=== PATIENT | female | born 1955 | race Caucasian/White ===

== ENCOUNTER 2018-09-04 11:44 | Observation (INO) | payer BC ==
[~2018-09-04] VITALS: Ht 172.7 cm; Wt 82.6 kg
[~2018-09-04 11:44] MED LIST: ABILIFY2 MG PO; AMLODIPINE BESY10 MG PO; ASACOL400 MG PO; ASPIR 8181 MG PO; BYSTOLIC10 MG PO; CLONIDINE HCL0.1 MG PO; HYDRALAZINE HCL10 MG PO; HYZAAR 100-12.1 EACH PO; PROMETHAZINE12.5 M1 PO; PROZAC20 MG PO
--- OUTSIDE RECORDS SUMMARY | 2018-09-04 11:49 | XMS REPORT ---
Author [facility] Address Unknown Phone Unavailable Care Team Providers Care Photoengraving Helper Name Role Phone Unavailable Unavailable Payers Payer Name Policy Type Policy Number Effective Date Expiration Date Problems This patient has no known problems. Allergies, Adverse Reactions, Alerts Allergy Name Allergy Type Status Severity Reaction(s) Onset Date Inactive Date Treating Clinician Comments prochlorperazine edisylate DA Active 2018-07-05 00:00:00 prochlorperazine maleate DA Active 2018-07-05 00:00:00 metoclopramide HCl DA Active SV 2018-07-05 00:00:00 ketorolac tromethamine DA Active 2018-07-05 00:00:00 morphine DA Active SV 2018-07-05 00:00:00 prochlorperazine edisylate DA Active 2017-07-22 00:00:00 prochlorperazine maleate DA Active SV 2017-07-22 00:00:00 metoclopramide HCl DA Active SV 2017-07-22 00:00:00 ketorolac tromethamine DA Active SV 2017-07-22 00:00:00 morphine DA Active SV 2017-07-22 00:00:00 Medications This patient has no known medications.
[2018-09-04] MEDS ORDERED: ASPIRIN 81 MG CHEW TAB PO ONE (12:00)
[2018-09-04 13:31] LABS: BASOPHILS # (AUTO) 0.1 (0.0-0.1); BASOPHILS % 0.9 % (0.0-1.0); EOSINOPHILS # (AUTO) 0.2 (0.0-0.4); EOSINOPHILS % 2.7 % (0.0-6.0); HEMATOCRIT 36.8 % (34.2-44.1); HEMOGLOBIN 11.7 g/dL (12.0-16.0); LYMPHOCYTES # (AUTO) 1.6 (1.0-3.2); LYMPHOCYTES % 25.2 % (18.0-39.1); MEAN CORPUSCULAR HGB CONC 31.8 g/dL (31-35); MONOCYTES # (AUTO) 0.6 (0.2-0.8); MONOCYTES % 8.7 % (4.4-11.3); NEUTROPHILS # (AUTO) 3.9 (2.1-6.9); NEUTROPHILS % 62.2 % (38.7-80.0); PLATELET COUNT 195 x10e3/uL (140-360); RED BLOOD COUNT 4.33 x10e6/uL (3.6-5.1); RED CELL DISTRIBUTION WIDTH 13.7 % (11.7-14.4)
[2018-09-04] MEDS ORDERED: PROMETHAZINE 12.5MG/ NACL 0.9% 12.5 MG/50 ML BAG IV ONE (13:45)
[2018-09-04 13:56] LABS: ALANINE AMINOTRANSFERASE 34 IU/L (0-55); ALBUMIN 3.6 g/dL (3.5-5.0); ALBUMIN/GLOBULIN RATIO 0.9 (0.8-2.0); ALKALINE PHOSPHATASE 125 IU/L (40-150); ANION GAP 14.4 mmol/L (8-16); BLOOD UREA NITROGEN 19 mg/dL (7-26); BUN/CREATININE RATIO 16 (6-25); CALCIUM 9.6 mg/dL (8.4-10.2); CARBON DIOXIDE 24 mmol/L (22-29); CHLORIDE 104 mmol/L (98-107); CREATINE KINASE 47 IU/L (29-168); CREATININE, SERUM 1.17 mg/dL (0.57-1.11); EST GLOMERULAR FILTRATION RATE 47 ML/MIN (60-); GLUCOSE 101 mg/dL (74-118); POTASSIUM 3.4 mmol/L (3.5-5.1); SODIUM 139 mmol/L (136-145)
[2018-09-04] MEDS: MORPHINE SULFATE INJ 4 MG/ML INJ IV PRN (14:45)
[2018-09-04] MEDS ORDERED: HYDRALAZINE HCL 20 MG/ML VIAL IV STA (14:53)
--- NOTE | 2018-09-04 15:41 | Diagnostic Imaging Report ---
EXAMINATION: PA and lateral views of the chest. COMPARISON: None CLINICAL HISTORY: Chest pain, abnormal EKG DISCUSSION: Left subclavian port catheter tip projects over the upper SVC. Right subclavian port catheter tip projects over the low SVC. Bilateral breast implants. Spinal fusion hardware partially visualized. Lungs are well-inflated and without focal airspace consolidation, pleural effusion, or pneumothorax rate cardiomediastinal contour is partially obscured by overlying hardware and breast implants. Tortuous thoracic aorta, with otherwise normal heart size. No overt pulmonary edema. No acute osseous abnormality. IMPRESSION: Port catheters and surgical hardware in position as above. Clear lungs. Signed by: Dr. Max Austin M.D. on 09/04/2018 3:37 PM
[2018-09-04 15:45] LABS: BILIRUBIN,URINE NEGATIVE (NEGATIVE); CLARITY,URINE HAZY (CLEAR); COLOR,URINE YELLOW (YELLOW); KETONES,URINE NEGATIVE (NEGATIVE); LEUKOCYTE ESTERASE ,URINE TRACE (NEGATIVE); NITRITE,URINE NEGATIVE (NEGATIVE); PROTEIN,URINE DIPSTICK 1+ (NEGATIVE); URINE UROBILINOGEN 0.2 mg/dL (0.2 - 1)
[2018-09-04] MEDS ORDERED: KETOROLAC TROMETHAMINE 30 MG/ML VIAL IV STA (16:00)
[2018-09-04 16:09] LABS: BACTERIA,URINE FEW /HPF; EPITHELIAL CELLS,URINE FEW /LPF; RBC,URINE 0-5 /HPF (0-5); WBC,URINE (MAN) 21-50 /HPF (0-5)
[2018-09-04] MEDS ORDERED: MORPHINE SULFATE INJ 4 MG/ML INJ IV ONE (16:30)
[2018-09-04 17:04] LABS: INR 0.88; PROTHROMBIN TIME 12.8 seconds (11.9-14.5)
[2018-09-04] MEDS ORDERED: HYDROMORPHONE 1MG/1ML INJ IV STA (17:05)
[2018-09-04] MEDS ORDERED: HYDROMORPHONE 2MG/ML 2 MG/ML ML IV ONE (17:30)
[2018-09-04] MEDS ORDERED: MORPHINE SULFATE 2 MG/ML SYR IV PRN (18:00)
[2018-09-04 22:25] LABS: CREATINE KINASE 35 IU/L (29-168)
[2018-09-04] MEDS ORDERED: NITROGLYCERIN0.4 MG SL (23:25)
[2018-09-04] MEDS ORDERED: ABILIFY10 MG PO (23:25)
[2018-09-04] MEDS ORDERED: ATORVASTATIN CA40 MG PO (23:25)
[2018-09-04] MEDS ORDERED: BUMETANIDE0.5 MG PO (23:25)
[2018-09-04] MEDS ORDERED: CARVEDILOL3.125 MG PO (23:25)
[2018-09-04] MEDS ORDERED: RANEXA500 MG PO (23:25)
[2018-09-04] MEDS ORDERED: ASPIR 8181 MG PO (23:25)
[2018-09-04 23:45] VITALS: BP 161/77
[2018-09-05] VITALS: BP 161/77
[2018-09-05] MEDS: ONDANSETRON HCL INJ 2 MG/ML VIAL IV PRN ×5 (04:02→17:10)
[2018-09-05] MEDS: MORPHINE SULFATE INJ 4 MG/ML INJ IV PRN ×7 (04:02→21:20)
[2018-09-05 06:24] LABS: CREATINE KINASE 37 IU/L (29-168)
[2018-09-05 07:59] VITALS: BP 130/72
[2018-09-05 08:06] LABS: CHOL/HDL RATIO 2.5 (3.0-3.6)
[2018-09-05 11:41] VITALS: BP 133/63
[2018-09-05] MEDS ORDERED: NITROGLYCERIN 0.4 MG SUBL SL SCH (13:00)
[2018-09-05] MEDS ORDERED: HYDRALAZINE HCL 10 MG TAB PO SCH (13:00)
[2018-09-05] MEDS: CLONIDINE HCL 0.1 MG TAB PO SCH ×3 (13:23→21:00)
[2018-09-05 15:28] VITALS: BP 144/77
[2018-09-05] MEDS: CARVEDILOL 3.125 MG TAB PO SCH (16:40)
[2018-09-05] MEDS: RANOLAZINE 500 MG TABSR PO SCH (16:40)
[2018-09-05] MEDS: HYDRALAZINE HCL 25 MG TAB PO SCH ×2 (17:27→21:00)
[2018-09-05 20:00] VITALS: BP 111/59
[2018-09-05] MEDS: ATORVASTATIN 40 MG TAB PO SCH (21:20)
[2018-09-06] VITALS (9 sets, daily range): BP systolic 98–141; BP diastolic 22–75
--- NOTE | 2018-09-06 00:12 | History and Physical ---
HISTORY OF PRESENT ILLNESS: This 63-year-old presented to the emergency room with chest pain. The patient was seen on August 31, 2018, complaining of severe chest pain, shortness of breath and extreme weakness and decrease in her daily activities. At that time, her blood pressure was normal and an electrocardiogram was also normal. The patient had a non-STEMI when she was admitted on July 05, 2018, at [facility] with a syncopal spell. At that time, the patient was stable and nuclear stress test showed apical scar. The patient was given antianginal medication and was told to report back on August 05, 2018. The patient stated the medication has not helped and she is still having the pain radiating to her left shoulder and her back. An EKG showed ST depression in the anterolateral region. The patient was therefore advised to be hospitalized, particularly since she also now had accelerated hypertension with a blood pressure of 180/110 despite medical management. PAST HISTORY: Reveals that she has malignant renovascular hypertension with stenting of the renal arteries and found to have nonfunctioning right kidney. She also had repair of an abdominal aortic aneurysm, history of coronary artery disease, mitral valve prolapse, DVT, and placement of an IVC filter in 1997. The patient also has a history of mesenteric ischemia and stenting of the superior mesenteric artery in 2004, she has chronic kidney disease, ulcerative colitis, Crohn disease, severe migraine headaches. She also had juvenile scoliosis treated with a Alicia yassine. She had cholecystectomy, hysterectomy, breast implant surgery,repair of cleft lip. She also had previous cerebrovascular accident in the right basal ganglia and she has bilateral subclavian Port-A-Cath inserted because of poor venous access. ALLERGIES: SHE IS ALLERGIC TO REGLAN, MORPHINE, TORADOL, COMPAZINE, AND IMITREX. SOCIAL HISTORY: Negative. FAMILY HISTORY: Noncontributory. REVIEW OF SYSTEMS: Remainder of systems reviewed, revealed the patient denies any fever, headache or sore throat. The patient denies any cough or sputum production. The patient denies any abdominal pain, nausea, vomiting, diarrhea or constipation. The patient denies any leg pain or leg swelling. PHYSICAL EXAMINATION VITAL SIGNS: Blood pressure 133/63. Temperature is 98.3. Oxygen saturation on room air is 94%. NECK: Carotid pulses are present. CHEST: Clear to auscultation. CARDIOVASCULAR: Normal apical impulse. The rhythm is regular. First and second are normal. There is no S3. There is no rub. ABDOMEN: Soft. There is no tenderness or organomegaly. EXTREMITIES: Pulses are 2+ throughout. There is no peripheral edema. Homans sign is negative. NEUROLOGIC: Does not reveal any motor defect. IMPRESSION 1. History of coronary artery disease with unstable angina pectoris. 2. Malignant renovascular hypertension. 3. Chronic kidney disease with solitary kidney. 4. History of migraine headaches. PLAN: Since the patient had non-STEMI in July and now presenting with unrelenting chest pain, I told the patient that she will need coronary angiography and we will hydrate the patient orally and if necessary intravenously to prevent any kidney injury due to contrast. According to the earliest available scheduling in the laboratory [facility], the patient is scheduled for the September 06, 2018, for cardiac catheterization. The patient is fully agreeable and risks have been explained in detail. Job#: [id number] [facility]
[2018-09-06] MEDS: MORPHINE SULFATE INJ 4 MG/ML INJ IV PRN ×5 (01:33→21:21)
[2018-09-06] MEDS: ONDANSETRON HCL INJ 2 MG/ML VIAL IV PRN ×4 (01:33→18:16)
[2018-09-06] MEDS ORDERED: NON-FORMULARY MEDICATION (Aripiprazole (Abilify) 10 MG) PO SCH (09:00)
[2018-09-06] MEDS: HYDRALAZINE HCL 25 MG TAB PO SCH ×5 (09:00→21:20)
[2018-09-06] MEDS: CLONIDINE HCL 0.1 MG TAB PO SCH ×5 (09:00→21:00)
[2018-09-06] MEDS ORDERED: NON-FORMULARY MEDICATION (Atorvastatin Calcium 40 MG) PO SCH (09:00)
[2018-09-06] MEDS ORDERED: BUMETANIDE 0.5 MG PO SCH (09:00)
[2018-09-06] MEDS: ARIPIPRAZOLE 5 MG TABLET PO SCH (09:33)
[2018-09-06] MEDS: ASPIRIN 81 MG CHEW TAB PO SCH (09:33)
[2018-09-06] MEDS: BUMETANIDE 1 MG TAB PO SCH (09:34)
[2018-09-06] MEDS: AMLODIPINE BESYLATE 10 MG TAB PO SCH (09:34)
[2018-09-06] MEDS: FLUOXETINE HCL 20 MG CAP PO SCH (09:34)
[2018-09-06] MEDS: CARVEDILOL 3.125 MG TAB PO SCH ×2 (09:34→16:40)
[2018-09-06] MEDS: RANOLAZINE 500 MG TABSR PO SCH ×2 (09:35→16:41)
[2018-09-06] MEDS: DEXTROSE 5%/0.45% SOD CHL 1,000 ML IV SCH (13:01)
[2018-09-06] MEDS ORDERED: MIDAZOLAM HCL 2 MG/2 ML VIAL ONE (13:20)
[2018-09-06] MEDS ORDERED: SODIUM CHLORIDE 0.9% 1000ML 1,000 ML ONE (13:21)
[2018-09-06] MEDS ORDERED: FENTANYL CITRATE/PF 100MCG/2 ML INJ ONE (13:21)
[2018-09-06] MEDS ORDERED: HEPARIN SOD/SOD CHLORIDE 2,000 ML ONE (13:21)
[2018-09-06] MEDS ORDERED: LIDOCAINE HCL 2% LOCAL 20 ML VIAL ONE ×2 (13:21→14:44)
[2018-09-06] MEDS ORDERED: IOPAMIDOL 370 MG/ML 200 ML INFUS..BTL INJ ONE (13:22)
[2018-09-06] MEDS ORDERED: PROMETHAZINE HCL (IM) 25 MG/ML VIAL ONE (14:37)
[2018-09-06] MEDS: ATORVASTATIN 40 MG TAB PO SCH (21:20)
[2018-09-07 00:17] VITALS: BP 120/63
[2018-09-07] MEDS: ONDANSETRON HCL INJ 2 MG/ML VIAL IV PRN ×3 (00:26→10:10)
[2018-09-07] MEDS: MORPHINE SULFATE INJ 4 MG/ML INJ IV PRN ×3 (00:26→10:10)
[2018-09-07 04:12] VITALS: BP 129/61
[2018-09-07] MEDS: DEXTROSE 5%/0.45% SOD CHL 1,000 ML IV SCH (07:05)
[2018-09-07 08:11] VITALS: BP 133/67
[2018-09-07 08:21] VITALS: BP 133/67
[2018-09-07] MEDS: BUMETANIDE 1 MG TAB PO SCH (09:33)
[2018-09-07] MEDS: ARIPIPRAZOLE 5 MG TABLET PO SCH (09:33)
[2018-09-07] MEDS: ASPIRIN 81 MG CHEW TAB PO SCH (09:33)
[2018-09-07] MEDS: RANOLAZINE 500 MG TABSR PO SCH (09:34)
[2018-09-07] MEDS: HYDRALAZINE HCL 25 MG TAB PO SCH ×2 (09:34→13:00)
[2018-09-07] MEDS: CARVEDILOL 3.125 MG TAB PO SCH (09:34)
[2018-09-07] MEDS: CLONIDINE HCL 0.1 MG TAB PO SCH ×2 (09:34→13:00)
[2018-09-07] MEDS: FLUOXETINE HCL 20 MG CAP PO SCH (09:34)
[2018-09-07] MEDS: AMLODIPINE BESYLATE 10 MG TAB PO SCH (09:34)
[2018-09-07 12:08] VITALS: BP 114/57
--- NOTE | 2018-09-08 09:12 | Operative Report ---
DATE OF PROCEDURE: September 06, 2018 DIAGNOSES: 1. Coronary artery disease with unstable angina pectoris. 2. Malignant renovascular hypertension. PROCEDURES: 1. Cardiac catheterization including selective coronary angiography and left ventricular angiogram. 2. Closure of left femoral artery with Angio-Seal, model V-Twist Integrated Platform. ANESTHESIA: Local anesthetic to the left groin area and intravenous moderate sedation with 1 mg of Versed and 25 mcg of fentanyl. DESCRIPTION OF PROCEDURE: After usual prepping and draping, the left inguinal area was infiltrated with local lidocaine. The left femoral artery was then punctured percutaneously, and under modified Seldinger technique, a 6-Mozambican arterial sheath was placed in the left femoral artery. Selective coronary angiography was then performed by using modified Kaylie catheters. A 6-Mozambican angled pigtail catheter was utilized for recording of hemodynamics and left ventricular angiogram in the 30-degree ARNOLD projection. At the completion of the cardiac catheterization and removal of the pigtail catheter, angiogram of the left inguinal area in the left anterior oblique position was performed prior to closure of the left femoral artery with Angio-Seal. FINDINGS OF CARDIAC CATHETERIZATION: The left ventricular pressure was 140 mmHg. The aortic pressure was 140/72 with a mean of 92 mmHg. The left ventricular end-diastolic pressure was elevated with 14 mmHg. The left main coronary artery was short and showed some early bifurcation. The left anterior descending branch showed about a 30% narrowing at takeoff of a large diagonal branch. On closer review of the left anterior descending angiogram on the initial and various subsequent views, there appears to be an abnormal flow pattern in the mid section of the LAD. This could be caused by streamlining of the contrast. However, observation and recognition of the presence of previous or recent spontaneous dissection of this segment cannot be excluded. Since there was no evidence of flow impairment or flow interruption or any significant obstruction to flow, no intervention appears to be necessary, and with review of the literature, it could be also dangerous by extending the dissection. Therefore, in these circumstances it is better to allow a self-healing process by use of strict blood pressure control, statin, beta blockade, and antiplatelet agents as well as close observation of the patient clinically and by electrocardiogram. The left circumflex artery showed about a 20% stenosis at the origin of the left circumflex trunk. The right coronary artery was large and dominant and showed a proximal 20% stenosis. The left ventricular angiogram showed normal left ventricular ejection fraction of 65%. There was some mild mitral valve prolapse noted, but there was no mitral regurgitation. FINAL IMPRESSION: 1. Mild coronary artery disease with reference of description of the left ventricular angiogram in the detailed catheterization report. 2. Normal left ventricular ejection fraction. 3. Elevation of the left ventricular end-diastolic pressure showing some mild left ventricular dysfunction. RECOMMENDATION: Medical therapy. Job#: [id number]
== END 2018-09-07 15:15 | disposition home or self-care (01) ==
LOC: ER 11:44 → ERHOLD 18:10 → IMCU 23:49
PROVIDERS: ADMIT Internal Medicine Cardiovascular Disease; ATTEND Internal Medicine Cardiovascular Disease
DX: I25.110 Atherosclerotic heart disease of native coronary artery with unstable angina pectoris (principal); I34.1 Nonrheumatic mitral (valve) prolapse; I15.0 Renovascular hypertension; I12.9 Hypertensive chronic kidney disease with stage 1 through stage 4 chronic kidney disease, or unspecified chronic kidney disease; N18.9 Chronic kidney disease, unspecified; K51.90 Ulcerative colitis, unspecified, without complications; G43.909 Migraine, unspecified, not intractable, without status migrainosus; Q60.0 Renal agenesis, unilateral; M19.90 Unspecified osteoarthritis, unspecified site; I25.2 Old myocardial infarction; Z86.73 Personal history of transient ischemic attack (TIA), and cerebral infarction without residual deficits; Z86.718 Personal history of other venous thrombosis and embolism; Z79.82 Long term (current) use of aspirin; Z96.0 Presence of urogenital implants; Z88.8 Allergy status to other drugs, medicaments and biological substances
CPT/HCPCS: 36415 ×2; 71045; 80053; 80061; 81001; 82550 ×2; 82553 ×2; 83880; 84484 ×2; 85025; 85610; 85730; 93005; 93458; 99284; G0378 ×4; J0360; J1170; J1642; J2001; J2250; J2270 ×4; J2405 ×4; J2550; J7030; Q9967

== ENCOUNTER 2018-09-28 15:00 | Inpatient (IN) | payer BC ==
[~2018-09-28] VITALS: Ht 154.4 cm; Wt 83.6 kg
[2018-09-28] MEDS: POTASSIUM CHLORIDE 10MEQ/100ML 100 ML IV SCH ×2 (00:30→19:56)
[~2018-09-28 15:00] MED LIST changes: +ABILIFY10 MG PO; +ATORVASTATIN CA40 MG PO; +BUMETANIDE0.5 MG PO; +CARVEDILOL3.125 MG PO; +NITROGLYCERIN0.4 MG SL; +RANEXA500 MG PO
--- NOTE | 2018-09-28 15:46 | NUR ---
EKG faxed to Dr. Clifford Waddell's office at this time. .
--- NOTE | 2018-09-28 16:54 | Diagnostic Imaging Report ---
EXAM: CHEST 2 VIEWS, PA and lateral DATE: 09/28/2018 3:31 PM Time stamp on exam: 4:02 PM INDICATION: Chest pain COMPARISON: 09/04/2018 FINDINGS: LINES/TUBES: There are bilateral subclavian approach chest port is. Alicia rods are also noted. Calcified breast implants are seen. Partially visualized aortic stent graft below the diaphragm and the cone of an IVC filter is present. LUNGS: No consolidations or edema. PLEURA: No effusions or pneumothorax. HEART AND MEDIASTINUM: Normal size and contour. BONES AND SOFT TISSUES: No acute findings. IMPRESSION: No acute thoracic abnormality. Signed by: Dr. Maksim Holley DO on 09/28/2018 4:51 PM
[2018-09-28] MEDS ORDERED: ONDANSETRON HCL INJ 2 MG/ML VIAL ONE (17:51)
[2018-09-28 18:00] LABS: BASOPHILS # (AUTO) 0.1 (0.0-0.1); BASOPHILS % 0.7 % (0.0-1.0); EOSINOPHILS # (AUTO) 0.1 (0.0-0.4); EOSINOPHILS % 1.2 % (0.0-6.0); HEMATOCRIT 34.2 % (34.2-44.1); HEMOGLOBIN 10.9 g/dL (12.0-16.0); LYMPHOCYTES # (AUTO) 2.2 (1.0-3.2); LYMPHOCYTES % 32.3 % (18.0-39.1); MEAN CORPUSCULAR HEMOGLOBIN 27.5 pg (28-32); MEAN CORPUSCULAR HGB CONC 31.9 g/dL (31-35); MEAN CORPUSCULAR VOLUME 86.1 fL (81-99); MONOCYTES # (AUTO) 0.6 (0.2-0.8); MONOCYTES % 8.9 % (4.4-11.3); NEUTROPHILS # (AUTO) 3.8 (2.1-6.9); NEUTROPHILS % 55.9 % (38.7-80.0); PLATELET COUNT 165 x10e3/uL (140-360); RED BLOOD COUNT 3.97 x10e6/uL (3.6-5.1); RED CELL DISTRIBUTION WIDTH 14.4 % (11.7-14.4)
[2018-09-28] MEDS ORDERED: ONDANSETRON HCL INJ 2 MG/ML VIAL IV NR (18:00)
[2018-09-28] MEDS ORDERED: NITROGLYCERIN 0.4 MG SUBL SL PRN (18:15)
[2018-09-28] MEDS ORDERED: MORPHINE SULFATE 2 MG/ML SYR IV PRN (18:15)
[2018-09-28 18:16] LABS: ALBUMIN 3.6 g/dL (3.5-5.0); ALBUMIN/GLOBULIN RATIO 0.9 (0.8-2.0); ANION GAP 16.7 mmol/L (8-16); CALCIUM 8.6 mg/dL (8.4-10.2); CREATININE, SERUM 1.04 mg/dL (0.57-1.11)
[2018-09-28 18:18] LABS: POTASSIUM 2.7 mmol/L (3.5-5.1)
--- NOTE | 2018-09-28 18:18 | NUR ---
POTTASIUM 2.7
[2018-09-28 18:23] LABS: CREATINE KINASE MB 0.7 ng/mL (0-5.0)
[2018-09-28] MEDS ORDERED: KCL 20MEQ/.9 SOD CHL 1,000 ML IV ONE (18:30)
[2018-09-28] MEDS ORDERED: POTASSIUM CHLORIDE 20 MEQ TAB CR PO NR (18:30)
[2018-09-28 18:43] LABS: INR 1.93; PROTHROMBIN TIME 23.6 seconds (11.9-14.5)
[2018-09-28 19:44] LABS: PARTIAL THROMBOPLASTIN TIME 41.1 seconds (23.8-35.5)
[2018-09-28] MEDS: FAMOTIDINE 20 MG/2 ML VIAL IV SCH (19:56)
[2018-09-28] MEDS: NITROGLYCERIN 2% OINT 1 GM PKT TOP SCH (19:56)
[2018-09-28] MEDS ORDERED: ENOXAPARIN INJ 80 MG/0.8 ML SYR SC NR (20:15)
[2018-09-28 21:00] VITALS: BP 183/85
--- NOTE | 2018-09-28 21:00 | NUR ---
patient is a new admit that arrived via stretcher. patient is awake and talking. patient has been helped into the bed. bed is in lowest position and call lopez is within reach. will continue to monitor patient.
[2018-09-28 22:08] VITALS: BP 183/85
[2018-09-28] MEDS: ONDANSETRON HCL INJ 2 MG/ML VIAL IV PRN (23:19)
[2018-09-28] MEDS: MORPHINE SULFATE INJ 4 MG/ML INJ IV PRN (23:19)
[2018-09-29] VITALS (7 sets, daily range): BP systolic 121–172; BP diastolic 61–84
[2018-09-29] MEDS: NITROGLYCERIN 2% OINT 1 GM PKT TOP SCH ×5 (00:19→23:14)
[2018-09-29 00:38] LABS: CLARITY,URINE CLEAR (CLEAR); COLOR,URINE YELLOW (YELLOW); KETONES,URINE NEGATIVE (NEGATIVE); LEUKOCYTE ESTERASE ,URINE NEGATIVE (NEGATIVE); NITRITE,URINE NEGATIVE (NEGATIVE); PROTEIN,URINE DIPSTICK TRACE (NEGATIVE); URINE UROBILINOGEN 0.2 mg/dL (0.2 - 1)
[2018-09-29 00:39] LABS: BACTERIA,URINE RARE /HPF; BILIRUBIN,URINE NEGATIVE (NEGATIVE); EPITHELIAL CELLS,URINE FEW /LPF; RBC,URINE 0-5 /HPF (0-5); WBC,URINE (MAN) 0-5 /HPF (0-5)
[2018-09-29 03:36] LABS: BASOPHILS % 0.7 % (0.0-1.0); EOSINOPHILS # (AUTO) 0.1 (0.0-0.4); EOSINOPHILS % 1.9 % (0.0-6.0); HEMATOCRIT 33.2 % (34.2-44.1); HEMOGLOBIN 10.4 g/dL (12.0-16.0); LYMPHOCYTES # (AUTO) 1.9 (1.0-3.2); LYMPHOCYTES % 31.7 % (18.0-39.1); MEAN CORPUSCULAR HEMOGLOBIN 27.3 pg (28-32); MEAN CORPUSCULAR HGB CONC 31.3 g/dL (31-35); MEAN CORPUSCULAR VOLUME 87.1 fL (81-99); MONOCYTES # (AUTO) 0.7 (0.2-0.8); MONOCYTES % 11.4 % (4.4-11.3); NEUTROPHILS # (AUTO) 3.2 (2.1-6.9); PLATELET COUNT 156 x10e3/uL (140-360); RED BLOOD COUNT 3.81 x10e6/uL (3.6-5.1); RED CELL DISTRIBUTION WIDTH 14.6 % (11.7-14.4)
[2018-09-29 03:57] LABS: ALBUMIN 3.1 g/dL (3.5-5.0); ALBUMIN/GLOBULIN RATIO 0.9 (0.8-2.0); ANION GAP 13.6 mmol/L (8-16); CALCIUM 8.7 mg/dL (8.4-10.2); CHOL/HDL RATIO 2.6 (3.0-3.6); CREATININE, SERUM 1.11 mg/dL (0.57-1.11); POTASSIUM 3.6 mmol/L (3.5-5.1)
[2018-09-29] MEDS: MORPHINE SULFATE INJ 4 MG/ML INJ IV PRN ×5 (04:01→21:36)
[2018-09-29 04:32] LABS: CREATINE KINASE MB 0.7 ng/mL (0-5.0)
[2018-09-29] MEDS: FAMOTIDINE 20 MG/2 ML VIAL IV SCH ×2 (05:12→17:25)
--- NOTE | 2018-09-29 07:00 | NUR ---
Walking rounds done. Patient instructed to call for assistance as needed and verbalized understanding. AM assessment done. Call lopez within reach.
[2018-09-29] MEDS: ONDANSETRON HCL INJ 2 MG/ML VIAL IV PRN ×4 (08:11→21:36)
[2018-09-29] MEDS ORDERED: ENOXAPARIN INJ 80 MG/0.8 ML SYR SC NR (09:00)
[2018-09-29] MEDS ORDERED: ASPIRIN 81 MG ENTERIC COATED PO SCH (09:00)
--- NOTE | 2018-09-29 10:53 | NUR ---
SOCIAL WORK INITIAL ASSESSMENT Raise Drill Operator to bedside to discuss plan of care with patient/family. CM/SW role and care transitions discussed. Anticipated discharge plan discussed along with duration of care. CM/SW discussed patients right to make decisions in care. CM/SW work hours given. Patient lives: IN HOUSE BY SELF Admit/Transfer: VIA HOME POA/Emergency contact: FRIEND LINH KINSEY Current/Previous Home Health: NONE PCP/Follow-up Care: PABLO Current/Previous DME: NONE Other Services: NONE Employment Status: RETIRED Areas of Concerns: NONE Referral Needs: NONE Education Needs: NONE IMM/BENITEZ given and signed (if applicable): NONE Goal for discharge: RETURN HOME INDEPENDENTLY CM/SW left business card at the bedside with contact information. Name and number was also written on the patients whiteboard. Patient verbalized understanding of discussion. CM will follow-up with ongoing discharge and transition of care needs.
[2018-09-29] MEDS ORDERED: NITROGLYCERIN 0.4 MG SUBL SL PRN (12:15)
[2018-09-29] MEDS ORDERED: CLONIDINE HCL 0.1 MG TAB PO PRN (12:15)
[2018-09-29] MEDS ORDERED: NON-FORMULARY MEDICATION (Aripiprazole (Abilify) 10 MG) PO SCH (12:30)
[2018-09-29] MEDS: FLUOXETINE HCL 20 MG CAP PO SCH (12:47)
[2018-09-29] MEDS: ARIPIPRAZOLE 5 MG TABLET PO SCH (12:47)
[2018-09-29] MEDS: AMLODIPINE BESYLATE 10 MG TAB PO SCH (12:47)
[2018-09-29] MEDS: BUMETANIDE 1 MG TAB PO SCH (12:47)
[2018-09-29] MEDS: SPIRONOLACTONE 25 MG TAB PO SCH (12:47)
[2018-09-29] MEDS ORDERED: HYDRALAZINE HCL 25 MG TAB PO SCH (13:00)
[2018-09-29] MEDS ORDERED: HYDRALAZINE HCL 10 MG TAB PO SCH (13:00)
--- NOTE | 2018-09-29 14:20 | NUR ---
Visit made by the Spiritual Care Department Pastoral Visitor, Soheila Neal. PV provided pastoral presence, prayer, hospitality, and supportive listening. Pastoral Visitor informed pt/family of the scope of Geriatrics Physician Services and availability. RO PAIZ Chief Internal Auditor Spiritual Care Department O: [phone] Pager: [phone] ([phone] number calling from)
[2018-09-29 17:00] LABS: CREATINE KINASE MB 0.8 ng/mL (0-5.0)
[2018-09-29] MEDS: CARVEDILOL 3.125 MG TAB PO SCH (17:24)
[2018-09-29] MEDS: OLMESARTAN 20 MG TAB PO SCH (17:24)
[2018-09-29] MEDS: RANOLAZINE 500 MG TABSR PO SCH (17:25)
--- NOTE | 2018-09-29 19:00 | NUR ---
Report given to oncoming nurse. Call lopez within reach.
[2018-09-29] MEDS: ATORVASTATIN 40 MG TAB PO SCH (20:34)
[2018-09-29] MEDS ORDERED: NON-FORMULARY MEDICATION (Atorvastatin Calcium 40 MG) PO SCH (21:00)
--- NOTE | 2018-09-29 22:14 | Diagnostic Imaging Report ---
Bone Scan, delayed phase INDICATION: Chest pain post fall one month ago. COMPARISON: Chest radiograph 09/28/2018 REPORT: Approximately 4 hours following intravenous administration of 27.5 mCi of Tc-99m MDP, delayed total body images in the anterior and posterior projections and selected spot images were obtained. Kyphoscoliosis of the thoracolumbar spine is noted. Focal increased tracer activity is seen in the upper cervical spine on the left. Round focus of increased tracer is seen in the right 2n rib anterolaterally. Degenerative changes are seen throughout the thoracolumbar spine diffusely. A single discrete focal area of markedly increased tracer activity is seen in T5. Otherwise, distribution of tracer activity is unremarkable throughout the skeletal system. No abnormal accumulation of tracer is seen in the soft tissues or urinary tract. Bilateral breast prostheses are noted. IMPRESSION: 1. Acute osteoblastic focus in the upper cervical spine is likely due to degenerative change. Greater intensity would be expected if were due to trauma. 2. Round osteoblastic lesion in the right 2nd rib anterolaterally is likely a healing rib fracture. 3. Acute osteoblastic process in T5 is nonspecific and could be due to recent trauma or degenerative change. Correlative imaging may be warranted. Signed by: Dr. Heidy Bedoya M.D. on 09/29/2018 10:11 PM
[2018-09-30] VITALS (9 sets, daily range): BP systolic 104–135; BP diastolic 61–72
[2018-09-30] MEDS: MORPHINE SULFATE INJ 4 MG/ML INJ IV PRN ×6 (02:55→22:04)
[2018-09-30] MEDS: ONDANSETRON HCL INJ 2 MG/ML VIAL IV PRN ×5 (02:55→21:51)
[2018-09-30] MEDS: NITROGLYCERIN 2% OINT 1 GM PKT TOP SCH ×3 (03:25→18:00)
[2018-09-30] MEDS: FAMOTIDINE 20 MG/2 ML VIAL IV SCH ×2 (05:25→18:35)
--- NOTE | 2018-09-30 08:18 | NUR ---
HANDOFF REPORT AND WALKING ROUNDS WITH OUTGOING PRODUCT PLANNER NURSE
[2018-09-30] MEDS ORDERED: BUMETANIDE 0.5 MG PO SCH (09:00)
[2018-09-30] MEDS: BUMETANIDE 1 MG TAB PO SCH (09:30)
[2018-09-30] MEDS: CARVEDILOL 3.125 MG TAB PO SCH ×2 (09:30→17:24)
[2018-09-30] MEDS: ARIPIPRAZOLE 5 MG TABLET PO SCH (09:30)
[2018-09-30] MEDS: OLMESARTAN 20 MG TAB PO SCH (09:30)
[2018-09-30] MEDS: SPIRONOLACTONE 25 MG TAB PO SCH (09:30)
[2018-09-30] MEDS: ASPIRIN 81 MG CHEW TAB PO SCH (09:30)
[2018-09-30] MEDS: FLUOXETINE HCL 20 MG CAP PO SCH (09:31)
[2018-09-30] MEDS: RANOLAZINE 500 MG TABSR PO SCH ×2 (09:31→17:24)
[2018-09-30] MEDS: AMLODIPINE BESYLATE 10 MG TAB PO SCH (09:31)
[2018-09-30] MEDS: ATORVASTATIN 40 MG TAB PO SCH (20:45)
--- NOTE | 2018-09-30 21:03 | NUR ---
PT ARRIVING TO UNIT VIA WHEEL CHAIR, NO DISTRESS NOTED, PT ALERT AND ORIENTED, DENIES NEEDS, CALL LIGHT IN REACH, TELEMETRY NOTED, INSTRUCTED TO CALL WITH NEEDS
[2018-10-01] VITALS (9 sets, daily range): BP systolic 105–163; BP diastolic 56–74
[2018-10-01] MEDS: MORPHINE SULFATE INJ 4 MG/ML INJ IV PRN ×5 (02:08→21:06)
[2018-10-01] MEDS: ONDANSETRON HCL INJ 2 MG/ML VIAL IV PRN ×4 (02:09→21:06)
[2018-10-01] MEDS: NITROGLYCERIN 2% OINT 1 GM PKT TOP SCH ×4 (05:42→17:21)
--- NOTE | 2018-10-01 05:43 | NUR ---
PT RESTING IN BED ALERT AND ORIENTED, PT C/O BACK PAIN , CALLED, SANDER TO NAVIN THOMSON, AWAITING RESPONSE, CALL LIGHT IN REACH, INSTRUCTED TO CALL WITH NEEDS, PT BEING MONITORED
[2018-10-01] MEDS: FAMOTIDINE 20 MG/2 ML VIAL IV SCH ×2 (05:50→17:21)
[2018-10-01] MEDS: ACETAMINOPHEN/CODEINE 300MG - 30MG TAB PO PRN (06:58)
[2018-10-01 07:00] LABS: BASOPHILS % 0.6 % (0.0-1.0); EOSINOPHILS # (AUTO) 0.1 (0.0-0.4); EOSINOPHILS % 1.6 % (0.0-6.0); HEMATOCRIT 33.6 % (34.2-44.1); HEMOGLOBIN 10.6 g/dL (12.0-16.0); LYMPHOCYTES # (AUTO) 1.6 (1.0-3.2); MEAN CORPUSCULAR HEMOGLOBIN 27.7 pg (28-32); MEAN CORPUSCULAR HGB CONC 31.5 g/dL (31-35); MONOCYTES # (AUTO) 0.7 (0.2-0.8); MONOCYTES % 10.2 % (4.4-11.3); NEUTROPHILS % 62.3 % (38.7-80.0); PLATELET COUNT 129 x10e3/uL (140-360); RED BLOOD COUNT 3.82 x10e6/uL (3.6-5.1)
[2018-10-01 07:14] LABS: ANION GAP 14.3 mmol/L (8-16); CALCIUM 8.7 mg/dL (8.4-10.2); CREATININE, SERUM 1.24 mg/dL (0.57-1.11); POTASSIUM 3.3 mmol/L (3.5-5.1)
[2018-10-01 07:48] LABS: ERYTHROCYTE SEDIMENTATION RATE 41 mm/hr (0-20)
[2018-10-01] MEDS: ASPIRIN 81 MG CHEW TAB PO SCH (09:26)
[2018-10-01] MEDS: SPIRONOLACTONE 25 MG TAB PO SCH (09:26)
[2018-10-01] MEDS: ARIPIPRAZOLE 5 MG TABLET PO SCH (09:26)
[2018-10-01] MEDS: FLUOXETINE HCL 20 MG CAP PO SCH (09:27)
[2018-10-01] MEDS: BUMETANIDE 1 MG TAB PO SCH (09:27)
[2018-10-01] MEDS: AMLODIPINE BESYLATE 10 MG TAB PO SCH (09:27)
[2018-10-01] MEDS: RANOLAZINE 500 MG TABSR PO SCH ×2 (09:27→17:21)
[2018-10-01] MEDS: CARVEDILOL 3.125 MG TAB PO SCH ×2 (09:27→17:21)
[2018-10-01] MEDS: OLMESARTAN 20 MG TAB PO SCH (09:27)
[2018-10-01] MEDS: IRON SUCROSE 100 MG in SODIUM CHLORIDE 0.9% 100 ML 100 ML IV SCH (14:25)
--- NOTE | 2018-10-01 19:30 | NUR ---
REPORT TAKEN FROM MORNING ANABELA ESTEVES .PT IS LYEING IN THE BED.NO RESP.DISTRESS.NO PAIN VOICED.AAOX4.PHONE AND CALL LIGHT WITHIN REACH.INSTRUCTED TO CALL FOR ASSISTANCE NEEDED.
[2018-10-01] MEDS: ATORVASTATIN 40 MG TAB PO SCH (21:25)
--- NOTE | 2018-10-01 22:00 | NUR ---
NEEDS TO COLLECT STOOL OCCULT BLOOD.EXPLAINED AND PROVIDED SPECIMEN CONTAINER.
[2018-10-02] MEDS: NITROGLYCERIN 2% OINT 1 GM PKT TOP SCH ×4 (00:45→17:40)
[2018-10-02] MEDS: MORPHINE SULFATE INJ 4 MG/ML INJ IV PRN ×4 (00:50→15:42)
[2018-10-02] MEDS: ONDANSETRON HCL INJ 2 MG/ML VIAL IV PRN ×3 (01:00→15:42)
--- NOTE | 2018-10-02 03:20 | NUR ---
PT IS RESTING IN THE BED.STABLE CONDITION.
[2018-10-02] MEDS: FAMOTIDINE 20 MG/2 ML VIAL IV SCH ×2 (05:12→17:40)
--- NOTE | 2018-10-02 06:00 | NUR ---
RIGHT PORT O CATH IS NOT WORKING.NO BLOOD RETURNED.PAGED TO .WAITING FOR THE REPLY.
[2018-10-02 06:55] LABS: INR 0.91; PROTHROMBIN TIME 13.1 seconds (11.9-14.5)
[2018-10-02 06:56] LABS: PARTIAL THROMBOPLASTIN TIME 33.9 seconds (23.8-35.5)
[2018-10-02 06:58] VITALS: BP 100/58
[2018-10-02 07:00] LABS: ANION GAP 12.3 mmol/L (8-16); CALCIUM 8.9 mg/dL (8.4-10.2); CREATININE, SERUM 1.32 mg/dL (0.57-1.11); POTASSIUM 3.3 mmol/L (3.5-5.1)
--- NOTE | 2018-10-02 07:00 | NUR ---
SHIFT REPORT RECEIVED FROM NIGHT RN. PT DENIES NEEDS AT THIS TIME.
--- NOTE | 2018-10-02 07:05 | NUR ---
REPORT GIVEN TO THE ONCOMING RN.WALKING ROUNDS DONE.STABLE CONDITION.
[2018-10-02 07:59] VITALS: BP 119/59
[2018-10-02] MEDS: ARIPIPRAZOLE 5 MG TABLET PO SCH (09:06)
[2018-10-02] MEDS: ASPIRIN 81 MG CHEW TAB PO SCH (09:06)
[2018-10-02] MEDS: BUMETANIDE 1 MG TAB PO SCH (09:06)
[2018-10-02] MEDS: SPIRONOLACTONE 25 MG TAB PO SCH (09:06)
[2018-10-02] MEDS: FLUOXETINE HCL 20 MG CAP PO SCH (09:07)
[2018-10-02] MEDS: AMLODIPINE BESYLATE 10 MG TAB PO SCH (09:07)
[2018-10-02] MEDS: CARVEDILOL 3.125 MG TAB PO SCH ×2 (09:07→17:40)
[2018-10-02] MEDS: RANOLAZINE 500 MG TABSR PO SCH ×2 (09:07→17:00)
--- NOTE | 2018-10-02 10:00 | NUR ---
ATTEMPTED TO ACCESS LEFT PORTACATH. STILL NO BLOOD RETURN.
[2018-10-02] MEDS: ACETAMINOPHEN/CODEINE 300MG - 30MG TAB PO PRN (11:44)
[2018-10-02 12:00] VITALS: BP 121/63
--- NOTE | 2018-10-02 13:39 | NUR ---
CALLED DR. SAN ABOUT SITUATION WITH LEFT AND RIGHT PORTACATH ACCESS. THIS NURSE WAS INSTRUCTED TO KEEP TRYING TO GAIN ACCESS.
[2018-10-02] MEDS: IRON SUCROSE 100 MG in SODIUM CHLORIDE 0.9% 100 ML 100 ML IV SCH (13:43)
[2018-10-02 16:00] VITALS: BP 124/65
[2018-10-02] MEDS ORDERED: NITRO-BID1 GM (16:11)
[2018-10-02] MEDS ORDERED: BENICAR20 MG PO (16:12)
[2018-10-02] MEDS ORDERED: CLONIDINE HCL0.1 MG PO (18:11)
--- NOTE | 2018-10-06 07:23 | History and Physical ---
HISTORY OF PRESENT ILLNESS: The patient stated that she was sitting on couch when all of sudden heart was pounding and racing and she developed sharp chest pains. She had difficulty breathing and after this lasted for about 30 minutes, she decided to go to the emergency room of [facility] and she is now admitted to the hospital. Earlier on the day, the patient was seen because of persistent severe dyspnea on exertion and chest tightness with minimal exertion. The patient is quite disabled. She underwent cardiac catheterization, which did not reveal any severe obstructive coronary disease, normal left ventricular function. The patient also was sent for some laboratory evaluation and her result showed normal BNP and also her BMP showed no significant abnormalities. Her creatinine was 1.1, potassium 3.7, since I have some suspicion that the patient may develop some lupoid manifestation secondary to hair loss and I ordered CANDIDA screening test, which however is not available at the time of admission. The patient does describe discomfort in her back and shoulders and fleeting musculoskeletal pain. She also showed me a rash on the knees, both breasts, which appeared to be secondary to Katheryn and when the patient left the office, she received prescription for fungicide cream. Because of the patient's symptoms, she also had modified stress test using the modified Danny protocol since symptoms have seemed to be mostly exertional. The patient was only able to walk about 2 minutes and she felt that the stress test to be discontinued because of becoming tired and short of breath and tightness in her chest. The patient's blood pressure did rise to 190. There was no arrhythmia and the patient has some resting nonspecific ST-T changes, which have remained the same at the end of the test. The patient also recently has been complaining of sweating of legs and arms, which could be also related to the patient's amlodipine medication and thus she was instructed to take this particular medication at night and also her diuretic Bumex was increased from 0.5 mg to 1 mg; however, when she entered the emergency room, she was showing significant hypokalemia with 2.7 and supplemental potassium has already been ordered. The patient has very poor venous access and she has bilateral Port-A-Cath implanted which usually can be accessed for laboratory testing and intravenous medication or fluid administration. PAST HISTORY: The patient's past history reveals that she has juvenile scoliosis and Alicia yassine inserted. She also had previous repair of an abdominal aortic aneurysm. She required an IVC filter because of DVT and PE when she was at [facility]. The patient also has a long history of bilateral renovascular disease. She had bilateral renal stenting; however, stent in the right kidney has been showing in-stent stenosis and her right kidney is mildly atrophic. The patient has mainly the solitary left kidney, which has a stent in place. The patient also has a prior stenting of the SMA. She has bipolar disorder, malignant hypertension, migraine headaches. ALLERGIES: THE PATIENT IS ALLERGIC TO KETOROLAC, REGLAN AND PROCHLORPERAZINE. SOCIAL HISTORY: Negative. FAMILY HISTORY: Noncontributory. REVIEW OF SYSTEMS: The patient denies any headache or sore throat. The patient denies any cough or sputum production. The patient denies any abdominal pain, nausea, vomiting, melena, or hematemesis. PHYSICAL EXAMINATION VITAL SIGNS: Blood pressure 130/72. She is afebrile. NECK: Carotid pulses are present. CHEST: Clear to auscultation. CARDIOVASCULAR SYSTEM: Normal apical impulse. The rhythm is regular. First and second are normal. There is no S3. There is no rub. ABDOMEN: Soft. There is no tenderness or organomegaly. EXTREMITIES: Reveals 1 to 2+ edema. The patient has bilateral breast implants and shows rash on the knees, both breasts, which is red and confluent without any evidence of purulent excretions. NEUROLOGIC: Intact. IMPRESSION 1. Coronary atherosclerotic heart disease. 2. Hypertension. 3. Cardiovascular disease with acute on chronic diastolic congestive heart failure. 4. Renovascular hypertension with solitary left kidney. 5. Status post repair of an abdominal aortic aneurysm and insertion of IVC filter. 6. Bipolar disorder. 7. Migraine headaches. 8. Bilateral breast implants with submammary Katheryn infection. 9. Suspicion of lupoid reaction to hydralazine. I agree with admission evaluation and treatment plan from the emergency room physician, Dr. Jorgensen and will follow his program. We will obtain a followup EKG since cardiac enzymes have been normal. We will also obtain echocardiogram to rule out an evidence of pericardial effusion and reassess the patient's left ventricular function. Also, I agree that the patient should be maintained on telemetry and we will order lupus screening antibody test and CANDIDA titer. Job#: [id number] ATUL
== END 2018-10-02 18:30 | disposition home or self-care (01) | DRG 291 ==
LOC: ER 15:00 → INTOOBSV 19:13 → ERHOLD 19:13 → IMCU 21:55 → OBSVTOIN 09-30 09:23 → MED/SURG 09-30 21:03
PROVIDERS: ADMIT Internal Medicine Cardiovascular Disease; ATTEND Internal Medicine Cardiovascular Disease
DX: I13.0 Hypertensive heart and chronic kidney disease with heart failure and stage 1 through stage 4 chronic kidney disease, or unspecified chronic kidney disease (principal); I50.33 Acute on chronic diastolic (congestive) heart failure; K50.90 Crohn's disease, unspecified, without complications; I25.110 Atherosclerotic heart disease of native coronary artery with unstable angina pectoris; R07.2 Precordial pain; N18.9 Chronic kidney disease, unspecified; I50.9 Heart failure, unspecified; M41.119 Juvenile idiopathic scoliosis, site unspecified
CPT/HCPCS: 36415; 71046; 78306; 80048; 80053; 80061; 81001; 82550; 82553; 83516; 83540; 83690; 83735; 83880; 84466; 84484; 85025; 85610; 85651; 85730; 86160; 86225; 86235; 86255; 86256; 86376; 87086; 93005; 93306; 99284; A9503; G0378; J1650; J1756; J2270; J2405; J3480

== ENCOUNTER 2018-10-24 11:05 | Inpatient (IN) | payer BC ==
[~2018-10-24] VITALS: Ht 172.7 cm; Wt 83.9 kg
[~2018-10-24 11:05] MED LIST changes: +BENICAR20 MG PO; +NITRO-BID1 GM
--- NOTE | 2018-10-24 11:44 | NUR ---
PT TAKEN TO ROOM [address] STAT AND REPORT TO DR CUNHA
[2018-10-24] MEDS ORDERED: SODIUM CHLORIDE 0.9% 1000ML 1,000 ML IV STA (12:03)
[2018-10-24 13:12] LABS: BASOPHILS % 0.8 % (0.0-1.0); EOSINOPHILS # (AUTO) 0.2 (0.0-0.4); EOSINOPHILS % 2.8 % (0.0-6.0); HEMATOCRIT 34.5 % (34.2-44.1); HEMOGLOBIN 10.9 g/dL (12.0-16.0); LYMPHOCYTES # (AUTO) 1.8 (1.0-3.2); LYMPHOCYTES % 33.8 % (18.0-39.1); MEAN CORPUSCULAR HGB CONC 31.6 g/dL (31-35); MEAN CORPUSCULAR VOLUME 85.6 fL (81-99); MONOCYTES # (AUTO) 0.4 (0.2-0.8); MONOCYTES % 6.8 % (4.4-11.3); NEUTROPHILS % 55.6 % (38.7-80.0); PLATELET COUNT 139 x10e3/uL (140-360); RED BLOOD COUNT 4.03 x10e6/uL (3.6-5.1); RED CELL DISTRIBUTION WIDTH 14.6 % (11.7-14.4)
[2018-10-24 13:16] LABS: INR 0.91; PROTHROMBIN TIME 13.1 seconds (11.9-14.5)
[2018-10-24 13:17] LABS: PARTIAL THROMBOPLASTIN TIME 20.9 seconds (23.8-35.5)
[2018-10-24 13:26] LABS: ALBUMIN 3.6 g/dL (3.5-5.0); ALBUMIN/GLOBULIN RATIO 0.9 (0.8-2.0); ANION GAP 13.7 mmol/L (8-16); CALCIUM 8.8 mg/dL (8.4-10.2); CREATININE, SERUM 1.82 mg/dL (0.57-1.11); POTASSIUM 4.7 mmol/L (3.5-5.1)
[2018-10-24 13:56] LABS: BILIRUBIN,URINE NEGATIVE (NEGATIVE); CLARITY,URINE CLEAR (CLEAR); COLOR,URINE YELLOW (YELLOW); KETONES,URINE NEGATIVE (NEGATIVE); LEUKOCYTE ESTERASE ,URINE NEGATIVE (NEGATIVE); NITRITE,URINE NEGATIVE (NEGATIVE); PROTEIN,URINE DIPSTICK NEGATIVE (NEGATIVE); URINE UROBILINOGEN 0.2 mg/dL (0.2 - 1)
[2018-10-24] MEDS ORDERED: ONDANSETRON HCL INJ 2MG/ML 2ML 2 MG/ML VIAL IV NR (15:15)
[2018-10-24] MEDS ORDERED: HYDROMORPHONE 2MG/ML 2 MG/ML ML IV NR (15:30)
--- NOTE | 2018-10-24 16:44 | Diagnostic Imaging Report ---
EXAMINATION: CT of the abdomen and pelvis without contrast. TECHNIQUE: Abdomen and pelvis were scanned utilizing a multidetector helical scanner from the lung base to the pubic symphysis without IV Contrast. Coronal and sagittal reformations were obtained. Routine protocol was performed. COMPARISON: Report from CT Abdomen/Pelvis 02/16/2015, images were not available for review at the time of this dictation. CLINICAL HISTORY:Left flank pain x 5 days. RADIATION DOSE: Total DLP: 463.4 mGy*cm CTDIvol has been reviewed. It is below the limits set by the Radiation Protocol Committee (RPC). DISCUSSION: ABSENCE OF INTRAVENOUS CONTRAST DECREASES SENSITIVITY FOR DETECTION OF FOCAL LESIONS AND VASCULAR PATHOLOGY. LOWER THORAX: Patchy dependent atelectasis. Small hiatal hernia. HEPATOBILIARY:No focal hepatic lesions. No biliary ductal dilation. Status post cholecystectomy. SPLEEN: No splenomegaly. PANCREAS: No focal masses or ductal dilatation. ADRENALS: No adrenal nodules. KIDNEYS/URETERS: Atrophy of the right kidney. There is a 6 mm nonobstructing right lower pole renal calculus. There is an adjacent punctate 2 mm renal calculus. Left kidney appears unremarkable. No evidence of hydronephrosis. PELVIC ORGANS/BLADDER: The bladder is normal. Status post hysterectomy. PERITONEUM/RETROPERITONEUM: No free air or fluid. LYMPH NODES: No evidence of lymphadenopathy. VESSELS: Suboptimally evaluated in the absence of contrast. Infrarenal abdominal aortic aneurysm which measures up to 3.2 cm. Aortic and bilateral iliac endografts are present. Proximal SMA and bilateral renal stents. IVC filter with filter struts that have penetrated through the IVC wall. GI TRACT: Colonic diverticulosis without CT evidence of diverticulitis. No evidence of bowel wall thickening or bowel obstruction. BONES AND SOFT TISSUES: No bony destructive lesions. Breast augmentation. Partially seen thoracic spinal fixation hardware. IMPRESSION: No evidence of acute abnormality in the abdomen or pelvis on non-contrast CT. No evidence of renal stone. Signed by: Dr. Lavon العراقي MD on 10/24/2018 4:41 PM
[2018-10-24] MEDS ORDERED: ONDANSETRON HCL INJ 2MG/ML 2ML 2 MG/ML VIAL ONE (17:27)
[2018-10-24] MEDS ORDERED: SEVOFLURANE INHAL SOLN 250 ML PEN BTL ONE (17:27)
[2018-10-24] MEDS ORDERED: PROPOFOL IV EMULSION 10 MG/ML 20 ML VIAL ONE (17:27)
[2018-10-24] MEDS ORDERED: LIDOCAINE HCL 2% LOCAL INJ 5 ML SDV VIAL INJ ONE (17:27)
[2018-10-24] MEDS ORDERED: DEXAMETHASONE SOD PHOS INJ 4 MG/ML VIAL ONE (17:27)
[2018-10-24] MEDS ORDERED: DIAZEPAM 5 MG TAB PO PRN (18:45)
[2018-10-24] MEDS: SODIUM CHLORIDE 0.9% 1000ML 1,000 ML IV SCH (19:47)
[2018-10-24] MEDS: ONDANSETRON HCL INJ 2MG/ML 2ML 2 MG/ML VIAL IV PRN (19:58)
[2018-10-24] MEDS: MORPHINE SULFATE INJ 4 MG/ML INJ 1ML IV PRN (19:58)
[2018-10-24 21:10] VITALS: BP 97/53
[2018-10-24 21:38] VITALS: BP 97/53
[2018-10-24 22:07] VITALS: BP 97/53
[2018-10-25] VITALS (7 sets, daily range): BP systolic 110–149; BP diastolic 58–68
[2018-10-25] MEDS: MORPHINE SULFATE INJ 4 MG/ML INJ 1ML IV PRN ×3 (02:58→16:32)
[2018-10-25] MEDS: SODIUM CHLORIDE 0.9% 1000ML 1,000 ML IV SCH ×3 (02:58→20:17)
[2018-10-25] MEDS: ONDANSETRON HCL INJ 2MG/ML 2ML 2 MG/ML VIAL IV PRN ×3 (02:59→16:32)
[2018-10-25 05:36] LABS: BASOPHILS % 0.5 % (0.0-1.0); EOSINOPHILS # (AUTO) 0.1 (0.0-0.4); EOSINOPHILS % 2.1 % (0.0-6.0); HEMATOCRIT 33.4 % (34.2-44.1); HEMOGLOBIN 10.2 g/dL (12.0-16.0); LYMPHOCYTES # (AUTO) 0.9 (1.0-3.2); LYMPHOCYTES % 21.2 % (18.0-39.1); MEAN CORPUSCULAR HEMOGLOBIN 27.2 pg (28-32); MEAN CORPUSCULAR HGB CONC 30.5 g/dL (31-35); MEAN CORPUSCULAR VOLUME 89.1 fL (81-99); MONOCYTES # (AUTO) 0.3 (0.2-0.8); MONOCYTES % 7.4 % (4.4-11.3); NEUTROPHILS % 68.6 % (38.7-80.0); PLATELET COUNT 123 x10e3/uL (140-360); RED BLOOD COUNT 3.75 x10e6/uL (3.6-5.1); RED CELL DISTRIBUTION WIDTH 14.6 % (11.7-14.4)
[2018-10-25 06:02] LABS: ANION GAP 10.9 mmol/L (8-16); CALCIUM 8.2 mg/dL (8.4-10.2); CREATININE, SERUM 1.44 mg/dL (0.57-1.11); POTASSIUM 4.9 mmol/L (3.5-5.1)
--- NOTE | 2018-10-25 07:28 | Consultation ---
DATE OF CONSULTATION: October 24, 2018 Patient admitted on 24 of October, seen on 24 of October. Patient admitted for Dr. Cisneros. HISTORY: This 63-year-old patient presented to the emergency room complaining of severe low back pain. The patient was complaining recently of back pain. She was found to have urinary tract infection. She was initially started on Cipro which caused diarrhea and then being continued on Bactrim DS twice daily which she tolerated quite well. However, the day before the admission, she noted that she urinated very little and was having difficulty in urination. She presented to the emergency room and had Mccray catheter placed, the amount of the residual is not known to myself, however, the patient stated that after her bladder was emptied, she is now urinating normally. The patient's back pain is in the lower portion of the back and across the lumbar area and has been unrelenting. The patient's history is significant that she was hospitalized before with mostly chest pain, and had cardiac catheterization, which reveals some coronary artery disease, however, no intervention was performed, and patient had normal left ventricular function. She was also found that she probably developed lupoid reaction to hydralazine with a positive CANDIDA factor and this medication was then discontinued since also it caused her to have palpitation and rapid heart beats. 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 She started with bilateral renal stents about 20 years ago with some redo's, and on the last evaluation, it was found that the right kidney has been atrophic. The patient also has repair of abdominal aortic aneurysm with endovascular stenting. The patient also had history of DVT and required placement of an IVC filter at [facility] which according to the CT scan showed penetration of struts through the IVC wall which may need further investigation. The patient also has history of severe migraine, depression, and some altered mental status. ALLERGIES: THE PATIENT IS ALLERGIC TO REGLAN, KETOROLAC, PROCHLORPERAZINE. SOCIAL HISTORY: Negative. FAMILY HISTORY: Noncontributory. PHYSICAL EXAMINATION: VITAL SIGNS: Reveals a blood pressure 130/78. The original blood pressure on admission in the triage was recorded with 103/62. The oxygen saturation was 98% and the pulse was 60 per minute. NECK: Carotid pulses are present. CHEST: Clear to auscultation. CARDIOVASCULAR SYSTEM: There is a normal apical impulse. The rhythm is regular. First and second are normal. There is no S3. ABDOMEN: Soft. There is no tenderness, no organomegaly. EXTREMITIES: Pulses are present. There is no peripheral edema. NEUROLOGIC: Does not reveal any motor defect. IMPRESSION: 1. Low back pain. 2. Status post repair of juvenile scoliosis with Alicia yassine. 3. Coronary artery disease. 4. Malignant renovascular hypertension. 5. Migraine, depression. 6. Chronic kidney disease with acute kidney injury presently. 7. Small hiatal hernia. 8. Diverticulosis. 9. Atrophy of the right kidney and right renal calculous. 10. Status post hysterectomy, cholecystectomy, appendectomy and breast implants. 11. Stenting of the superior mesenteric artery. 12. Status post implantation of an inferior vena cava filter with penetrated struts as described in the computerized tomography scan of the abdomen. Recommend to continue observation. The patient may benefit also from a CT scan without contrast of the L-spine for further evaluation of back pain. The patient also has some chronic iron deficiency anemia which also may need some further evaluation, apparently was previously evaluated by Dr. Mendoza Crow. Thank you very much for letting me see this very nice patient. Job#: [id number] cc:MARIBEL SHAH MD
--- NOTE | 2018-10-25 07:40 | NUR ---
PT RESTING IN BED, C/O PAIN TO BACK AND JORDAN. NO S/S DISTRESS. PAIN MEDS ADMIN. WILL CONTINUE TO MONITOR.
--- NOTE | 2018-10-25 09:26 | NUR ---
SOCIAL WORK INITIAL ASSESSMENT Hot Top Liner Helper to bedside to discuss plan of care with patient/family. CM/SW role and care transitions discussed. Anticipated discharge plan discussed along with duration of care. CM/SW discussed patients right to make decisions in care. CM/SW work hours given. Patient lives: IN OWN HOUSE BY SELF Admit/Transfer: VIA ED FROM HOME POA/Emergency contact: FRIEND LINH NUMBER ON FILE Current/Previous Home Health: NONE PCP/Follow-up Care: PABLO Current/Previous DME: HAS A BPAP AT HOME Other Services: NONE Employment Status: RETIRED Areas of Concerns: FATHER JUST Referral Needs: NONE Education Needs: NONE IMM/BENITEZ given and signed (if applicable): NA Goal for discharge: RETURN HOME INDEPENDENTLY CM/SW left business card at the bedside with contact information. Name and number was also written on the patients whiteboard. Patient verbalized understanding of discussion. CM will follow-up with ongoing discharge and transition of care needs.
[2018-10-25] MEDS: HYDROCODONE/APAP 10MG-325MG TAB PO PRN (11:59)
--- NOTE | 2018-10-25 13:19 | Diagnostic Imaging Report ---
History: Back pain Comparison studies: None Technique: Axial images were obtained from T12 through the sacrum. Coronal and sagittal images reconstructed from the axial data. Intravenous contrast: None Dose modulation, iterative reconstruction, and/or weight based adjustment of the mA/kV was utilized to reduce the radiation dose to as low as reasonably achievable. Findings: Number of non-rib bearing vertebral bodies: 5 Alignment: Normal lordosis. Mild levoscoliosis centered at L3. Soft tissues: No acute abnormalities. Atrophic changes of the right kidney with subcentimeter stone at the lower calyceal system. Dilated abdominal aorta measuring 3 cm in transverse diameter. Aortobifemoral metallic stent. Right renal artery and SMA metallic stents. IVC filter in place. Metallic clips at the gallbladder fossa. Paraspinal muscles: Fatty infiltration of the paraspinal musculature secondary to moderate atrophy more significant at the lower lumbar spine Surgical changes: Left posterior interlocking yassine with distal aspect hooked at L2 left lamina. Laminectomy changes at the thoracolumbar region. Vertebrae: No acute fractures, infection or neoplasm. Chronic mild depression of L1 superior endplate Degenerative changes: L1-L2: Patent canal and foramina L2-L3: Asymmetric left disc bulge with patent canal and foramina L3-L4: Diffuse disc bulge, mild facet hypertrophy and ligamentum flavum thickening results in mild canal stenosis and mild bilateral foraminal narrowing L4-L5: Diffuse disc bulge, mild facet hypertrophy and ligamentum flavum thickening results in moderate canal stenosis and mild bilateral foraminal narrowing. L5-S1: Grossly patent canal and foramina Sacroiliac joints: No degenerative changes. IMPRESSION: 1. Moderate canal stenosis at L4-L5 secondary to degenerative changes. 2. Mild bilateral foraminal narrowing at L3-L4 and L4-L5. 3. Surgical changes at the thoracolumbar region without evidence of complication. 4. Abdominal findings better described on recent CT abdomen Signed by: DR Gavin Berg M.D. on 10/25/2018 1:16 PM
--- NOTE | 2018-10-25 15:56 | NUR ---
paged re micro
[2018-10-25] MEDS ORDERED: ALPRAZOLAM0.25 MG PO (16:39)
--- NOTE | 2018-10-25 16:39 | NUR ---
aware of micro, reviewed med list with pt pharmacy and updated Addendum: 10/25/18 at 1641 by Pili Anderson RN MD aware of pt vs/htn
[2018-10-25] MEDS: CARVEDILOL 3.125 MG TAB PO SCH (17:22)
[2018-10-25] MEDS: CLONIDINE HCL 0.1 MG TAB PO SCH (21:00)
--- NOTE | 2018-10-25 21:12 | Consultation ---
DATE OF CONSULTATION: October 25, 2018 REASON FOR CONSULTATION: Fever and chills with bacteremia. HISTORY: This is a 63-year-old female who comes into the emergency room because she was not feeling well. She told me she is just not feeling well and hurting all over. She had multiple kidney infections and that is why she came. The patient apparently has history of recurrent UTI. She has been on Cipro. She is on Bactrim DS, but she is coming with fever and chills. The patient tells me she has history of Crohn's disease and she had Port-A-Cath for 20 years now. The patient has history of DVT, had placement of IVC filter at [facility] which she had for some time. She also has 1 kidney. Apparently, one of her kidneys is not working. Patient comes in with fever and chills and not feeling well. Her blood culture, 2 sets are gram-positive cocci. LABS: White count is 4.3, hemoglobin of 10. Sodium 135, potassium 4.9, creatinine 1.44. PAST MEDICAL HISTORY: She has Crohn's disease, renal disease. DVT as mentioned above. ALLERGIES: NKA. SOCIAL HISTORY: There is no smoking, drug abuse, alcohol abuse. REVIEW OF SYSTEMS: Generally, she is not feeling well. PHYSICAL EXAMINATION: HEENT: She does not appear icteric. NECK: Supple. CHEST: Clear. HEART: S1 and S2. No S3, S4, or murmur. ABDOMEN: Soft. Bowel sounds present. No tenderness. EXTREMITIES: No edema. SKIN: No rash. IMPRESSION: 1. Bacteremia, gram-positive cocci, concern about Port-A-Cath infection. 2. Chronic kidney disease. 3. History of Crohn's disease. PLAN: Will put the patient on daptomycin 6 mg per kg q.48h. Recheck her blood cultures from the peripheral. Await identification. Recheck CBC. Recheck chem panel. Will follow. Job#: [id number]
[2018-10-26] VITALS (7 sets, daily range): BP systolic 115–156; BP diastolic 58–78
[2018-10-26] MEDS: HYDROCODONE/APAP 10MG-325MG TAB PO PRN (00:06)
--- NOTE | 2018-10-26 01:30 | NUR ---
patient's is complaining of pain around port o cath. Fluids were stopped and this grant writer attempted to flush the line. Port o cath was giving alot of resistance and was not able to be flushed. Multiple members of staff assisted with trying to start a peripheral IV. A 24 gauge peripheral IV was eventually started in the patients left thumb. IV is patent and there is blood return. patient tolerated procedure well.
[2018-10-26] MEDS: MORPHINE SULFATE INJ 4 MG/ML INJ 1ML IV PRN ×5 (02:33→22:55)
[2018-10-26] MEDS: ONDANSETRON HCL INJ 2MG/ML 2ML 2 MG/ML VIAL IV PRN ×5 (02:33→22:55)
[2018-10-26 05:18] LABS: BASOPHILS % 0.5 % (0.0-1.0); EOSINOPHILS # (AUTO) 0.1 (0.0-0.4); EOSINOPHILS % 2.6 % (0.0-6.0); HEMATOCRIT 34.4 % (34.2-44.1); HEMOGLOBIN 10.5 g/dL (12.0-16.0); LYMPHOCYTES # (AUTO) 1.5 (1.0-3.2); LYMPHOCYTES % 35.4 % (18.0-39.1); MEAN CORPUSCULAR HEMOGLOBIN 27.3 pg (28-32); MEAN CORPUSCULAR HGB CONC 30.5 g/dL (31-35); MEAN CORPUSCULAR VOLUME 89.4 fL (81-99); MONOCYTES # (AUTO) 0.4 (0.2-0.8); MONOCYTES % 10.1 % (4.4-11.3); NEUTROPHILS # (AUTO) 2.2 (2.1-6.9); NEUTROPHILS % 51.2 % (38.7-80.0); PLATELET COUNT 125 x10e3/uL (140-360); RED BLOOD COUNT 3.85 x10e6/uL (3.6-5.1); RED CELL DISTRIBUTION WIDTH 14.3 % (11.7-14.4)
[2018-10-26 05:32] LABS: ANION GAP 10.7 mmol/L (8-16); CALCIUM 8.8 mg/dL (8.4-10.2); CREATININE, SERUM 1.28 mg/dL (0.57-1.11); POTASSIUM 4.7 mmol/L (3.5-5.1)
--- NOTE | 2018-10-26 06:02 | NUR ---
MD answering service notified of need to page . answering service will notify MD to call this travel writer back regarding port o cath. Awaiting call back from .
--- NOTE | 2018-10-26 06:26 | NUR ---
returned call. no new orders given.
--- NOTE | 2018-10-26 07:01 | NUR ---
report given to day nurse. patient is resting comfortably in bed. bed is in lowest position and call light is within reach.
--- NOTE | 2018-10-26 07:53 | NUR ---
PT RESTING IN BED, REQUESTS ONLY IV PAIN MEDICATION. WILL CONTINUE TO MONITOR.
[2018-10-26] MEDS: CLONIDINE HCL 0.1 MG TAB PO SCH ×3 (07:57→22:15)
[2018-10-26] MEDS: SODIUM CHLORIDE 0.9% 1000ML 1,000 ML IV SCH ×2 (07:58→22:57)
[2018-10-26] MEDS: CARVEDILOL 3.125 MG TAB PO SCH ×2 (07:58→18:33)
[2018-10-26] MEDS ORDERED: DAPTOMYCIN IV SCH (10:00)
[2018-10-26] MEDS ORDERED: SODIUM CHLORIDE 0.9% IV SCH (10:00)
[2018-10-26] MEDS: LINEZOLID 600 MG TAB PO SCH ×2 (10:30→22:16)
--- NOTE | 2018-10-26 11:22 | NUR ---
CALL PLACED TO DARRICK WEINSTEIN TO CLARIFY NEED FOR ABX. STATES PT HAS NO ACCESS AT THIS TIME AND WAS CHANGED TO PO UNTIL A NEW LINE CAN BE PLACED. STATES PT WILL NEED AN LTAC FOR FDC IV ABX. CALL WAS PLACED TO DR. ERWIN. SPOKE Froilan FUNK. STATES SHE WILL HAVE DR. ERWIN RETURN CM'S CALL REGARDING CHANGING PT TO INPATIENT STATUS.
--- NOTE | 2018-10-26 13:32 | NUR ---
md placing central line came to discuss with pt, pt verbalized understanding. consent obtained.
--- NOTE | 2018-10-26 14:59 | NUR ---
pt off unit for central line placement
[2018-10-26] MEDS: ALPRAZOLAM 1 MG TAB PO SCH ×2 (15:00→21:00)
[2018-10-26] MEDS ORDERED: ALPRAZOLAM 0.25 MG TAB PO SCH (15:00)
--- NOTE | 2018-10-26 15:19 | Diagnostic Imaging Report ---
EXAMINATION: CHEST 2 VIEWS INDICATION: Central line placement. Chronic kidney disease ^PORT-A-CATH ^[id number] ^[id number] COMPARISON: None FINDINGS: TUBES and LINES: Left and right anterior chest port catheters with distal tips over the mid/low superior vena cava. The distal tip of the left catheter is located more superiorly compared with the right-sided catheter. LUNGS: Lungs are well inflated. Lungs are clear. There is no evidence of pneumonia or pulmonary edema. PLEURA: No pleural effusion or pneumothorax. HEART AND MEDIASTINUM: The cardiomediastinal silhouette is unremarkable. BONES AND SOFT TISSUES: No acute osseous lesion. Soft tissues are unremarkable. Bilateral breast implants. Surgical hardware over the spine. UPPER ABDOMEN: No free air under the diaphragm. IMPRESSION: Left and right anterior chest port catheters with distal tips over the mid/low superior vena cava. The distal tip of the left catheter is located more superiorly compared with the right-sided catheter. Signed by: Dr. Neto Perales M.D. on 10/26/2018 3:15 PM
--- NOTE | 2018-10-26 15:48 | NUR ---
Nutrition Screen Note RD Recommendation for Physician: -Continue cardiac diet as ordered Plan of Care: RD following, monitoring for tolerance and adequacy Nutrition reason for involvement: Nutrition Risk Trigger MST Primary Diagnose(s): 1. Bacteremia, gram-positive cocci, concern about Port-A-Cath infection. 2. Chronic kidney disease. PMH: DVT, depression, CAD, malignant renovascular hypertension, CKD, diverticulosis, Crohn's disease, chronic anemia Ht: 68in Wt: 153lb BMI: 23.3kg/m2 IBW: 140lb RD Assessment: (10/26/18) Chart reviewed. Labs and meds reviewed. 63yo F, who is admitted for low back pain. 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 Pt has had 75-100% recorded meal intake since admission. Pt denied chewing/swallowing problems and nausea/vomiting. LBM 10/25. Will cont to monitor. Please consult as needed. Current Diet: cardiac diet Malnutrition Evaluation (10/26/2018) The patient does not meet criteria for a specified degree of malnutrition at this time. Will re-evaluate at follow-up as appropriate. Diet Education Needs Assessment: Diet education not indicated. Nutrition Care Level: low Signed: Anahy Florentino, MS, RD, LD
--- NOTE | 2018-10-26 16:36 | Diagnostic Imaging Report ---
Date and Time: 10/26/2018 Procedure: Right internal jugular central venous catheter placement tipping machine operator automatic: Dr. Austin Pre-operative diagnosis: Bacteremia, poor IV access Post-operative diagnosis: Bacteremia Conscious Sedation: None Additional Medications: Lidocaine 1% for local anesthesia Fluoroscopy time: 0.6 minutes Frontal Air Kerma: 11.04 mGy Contrast used: None Estimated blood loss: Minimal Blood proximal administered: None Specimens: None Implants: 7 Indian 16 cm triple-lumen central venous catheter DISCUSSION: Informed consent was obtained and documented in the medical record after discussion of risks and benefits. The patient was placed in the supine position on the hospital bed. Preliminary sonographic evaluation confirmed patency of the right internal jugular vein, evidenced by compressibility. The right neck was prepped and draped in the standard sterile fashion. 1% lidocaine was infiltrated into the skin and subcutaneous tissues for local anesthesia. Then under continuous sonographic guidance, an 18-gauge singlewall needle was used to access the right internal jugular vein. A permanent sonographic image was stored in the medical record. A 0.0 3 5-in. wire was advanced centrally into the IVC under fluoroscopic guidance. The needle was removed over the wire and the tract was dilated. Then a 7 Indian, 16 cm triple-lumen central venous catheter was advanced over the wire to full depth. The wire was removed, and the catheter tip was positioned at the superior cavoatrial junction. Each lumen showed adequate bidirectional flow and was flushed with sterile saline. The catheter was secured to the skin with monofilament nylon suture and a sterile dressing was applied. The patient tolerated the procedure well without immediate complication. FINDINGS: Patent right internal jugular vein. IMPRESSION: Successful placement of a 7 Indian 16 cm triple-lumen central venous catheter by a right internal jugular approach under sonographic and fluoroscopic guidance. Signed by: Dr. Max Austin M.D. on 10/26/2018 4:33 PM
--- NOTE | 2018-10-26 18:33 | NUR ---
pt returned from central line placement, stable. ok to use. while gone, dr kin patricio did not see pt but placed orders for her portocath removals. Addendum: 10/26/18 at 1835 by Pili Anderson RN estimated procedure time 2pm tomorrow
--- NOTE | 2018-10-26 19:00 | NUR ---
received report from day nurse. patient is resting comfortably in bed. bed is in lowest position and call lopez is within reach. will continue to monitor patient.
[2018-10-26] MEDS: AMLODIPINE BESYLATE 10 MG TAB PO SCH (22:16)
[2018-10-27] VITALS (8 sets, daily range): BP systolic 108–139; BP diastolic 57–68
--- NOTE | 2018-10-27 00:30 | NUR ---
patient has signed consent form for removal of venous access ports.
[2018-10-27] MEDS: MORPHINE SULFATE INJ 4 MG/ML INJ 1ML IV PRN ×3 (03:38→19:57)
[2018-10-27] MEDS: ONDANSETRON HCL INJ 2MG/ML 2ML 2 MG/ML VIAL IV PRN ×3 (03:38→20:00)
[2018-10-27 05:05] LABS: BASOPHILS % 0.2 % (0.0-1.0); EOSINOPHILS # (AUTO) 0.1 (0.0-0.4); HEMATOCRIT 32.6 % (34.2-44.1); LYMPHOCYTES # (AUTO) 1.2 (1.0-3.2); LYMPHOCYTES % 27.1 % (18.0-39.1); MEAN CORPUSCULAR HEMOGLOBIN 27.1 pg (28-32); MEAN CORPUSCULAR HGB CONC 30.7 g/dL (31-35); MEAN CORPUSCULAR VOLUME 88.3 fL (81-99); MONOCYTES # (AUTO) 0.4 (0.2-0.8); MONOCYTES % 9.7 % (4.4-11.3); NEUTROPHILS # (AUTO) 2.6 (2.1-6.9); PLATELET COUNT 120 x10e3/uL (140-360); RED BLOOD COUNT 3.69 x10e6/uL (3.6-5.1); RED CELL DISTRIBUTION WIDTH 13.7 % (11.7-14.4)
[2018-10-27 05:25] LABS: ANION GAP 9.8 mmol/L (8-16); CALCIUM 8.4 mg/dL (8.4-10.2); CREATININE, SERUM 0.95 mg/dL (0.57-1.11); POTASSIUM 3.8 mmol/L (3.5-5.1)
--- NOTE | 2018-10-27 05:43 | NUR ---
patient has taken hibiclens bath in line with pre procedure protocols.
--- NOTE | 2018-10-27 06:55 | NUR ---
Handoff report rec'd from outgoing sports physician nurse. Pt awake and able to verbalize needs. Pt reports 10/10 pain to lower back. POC discussed. Bed in lowest position, wheels locked, SR^x2. Call light in reach. Bed alarm activated.
--- NOTE | 2018-10-27 06:56 | NUR ---
report given to day nurse. patient is resting comfortably in bed. bed is in lowest position and call light is within reach.
[2018-10-27] MEDS: ALPRAZOLAM 1 MG TAB PO SCH ×3 (09:00→20:45)
[2018-10-27] MEDS: FLUOXETINE HCL 20 MG CAP PO SCH (09:00)
[2018-10-27] MEDS: CARVEDILOL 3.125 MG TAB PO SCH ×2 (09:37→17:00)
[2018-10-27] MEDS: LINEZOLID 600 MG TAB PO SCH (09:37)
[2018-10-27] MEDS: CLONIDINE HCL 0.1 MG TAB PO SCH ×3 (09:37→20:45)
--- NOTE | 2018-10-27 10:10 | NUR ---
TEMITOPE Rice rounding for Dr. Haines.
--- NOTE | 2018-10-27 10:32 | NUR ---
Pt requesting PRN Valium. Consulted with Dr. Booth, anesthesiologist. Per Dr. Booth, ok to give with small sip of water.
[2018-10-27] MEDS: SODIUM CHLORIDE 0.9% 1000ML 1,000 ML IV SCH (12:17)
[2018-10-27] MEDS: SODIUM CHLORIDE 0.9% IV SCH (12:34)
[2018-10-27] MEDS: DAPTOMYCIN IV SCH (12:34)
[2018-10-27] MEDS ORDERED: LIDOCAINE HCL 1% LOCAL INJ 20 ML VIAL ONE (13:01)
--- NOTE | 2018-10-27 13:49 | NUR ---
Transfer report given to Lisseth for continuity of care. Pt will be going to room 206 after surgery.
[2018-10-27] MEDS ORDERED: FENTANYL CITRATE/PF 100MCG/2 ML INJ ONE (15:41)
--- NOTE | 2018-10-27 16:22 | Consultation ---
DATE OF CONSULTATION: October 27, 2018 SURGICAL CONSULTATION HISTORY OF PRESENT ILLNESS: Patient is a 63-year-old female with history of Crohn's disease, admitted to the hospital with back pain and found to have positive blood cultures and concern that she has an infected venous access port. She has 2 separate venous access ports in place. Request is made by Infectious Disease for removal of the venous access ports. PAST MEDICAL HISTORY: Significant for hypertension, abdominal aortic aneurysm, bipolar disorder, previous back surgery, previous IVC filter. ALLERGIES: SHE HAS ALLERGIES AND MEDICATIONS LISTED IN THE CHART. FAMILY HISTORY: Noncontributory. SOCIAL HISTORY: Noncontributory. REVIEW OF SYSTEMS: She has had no cough and no abdominal pain. PHYSICAL EXAMINATION: GENERAL: The patient is awake and alert. Significant findings of mild erythema over the right subclavian port. LUNGS: Have equal breath sounds, are clear. CARDIAC: Regular rate and rhythm. ABDOMEN: Soft without tenderness. EXTREMITIES: Have no edema. ASSESSMENT: A 63-year-old female with infected venous access ports times 2. Plan removal of the venous access ports to be done in the operating room. Procedure was explained to the patient. Thank you for asking me to see Ms. Yin. Job#: [id number] EV cc:CHERYL ERWIN MD
--- NOTE | 2018-10-27 16:26 | Operative Report ---
DATE OF PROCEDURE: October 27, 2018 PREOPERATIVE DIAGNOSIS: Infected venous access port times 2. POSTOPERATIVE DIAGNOSIS: Infected venous access port times 2. PROCEDURE PERFORMED: Removal of venous access port times 2. HEALTH SCIENCES PROGRAM COORDINATOR: None. ANESTHESIA: General. INDICATIONS AND FINDINGS: The patient is a 63-year-old female who has an infected venous access port, one in each subclavian area that are to be removed. At surgery, each port was removed intact. TECHNIQUE: After adequate general anesthesia with the patient in the supine position, the subclavian areas were prepped and draped in sterile fashion with ChloraPrep solution. Starting on the right side going through the old wound, an incision was made and carried down through subcutaneous tissue. The catheter was seen in the subcutaneous tissue. It was dissected free and delivered up into the wound, and followed back to the subcutaneous pocket. The port and catheter were removed intact. Hemostasis was seen to be adequate. The wound was infiltrated with 0.5% Marcaine and closed with 3-0 Vicryl for the subcutaneous tissue and 4-0 Vicryl subcuticular to the skin. Attention was then turned to the left side. An incision was made over the area of left subclavian port and carried down through the subcutaneous tissue. The port and catheter were identified and freed from the surrounding tissues and removed intact. Hemostasis was seen to be adequate. The wound was infiltrated with 0.5% Marcaine. It was then closed with 3-0 Vicryl for the subcutaneous tissue and 4-0 Vicryl subcuticular to the skin. Steri-Strips and sterile dressings were applied to each wound. The patient tolerated the procedure well. Estimated blood loss was 5 mL. There were no complications. All counts were correct. The patient was taken to the recovery room in satisfactory condition. Job#: [id number] [place]
[2018-10-27] MEDS ORDERED: MORPHINE SULFATE INJ 4 MG/ML INJ 1ML ONE (16:35)
--- NOTE | 2018-10-27 17:12 | NUR ---
FIND OUT THE PT ON THE BED AFTER PROCEDURE FROM SHADE MAKER PT IS ALERT AND ORIENTED VITALS CHECKED NO SIGNS OF BLEEDING ON THE RT AND LT CHEST ON THE SURGICAL AREA BED LOW AND LOCKED CALL LIGHT IN REACH
--- NOTE | 2018-10-27 18:42 | NUR ---
PT RESTING ON BED BED SIDE REPORT GIVEN TO ONCOMING NURSE
--- NOTE | 2018-10-27 19:08 | NUR ---
Received patient in bed. Alert and oriented with right IJ with triple lumen catheter. No complaint of pain.
[2018-10-27] MEDS: AMLODIPINE BESYLATE 10 MG TAB PO SCH (20:45)
[2018-10-28] VITALS (8 sets, daily range): BP systolic 108–169; BP diastolic 54–78
[2018-10-28] MEDS: SODIUM CHLORIDE 0.9% 1000ML 1,000 ML IV SCH ×2 (01:37→14:42)
[2018-10-28] MEDS: ONDANSETRON HCL INJ 2MG/ML 2ML 2 MG/ML VIAL IV PRN ×5 (02:09→19:43)
[2018-10-28] MEDS: MORPHINE SULFATE INJ 4 MG/ML INJ 1ML IV PRN ×5 (02:09→19:43)
--- NOTE | 2018-10-28 02:15 | NUR ---
DRESSING TO IJ TRIPLE LUMEN CHANGED.
--- NOTE | 2018-10-28 02:35 | NUR ---
Bp 140/65 mmhg
[2018-10-28 04:44] LABS: BASOPHILS % 0.4 % (0.0-1.0); EOSINOPHILS # (AUTO) 0.2 (0.0-0.4); HEMOGLOBIN 9.8 g/dL (12.0-16.0); LYMPHOCYTES # (AUTO) 1.7 (1.0-3.2); LYMPHOCYTES % 32.6 % (18.0-39.1); MEAN CORPUSCULAR HEMOGLOBIN 28.3 pg (28-32); MEAN CORPUSCULAR HGB CONC 32.7 g/dL (31-35); MEAN CORPUSCULAR VOLUME 86.7 fL (81-99); MONOCYTES # (AUTO) 0.4 (0.2-0.8); MONOCYTES % 8.5 % (4.4-11.3); NEUTROPHILS # (AUTO) 2.8 (2.1-6.9); NEUTROPHILS % 55.3 % (38.7-80.0); PLATELET COUNT 120 x10e3/uL (140-360); RED BLOOD COUNT 3.46 x10e6/uL (3.6-5.1); RED CELL DISTRIBUTION WIDTH 13.8 % (11.7-14.4)
[2018-10-28 05:04] LABS: ANION GAP 14.1 mmol/L (8-16); CALCIUM 8.5 mg/dL (8.4-10.2); POTASSIUM 4.1 mmol/L (3.5-5.1)
--- NOTE | 2018-10-28 06:15 | NUR ---
BP 115/57 MMHG, RR= 18 BREATHS/MIN, NO LABORED BREATHING.
--- NOTE | 2018-10-28 07:00 | NUR ---
SHIFT CHANGE REPORT RECEIVED FROM NIGHT RN WHILE ROUNDING. PT DENIES NEEDS AT THIS TIME.
--- NOTE | 2018-10-28 07:06 | NUR ---
REPORT GIVEN TO ONCOMING NURSE
[2018-10-28] MEDS: CLONIDINE HCL 0.1 MG TAB PO SCH ×3 (08:35→21:05)
[2018-10-28] MEDS: ALPRAZOLAM 1 MG TAB PO SCH ×3 (08:36→21:06)
[2018-10-28] MEDS: CARVEDILOL 3.125 MG TAB PO SCH ×2 (08:36→17:00)
[2018-10-28] MEDS: FLUOXETINE HCL 20 MG CAP PO SCH (08:36)
[2018-10-28] MEDS: AMLODIPINE BESYLATE 10 MG TAB PO SCH (21:06)
[2018-10-29] VITALS (9 sets, daily range): BP systolic 102–176; BP diastolic 52–79
[2018-10-29] MEDS: ONDANSETRON HCL INJ 2MG/ML 2ML 2 MG/ML VIAL IV PRN ×5 (02:39→19:13)
[2018-10-29] MEDS: MORPHINE SULFATE INJ 4 MG/ML INJ 1ML IV PRN ×5 (02:39→19:13)
[2018-10-29] MEDS: SODIUM CHLORIDE 0.9% 1000ML 1,000 ML IV SCH ×2 (04:17→17:53)
--- NOTE | 2018-10-29 06:35 | NUR ---
BP 137/56 MMHG, OXYGEN SATURATION 97%, RESPIRATORY RATE 18 BPM.
--- NOTE | 2018-10-29 07:00 | NUR ---
SHIFT CHANGE REPORT RECEIVED FROM NIGHT RN WHILE ROUNDING. PT DENIES NEEDS AT THIS TIME.
[2018-10-29] MEDS: CLONIDINE HCL 0.1 MG TAB PO SCH ×3 (09:00→20:12)
[2018-10-29] MEDS: CARVEDILOL 3.125 MG TAB PO SCH ×2 (09:00→17:14)
[2018-10-29] MEDS: FLUOXETINE HCL 20 MG CAP PO SCH (09:31)
[2018-10-29] MEDS: ALPRAZOLAM 1 MG TAB PO SCH ×3 (09:32→20:12)
[2018-10-29] MEDS: SODIUM CHLORIDE 0.9% IV SCH (10:45)
[2018-10-29] MEDS: DAPTOMYCIN IV SCH (10:45)
[2018-10-29] MEDS: AMLODIPINE BESYLATE 10 MG TAB PO SCH (20:12)
[2018-10-30] VITALS (7 sets, daily range): BP systolic 123–136; BP diastolic 60–67
[2018-10-30] MEDS: ONDANSETRON HCL INJ 2MG/ML 2ML 2 MG/ML VIAL IV PRN ×5 (00:12→21:48)
[2018-10-30] MEDS: MORPHINE SULFATE INJ 4 MG/ML INJ 1ML IV PRN ×5 (00:12→21:48)
[2018-10-30] MEDS: SODIUM CHLORIDE 0.9% 1000ML 1,000 ML IV SCH ×2 (06:07→20:17)
--- NOTE | 2018-10-30 07:10 | NUR ---
received pt lying in bed with eyes closed, Resp even and unlabored. call light within reach.
[2018-10-30] MEDS: CLONIDINE HCL 0.1 MG TAB PO SCH ×3 (08:17→21:30)
[2018-10-30] MEDS: ALPRAZOLAM 1 MG TAB PO SCH ×3 (08:17→20:34)
[2018-10-30] MEDS: CARVEDILOL 3.125 MG TAB PO SCH ×2 (08:17→17:25)
[2018-10-30] MEDS: FLUOXETINE HCL 20 MG CAP PO SCH (08:17)
[2018-10-30 09:45] LABS: BASOPHILS % 0.5 % (0.0-1.0); EOSINOPHILS # (AUTO) 0.1 (0.0-0.4); EOSINOPHILS % 3.4 % (0.0-6.0); HEMATOCRIT 28.1 % (34.2-44.1); HEMOGLOBIN 8.7 g/dL (12.0-16.0); LYMPHOCYTES # (AUTO) 1.5 (1.0-3.2); LYMPHOCYTES % 35.1 % (18.0-39.1); MEAN CORPUSCULAR HEMOGLOBIN 27.5 pg (28-32); MEAN CORPUSCULAR VOLUME 88.9 fL (81-99); MONOCYTES # (AUTO) 0.4 (0.2-0.8); MONOCYTES % 9.9 % (4.4-11.3); NEUTROPHILS # (AUTO) 2.1 (2.1-6.9); NEUTROPHILS % 50.9 % (38.7-80.0); PLATELET COUNT 117 x10e3/uL (140-360); RED BLOOD COUNT 3.16 x10e6/uL (3.6-5.1); RED CELL DISTRIBUTION WIDTH 13.8 % (11.7-14.4)
[2018-10-30 10:12] LABS: ANION GAP 10.6 mmol/L (8-16); CALCIUM 8.4 mg/dL (8.4-10.2); CREATININE, SERUM 0.97 mg/dL (0.57-1.11); POTASSIUM 3.6 mmol/L (3.5-5.1)
--- NOTE | 2018-10-30 12:43 | NUR ---
CM SPOKE TO PATIENT AT BEDSIDE REGARDING DISCHARGE PLAN FOR [facility]. PATIENT INFORMED OF [facility] SERVICES. PATIENT VERBALLY AGREED TO TRANSFER TO ALF FACILITY. PATIENT GIVEN CHOICES FOR [facility]. PATIENT CHOSE AND SIGNED CHOICE FOR [facility]. CLINICAL PICKED UP BY [facility]. PENDING INSURANCE AUTH FOR TRANSFER TO: [facility] Address: [address], [place] [address] MOT INITIATED AND PLACED ON CHART UNTIL INSURANCE APPROVES AND GIVES AUTHORIZATION.
[2018-10-30] MEDS: ENOXAPARIN SOD INJ 40 MG/0.4 ML SYR SC SCH (17:24)
--- NOTE | 2018-10-30 19:20 | NUR ---
patient received. Patient is resting in bed. Resp even and unlabored. No acute distress noted. patient c/o lower back pain. will medicate per mar. call light within reach. instruct to call for assistance. bed alarm on. bed low/locked. continue to monitor closely
[2018-10-30] MEDS: HYDROCODONE/APAP 10MG-325MG TAB PO PRN (20:34)
[2018-10-30] MEDS: AMLODIPINE BESYLATE 10 MG TAB PO SCH (21:30)
[2018-10-31] VITALS (8 sets, daily range): BP systolic 120–150; BP diastolic 56–78
[2018-10-31] MEDS: ONDANSETRON HCL INJ 2MG/ML 2ML 2 MG/ML VIAL IV PRN ×5 (01:59→21:02)
[2018-10-31] MEDS: MORPHINE SULFATE INJ 4 MG/ML INJ 1ML IV PRN ×5 (01:59→21:02)
--- NOTE | 2018-10-31 07:12 | NUR ---
PT ASLEEP RESP EVEN AND UNLABORED AT THIS TIME NO DISTRESS NOTED, PT EASILY AROUSED, TO NAME, CALL LIGHT IN REACH.
[2018-10-31] MEDS: FLUOXETINE HCL 20 MG CAP PO SCH (08:45)
[2018-10-31] MEDS: ALPRAZOLAM 1 MG TAB PO SCH ×3 (08:45→21:00)
[2018-10-31] MEDS: HYDROCODONE/APAP 10MG-325MG TAB PO PRN (08:45)
[2018-10-31] MEDS: SODIUM CHLORIDE 0.9% 1000ML 1,000 ML IV SCH (08:46)
[2018-10-31] MEDS: CARVEDILOL 3.125 MG TAB PO SCH ×2 (08:46→18:24)
[2018-10-31] MEDS: CLONIDINE HCL 0.1 MG TAB PO SCH ×3 (08:46→21:15)
[2018-10-31] MEDS ORDERED: SODIUM CHLORIDE FLUSH 10 ML SYR INJ PRN (10:15)
[2018-10-31] MEDS: DAPTOMYCIN IV SCH (11:18)
[2018-10-31] MEDS: SODIUM CHLORIDE 0.9% IV SCH (11:18)
[2018-10-31] MEDS: ENOXAPARIN SOD INJ 40 MG/0.4 ML SYR SC SCH (18:24)
--- NOTE | 2018-10-31 19:25 | NUR ---
patient received. Patient is resting in bed. Resp even and unlabored. patient c/o lower back pain. will medicate per dec. call light within reach. instruct to call for assistance. bed alarm on. bed low/locked. continue to monitor closely
--- NOTE | 2018-10-31 19:30 | NUR ---
REPORT GIVEN TO TO ONCOMING NURSE, FOR CONTINUED CARE.
[2018-10-31] MEDS: AMLODIPINE BESYLATE 10 MG TAB PO SCH (21:15)
[2018-11-01] VITALS: BP 136/64
[2018-11-01] MEDS: SODIUM CHLORIDE 0.9% 1000ML 1,000 ML IV SCH ×2 (00:14→12:17)
[2018-11-01] MEDS: ONDANSETRON HCL INJ 2MG/ML 2ML 2 MG/ML VIAL IV PRN ×4 (02:58→17:06)
[2018-11-01] MEDS: MORPHINE SULFATE INJ 4 MG/ML INJ 1ML IV PRN ×4 (02:58→17:06)
[2018-11-01 06:52] VITALS: BP 99/55
--- NOTE | 2018-11-01 07:00 | NUR ---
RCD PT AT BED PT IS ALERT AND ORIENTED ASSESSMENT DONE IV PATENT FAMILY AT BED SIDE BED LOW AND LOCKED CALL LIGHT IN REACH
[2018-11-01 08:00] VITALS: BP 99/55
[2018-11-01 08:02] VITALS: BP 146/76
[2018-11-01] MEDS: CLONIDINE HCL 0.1 MG TAB PO SCH ×2 (09:00→15:00)
[2018-11-01] MEDS: FLUOXETINE HCL 20 MG CAP PO SCH (09:00)
[2018-11-01] MEDS: ALPRAZOLAM 1 MG TAB PO SCH ×2 (09:00→15:00)
[2018-11-01] MEDS: CARVEDILOL 3.125 MG TAB PO SCH ×2 (09:00→16:18)
[2018-11-01 11:57] VITALS: BP 130/66
[2018-11-01] MEDS ORDERED: ALBUTEROL/IPRATROPIUM 3 ML NEB NEB SCH (13:30)
[2018-11-01] MEDS ORDERED: GUAIFENESIN 600 MG TAB PO PRN (13:30)
[2018-11-01 15:46] VITALS: BP 121/67
[2018-11-01] MEDS: ENOXAPARIN SOD INJ 40 MG/0.4 ML SYR SC SCH (16:19)
--- NOTE | 2018-11-01 16:48 | NUR ---
PT APPROVED BY [facility] PAGED DR ERWIN TO GET DISCHARGE ORDER
--- NOTE | 2018-11-01 16:53 | NUR ---
DR ERWIN RETURNED CALL AND GOT DISCHARGE ORDER
--- NOTE | 2018-11-01 17:30 | NUR ---
REPORT GIVEN TO GLORIA CRUZ RN AND NOTIFIED MOTOR EQUIPMENT CAPTAIN
--- NOTE | 2018-11-01 17:34 | Diagnostic Imaging Report ---
EXAM: XR CHEST 2 VIEWS DATE: 11/01/2018 1:29 PM INDICATION: Cough/pneumonitis COMPARISON: 10/26/2018, no report available FINDINGS: Lines and Tubes: Bilateral chest wall ports have been removed. Right IJ CVC present with tip overlying the cavoatrial junction. It was confirmed with patients nurse that separate central venous catheter is placed after chest wall port removal. Heart and Mediastinum: Mildly enlarged. Lungs and Pleura: Vertical linear densities overlying the lateral left chest are nonspecific, with pneumothorax difficult to exclude. Scattered opacities mid and lower lungs, likely chronic, obscured by calcified breast implants. Bones and Soft Tissues: Spinal stabilization hardware and calcified breast implants. IMPRESSION: 1. Patchy opacities mid and lower lungs likely represent alone or in combination edema, atelectasis, or pneumonia, not significant change from one week prior. 2. Removal bilateral chest wall ports with subsequent placement right IJ central venous catheter. 3. Vertical linear densities overlying lateral left chest, nonspecific. These do not distinctly have the appearance of a pneumothorax, with small pneumothorax difficult to completely exclude, however. Follow-up radiographs recommended. 4. Findings discussed with patient's nurse, Lisseth at 1730 on 11/01/2018. Signed by: Dr. Too Conner MD on 11/01/2018 5:31 PM
--- NOTE | 2018-11-01 19:00 | NUR ---
PT RESTING ON BED BED SIDE REPORT GIVEN TO ONCOMING NURSE
== END 2018-11-01 19:24 | DRG 315 ==
LOC: ER 11:05 → ERHOLD 19:07 → IMCU 20:40 → OBSVTOIN 10-26 16:41 → MED/SURG2 10-27 14:42
PROVIDERS: ADMIT Internal Medicine; ATTEND Internal Medicine
PROC: 02HV33Z Insertion of Infusion Device into Superior Vena Cava, Percutaneous Approach (ICD-10-PCS; principal; 2018-10-26)
PROC: 0JPT0WZ Removal of Totally Implantable Vascular Access Device from Trunk Subcutaneous Tissue and Fascia, Open Approach (ICD-10-PCS; 2018-10-27)
DX: T80.211A Bloodstream infection due to central venous catheter, initial encounter (principal); N17.9 Acute kidney failure, unspecified; K50.90 Crohn's disease, unspecified, without complications; T80.219A Unspecified infection due to central venous catheter, initial encounter; S39.012A Strain of muscle, fascia and tendon of lower back, initial encounter; G89.29 Other chronic pain; I25.10 Atherosclerotic heart disease of native coronary artery without angina pectoris; E78.5 Hyperlipidemia, unspecified; F32.9 Major depressive disorder, single episode, unspecified; I71.4 Abdominal aortic aneurysm, without rupture; F31.9 Bipolar disorder, unspecified; Z88.8 Allergy status to other drugs, medicaments and biological substances; Z86.718 Personal history of other venous thrombosis and embolism; M41.119 Juvenile idiopathic scoliosis, site unspecified; N26.1 Atrophy of kidney (terminal); K57.90 Diverticulosis of intestine, part unspecified, without perforation or abscess without bleeding; K44.9 Diaphragmatic hernia without obstruction or gangrene; R53.81 Other malaise; I12.9 Hypertensive chronic kidney disease with stage 1 through stage 4 chronic kidney disease, or unspecified chronic kidney disease; N18.9 Chronic kidney disease, unspecified; Z90.5 Acquired absence of kidney; D64.9 Anemia, unspecified
CPT/HCPCS: 36415; 36556; 71046; 72131; 74176; 74470; 76937; 77001; 80048; 80053; 81001; 83605; 85025; 85610; 85651; 85730; 86140; 87040; 87071; 87086; 87186; 87205; 93005; 97139; 99284; C1751; G0378; J1100; J1650; J2001; J2270; J2405; J7030

== ENCOUNTER 2018-11-23 17:15 | Emergency (ER) | payer BC ==
[~2018-11-23] VITALS: Ht 172.7 cm; Wt 83.9 kg
[~2018-11-23 17:15] MED LIST changes: +ALPRAZOLAM0.25 MG PO
--- OUTSIDE RECORDS SUMMARY | 2018-11-23 17:18 | XMS REPORT | Continuity of Care Document ---
Author Author [facility] Interface Address Unknown Phone Unavailable Problems Problem Status Onset Date Classification Date Reported Comments Source Dehydration Active 02/16/2015 Problem 10/03/2018 [facility] Ileus Active 02/16/2015 Problem 10/03/2018 [facility] SBO Active 02/16/2015 Problem 10/03/2018 [facility] Vomiting and diarrhea Active 02/16/2015 Problem 10/03/2018 [facility] Chest pain Active Problem 10/03/2018 [facility] Medications Medication Details Route Status Patient Instructions Ordering Provider Order Date Source Clonidine Hcl 0.1 Mg Tablet, 1 Tab Oral Four Times Daily as needed for Elevated Blood Pressure Active 10/02/2018 [facility] Hydralazine Hcl 10 Mg Tablet, 50 Mg Oral Four Times Daily Active 10/02/2018 [facility] Nitroglycerin 0.4 Mg Tab.subl, 0.4 Mg Sublingual Every 5 Minutes Active 10/02/2018 [facility] Ranolazine (Ranexa) 500 Mg Tabsr, 500 Mg Oral Twice A Day Active 10/02/2018 [facility] Nebivolol Hcl (Bystolic) 10 Mg Tablet, 10 Mg Oral Daily Active 09/04/2018 [facility] Mesalamine (Asacol) 400 Mg Tablet., 800 Mg Oral Three Times A Day Active [place] 02/21/2015 [facility] Promethazine Hcl 12.5 Mg Tablet, 1 Tab Oral Every 6 Hours as needed for Nausea Active [place] 02/21/2015 [facility] Aripiprazole (Abilify*) 2 Mg Tablet, 2 Mg Oral Daily Active 02/16/2015 [facility] Aspirin (Aspir 81) 81 Mg Tablet., 81 Mg Oral Daily Active 02/16/2015 [facility] Losartan/Hydrochlorothiazide (Hyzaar 100-12.5 Tablet) 1 Each Tablet, 1 Tab Oral Daily Active 02/16/2015 [facility] Amlodipine Besylate 10 Mg Tablet Bedtime Active [facility] Aripiprazole (Abilify) 10 Mg Tablet Daily Active [facility] Aspirin (Aspir 81) 81 Mg Tablet. Daily Active [facility] Atorvastatin Calcium 40 Mg Tablet Daily Active [facility] Bumetanide 0.5 Mg Tablet Daily Active TAKE ONLY FOR SWELLING [facility] Carvedilol 3.125 Mg Tablet Twice A Day Active [facility] Clonidine Hcl 0.1 Mg Tablet Four Times Daily as needed for Elevated Blood Pressure Active [facility] Fluoxetine Hcl (Prozac) 20 Mg Capsule Daily Active [facility] Nitroglycerin (Nitro-Bid) 1 Gm Oint...g. Twice A Day Active [facility] Olmesartan Medoxomil (Benicar) 20 Mg Tablet Twice A Day Active [facility] Allergies, Adverse Reactions, Alerts Substance Category Reaction Severity Reaction type Status Date Reported Comments Source Prochlorperazine Mild Allergy to Substance Active 09/04/2018 [facility] Metoclopramide Mild Allergy to Substance Active 09/04/2018 [facility] Ketorolac Mild Allergy to Substance Active 09/04/2018 [facility] Immunizations Immunization Date Given Site Status Last Updated Comments Source Results Order Name Results Value Reference Range Date Interpretation Comments Source Prothrombin time (PT) in platelet poor plasma by coagulation assay 13.1 11.9 - 14.5 10/02/2018 [facility] INR in Platelet poor plasma by Coagulation assay 0.91 10/02/2018 [facility] Activated partial thromboplastin time (aPTT) in platelet poor plasma bycoagulation assay 33.9 23.8 - 35.5 10/02/2018 [facility] Serum or plasma sodium measurement (moles/volume) 138 136 - 145 10/02/2018 [facility] Serum or plasma potassium measurement (moles/volume) 3.3 3.5 - 5.1 10/02/2018 [facility] Serum or plasma chloride measurement (moles/volume) 104 98 - 107 10/02/2018 [facility] Serum or plasma carbon dioxide, total measurement (moles/volume) 25 22 - 29 10/02/2018 [facility] Serum or plasma anion gap 12.3 8 - 16 10/02/2018 [facility] Serum or plasma urea nitrogen measurement (mass/volume) 18 7 - 26 10/02/2018 [facility] Serum or plasma creatinine measurement (mass/volume) 1.32 0.57 - 1.11 10/02/2018 [facility] Serum or plasma urea nitrogen/creatinine mass ratio 14 6 - 25 10/02/2018 [facility] Estimated glomerular filtration rate (GFR) determination 41 60 10/02/2018 [facility] Glucose measurement 103 74 - 118 10/02/2018 [facility] Serum or plasma calcium measurement (mass/volume) 8.9 8.4 - 10.2 10/02/2018 [facility] Blood leukocytes automated count (number/volume) 6.40 4.8 - 10.8 10/01/2018 [facility] Blood erythrocytes automated count (number/volume) 3.82 3.6 - 5.1 10/01/2018 [facility] Blood hemoglobin measurement (moles/volume) 10.6 12.0 - 16.0 10/01/2018 [facility] Automated blood hematocrit (volume fraction) 33.6 34.2 - 44.1 10/01/2018 [facility] Automated erythrocyte mean corpuscular volume 88.0 81 - 99 10/01/2018 [facility] Automated erythrocyte mean corpuscular hemoglobin (mass per erythrocyte) 27.7 28 - 32 10/01/2018 [facility] Automated erythrocyte mean corpuscular hemoglobin concentration measurement (mass/volume) 31.5 31 - 35 10/01/2018 [facility] RDW BldCo-Rto 14.0 11.7 - 14.4 10/01/2018 [facility] Automated blood platelet count (count/volume) 129 140 - 360 10/01/2018 [facility] Automated blood segmented neutrophil count as percentage of total leukocytes 62.3 38.7 - 80.0 10/01/2018 [facility] Automated blood lymphocyte count as percentage ot total leukocytes 25.0 18.0 - 39.1 10/01/2018 [facility] Automated blood monocyte count as percentage of total leukocytes 10.2 4.4 - 11.3 10/01/2018 [facility] Automated blood eosinophil count as percentage of total leukocytes 1.6 0.0 - 6.0 10/01/2018 [facility] Automated blood basophil count as percentage of total leukocytes 0.6 0.0 - 1.0 10/01/2018 [facility] IM GRANULOCYTES % 0.3 0.0 - 1.0 10/01/2018 [facility] Automated blood neutrophil count 4.0 2.1 - 6.9 10/01/2018 [facility] Blood lymphocytes count (number/volume) 1.6 1.0 - 3.2 10/01/2018 [facility] Blood monocytes automated count (number/volume) 0.7 0.2 - 0.8 10/01/2018 [facility] Automated blood eosinophil count 0.1 0.0 - 0.4 10/01/2018 [facility] Automated blood basophil count (count/volume) 0.0 0.0 - 0.1 10/01/2018 [facility] Absolute Immature Granulocyte (auto 0.02 0 - 0.1 10/01/2018 [facility] Erythrocyte sedimentation rate by Westergren method 41 0 - 20 10/01/2018 [facility] Serum or plasma iron measurement (mass/volume) 25 50 - 170 10/01/2018 [facility] Serum or plasma iron binding capacity measurement (mass/volume) 286 261 - 478 10/01/2018 [facility] Serum or plasma iron saturation measurement (mass fraction) 9 15 - 50 10/01/2018 [facility] Serum or plasma transferrin measurement (mass/volume) 204 180 - 382 10/01/2018 [facility] Serum or plasma creatine kinase measurement (enzymatic activity/volume) 49 29 - 168 09/29/2018 [facility] Serum or plasma creatine kinase MB measurement (mass/volume) 0.80 0 - 5.0 09/29/2018 [facility] Troponin I measurement by highly sensitive enzyme immunoassay 0.033 0 - 0.300 09/29/2018 [facility] Serum or plasma total bilirubin measurement (mass/volume) 0.6 0.2 - 1.2 09/29/2018 [facility] Aspartate Amino Transf (AST/SGOT) 30 5 - 34 09/29/2018 [facility] Serum or plasma alanine aminotransferase measurement (enzymatic activity/volume) 38 0 - 55 09/29/2018 [facility] Serum or plasma protein measurement (mass/volume) 6.7 6.5 - 8.1 09/29/2018 [facility] Serum or plasma albumin measurement (mass/volume) 3.1 3.5 - 5.0 09/29/2018 [facility] Plasma globulin measurement (mass/volume) 3.6 2.3 - 3.5 09/29/2018 [facility] Serum or plasma albumin/globulin mass ratio 0.9 0.8 - 2.0 09/29/2018 [facility] Serum or plasma alkaline phosphatase measurement (enzymatic activity/volume) 115 40 - 150 09/29/2018 [facility] Serum or plasma triglyceride measurement (mass/volume) 89 0 - 149 09/29/2018 [facility] Serum or plasma cholesterol measurement (mass/volume) 151 0 - 199 09/29/2018 [facility] Serum or plasma cholesterol in LDL measurement (mass/volume) 74 60 - 130 09/29/2018 [facility] Serum or plasma cholesterol in HDL measurement (mass/volume) 59 40 - 60 09/29/2018 [facility] Serum or plasma total cholesterol/cholesterol in HDL mass ratio 2.6 3.0 - 3.6 09/29/2018 [facility] Urine color determination YELLOW YELLOW 09/28/2018 [facility] Urine clarity CLEAR CLEAR 09/28/2018 [facility] Specific gravity of Urine by Test strip 1.020 1.010 - 1.025 09/28/2018 [facility] Urine pH measurement by automated test strip 6.5 5 - 7 09/28/2018 [facility] Urine leukocyte esterase detection by dipstick NEGATIVE NEGATIVE 09/28/2018 [facility] Urine nitrite detection NEGATIVE NEGATIVE 09/28/2018 [facility] Urine protein measurement by test strip (mass/volume) TRACE NEGATIVE 09/28/2018 [facility] Urine glucose detection NEGATIVE NEGATIVE 09/28/2018 [facility] Urine ketones detection by automated test strip NEGATIVE NEGATIVE 09/28/2018 [facility] Urine urobilinogen measurement by test strip (mass/volume) 0.2 0.2 - 1 09/28/2018 [facility] Urine total bilirubin measurement (mass/volume) NEGATIVE NEGATIVE 09/28/2018 [facility] Urine erythrocytes detection NEGATIVE NEGATIVE 09/28/2018 [facility] Automated urine sediment leukocyte count by microscopy (number/high power field) 0-5 0 - 5 09/28/2018 [facility] Erythrocytes detection in urine sediment by light microscopy 0-5 0 - 5 09/28/2018 [facility] Bacteria detection in urine sediment by light microscopy RARE NONE 09/28/2018 [facility] Epithelial cells detection in urine sediment by light microscopy FEW NONE 09/28/2018 [facility] Serum or plasma magnesium measurement (mass/volume) 2.0 1.3 - 2.1 09/28/2018 [facility] BNP Bld-mCnc 58.8 0 - 100 09/28/2018 [facility] Serum or plasma lipase measurement (enzymatic activity/volume) 29 8 - 78 09/28/2018 [facility] Vital Signs Vital Sign Value Date Comments Source Encounters Location Location Details Encounter Type Encounter Number Reason For Visit Attending Provider ADM Date DC Date Status Source Discharged Inpatient (obs) [id number] VIVIEN SAN MD 09/04/2018 09/07/2018 [facility] Discharged Inpatient [id number] VIVIEN SAN MD 09/30/2018 10/02/2018 [facility] Procedures Procedure Code Date Perfomer Comments Source X-ray of chest, two views [id number] 09/28/2018 MARYANA [facility] L HRT ARTERY/VENTRICLE ANGIO [id number] 09/04/2018 MENA [facility]
--- NOTE | 2018-11-23 18:08 | Diagnostic Imaging Report ---
EXAMINATION: CHEST SINGLE (PORTABLE) INDICATION: Dyspnea COMPARISON: Chest x-ray 11/01/2018 FINDINGS: AP view TUBES and LINES: None. LUNGS: Lungs are hyper inflated. Chronic lung changes are again seen. Bilateral peribronchial cuffing. There is no evidence of pneumonia or pulmonary edema. PLEURA: No pleural effusion or pneumothorax. HEART AND MEDIASTINUM: Cardiac size is mildly enlarged. BONES AND SOFT TISSUES: Thoracolumbar Kamar rods. No acute osseous lesion. Calcified bilateral breast implants. UPPER ABDOMEN: No free air under the diaphragm. IMPRESSION: Bilateral peribronchial cuffing, which could represent viral etiology or reactive airway disease. Signed by: Dr. Gene Hood M.D. on 11/23/2018 6:05 PM
--- NOTE | 2018-11-23 18:33 | NUR ---
DIFFICULT STICK, UNABLE TO GET IV ACCESS. DR. CEJA WILL MAKE AN ATTEMPT
[2018-11-23 20:11] LABS: BASOPHILS # (AUTO) 0.1 (0.0-0.1); BASOPHILS % 0.8 % (0.0-1.0); EOSINOPHILS # (AUTO) 0.2 (0.0-0.4); EOSINOPHILS % 1.8 % (0.0-6.0); HEMATOCRIT 40.5 % (34.2-44.1); HEMOGLOBIN 12.2 g/dL (12.0-16.0); LYMPHOCYTES # (AUTO) 2.6 (1.0-3.2); LYMPHOCYTES % 30.1 % (18.0-39.1); MEAN CORPUSCULAR HEMOGLOBIN 25.9 pg (28-32); MEAN CORPUSCULAR HGB CONC 30.1 g/dL (31-35); MONOCYTES # (AUTO) 0.6 (0.2-0.8); MONOCYTES % 7.3 % (4.4-11.3); NEUTROPHILS # (AUTO) 5.1 (2.1-6.9); NEUTROPHILS % 59.6 % (38.7-80.0); PLATELET COUNT 259 x10e3/uL (140-360); RED BLOOD COUNT 4.71 x10e6/uL (3.6-5.1); RED CELL DISTRIBUTION WIDTH 13.7 % (11.7-14.4)
[2018-11-23] MEDS ORDERED: ONDANSETRON HCL INJ 2MG/ML 2ML 2 MG/ML VIAL IV ONE (20:27)
[2018-11-23 20:33] LABS: ALBUMIN 3.4 g/dL (3.5-5.0); ALBUMIN/GLOBULIN RATIO 0.9 (0.8-2.0); ANION GAP 10.9 mmol/L (8-16); CALCIUM 9.9 mg/dL (8.4-10.2); CREATININE, SERUM 1.02 mg/dL (0.57-1.11); POTASSIUM 3.9 mmol/L (3.5-5.1)
[2018-11-23 20:42] LABS: CREATINE KINASE MB 0.7 ng/mL (0-5.0)
[2018-11-23 22:44] LABS: BILIRUBIN,URINE NEGATIVE (NEGATIVE); CLARITY,URINE SL CLOUDY (CLEAR); COLOR,URINE YELLOW (YELLOW); KETONES,URINE NEGATIVE (NEGATIVE); LEUKOCYTE ESTERASE ,URINE 1+ (NEGATIVE); NITRITE,URINE NEGATIVE (NEGATIVE); PROTEIN,URINE DIPSTICK NEGATIVE (NEGATIVE); URINE UROBILINOGEN 0.2 mg/dL (0.2 - 1)
[2018-11-23 22:45] LABS: BACTERIA,URINE MANY /HPF; EPITHELIAL CELLS,URINE FEW /LPF; MUCUS,URINE FEW (RARE); RBC,URINE 0-5 /HPF (0-5); RENAL EPITHELIAL CELLS,URINE MANY; TRANSITIONAL EPI CELLS,URINE MODERATE
[2018-11-23 23:14] VITALS: BP 137/76
[2018-11-23] MEDS ORDERED: CEFTRIAXONE SOD 1 GM/NS 50 ML 50 ML IV ONE (23:15)
== END 2018-11-23 23:55 | disposition home or self-care (01) ==
LOC: ER 17:15
DX: R06.09 Other forms of dyspnea (principal); J42 Unspecified chronic bronchitis; N30.90 Cystitis, unspecified without hematuria
CPT/HCPCS: 36415; 71045; 80053; 81001; 82550; 82553; 84484; 85025; 87040; 87086; 87186; 93005; 99284; J0696; J2405

== ENCOUNTER → 2019-12-08 | Emergency (ER) | payer BC ==
[~2019-12-08] VITALS: Ht 172.7 cm; Wt 83.9 kg
[~2019-12-08] MED LIST changes: +HYDROCODONE/APAP 10MG-325MG TAB PO NR; +ONDANSETRON HCL 4 MG ORAL DISINTEGRATING TAB PO NR
--- NOTE | 2019-12-08 12:40 | NUR ---
blood glucose checked. Result 105.
--- NOTE | 2019-12-08 14:27 | Diagnostic Imaging Report ---
History: Fall, pain Comparison studies:CT head 07/26/2008 Technique: Axial images were obtained from the brain and cervical spine. Coronal and sagittal images reconstructed from the axial data. Intravenous contrast: None Dose modulation, iterative reconstruction, and/or weight based adjustment of the mA/kV was utilized to reduce the radiation dose to as low as reasonably achievable. Findings: Head CT: Scalp/skull: No abnormalities. No fractures, blastic or lytic lesions. Brain sulci: Mildly prominent. Ventricles: Mild compensatory dilatation. No hydrocephalus. Parenchyma: Few hypodensities in the supratentorial white matter are small vessel ischemic changes. No masses, hemorrhage, acute or chronic cortical vascular insults. Prominent perivascular space inferior to the right putamen. Sellar/suprasellar region: No abnormalities. Craniocervical junction: Patent foramen magnum. No Chiari one malformation. Incidental findings: Atherosclerotic calcifications in the carotid siphons and right vertebral artery . Cervical spine CT: Fractures: None. Soft tissues: No gross abnormalities. Atlantoaxial articulation: No acute abnormality. Alignment: Straightening of the normal lordosis. No scoliosis. Cervicomedullary junction: No abnormalities. Patent foramen magnum. Vertebrae: No infection or neoplasm. Degenerative changes: Moderate degenerative foraminal C3-4 and C6-7 on the left, C5-6 bilaterally. No high-grade canal stenosis. Incidental findings: None. Impression: Head CT: 1. No acute abnormality. Cervical spine CT: 1. No acute abnormalities. 2. Cannot exclude ligament, spinal cord and or vascular abnormalities on the basis of this examination. Signed by: DR Gavin Berg M.D. on 12/08/2019 2:25 PM
--- NOTE | 2019-12-08 14:34 | Diagnostic Imaging Report ---
Exam: AP radiograph of the pelvis-1 view; left hip radiographs-2 views History: Status post fall with pain. Query fracture. Comparison: None. Findings: No evidence of acute fracture or malalignment. Bowel gas partially obscures visualization of the sacrum. Mild degenerative changes of bilateral hips. Partially seen distal aortic biiliac endograft. Impression: No evidence of acute fracture or malalignment. Signed by: Dr. Lavon العراقي MD on 12/08/2019 2:32 PM
[2019-12-08 14:53] VITALS: BP 165/99
== END ==
LOC: ER 12:09
DX: S06.890A Other specified intracranial injury without loss of consciousness, initial encounter (principal); S70.02XA Contusion of left hip, initial encounter; I13.0 Hypertensive heart and chronic kidney disease with heart failure and stage 1 through stage 4 chronic kidney disease, or unspecified chronic kidney disease; I50.9 Heart failure, unspecified; N18.9 Chronic kidney disease, unspecified; W01.0XXA Fall on same level from slipping, tripping and stumbling without subsequent striking against object, initial encounter; Y92.009 Unspecified place in unspecified non-institutional (private) residence as the place of occurrence of the external cause
CPT/HCPCS: 70450; 72125; 73502; 99284; Q0162

== ENCOUNTER 2020-05-13 07:44 | Observation (INO) | payer BC, MEDICARE ==
[~2020-05-13] VITALS: Ht 203.2 cm; Wt 80.5 kg
[~2020-05-13 07:44] MED LIST changes: -HYDROCODONE/APAP 10MG-325MG TAB PO NR; -ONDANSETRON HCL 4 MG ORAL DISINTEGRATING TAB PO NR
--- NOTE | 2020-05-13 08:05 | Emergency Department Note ---
History of Present Illnes History of Present Illness Chief Complaint: General Medicine Complaints History of Present Illness This is a 64 year old female Chief Complaint Comment AAOX4. FROM HOME. PT WAS IN REHAB UNIT X ONE MONTH AND GOT HOME YESTERDAY. PT STATES ONSET LAST NIGHT OF N/V/D/F AND CHILLS. 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 PT STATES COVID TESTING WAS NEGATIVE.Recently admitted for 3 months at [facility] for viral PNA (Covid neg at that time) and was intubated, trached and had PEG tube. Was DC'd to rehab facility and was DC'd home yesterday. Fell in bathroom last night 2/2 mechanical fall. 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 Any updates have been documented here. Past Medical History Recent Fever: Yes Clinical Suspicion of Infectio: Yes New/Unexplained Change in Ment: No Past Medical History: Hypertension, CHF, Depression, Chronic Kidney Disease Other Medical History: RENAL STENOSIS, CHRONS DISEASE OVER 25 YRS AGO. Myasthenias Gravis, Viral Pneumonia Past Surgical History: Cholecysctectomy Other Surgery: PAC PLACEMENT X2 scoliosis cleft lip Other Last Tetanus: unk Review of Systems Review of Systems Constitutional: Reports as per HPI, Reports chills, Reports fever, Reports weakness EENTM: Reports no symptoms Cardiovascular: Reports no symptoms Respiratory: Reports dyspnea Gastrointestinal: Reports diarrhea, Reports nausea, Reports vomiting Genitourinary: Reports no symptoms Musculoskeletal: Reports no symptoms Integumentary: Reports no symptoms Neurological: Reports no symptoms Psychological: Reports no symptoms Endocrine: Reports no symptoms Hematological/Lymphatic: Reports no symptoms Physical Exam Related Data Allergies: Coded Allergies: ketorolac (Verified Allergy, Mild, 09/04/18) metoclopramide (Verified Allergy, Mild, 09/04/18) prochlorperazine (Verified Allergy, Mild, 09/04/18) hydralazine (Verified Allergy, Unknown, 11/23/18) Triage Vital Signs Vital Signs Date Time Temp Pulse Resp B/P (MAP) Pulse Ox O2 Delivery O2 Flow Rate FiO2 05/13/20 07:47 97.6 92 17 189/93 98 Room Air Vital signs reviewed: Yes Physical Exam CONSTITUTIONAL Constitutional: Present well-developed, Present well-nourished, Present dist ressed HENT HENT: Present normocephalic, Present atraumatic, Present oropharynx clear/moist, Present nose normal HENT L/R: Present left ext ear normal, Present right ext ear normal EYES Eyes: Reports PERRL, Reports conjunctivae normal NECK Neck: Present ROM normal PULMONARY Pulmonary: Present effort normal, Present breath sounds normal, Present other (tachypnea to 24) CARDIOVASCULAR Cardiovascular: Present regular rhythm, Present heart sounds normal, Present capillary refill normal, Present normal rate GASTROINTESTINAL Abdominal: Present soft, Present nontender, Present bowel sounds normal GENITOURINARY Genitourinary: Present exam deferred SKIN Skin: Present warm, Present dry MUSCULOSKELETAL Musculoskeletal: Present ROM normal NEUROLOGICAL Neurological: Present alert, Present oriented x 3, Present no gross motor or sensory deficits PSYCHOLOGICAL Psychological: Present mood/affect normal, Present judgement normal Results Laboratory Lab results reviewed: Yes Imaging Imaging results reviewed: Yes Procedures 12 Lead ECG Interpretation ECG Interpretation : ECG: ECG 1 Plant 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 Patient states she was at a rehabilitation facility and was discharged yesterday. Her initial workup shows potassium of 2.6 and urinary tract infection. She was given 1 g Rocephin discussed with Dr. Cheng has agreed to admit for urinary tract infection and hypokalemia. Additionally potassium replacement was initiated. Patient is referred to the floor. Reassessment Reassessment time: 13:47 Reassessment Well appearing, NAD Assessment & Plan Final Impression: (1) UTI (urinary tract infection) (2) Hypokalemia Depart Disposition: ADMITTED Last Vital Signs Date Time Temp Pulse Resp B/P (MAP) Pulse Ox O2 Delivery O2 Flow Rate FiO2 05/13/20 07:47 97.6 92 17 189/93 98 Room Air Home Meds Reported Medications Alprazolam (ALPRAZOLAM) 0.25 Mg Tablet, 1 MG PO TID, #90 TAB 10/25/18 Clonidine Hcl (CLONIDINE HCL) 0.1 Mg Tablet, 1 TAB PO QID PRN for ELEVATED BLOOD PRESSURE, #60 TAB 10/02/18 Olmesartan Medoxomil (BENICAR) 20 Mg Tablet, 5 MG PO BID, #60 TAB 10/02/18 Bumetanide (BUMETANIDE) 0.5 Mg Tablet, 1 MG PO BID TAKE ONLY FOR SWELLING 09/04/18 Aspirin (ASPIR 81) 81 Mg Tablet.dr, 81 MG PO DAILY 09/04/18 Carvedilol (CARVEDILOL) 3.125 Mg Tablet, 3.125 MG PO BID 09/04/18 Atorvastatin Calcium (ATORVASTATIN CALCIUM) 40 Mg Tablet, 40 MG PO DAILY 09/04/18 Amlodipine Besylate (AMLODIPINE BESYLATE) 10 Mg Tablet, 10 MG PO HS, #30 TAB 02/16/15 Fluoxetine Hcl (PROZAC) 20 Mg Capsule, 60 MG PO DAILY 09/10/13 AKILAH LEMUS MD May 13, 2020 08:04
[2020-05-13] MEDS ORDERED: ONDANSETRON HCL INJ 2MG/ML 2ML 2 MG/ML VIAL IV STA (08:10)
--- OUTSIDE RECORDS SUMMARY | 2020-05-13 08:14 | XMS REPORT | Continuity of Care Document ---
Author Author Gala [employer] AMENA Fajardo SmarterShade Address Unknown Phone Unavailable Care Team Providers Care [employer] Consultant Name Role [facility] Information Exchange Unavailable Un available Problems Problem Status Onset Date Classification Date Reported Comments Source MYASTHENIA GRAVIS Active 01/07/2020 [facility] WEAKNESS Active 08/24/2019 [facility] TERESA SUPERIMPOSED ON CHRONIC KIDNEY DISEA Active 08/24/2019 [facility] M54.31 - "SCIATICA, RIGHT SIDE" Active 09/09/2016 [facility] Acute hypoxemic respiratory failure (disorder) Active Problem 01/26/2020 [facility] Anxiety (finding) Active Problem 01/26/2020 [facility] Chronic kidney disease stage 3 (disorder) Active Problem 01/26/2020 [facility] Depressive disorder (disorder) Active Problem [facility] Finding of functional performance and ac tivity (finding) Active Prob taylor 01/26/2020 [facility] History of - gastrostomy (context-dependent category) Active Problem 01/26/2020 [facility] History of - tracheostomy (context-dependent category) Active Problem 01/26/2020 [facility] Hyperlipidemia (disorder) Acti ve Problem [facility] Hypertensive disorder, systemic arterial (disorder) Active Problem 01/26/2020 [facility] Infective pneumonia (disorder) Active Problem [facility] Myasthenia gravis (disorder) A ctive Problem [facility] Normocytic anemia (disorder) A ctive Problem [facility] Obesity (disorder) Active Problem 01/26/2020 [facility] Retention of urine (disorder) Active Problem [facility] Hypertension Active 11/21/2013 [facility] Depression With Anxiety Active 11/21/2013 [facility] ACUTE KIDNEY FAILURE, UNSPECIFIED Active [facility] URINARY TRACT INFECTION, SITE NOT SPECIF Active [facility] RETENTION OF URINE, UNSPECIFIED Active [facility] Medications Medication Details Route Status Patient Instructions Ordering Provider Order Date Source amLODIPine 10 mg oral tablet 1 0 mg = 1 tab, GT, Daily, 0 Refill(s) Active 01/24/2020 [facility] beneprotein beneprotein, 3 pkt , GT, BID, Beneprotein 7 gm packet whey protein, # 3 pkt, Refill(s) 0, other Active 01/24/2020 [facility] simethicone 40 mg/0.6 mL oral liquid 40 mg = 0.6 mL, PO, Q6H, 0 Refill(s) Active 01/24/2020 [facility] Prednisone 50 MG Oral Tablet 5 0 mg = 1 tab, PO, Daily, for 2 weeks. Then decrease to 40 mg daily., 0 Refill(s) Active 01/24/2020 [facility] polyethylene glycol 3350 oral kit 17 gram, PO, Daily, # 30 pkt, 0 Refill(s), other Active 01/24/2020 [facility] Melatonin 5 MG Sublingual Tablet 5 mg = 1 tab, PO, Bedtime, PRN Sleep, 0 Refill(s) Active 01/24/2020 [facility] carvedilol Notes: Give with fo od. (Same As: Coreg) Inactive 01/24/2020 [facility] potassium phosphate Notes: (Sa me as: K Phosphate.) Do not infuse phosphorous concurrently in the same line as TPN or IVF that contains calcium. For double lumen central lines, phosphorous may be infused in a separate lumen from TPN. 1 mMol phoshate has 1.47 mEq potassium Infuse over 4 hours Inactive 01/24/2020 [facility] potassium phosphate 30 mmol, R oute: IVPB, ONCE, Dosing Weight 92.001, kg, PRN Abnormal Lab Result, Start date: 01/24/20 7:17:00 CDT, Phosphate level 1.5 - 1.9 mg/dL Inactive 01/24/2020 [facility] Fluoxetine Notes: (Same as: Pr ozac) No Longer Active 01/23/2020 [facility] potassium phosphate Notes: (Sa me as: K Phosphate.) Do not infuse phosphorous concurrently in the same line as TPN or IVF that contains calcium. For double lumen central lines, phosphorous may be infused in a separate lumen from TPN. 1 mMol phoshate has 1.47 mEq potassium Infuse over 4 hours Inactive 01/23/2020 [facility] Hydroxyzine Hydrochloride 2 MG/ML Oral Solution Notes: (Same as: Atarax) Avoid alcohol. No Longer Active 01/22/2020 [facility] nter hydrOXYzine hydrochloride 25 mg oral tablet Notes: (Same as: Atarax) Avoid alcohol. Inactive 01/22/2020 [facility] hydrOXYzine Notes: (Same as: V istaril) Inactive 01/22/2020 [facility] Hydroxyzine Notes: (Same as: V istaril) Inactive 01/22/2020 [facility] Prednisone Notes: Take with fo od. No Longer Active 01/21/2020 [facility] Beneprotein 7 gm pkt Notes: (S deo as: Beneprotein) No Longer Active 01/21/2020 [facility] Dextrose 50% Syringe (D50W) 12 .5 gm, 25 mL, Route: IVP, Drug Form: INJ, Dosing Weight 92.001, kg, PRN, PRN Blood Glucose Results, Start date: 01/21/20 16:23:00 CDT, Duration: 30 day, Stop date: 02/20/20 16:22:00 CDT, 0 No Longer Active 01/21/2020 [facility] Glucagon 1 mg, Route: IM, Drug form: PDR/INJ, PRN, Dosing Weight 92.001, kg, PRN Blood Glucose Results, Start date: 01/21/20 16:23:00 CDT, Duration: 30 day, Stop date: 02/20/20 16:22:00 CDT, 0 No Longer Active 01/21/2020 [facility] Insulin regular Notes: (Same a s: Humulin R) Roll in palms of hands gently; Do not shake vigorously. WASTE: F/P - Black; E - Municipal Trash Bin Stable for 31 days at room temperature Expires in days from Date No Longer Active 01/21/2020 [facility] Famotidine 20 MG Oral Tablet 2 0 mg = 1 tab, PO, BID, 0 Refill(s) Active 01/21/2020 [facility] amLODIPine 10 mg oral tablet 1 0 mg = 1 tab, PO, Daily, # 90 tab, 0 Refill(s) No Longer Active 01/21/2020 [facility] tramadol hydrochloride 50 MG Oral Tablet 50 mg = 1 tab, PO, Daily No Longer Active 01/21/2020 [facility] Carbidopa 25 MG / Levodopa 100 MG Oral Tablet 1 tab, PO, Daily No Longer Active 01/21/2020 [facility] 12 HR ranolazine 500 MG Extended Release Tablet 500 mg = 1 tab, PO, Daily No Longer Active 01/21/2020 [facility] bumetanide 0.5 mg oral tablet 0.5 mg = 1 tab, PO, BID No Longer Active 01/21/2020 [facility] Alprazolam 1 MG Oral Tablet 1 mg = 1 tab, PO, TID No Longer Active 01/21/2020 [facility] FLUoxetine 20 mg oral capsule 20 mg = 1 cap, PO, Daily, # 30 cap, 0 Refill(s) Active 01/21/2020 [facility] irbesartan 150 mg oral tablet 150 mg = 1 tab, PO, Daily, # 30 tab, 0 Refill(s) No Longe r Active 01/21/2020 [facility] ARIPiprazole 10 mg oral tablet 10 mg = 1 tab, PO, Daily, # 30 tab, 0 Refill(s) No Longe r Active 01/21/2020 [facility] atorvastatin 40 mg oral tablet 40 mg = 1 tab, PO, Bedtime, # 30 tab, 0 Refill(s) Active 01/21/2020 [facility] Lanolin 0.157 MG/MG / Menthol 0.0044 MG/ MG / Petrolatum 0.24 MG/MG / Zinc Oxide 0.206 MG/MG Topical Ointment [Calmoseptine] Notes: (Same as: Calmoseptine) No Longer Active 01/21/2020 [facility] Benadryl Notes: (Same as: Kyara dryl) Inactive 01/21/2020 [facility] Reglan 5 mg, Route: PEG, ONCE, Dosing Weight 92.001, kg, Start date: 01/20/20 21:38:00 CDT, Stop date: 01/20/20 21:38:00 CDT Inactive 01/21/2020 [facility] Miralax Notes: Dissolve in 8 o z of water or juice. (Same as: Miralax) No Longer Active 01/20/2020 [facility] Sodium Chloride 3% inhalation solution 3 mL, Route: NEB, Dosing Weight 92.001, kg, RQ4H, Start date: 01/20/20 7:00:00 CDT, Duration: 30 day, Stop date: 02/19/20 3:00:00 CDT Inactive 01/20/2020 [facility] Albuterol 0.83 MG/ML Inhalant Solution Notes: SEE RT DOCUMENTATION (Same as: Proventil) No Longer Active 01/20/2020 [facility] Potassium Chloride Notes: (Ronan e as: Potassium Chloride) Inactive 01/20/2020 [facility] Simethicone Notes: (Same as: M ylicon, Phazyme, Genasyme) No Longer Active 01/20/2020 [facility] Dextrose 50% Syringe (D50W) 12 .5 gm, 25 mL, Route: IVP, Drug Form: INJ, Dosing Weight 92.001, kg, PRN, PRN Blood Glucose Results, Start date: 01/20/20 0:23:00 CDT, Duration: 30 day, Stop date: 02/19/20 0:22:00 CDT, 0 No Longer Active 01/20/2020 [facility] Glucagon 1 mg, Route: IM, Drug form: PDR/INJ, PRN, Dosing Weight 92.001, kg, PRN Blood Glucose Results, Start date: 01/20/20 0:23:00 CDT, Duration: 30 day, Stop date: 02/19/20 0:22:00 CDT, 0 No Longer Active 01/20/2020 [facility] Iohexol 100 mL, Route: IVP, Dr ug Form: SOLN, Dosing Weight 92.001, kg, ONCALL, STAT, Start date: 01/20/20 0:02:00 CDT, Duration: 1 doses or times, Dose = 2.2ml/kg, Max dose = 100ml -- "To be infused by Radi ology Staff ONLY" Inactive 01/20/2020 [facility] Melatonin Notes: (Same as: Ciara atonin) No Longer Active 01/20/2020 [facility] Amlodipine Notes: (Same as: No rvasc) No Longer Active 01/19/2020 [facility] Acetaminophen 325 MG / Hydrocodone Nichol trate 5 MG Oral Tablet [Arion 5/325] Notes: (Same as: Arion 325/5) Do not ex ceed 4gm/day of acetaminophen. Inactive 01/19/2020 [facility] normal saline 0.9% IV 1,000 mL 1,000 mL, Rate: 75 ml/hr, Infuse over: 13.3 hr, Route: IV, Dosing Weight 92.001 kg, Total Volume: 1,000, Start date: 01/19/20 12:55:00 CDT, Duration: 30 day, Stop date: 02/18/20 12:54:00 CDT, 2.1, m2, 0 No Longer Active 01/19/2020 [facility] Acetaminophen Notes: Max aceta minophen = 4000mg/day (4 gm/day). (Same as: Tylenol) N o Longer Active 01/19/2020 [facility] Zofran 4 mg, Route: IVP, Drug form: INJ, Q8H, Dosing Weight 92.001, kg, PRN Nausea, Start date: 01/18/20 18:18:00 CDT, Duration: 30 day, Stop date: 02/17/20 18:17:00 CDT Inactive 01/18/2020 [facility] albumin human 5% intravenous solution Notes: LOT#: Mfg: (Same as: Albuminar) "blood product derivative" WASTE: F/P - Red; E -Red MEDICATION WASTE Product Size: 25 gm Product Wasted: ___ gm Inactive 01/18/2020 [facility] Potassium Chloride 1.33 MEQ/ML Oral Solution Notes: (Same as: Potassium Chloride) Inactive 01/18/2020 [facility] Calcium Gluconate Notes: WASTE : F/P - Sink; E - Municipal Trash Bin Inactive 01/18/2020 [facility] albumin human 5% intravenous solution Notes: LOT#: Mfg: (Same as: Albuminar) "blood product derivative" WASTE: F/P - Red; E -Red MEDICATION WASTE Product Size: 25 gm Product Wasted: ___ gm Inactive 01/18/2020 [facility] Ciprofloxacin Notes: May inter fere w/enteral feedings - Take 1 hr before or 2 hrs after antacids, dairy pdt & minerals. On empty stomach. No Longer Active 01/17/2020 [facility] Flagyl Notes: (Same as: Flagyl ) Take with food/ avoid alcohol No Longer Active 01/17/2020 [facility] Acetaminophen 325 MG / Hydrocodone Nichol trate 5 MG Oral Tablet [Arion 5/325] Notes: (Same as: Arion 325/5) Do not ex ceed 4gm/day of acetaminophen. No Longer Activ e 01/17/2020 [facility] Acetaminophen 325 MG Oral Tablet Notes: Do not exceed 4 gm/day. (Same as: Tylenol) Inactive 01/17/2020 [facility] Calcium Gluconate Notes: WASTE : F/P - Sink; E - Municipal Trash Bin Inactive 01/16/2020 [facility] albumin human 5% intravenous solution Notes: LOT#: Mfg: (Same as: Albuminar) "blood product derivative" WASTE: F/P - Red; E -Red MEDICATION WASTE Product Size: 25 gm Product Wasted: ___ gm Inactive 01/16/2020 [facility] Iohexol 100 mL, Route: IVP, Dr ug Form: SOLN, Dosing Weight 92.001, kg, ONCALL, STAT, Start date: 01/16/20 1:06:00 CDT, Duration: 1 doses or times, Dose = 2.2ml/kg, Max dose = 100ml -- "To be infused by Radi ology Staff ONLY" Inactive 01/16/2020 [facility] Labetalol 10 mg, 2 mL, Route: IVP, Drug form: INJ, Q4H, Dosing Weight 92.001, kg, PRN Other -See Comment, Start date: 01/15/20 16:50:00 CDT, Duration: 30 day, Stop date: 02/14/20 16:49:00 CDT, 0 No Longer Active 01/15/2020 [facility] Acetaminophen 650 MG Rectal Suppository Notes: Max acetaminophen = 4000 mg/day (4 gm/day). (Same as: Tylenol) No Longer Active 01/15/2020 [facility] Tylenol Notes: Max acetaminoph en = 4000 mg/day (4 gm/day). (Same as: Tylenol) Inactive 01/15/2020 [facility] normal saline 0.9% IV 1,000 mL 1,000 mL, Rate: 100 ml/hr, Infuse over: 10 hr, Route: IV, Dosing Weight 92.001 kg, Total Volume: 1,000, Start date: 01/15/20 12:54:00 CDT, Duration: 30 day, Stop date: 02/14/20 12:53:00 CDT, 2.1, m2, 0 No Longer Active 01/15/2020 [facility] Sodium Chloride 0.9% (titrate) 250 mL 250 mL, Rate: To prime line and flush remaining blood products., Dosing Weight 92.001, kg, Route: IV, Total Volume: 250, Priority: Routine, Start Date: 01/15/20 11:59:00 CDT, Duration: 1 day, Stop date: 01/16/20 11:58:00 CDT, Replace Every: 24 hr, 0 No Longer Active 01/15/2020 [facility] Fentanyl 75 microgram, Route: IV, ONCE, Dosing Weight 92.001, kg, Start date: 01/15/20 8:25:00 CDT, Stop date: 01/15/20 8:25:00 CDT, Inactive 01/15/2020 [facility] Lidocaine 10 mL, Route: INTRAD ERM, ONCE, Dosing Weight 92.001, kg, Start date: 01/15/20 8:25:00 CDT, Stop date: 01/15/20 8:25:00 CDT, Inactive 01/15/2020 [facility] Midazolam 1 mg, Route: IV, ONC E, Dosing Weight 92.001, kg, Start date: 01/15/20 8:25:00 CDT, Stop date: 01/15/20 8:25:00 CDT, Inactive 01/15/2020 [facility] nt Glucagon 1 mg, Route: IV, ONCE , Dosing Weight 92.001, kg, Start date: 01/15/20 8:25:00 CDT, Stop date: 01/15/20 8:25:00 CDT, Inactive 01/15/2020 [facility] Fentanyl Notes: (Same as: Subl imaze) Preservative free. Inactive 01/14/2020 [facility] Midazolam Notes: (Same as: Debra sed) MEDICATION WASTE Product Size: 2 mg Product Wasted: ___ mg Inactive 01/14/2020 [facility] Rocuronium Notes: (Same as: Ze sam) Inactive 01/14/2020 [facility] Etomidate Notes: (Same as: Ami date). Per state nursing law etomidate can only be given by a nurse if patient is intubated or being intubated (unless the nurse is a ELECTRICAL EQUIPMENT ASSEMBLER). Inactive 01/14/2020 [facility] Calcium Gluconate Notes: WASTE : F/P - Sink; E - Municipal Trash Bin Inactive 01/14/2020 [facility] albumin human 5% intravenous solution Notes: LOT#: Mfg: (Same as: Albuminar) "blood product derivative" WASTE: F/P - Red; E -Red MEDICATION WASTE Product Size: 25 gm Product Wasted: ___ gm Inactive 01/14/2020 [facility] Diphenhydramine Notes: (Same a s: Benadryl) No Longer Active 01/14/2020 [facility] Ativan Notes: (Same as: Ativan) Inactive 01/13/2020 [facility] Aspirin 81 MG Chewable Tablet Notes: Take with food. Inactive 01/13/2020 [facility] Iohexol Notes: (same as:Omnipa que 350). WASTE: F/P - Black; E - Municipal Trash Bin Inactive 01/13/2020 [facility] Norepinephrine Notes: Not for direct administration - DILUTE. Protect from light. (Same as:Levophed). Administer by either central venous catheter or peripherally-inserted central catheter (PICC) line. No Longer Active 01/13/2020 [facility] propofol 10 mg/mL (Titrate.) IV 1,000 mg Notes: If Diprivan - change bottle & tubing every 12 hr Per state nursing law propofol can only be given by a nurse if patient is intubated or being intubated (unless the nurse is a ELECTRICAL EQUIPMENT ASSEMBLER). Same as: Diprivan No Longer Active 01/13/2020 [facility] Fentanyl 1,000 microgram, 20 m L, Rate: Titrate, Start Dose: 50 microgram/hr, Titration: 25 microgram/hour every 15 minutes, Goal(s): 0, Max Dose: 300 microgram/hr, Route: IV, Dosing Weight 92.001 kg, Total Volume: 20, Start date: 01/13/20 8:39:00 CDT, Duration... No Longer Active 01/13/2020 [facility] Rocuronium Notes: (Same as: Ze sam) Inactive 01/13/2020 [facility] Ativan Notes: (Same as: Ativan) Inactive 01/13/2020 [facility] Calcium Gluconate Notes: WASTE : F/P - Sink; E - Municipal Trash Bin Inactive 01/11/2020 [facility] albumin human 5% intravenous solution Notes: LOT#: Mfg: (Same as: Albuminar) "blood product derivative" WASTE: F/P - Red; E -Red MEDICATION WASTE Product Size: 25 gm Product Wasted: ___ gm Inactive 01/11/2020 [facility] Calcium Gluconate Notes: WASTE : F/P - Sink; E - Municipal Trash Bin Inactive 01/10/2020 [facility] albumin human 5% intravenous solution Notes: LOT#: Mfg: WASTE: F/P - Red; E -Red (Same as: Albuminar) "blood product derivative" Inactive 01/10/2020 [facility] Versed Notes: (Same as: Versed ) MEDICATION WASTE Product Size: 2 mg Product Wasted: ___ mg No Longer Active 01/10/2020 [facility] Iohexol 100 mL, Route: IVP, Dr ramesh Form: SOLN, Dosing Weight 92.001, kg, ONCALL, STAT, Start date: 01/09/20 23:35:00 CDT, Duration: 1 doses or times, Dose = 2.2ml/kg, Max dose = 100ml -- "To be infused by Rad iology Staff ONLY" Inactive 01/10/2020 [facility] Lidocaine Hydrochloride 10 MG/ML Injectable Solution Notes: Preservative free. (Same as: Xylocaine MPF) No Longer Active 01/09/2020 [facility] sennosides, MCFP Notes: (Same a s: Senokot) No Longer Active 01/09/2020 [facility] Zosyn Notes: (Same as: Zosyn) Dosing based on Piperacillin component MEDICATION WASTE Product Size: 3375 mg Product Wasted: ___ mg No Longer Active 01/08/2020 [facility] Docusate Notes: (Same as: Cola ce) No Longer Active 01/08/2020 [facility] sennosides, MCFP Notes: (Same a s: Senokot) No Longer Active 01/08/2020 [facility] Saline Flush 0.9% Notes: (Same as: BD Posiflush) No Longer Active 01/08/2020 [facility] chlorhexidine gluconate 1.2 MG/ML Mouthwash Notes: (Same As: Peridex) No Longer Active 01/08/2020 [facility] Amlodipine Notes: (Same as: No rvasc) No Longer Active 01/08/2020 [facility] carvedilol Notes: Give with fo od. (Same As: Coreg) No Longer Active 01/08/2020 [facility] Famotidine Notes: (Same as: Pe pcid) No Longer Active 01/08/2020 [facility] Prednisone Notes: Take with fo od. Inactive 01/08/2020 [facility] Spironolactone Notes: (Same As : Aldactone) Hazardous Drug Group 2:Non-antineoplastic Hazardous Drug -- Refer to safe handling procedure PPE [id number] N o Longer Active 01/08/2020 [facility] Zosyn Notes: (Same as: Zosyn) Dosing based on Piperacillin component MEDICATION WASTE Product Size: 3375 mg Product Wasted: ___ mg Inactive 01/08/2020 [facility] Dexmedetomidine 400 microgram, Rate: Titrate, Start Dose: 0.2 microgram/kg/hr, Titration: 0.1 microgram/kg/hr every 30 min, Goal(s): 0, Max Dose: 1.5 microgram/kg/hr, Route: IV, Dosing Weight 92.001 kg, Total Volume: 100, Start date: 01/08/20 6:47:00 CDT, Duration: 3... No Longer Active 01/08/2020 [facility] Pyridostigmine Notes: (Same as : Mestinon) No Longer Active 01/08/2020 [facility] amLODIPine 5 mg oral tablet 5 mg = 1 tab, PO, Daily No Longer Active 01/08/2020 [facility] carvedilol 3.125 mg oral tablet 3.125 mg = 1 tab, PO, Q12H Active 01/08/2020 [facility] Famotidine 20 mg = 1 tab, PO, BID No Longer Active 01/08/2020 [facility] FLUoxetine 60 mg oral tablet 6 0 mg = 1 tab, PO, Daily No Longer Active 01/08/2020 [facility] gabapentin 300 MG Oral Capsule 300 mg = 1 cap, PO, Bedtime No Longer Active 01/08/2020 [facility] Prednisone 40 mg, PO, Daily, Q uantity sufficient No Longer Active 01/08/2020 [facility] Pyridostigmine 60 mg, PO, Q4H No Longer Active 01/08/2020 [facility] ranolazine 50 mg, PO, Daily No Longer Active 01/08/2020 [facility] spironolactone 25 mg oral tablet 25 mg = 1 tab, PO, Daily No Longer Active 01/08/2020 [facility] ocular lubricant Notes: (Same as: Lacri-Lube, Puralube, Duratears Naturale, Artificial Tears, and Tears Again ) No Longer Active 01/08/2020 [facility] heparin Notes: porcine heparin No Longer Active 01/08/2020 [facility] Potassium Chloride Notes: ([facility] e as: KCL) Infuse no faster than 10 mEq/hr if given peripherally. No Longer Active 01/08/2020 [facility] sodium phosphate Notes: Infuse over 4 hour. Do not infuse phosphorous concurrently in the same line as TPN or IVF that contains calcium. For double lumen central lines, phosphorous may be infused in a separate lumen from TPN. No Longer Active 01/08/2020 [facility] potassium phosphate Notes: ([facility] as: K Phosphate.) Do not infuse phosphorous concurrently in the same line as TPN or IVF that contains calcium. For double lumen central lines, phosphorous may be infused in a separate lumen from TPN. 1 mMol phoshate has 1.47 mEq potassium Infuse over 4 hours No Longer Active 01/08/2020 [facility] potassium phosphate-sodium phosphate 250 mg-280 mg-160 mg oral powder for reconstitution Notes: (Same as: Phos-NaK) Each 1.5 gm pkt has 250mg phosphorous. Mix w/2.5oz water and stir. No Longer Active 01/08/2020 [facility] Magnesium Sulfate Notes: WASTE : F/P - Sink; E - Municipal Trash Bin No Longer Active 01/08/2020 [facility] Magnesium Oxide Notes: (Same a s: Mag-Ox 400) Magnesium oxide [id number] elemental magnesium Dose=____mg magnesium oxide (___mg elemental magnesium) No Longer Active 01/08/2020 [facility] nt Calcium Gluconate Notes: WASTE : F/P - Sink; E - Municipal Trash Bin No Longer Active 01/08/2020 [facility] nt Calcium Carbonate 500 MG Chewable Tablet Notes: (Same As: Tums) Calcium Carbonate 500 mg = 200 mg elemental calcium Dose = mg calcium carbonate ( mg elemental calcium) No Longer Active 01/08/2020 [facility] Fentanyl 1,000 microgram, 20 m L, Rate: Titrate, Start Dose: 50 microgram/hr, Titration: Titrate by 25 micrograms/hour every 15 minutes, Goal(s): -1, Max Dose: 300 mcg/hr, Route: IV, Dosing Weight 78.182 kg, Total Volume: 20, Start date: 01/07/20 23:29:00 CDT,... No Longer Active 01/08/2020 [facility] Nystatin 100 UNT/MG Topical Powder Notes: (Same as:Mycostatin, Nilstat) For external use only. No Longer Active 01/08/2020 [facility] Acetaminophen Notes: Do not ex ceed 4 gm/day. (Same as: Tylenol) No Longer Active 01/08/2020 [facility] Saline Flush 0.9% Notes: (Same as: BD Posiflush) No Longer Active 01/08/2020 [facility] chlorhexidine gluconate 1.2 MG/ML Mouthwash Notes: (Same As: Peridex) No Longer Active 01/08/2020 [facility] tamsulosin 0.4 mg oral capsule 0.4 mg = 1 cap, PO, After Breakfast, # 30 cap, 0 Refill(s), Pharmacy: [facility] [place] [facility] Active 08/26/2019 [facility] Ceftriaxone Notes: (Same As: Prabhu bledsoe). Use with 100 mL NS and infuse over 30 min MEDICATION WASTE Product Size: 1000 mg Product Wasted: ___ mg No Longer Active 08/26/2019 [facility] atorvastatin Notes: (Same as: Lipitor) No Longer Active 08/26/2019 [facility] Vantin 200 mg oral tablet 200 mg = 1 tab, PO, Q12H, X 7 day, # 14 tab, 0 Refill(s) Active 08/25/2019 [facility] Amlodipine Notes: (Same as: No rvasc) No Longer Active 08/25/2019 [facility] Fluoxetine Notes: (Same as: Pr ozac) No Longer Active 08/25/2019 [facility] Coreg Notes: Give with food. ( Same As: Coreg) No Longer Active 08/25/2019 [facility] ARIPiprazole Notes: (Same as: Abilify) No Longer Active 08/25/2019 [facility] Clonidine Hydrochloride 0.1 MG Oral Tablet Notes: (Same As: Catapres) No Longer Active 08/25/2019 [facility] Flomax Notes: (Same As: Flomax ) "Do Not Crush" No Longer Active 08/25/2019 [facility] FLUoxetine 10 mg oral capsule 10 mg = 1 cap, PO, Daily, # 90 cap, 0 Refill(s) Active 08/25/2019 [facility] amLODIPine 10 mg oral tablet 1 0 mg = 1 tab, PO, Daily, # 90 tab, 0 Refill(s) Active 08/25/2019 [facility] bumetanide 0.5 mg oral tablet 0.5 mg = 1 tab, PO, Daily, # 30 tab, 0 Refill(s) Active 08/25/2019 [facility] atorvastatin 40 mg oral tablet 40 mg = 1 tab, PO, Bedtime, # 90 tab, 1 Refill(s) Active 08/25/2019 [facility] carvedilol 3.125 mg oral tablet 3.125 mg = 1 tab, PO, BID, # 180 tab, 0 Refill(s) Active 08/25/2019 [facility] irbesartan 150 mg oral tablet 150 mg = 1 tab, PO, Daily, # 90 tab, 0 Refill(s) Active 08/25/2019 [facility] ranolazine PO, BID, 0 Refill(s) Active 08/25/2019 [facility] spironolactone 25 mg oral tablet 25 mg = 1 tab, PO, Daily, # 90 tab, 1 Refill(s) Active 08/25/2019 [facility] Clonidine Hydrochloride 0.1 MG Oral Tablet 0.1 mg = 1 tab, PO, BID, # 90 tab, 3 Refill(s) Active 08/25/2019 [facility] ARIPiprazole 10, 0 Refill(s) Active 08/25/2019 [facility] Alprazolam 1 MG Oral Tablet 1 mg = 1 tab, PO, Daily, # 30 tab, 0 Refill(s) Active 08/25/2019 [facility] Tylenol Notes: Do not exceed 4 gm/day. (Same as: Tylenol) No Longer Active 08/25/2019 [facility] Roxicodone Notes: (Same as: Ro xicodone) No Longer Active 08/25/2019 [facility] Acetaminophen 325 MG / Oxycodone Hydroch loride 5 MG Oral Tablet [Percocet 5/325] 1 tab, Route: PO, Drug Form: TAB, Dosing Weight 95, kg, Q6H, PRN Pain Score 7-10, Start date: 08/25/19 1:34:00 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, Duration: 30 day, Stop date: 09/24/19 1:33:00 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 Inactive 08/25/2019 [facility] Alprazolam 1 MG Oral Tablet No etienne: With food or milk (Same as: Xanax) No Longer Active 08/25/2019 [facility] Dilaudid 0.5 mg, Route: IVP, O NCE, Dosing Weight 95, kg, PRN Pain Score 7-10, Priority: NOW, Start date: 08/25/19 1:31:00 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 Inactive 08/25/2019 [facility] NS 1,000 mL 1,000 mL, Rate: 10 0 ml/hr, Infuse over: 10 hr, Route: IV, Dosing Weight 95 kg, Total Volume: 1,000, Start date: 08/25/19 1:15:00 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, 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: 1 doses or times, Stop date: 08/25/19 11:14:00 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, 2.16, m2, 0 Inactive 08/25/2019 [facility] Dextrose 50% Syringe (D50W) 12 .5 gm, 25 mL, Route: IVP, Drug Form: INJ, Dosing Weight 95, kg, PRN, PRN Blood Glucose Results, Start date: 08/25/19 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 (Same as: Tylenol) No Longer Active 08/25/2019 [facility] Hydromorphone 0.5 mg, Route: I V, ONCE, Dosing Weight 95, kg, Start date: 08/24/19 23:29:00 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, Stop date: 08/24/19 23:29:00 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 Inactive 08/25/2019 [facility] Ceftriaxone Notes: (Same As: Prabhu bledsoe). Use with 100 mL NS and infuse over 30 min MEDICATION WASTE Product Size: 1000 mg Product Wasted: ___ mg No Longer Active 08/25/2019 [facility] Amlodipine Besy-Benazepril HCl 5-20 MG Oral Capsule ; Start Date: 11/21/2013; End Date: (Active) Active 11/21/2013 [facility] Hydrochlorothiazide 12.5 MG Oral Tablet ; Start Date: 11/21/2013; End Date: (Active) Active 11/21/2013 [facility] Fioricet 50-300-40 MG Oral Capsule ; Start Date: 11/21/2013; End Date: 12/21/2013 (Active) Active 11/21/2013 [facility] Benicar HCT 40-25 MG Oral Tablet ; Start Date: 09/11/2013 (Active) Active 09/11/2013 [facility] Bystolic 10 MG Oral Tablet ; S tart Date: 09/11/2013 (Active) Active 09/11/2013 [facility] Hyzaar 50-12.5 MG Oral Tablet (Active) Active [facility] TraZODone HCl 100 MG Oral Tablet (Active) Active [facility] Abilify 5 MG Oral Tablet (Act dahila) Active [facility] FLUoxetine HCl 40 MG Oral Capsule (Active) Active [facility] Aspirin 325 MG Oral Tablet (A ctive) Active [facility] Allergies, Adverse Reactions, Alerts Substance Category Reaction Severity Reaction type Status Date Reported Comments Source Compazine Assertion Propensity to adverse reacti ons to substance Active [facility] morphine Assertion Propensity to adverse reacti ons to substance Active [facility] Reglan Assertion Drug allergy Active [facility] Toradol Assertion Propensity to adverse reacti ons to substance Active [facility] Xanax TABS drug allergy drug allergy Active [facility] Compazine TABS drug allergy drug allergy Active [facility] Morphine Derivatives drug elisabeth rgy drug aller gy Active [facility] Reglan TABS drug allergy drug allergy Active [facility] Toradol Oral TABS drug allergy drug allergy Active [facility] Immunizations No Data Provided for This Section Results Order Name Results Value Reference Range Date Interpretation Comments Source CHEM PANEL Glucose Lvl 85 70 - 99 01/24/2020 [facility] CHEM PANEL BUN 15 7 - 22 01/24/2020 [facility] CHEM PANEL Creatinine Lvl 0.76 0.50 - 1.40 01/24/2020 [facility] CHEM PANEL Sodium Lvl 140 135 - 145 01/24/2020 [facility] CHEM PANEL Potassium Lvl 3.5 3.5 - 5.1 01/24/2020 [facility] CHEM PANEL Chloride Lvl 110 95 - 109 01/24/2020 [facility] CHEM PANEL CO2 24 24 - 32 01/24/2020 [facility] CHEM PANEL Calcium Lvl 8.4 8.5 - 10.5 01/24/2020 [facility] CHEM PANEL AGAP 9.5 10.0 - 20.0 01/24/2020 [facility] CHEM PANEL eGFR 83 01/24/2020 Result Comment: The eGFR is calculated using the CKD-EPI formula. In most young, healthy individuals the eGFR will be >90 mL/min/1.73m2. The eGFR declines with age. An eGFR of 60-89 may be normal in some populations, particularly the elderly, for whom the CKD-EPI formula has not been extensively validated. Use of the eGFR is not recommended in the following populations:

Individuals with unstable creatinine concentrations, including patients and those with serious co-morbid conditions.

Patients with extremes in muscle mass or diet.

The data above are obtained from the National Kidney Disease Education Program (NKDEP) which additionally recommends that when the eGFR is used in patients with extremes of body mass index for purposes of drug dosing, the eGFR should be multiplied by the estimated BMI. [facility] CHEM PANEL Magnesium Lvl 2.2 1.8 - 2.4 01/24/2020 [facility] CHEM PANEL Phosphorus 1.4 2.5 - 4.5 01/24/2020 Result Comment: Critical Result(s) aranda d to rey cantu at 01/24/2020 05:52 by jt. Read back OK.

Critical Result(s) called at 01/24/2020 05:47 by JT. No Answer.

Critical Result(s) called to 01/24/2020 05:43 by JT. No Answer.

Critical Result(s) called at 01/24/2020 05:37 by JT. No Answer.

Critical Result(s) called at 01/24/2020 05:31 by JT. No Answer [facility] CHEM PANEL Vitamin D, 25-OH, Total 1 2.5 30.0 - 100.0 01/24/2020 [facility] HEMATOLOGY WBC 10.4 3.7 - 10.4 01/24/2020 [facility] HEMATOLOGY RBC 2.91 4.20 - 5.40 01/24/2020 [facility] HEMATOLOGY Hgb 8.7 12.0 - 16.0 01/24/2020 [facility] HEMATOLOGY Hct 26.7 36.0 - 48.0 01/24/2020 [facility] HEMATOLOGY MCV 91.9 80.0 - 98.0 01/24/2020 [facility] HEMATOLOGY MCH 29.9 27.0 - 31.0 01/24/2020 [facility] HEMATOLOGY MCHC 32.5 32.0 - 36.0 01/24/2020 [facility] HEMATOLOGY RDW 20.7 11.5 - 14.5 01/24/2020 [facility] HEMATOLOGY Platelet 287 133 - 450 01/24/2020 [facility] HEMATOLOGY MPV 6.9 7.4 - 10.4 01/24/2020 [facility] HEMATOLOGY Segs 62.9 45.0 - 75.0 01/24/2020 [facility] HEMATOLOGY Lymphocytes 27.9 20.0 - 40.0 01/24/2020 [facility] HEMATOLOGY Monocytes 8.7 2.0 - 12.0 01/24/2020 [facility] HEMATOLOGY Eosinophils 0.1 0.0 - 4.0 01/24/2020 [facility] HEMATOLOGY Basophils 0.4 0.0 - 1.0 01/24/2020 [facility] HEMATOLOGY Neutrophils # 6.6 1.5 - 8.1 01/24/2020 [facility] HEMATOLOGY Lymphocytes # 2.9 1.0 - 5.5 01/24/2020 [facility] HEMATOLOGY Monocytes # 0.9 0.0 - 0.8 01/24/2020 [facility] PARATHYROID PROFILE Ca Ion WB 1.06 1.05 - 1.25 01/24/2020 [facility] PARATHYROID PROFILE Ca Norm WB 1.07 1.05 - 1.25 01/24/2020 [facility] CHEM PANEL Glucose Lvl 121 70 - 99 01/23/2020 [facility] CHEM PANEL BUN 17 7 - 22 01/23/2020 [facility] CHEM PANEL Creatinine Lvl 0.86 0.50 - 1.40 01/23/2020 [facility] CHEM PANEL Sodium Lvl 140 135 - 145 01/23/2020 [facility] CHEM PANEL Potassium Lvl 3.7 3.5 - 5.1 01/23/2020 [facility] CHEM PANEL Chloride Lvl 109 95 - 109 01/23/2020 [facility] CHEM PANEL CO2 21 24 - 32 01/23/2020 [facility] CHEM PANEL Calcium Lvl 8.0 8.5 - 10.5 01/23/2020 [facility] CHEM PANEL AGAP 13.7 10.0 - 20.0 01/23/2020 [facility] CHEM PANEL eGFR 71 01/23/2020 Result Comment: The eGFR is calculated using the CKD-EPI formula. In most young, healthy individuals the eGFR will be >90 mL/min/1.73m2. The eGFR declines with age. An eGFR of 60-89 may be normal in some populations, particularly the elderly, for whom the CKD-EPI formula has not been extensively validated. Use of the eGFR is not recommended in the following populations:

Individuals with unstable creatinine concentrations, including patients and those with serious co-morbid conditions.

Patients with extremes in muscle mass or diet.

The data above are obtained from the National Kidney Disease Education Program (NKDEP) which additionally recommends that when the eGFR is used in patients with extremes of body mass index for purposes of drug dosing, the eGFR should be multiplied by the estimated BMI. [facility] CHEM PANEL Magnesium Lvl 2.1 1.8 - 2.4 01/23/2020 [facility] CHEM PANEL Phosphorus 1.1 2.5 - 4.5 01/23/2020 Result Comment: Critical Result(s) aranda d to David Peterson at 01/23/2020 02:51 by Jimy Read back OK. [facility] HEMATOLOGY Segs 70.1 45.0 - 75.0 01/23/2020 [facility] HEMATOLOGY Lymphocytes 19.8 20.0 - 40.0 01/23/2020 [facility] HEMATOLOGY Monocytes 9.6 2.0 - 12.0 01/23/2020 [facility] HEMATOLOGY Basophils 0.5 0.0 - 1.0 01/23/2020 [facility] HEMATOLOGY Neutrophils # 6.5 1.5 - 8.1 01/23/2020 [facility] HEMATOLOGY Lymphocytes # 1.8 1.0 - 5.5 01/23/2020 [facility] HEMATOLOGY Monocytes # 0.9 0.0 - 0.8 01/23/2020 [facility] HEMATOLOGY WBC 9.3 3.7 - 10.4 01/23/2020 [facility] HEMATOLOGY RBC 2.77 4.20 - 5.40 01/23/2020 [facility] HEMATOLOGY Hgb 8.4 12.0 - 16.0 01/23/2020 [facility] HEMATOLOGY Hct 25.3 36.0 - 48.0 01/23/2020 [facility] HEMATOLOGY MCV 91.3 80.0 - 98.0 01/23/2020 [facility] HEMATOLOGY MCH 30.3 27.0 - 31.0 01/23/2020 [facility] HEMATOLOGY MCHC 33.2 32.0 - 36.0 01/23/2020 [facility] HEMATOLOGY RDW 20.5 11.5 - 14.5 01/23/2020 [facility] HEMATOLOGY Platelet 253 133 - 450 01/23/2020 [facility] HEMATOLOGY MPV 7.3 7.4 - 10.4 01/23/2020 [facility] PARATHYROID PROFILE Ca Ion WB 1.06 1.05 - 1.25 01/23/2020 [facility] PARATHYROID PROFILE Ca Norm WB 1.06 1.05 - 1.25 01/23/2020 [facility] CHEM PANEL Magnesium Lvl 2.1 1.8 - 2.4 01/22/2020 [facility] CHEM PANEL Phosphorus 3.0 2.5 - 4.5 01/22/2020 [facility] CHEM PANEL Glucose Lvl 126 70 - 99 01/22/2020 [facility] CHEM PANEL BUN 8 7 - 22 01/22/2020 [facility] CHEM PANEL Creatinine Lvl 0.84 0.50 - 1.40 01/22/2020 [facility] CHEM PANEL Sodium Lvl 139 135 - 145 01/22/2020 [facility] CHEM PANEL Potassium Lvl 4.4 3.5 - 5.1 01/22/2020 [facility] CHEM PANEL Chloride Lvl 110 95 - 109 01/22/2020 [facility] CHEM PANEL CO2 20 24 - 32 01/22/2020 [facility] CHEM PANEL Calcium Lvl 8.8 8.5 - 10.5 01/22/2020 [facility] CHEM PANEL AGAP 13.4 10.0 - 20.0 01/22/2020 [facility] CHEM PANEL eGFR 73 01/22/2020 Result Comment: The eGFR is calculated using the CKD-EPI formula. In most young, healthy individuals the eGFR will be >90 mL/min/1.73m2. The eGFR declines with age. An eGFR of 60-89 may be normal in some populations, particularly the elderly, for whom the CKD-EPI formula has not been extensively validated. Use of the eGFR is not recommended in the following populations:

Individuals with unstable creatinine concentrations, including patients and those with serious co-morbid conditions.

Patients with extremes in muscle mass or diet.

The data above are obtained from the National Kidney Disease Education Program (NKDEP) which additionally recommends that when the eGFR is used in patients with extremes of body mass index for purposes of drug dosing, the eGFR should be multiplied by the estimated BMI. [facility] HEMATOLOGY WBC 7.0 3.7 - 10.4 01/22/2020 [facility] HEMATOLOGY RBC 3.05 4.20 - 5.40 01/22/2020 [facility] HEMATOLOGY Hgb 9.0 12.0 - 16.0 01/22/2020 [facility] HEMATOLOGY Hct 27.8 36.0 - 48.0 01/22/2020 [facility] HEMATOLOGY MCV 91.0 80.0 - 98.0 01/22/2020 [facility] HEMATOLOGY MCH 29.4 27.0 - 31.0 01/22/2020 [facility] HEMATOLOGY MCHC 32.3 32.0 - 36.0 01/22/2020 [facility] HEMATOLOGY RDW 19.3 11.5 - 14.5 01/22/2020 [facility] HEMATOLOGY Platelet 236 133 - 450 01/22/2020 [facility] HEMATOLOGY MPV 7.6 7.4 - 10.4 01/22/2020 [facility] HEMATOLOGY Segs 85.2 45.0 - 75.0 01/22/2020 [facility] HEMATOLOGY Lymphocytes 13.0 20.0 - 40.0 01/22/2020 [facility] HEMATOLOGY Monocytes 1.3 2.0 - 12.0 01/22/2020 [facility] HEMATOLOGY Basophils 0.5 0.0 - 1.0 01/22/2020 [facility] HEMATOLOGY Neutrophils # 5.9 1.5 - 8.1 01/22/2020 [facility] HEMATOLOGY Lymphocytes # 0.9 1.0 - 5.5 01/22/2020 [facility] HEMATOLOGY Monocytes # 0.1 0.0 - 0.8 01/22/2020 [facility] IMMUNOLOGY T-Spot.TB Negat dahlia (01/22/20 1:14 AM) Negative 01/22/2020 [facility] PARATHYROID PROFILE Ca Ion WB 1.20 1.05 - 1.25 01/22/2020 [facility] PARATHYROID PROFILE Ca Norm WB 1.15 1.05 - 1.25 01/22/2020 [facility] CARDIAC ENZYMES BNP 104 <=100 pg/mL 01/21/2020 [facility] HEMATOLOGY Eosinophils 2.1 0.0 - 4.0 01/21/2020 [facility] HEMATOLOGY Eosinophils # 0.1 0.0 - 0.5 01/21/2020 [facility] HEMATOLOGY Eosinophils 1.6 0.0 - 4.0 01/20/2020 [facility] HEMATOLOGY Eosinophils # 0.1 0.0 - 0.5 01/20/2020 [facility] BLOOD BANK RESULTS ABO/Rh A NEG 01/18/2020 [facility] BLOOD BANK RESULTS Antibody Scrn Negative (01/18/20 10:58 AM) 01/18/2020 [facility] BLOOD BANK RESULTS FFP product Product available (01/18/20 9:50 AM) 01/18/2020 [facility] URINE AND STOOL UA Color Yellow *NA* (01/18/20 3:01 AM) Yellow 01/18/2020 [facility] URINE AND STOOL UA Turbidity Clear (01/18/20 3:01 AM) Clear 01/18/2020 [facility] URINE AND STOOL UA Spec Grav 1.021 <=1.030 01/18/2020 [facility] URINE AND STOOL UA pH 5.0 5.0 - 8.0 01/18/2020 [facility] URINE AND STOOL UA Protein 30 mg/dL Negative mg/dL 01/18/2020 [facility] URINE AND STOOL UA Glucose Negative mg/dL Negative mg/dL 01/18/2020 [facility] URINE AND STOOL UA Ketones Trace mg/dL Negative mg/dL 01/18/2020 [facility] URINE AND STOOL UA Bili Negative *NA* (01/18/20 3:01 AM) Negative 01/18/2020 [facility] URINE AND STOOL UA Blood Negative (01/18/20 3:01 AM) Negative 01/18/2020 [facility] URINE AND STOOL UA Urobilinogen <1.0 0.1 - 1.0 01/18/2020 [facility] URINE AND STOOL UA Nitrite Negative (01/18/20 3:01 AM) Negative 01/18/2020 [facility] URINE AND STOOL UA Leuk Est Negative (01/18/20 3:01 AM) Negative 01/18/2020 [facility] URINE AND STOOL UA Sq Epi Occasional /LPF Few /LPF 01/18/2020 [facility] URINE AND STOOL UA WBC 3 0 - 5 01/18/2020 [facility] URINE AND STOOL UA Mucus Few /LPF None Seen /LPF 01/18/2020 [facility] URINE AND STOOL UA Hyal Cast 4 0 - 2 01/18/2020 [facility] URINE CHEM U Creatinine 115.00 01/18/2020 [facility] URINE CHEM U Protein 88.0 01/18/2020 [facility] URINE CHEM U Prot/Creat 0.77 01/18/2020 [facility] HEMATOLOGY Fibrinogen Lvl 339 230 - 510 01/18/2020 [facility] HEMATOLOGY Eosinophils # 0.1 0.0 - 0.5 01/18/2020 [facility] URINE AND STOOL UA Color Yellow *NA* (01/17/20 6:17 AM) Yellow 01/17/2020 [facility] URINE AND STOOL UA Turbidity Clear (01/17/20 6:17 AM) Clear 01/17/2020 [facility] URINE AND STOOL UA Spec Grav 1.025 <=1.030 01/17/2020 [facility] URINE AND STOOL UA pH 5.0 5.0 - 8.0 01/17/2020 [facility] URINE AND STOOL UA Protein 30 mg/dL Negative mg/dL 01/17/2020 [facility] URINE AND STOOL UA Glucose Negative mg/dL Negative mg/dL 01/17/2020 [facility] URINE AND STOOL UA Ketones Trace mg/dL Negative mg/dL 01/17/2020 [facility] URINE AND STOOL UA Bili Negative *NA* (01/17/20 6:17 AM) Negative 01/17/2020 [facility] URINE AND STOOL UA Blood Negative (01/17/20 6:17 AM) Negative 01/17/2020 [facility] URINE AND STOOL UA Urobilinogen <1.0 0.1 - 1.0 01/17/2020 [facility] URINE AND STOOL UA Nitrite Negative (01/17/20 6:17 AM) Negative 01/17/2020 [facility] URINE AND STOOL UA Leuk Est Negative (01/17/20 6:17 AM) Negative 01/17/2020 [facility] URINE AND STOOL UA Sq Epi Occasional /LPF Few /LPF 01/17/2020 [facility] URINE AND STOOL UA WBC 3 0 - 5 01/17/2020 [facility] URINE AND STOOL UA Mucus Few /LPF None Seen /LPF 01/17/2020 [facility] URINE AND STOOL UA Amorph Reva Occasional /HPF None Seen /HPF 01/17/2020 [facility] URINE AND STOOL UA Hyal Cast 4 0 - 2 01/17/2020 [facility] URINE AND STOOL UA Gran Cast 6-10 /LPF None Seen /LPF 01/17/2020 [facility] URINE CHEM U Creatinine 91.80 01/17/2020 [facility] URINE CHEM U Protein 103.9 01/17/2020 [facility] URINE CHEM U Prot/Creat 1.13 01/17/2020 [facility] IMMUNOLOGY C-ANCA Negat dahlia (01/16/20 1:24 PM) Negative 01/16/2020 [facility] IMMUNOLOGY P-ANCA Negat dahlia (01/16/20 1:24 PM) Negative 01/16/2020 [facility] IMMUNOLOGY FUEL OPERATOR Ab 0.3 <=0.9 AI 01/16/2020 [facility] IMMUNOLOGY SCL- 70 Ab <0.2 <=0.9 AI 01/16/2020 [facility] URINE AND STOOL UA Color Light Yellow *NA* (01/16/20 6:48 AM) Yellow 01/16/2020 [facility] URINE AND STOOL UA Turbidity Clear (01/16/20 6:48 AM) Clear 01/16/2020 [facility] URINE AND STOOL UA Spec Grav 1.057 <=1.030 01/16/2020 [facility] URINE AND STOOL UA pH 5.0 5.0 - 8.0 01/16/2020 [facility] URINE AND STOOL UA Protein Negative mg/dL Negative mg/dL 01/16/2020 [facility] URINE AND STOOL UA Glucose Negative mg/dL Negative mg/dL 01/16/2020 [facility] URINE AND STOOL UA Ketones Trace mg/dL Negative mg/dL 01/16/2020 [facility] URINE AND STOOL UA Bili Negative *NA* (01/16/20 6:48 AM) Negative 01/16/2020 [facility] URINE AND STOOL UA Blood Negative (01/16/20 6:48 AM) Negative 01/16/2020 [facility] URINE AND STOOL UA Urobilinogen <1.0 0.1 - 1.0 01/16/2020 [facility] URINE AND STOOL UA Nitrite Negative (01/16/20 6:48 AM) Negative 01/16/2020 [facility] URINE AND STOOL UA Leuk Est Negative (01/16/20 6:48 AM) Negative 01/16/2020 [facility] URINE AND STOOL UA WBC 3 0 - 5 01/16/2020 [facility] URINE AND STOOL UA RBC 2 0 - 2 01/16/2020 [facility] URINE AND STOOL UA Mucus Few /LPF None Seen /LPF 01/16/2020 [facility] URINE AND STOOL UA Sq Epi None Seen 01/16/2020 [facility] URINE CHEM U Creatinine 49.60 01/16/2020 [facility] URINE CHEM U Protein 53.2 01/16/2020 [facility] URINE CHEM U Prot/Creat 1.07 01/16/2020 [facility] IMMUNOLOGY Coronavirus (COVID-19) NA A Not Detected (01/15/20 5:42 PM) Not Detected 01/15/2020 [facility] BLOOD BANK RESULTS RBC product Product available (01/15/20 11:59 AM) 01/15/2020 [facility] BLOOD BANK RESULTS Antibody Scrn Negative (01/15/20 1:14 AM) 01/15/2020 [facility] BLOOD BANK RESULTS ABO/Rh A NEG 01/15/2020 [facility] ANEMIA STUDY Ferritin Lvl 208 5 - 204 01/15/2020 [facility] CARDIAC ENZYMES Total CK 70 12 - 191 01/15/2020 [facility] CHEM PANEL LDH 260 98 - 192 01/15/2020 [facility] HEMATOLOGY Fibrinogen Lvl 401 230 - 510 01/15/2020 [facility] HEMATOLOGY Retic Auto 9.1 0.5 - 1.5 01/15/2020 [facility] URINE AND STOOL UA RBC 9 0 - 2 01/15/2020 [facility] URINE AND STOOL UA Amorph Reva Occasional /HPF None Seen /HPF 01/15/2020 [facility] URINE AND STOOL UA CaOx Reva Occasional /HPF None Seen /HPF 01/15/2020 [facility] URINE AND STOOL UA Hyal Cast 1 0 - 2 01/15/2020 [facility] BLOOD BANK RESULTS FFP product Product available (01/14/20 11:30 AM) 01/14/2020 [facility] BLOOD BANK RESULTS FFP product Modification Required (01/14/20 9:53 AM) 01/14/2020 [facility] ANEMIA STUDY Ferritin Lvl 197 5 - 204 01/14/2020 [facility] CARDIAC ENZYMES Total CK 103 12 - 191 01/14/2020 [facility] CHEM PANEL LDH 258 98 - 192 01/14/2020 [facility] HEMATOLOGY Retic Auto 7.5 0.5 - 1.5 01/14/2020 [facility] CARDIAC ENZYMES Troponin-I 0.06 0.00 - 0.40 01/14/2020 [facility] CARDIAC ENZYMES Troponin-I 0.07 0.00 - 0.40 01/13/2020 [facility] CARDIAC ENZYMES Troponin-I 0.07 0.00 - 0.40 01/13/2020 [facility] CHEM PANEL Lactic Acid Lvl 0.6 0.5 - 2.2 01/13/2020 [facility] CHEM PANEL Total Protein 5.9 6.4 - 8.4 01/13/2020 [facility] CHEM PANEL Albumin Lvl 2.9 3.5 - 5.0 01/13/2020 [facility] CHEM PANEL ALT 32 0 - 65 01/13/2020 [facility] CHEM PANEL AST 34 0 - 37 01/13/2020 [facility] CHEM PANEL Alk Phos 55 39 - 136 01/13/2020 [facility] CHEM PANEL Bili Total 0.3 0.2 - 1.3 01/13/2020 [facility] CHEM PANEL B/C Ratio 38 6 - 25 01/13/2020 [facility] CHEM PANEL Globulin 3.0 2.7 - 4.2 01/13/2020 [facility] CHEM PANEL A/G Ratio 1.0 0.7 - 1.6 01/13/2020 [facility] ANEMIA STUDY Ferritin Lvl 152 5 - 204 01/13/2020 [facility] CARDIAC ENZYMES Total CK 101 12 - 191 01/13/2020 [facility] CHEM PANEL LDH 231 98 - 192 01/13/2020 [facility] HEMATOLOGY Retic Auto 6.9 0.5 - 1.5 01/13/2020 [facility] HEMATOLOGY Fibrinogen Lvl 380 230 - 510 01/13/2020 [facility] URINE AND STOOL UA RBC 4 0 - 2 01/12/2020 [facility] URINE AND STOOL UA Gran Cast 11-20 /LPF None Seen /LPF 01/12/2020 [facility] ANEMIA STUDY Iron 34 30 - 160 01/11/2020 [facility] ANEMIA STUDY TIBC 92 228 - 428 01/11/2020 [facility] ANEMIA STUDY UIBC 58 110 - 370 01/11/2020 [facility] ANEMIA STUDY % [place] 37 12 - 57 01/11/2020 [facility] BLOOD BANK RESULTS ABO/Rh A NEG 01/11/2020 [facility] BLOOD BANK RESULTS Antibody Scrn Negative (01/11/20 12:55 AM) 01/11/2020 [facility] BLOOD BANK RESULTS MEGAN Gel Int Positive (01/11/20 12:55 AM) 01/11/2020 [facility] BLOOD BANK RESULTS C3 Int Negative (01/11/20 12:55 AM) 01/11/2020 [facility] BLOOD BANK RESULTS Path MEGAN Transfusion Medicine Physician Service Patient is a 64 y/o female with HTN, h/o Crohn's disease in remission, CKD stage 3, possible Parkinson's disease, and possible myasthenia gravis who was transferred to [facility] on 01/07/20 for higher level of care. Her generalized weakness was worsened slowly in the past couple of months. She received steroid and IVIG treatment at the outside facility with minimal response. This patient has a positive Direct Antiglobulin Test (MEGAN) with IgG detected on circulating RBCs; no complement fixation is detected. The elution analysis was not performed due to the lack of recent transfusion. Positive MEGAN may be seen in up to 16% of hospitalized patients and be idiopathic in nature. It is also associated with various autoimmune disorders, hypergammaglobulinemia, certain malignancies, and following administration of specific medications (such as IVIG in this case). RBCs with a positive MEGAN can be expected to have decreased in vivo survival. The patient should be monitored for immune hemolysis and/or anemia if clinically indicated. The patients electronic medical record has been reviewed for relevant information. I have reviewed the test results and concur with the resident, Dr. Walls's, interpretation. CPT: 30214-IY 01/11/2020 [facility] CHEM PANEL VITAMIN B1 (THIAMINE) WHO LE BLOOD 138.0 66.5 - 200.0 01/11/2020 Result Comment: This test wa s developed and its performance characteristics
determined by [employer]. It has not been cleared or
approved by the Food and Drug Administration.
Performed At: [facility]
[address], [place] [id number]
Elijah Han MD Ph:[phone] [facility] CHEM PANEL B/C Ratio 37 6 - 25 01/11/2020 [facility] CHEM PANEL Total Protein 6.3 6.4 - 8.4 01/11/2020 [facility] CHEM PANEL Albumin Lvl 3.2 3.5 - 5.0 01/11/2020 [facility] CHEM PANEL Globulin 3.1 2.7 - 4.2 01/11/2020 [facility] CHEM PANEL A/G Ratio 1.0 0.7 - 1.6 01/11/2020 [facility] CHEM PANEL ALT 22 0 - 65 01/11/2020 [facility] CHEM PANEL AST 33 0 - 37 01/11/2020 [facility] CHEM PANEL Alk Phos 44 39 - 136 01/11/2020 [facility] CHEM PANEL Bili Total 0.6 0.2 - 1.3 01/11/2020 [facility] CHEM PANEL Aldolase 7.3 1.2 - 7.6 01/11/2020 [facility] CHEM PANEL Bili Total 0.6 0.2 - 1.3 01/11/2020 [facility] CHEM PANEL Bili Direct 0.3 0.0 - 0.3 01/11/2020 [facility] CHEM PANEL Bili Indirect 0.4 0.0 - 1.0 01/11/2020 [facility] HEMATOLOGY PB Smear Path CBC a nd peripheral blood smear review: - Moderate normocytic anemia (See Comment) Morphology: RBCs: decreased in number; normocytic, normochromic; mild anisopoikilocytosis with occasional spherocytes and rare elliptocytes; polychromasia present; schistocytes not seen; nucleated RBCs absent; intracellular organisms absent WBCs: Normal in number, unremarkable morphology; dysplasia absent; blasts absent Platelets: Normal in number; unremarkable morphology; platelet clumps absent Comment: Normocytic anemia can be seen in early iron deficiency anemia, anemia of chronic disease and acute blood loss. Please correlate clinically. CPT 63484 01/11/2020 [facility] HEMATOLOGY Basophils # 0.1 0.0 - 0.2 01/11/2020 [facility] IMMUNOLOGY HIV Ag/Ab 4th Gen Negat dahlia *NA* (01/11/20 12:55 AM) Negative 01/11/2020 [facility] IMMUNOLOGY C3 Complement 62 88 - 201 01/11/2020 [facility] IMMUNOLOGY C4 Complement 18 16 - 47 01/11/2020 [facility] IMMUNOLOGY Cryoglob Negat dahlia (01/11/20 12:55 AM) Negative 01/11/2020 [facility] IMMUNOLOGY RF Qnt <10 0 - 20 01/11/2020 [facility] IMMUNOLOGY MuSK Auto Ab <1.0 01/11/2020 Result Comment: Reference Range:
N egative: <1.0
Positive: 1.0 or higher
A positive result, in the context of congruent clinical
findings, confirms the diagnosis of autoimmune MuSK
myasthenia gravis.
COMMENTS:
- Myasthenia gravis (MG) is caused by auto- antibodies
against proteins of the neuromuscular junction. Most
cases (about 90%) of generalized MG are anti-
acetylcholine receptor (AChR) antibody-positive.(1)
- Of generalized MG patients who lack anti- AChR antibodies
(AChR-seronegative), about 40% are positive for Muscle-
Specific Kinase (MuSK) antibody.(1,2)
- Though a positive MuSK result is specific for the
diagnosis of MuSK MG, a negative MuSK result does not
rule out a MG diagnosis.
- MuSK antibody levels have been shown to correlate with
disease severity.(3) Serial measurements may be useful
to follow treatment.
References:
1. Brad-Dennis S et al. J Autoimmunity 2014;52:90-100.
2. Michelle DERAS et al. PNAS 2013; 110(51);31078-11450.
3. Deepthi E et al. Neurology 2006;67:505- 507.
This test was developed and its performance characteristics
determined by [facility]. It has not been cleared or approved
by the Food and Drug Administration.
Performed At: [facility]
[address] [place], [place] [id number]
Sam Castro MD Ph:[phone] [facility] IMMUNOLOGY VGCC Ab Assay Negat dahlia Negative 01/11/2020 Result Comment: Results for this test ar e for research purposes only by the
assay's fitness trainer. The performance characteristics of
this product have not been established. Results should not
be used as a diagnostic procedure without confirmation of
the diagnosis by another medically established diagnostic
product or procedure.
Performed At: [facility]
[address] [place] [phone]
Elijah Han MD Ph:[phone] [facility] IMMUNOLOGY C4 Complement 17 16 - 47 01/11/2020 [facility] IMMUNOLOGY C3 Complement 68 88 - 201 01/11/2020 [facility] METAL Lead ICP/MS None Detected 0 - 4 01/11/2020 Result Comment: Testing performed by Ind uctively coupled plasma/Mass
Spectrometry.
Environmental Exposure:
WHO Recommendation <20
Occupational Exposure:
OSHA Lead Std 40
LÁZARO 30

Detection Limit = 1

This test was developed and its performance
characteristics determined by [employer]. It has not been
cleared or approved by the Food and Drug Administration. [facility] METAL Arsenic Lvl 9 2 - 23 01/11/2020 Result Comment: This test was developed and its performance characteristics
determined by [employer]. It has not been cleared or
approved by the Food and Drug Administration.
Detection Limit = 1 [facility] METAL Mercury Lvl None Detected 0.0 - 14.9 01/11/2020 Result Comment: This test was developed and its performance characteristics
determined by [employer]. It has not been cleared or
approved by the Food and Drug Administration.
Environmental Exposure: <15.0
Occupational Exposure:
LÁZARO - Inorganic Mercury: 15.0

Detection Limit = 1.0
Performed At: [facility]
[address], [place] [id number]
Elijah Han MD Ph:[phone] [facility] METAL Copper Lvl 87 72 - 166 01/11/2020 Result Comment: This test was developed and its performance characteristics
determined by [facility]. It has not been cleared or
approved by the Food and Drug Administration.
Detection Limit = 5
Performed At: [facility]
[address] [place] [id number]
Elijah Han MD Ph:[phone] [facility] VIRAL - SEROLOGY W Nile Ab IgG Negative Negative 01/11/2020 Result Comment: No detectable West Nile Virus IgG Antibody. If a recent
infection is suspected, another specimen should be
submitted for testing within 7-14 days. [facility] VIRAL - SEROLOGY W Nile Ab IgM Negative Negative 01/11/2020 Result Comment: No detectable West Nile Virus IgM Antibody. If a recent
infection is suspected, another specimen should be
submitted for testing within 7-14 days.
Performed At: [facility]
[address] [place] [phone]
Elijah Han MD Ph:[phone] [facility] REFERENCE LAB RESULTS [facility] SEE COMMENT 01/10/2020 Result Comment: MYOSITIS SPECIFIC 11 ABS PNL

TEST: RESULTS: REFERENCE RANGE:

VICKI-1 AB <11 SI <11
PL-7 AB <11 SI <11
PL-12 AB <11 SI <11
EJ AB <11 SI <11
OJ AB <11 SI <11
SRP AB <11 SI <11
GA-2 ALPHA AB <11 SI <11
GA-2 BETA AB <11 SI <11
MDA-5 AB <11 SI <11
TIF-LY AB <11 SI <11
NXP-2 AB <11 SI <11

[facility]
[address] [facility]
[place] [address] [facility] BACTERIAL - SEROLOGY Source Strep Cerebral Spinal Fluid 01/10/2020 [facility] BACTERIAL - SEROLOGY Strep pneumonia e Ag Negative (01/10/20 10:11 AM) Negative 01/10/2020 [facility] BODY FLUIDS Tube Num CSF 1 01/10/2020 [facility] BODY FLUIDS Color CSF [place] rless (01/10/20 10:11 AM) Colorless 01/10/2020 [facility] BODY FLUIDS Clarity CSF Samantha r (01/10/20 10:11 AM) Clear 01/10/2020 [facility] BODY FLUIDS Supernat CSF [place] rless (01/10/20 10:11 AM) Colorless 01/10/2020 [facility] BODY FLUIDS Nucleated Cells CSF 1 0 - 53 01/10/2020 [facility] BODY FLUIDS RBC CSF 800 0 - 03 01/10/2020 [facility] BODY FLUIDS Glucose CSF 82 45 - 80 01/10/2020 [facility] BODY FLUIDS Protein CSF 41 15 - 45 01/10/2020 [facility] BODY FLUIDS Tube Num CSF 4 01/10/2020 [facility] BODY FLUIDS Color CSF Ligh t Red *ABN* (01/10/20 10:11 AM) Colorless 01/10/2020 [facility] BODY FLUIDS Clarity CSF Slig ht *ABN* (01/10/20 10:11 AM) Clear 01/10/2020 [facility] BODY FLUIDS Supernat CSF [place] rless (01/10/20 10:11 AM) Colorless 01/10/2020 [facility] BODY FLUIDS Nucleated Cells CSF 7 0 - 53 01/10/2020 [facility] BODY FLUIDS RBC CSF 6000 0 - 03 01/10/2020 [facility] BODY FLUIDS Neutrophils CSF 90 0 - 6 01/10/2020 [facility] BODY FLUIDS Lymph CSF 6 40 - 80 01/10/2020 [facility] BODY FLUIDS Monocyte CSF 4 15 - 45 01/10/2020 [facility] BODY FLUIDS Lactic Acid CSF 1.5 0.6 - 2.2 01/10/2020 [facility] FUNGAL - SEROLOGY Crypto Ag CSF Negative (01/10/20 10:11 AM) Negative 01/10/2020 [facility] IMMUNOLOGY VDRL Scr CSF Non R eactive (01/10/20 10:11 AM) Non Reactive 01/10/2020 [facility] IMMUNOLOGY Alb (CPE) 3400.0 3400.0 - 5000.0 01/10/2020 [facility] IMMUNOLOGY IgG Lvl CSF 8.8 2.0 - 4.0 01/10/2020 [facility] IMMUNOLOGY IgG (CPE) 1240 694 - 1618 01/10/2020 [facility] IMMUNOLOGY IgG Index 2.1 0.3 - 0.7 01/10/2020 [facility] IMMUNOLOGY Alb CSF (CPE) 11.5 14.0 - 25.0 01/10/2020 [facility] IMMUNOLOGY Description CSF The g el demonstrates appropriate resolution of the main protein bands. The gamma region shows continuous distribution of proteins both in the CSF and in the serum. No oligoclonal bands are detected. 01/10/2020 [facility] IMMUNOLOGY PE Interp CSF CSF p rotein electrophoresis did not reveal evidence of an oligoclonal process in the ATG JAVA DEVELOPER. The CSF IgG index is elevated indicating that there is an increase in intracerebral IgG synthesis that may occur in acute and chronic inflammatory processes involving ATG JAVA DEVELOPER, including viral encephalitis, bacterial meningitis, neurosyphilis, subacute sclerosing panencephalitis, acute poliomyelitis, Guillain-Fulton syndrome, neurosarcoidosis, and systemic lupus erythematosus. There is no evidence of increased permeability of the blood brain barrier based on the CSF/serum albumin ratio. The electronic medical record has been reviewed for relevant history. I have personally reviewed the test results and concur with the resident's interpretation. CPT: 14739-ES 01/10/2020 [facility] IMMUNOLOGY Albumin % 28.4 55.8 - 66.1 01/10/2020 [facility] IMMUNOLOGY Alpha 1 % 6.7 2.8 - 4.9 01/10/2020 [facility] IMMUNOLOGY Alpha 2 % 14.5 7.0 - 11.9 01/10/2020 [facility] IMMUNOLOGY Beta % 13.1 7.8 - 13.7 01/10/2020 [facility] IMMUNOLOGY Gamma % 37.3 11.1 - 18.7 01/10/2020 [facility] IMMUNOLOGY Albumin (SPE) 1.79 3.57 - 5.55 01/10/2020 [facility] IMMUNOLOGY Alpha 1 Glob 0.42 0.18 - 0.41 01/10/2020 [facility] IMMUNOLOGY Alpha 2 Glob 0.91 0.45 - 1.00 01/10/2020 [facility] IMMUNOLOGY Beta Glob 0.83 0.50 - 1.15 01/10/2020 [facility] IMMUNOLOGY Gamma Glob 2.35 0.71 - 1.57 01/10/2020 [facility] IMMUNOLOGY Tot Prot (SPE) 6.3 6.4 - 8.4 01/10/2020 [facility] IMMUNOLOGY SPE Interp Capil ankit electrophoresis demonstrates an increase with distortion of the gamma distribution curve. This requires further evaluation by serum and 24 hr urine immunofixation. As there is no distinct peak, quantification is not possible. Total protein level is reduced. Serum protein electrophoresis shows reduced albumin with elevated alpha-1 globulin fraction. This feature is consistent with inflammation. The electronic medical record has been reviewed for relevant history. I have personally reviewed the test results and concur with the resident's interpretation. CPT 29359-TR 01/10/2020 [facility] IMMUNOLOGY GISELLE CSF 3 <=3 unit/L 01/10/2020 [facility] MOLECULAR DIAGNOSTIC Source HSV Cerebral Spinal Fluid 01/10/2020 Result Comment: CSF contains less than 5 WBC'S and has a normal Protein level. [facility] MOLECULAR DIAGNOSTIC HSV 1 by PCR Not Performed (01/10/20 10:11 AM) Negative 01/10/2020 [facility] MOLECULAR DIAGNOSTIC HSV 2 by PCR Not Performed (01/10/20 10:11 AM) Negative 01/10/2020 [facility] MOLECULAR DIAGNOSTIC Source VZV Cerebral Spinal Fluid 01/10/2020 [facility] MOLECULAR DIAGNOSTIC VZV PCR Negative (01/10/20 10:11 AM) Negative 01/10/2020 [facility] MOLECULAR DIAGNOSTIC Source CMV Cerebral Spinal Fluid 01/10/2020 [facility] MOLECULAR DIAGNOSTIC CMV PCR Negative (01/10/20 10:11 AM) Negative 01/10/2020 [facility] MOLECULAR DIAGNOSTIC EBV PCR Ql CSF Negative (01/10/20 10:11 AM) Negative 01/10/2020 [facility] VIRAL - SEROLOGY Enterovirus PCR CSF Negative (01/10/20 10:11 AM) Negative 01/10/2020 [facility] Gram Stain Report Gram Stain Perf ormed By: [facility] 01/10/2020 [facility] Culture: CSF w/Gram Stain No Growth 01/10/2020 [facility] REFERENCE LAB RESULTS Misc [facility] SEE COMMETNS 01/09/2020 Result Comment: IGG MONOS, GM1 NEGATI VE
IGM MONOS, GM1 NEGATIVE
IGG ASIALO, GM1 NEGATIVE
IGM ASIALO, GM1 NEGATIVE
IGG DISIALO GD1b NEGATIVE
IGM DISIALO GD1b NEGATIVE

REF. RANGE: NEGATIVE

TESTING PERFORMED AT [facility], [address] [place] [address]. [facility] HEMATOLOGY Basophils # 0.1 0.0 - 0.2 01/09/2020 [facility] IMMUNOLOGY MuSK Auto Ab <1.0 01/09/2020 Result Comment: Reference Range:
N egative: <1.0
Positive: 1.0 or higher
A positive result, in the context of congruent clinical
findings, confirms the diagnosis of autoimmune MuSK
myasthenia gravis.
COMMENTS:
- Myasthenia gravis (MG) is caused by auto- antibodies
against proteins of the neuromuscular junction. Most
cases (about 90%) of generalized MG are anti-
acetylcholine receptor (AChR) antibody-positive.(1)
- Of generalized MG patients who lack anti- AChR antibodies
(AChR-seronegative), about 40% are positive for Muscle-
Specific Kinase (MuSK) antibody.(1,2)
- Though a positive MuSK result is specific for the
diagnosis of MuSK MG, a negative MuSK result does not
rule out a MG diagnosis.
- MuSK antibody levels have been shown to correlate with
disease severity.(3) Serial measurements may be useful
to follow treatment.
References:
1. Brad-Dennis S et al. J Autoimmunity 2014;52:90-100.
2. Michelle Holly al. PNAS 2013; 110(97);47698-19767.
3. Deepthi Marcos et al. Neurology 2006;67:505- 507.
This test was developed and its performance characteristics
determined by [facility]. It has not been cleared or approved
by the Food and Drug Administration.
Performed At: [facility]
[address] [place] [phone]
Sam Castro MD Ph:[phone] [facility] IMMUNOLOGY Striated Muscle IgG Negat dahlia Neg:<1:40 01/09/2020 Result Comment: Performed At: [facility]
[address] [place] [phone]
Elijah Han MD Ph:[phone] [facility] HEMATOLOGY PT 14.6 12.0 - 14.7 01/08/2020 [facility] HEMATOLOGY INR 1.13 0.85 - 1.17 01/08/2020 [facility] HEMATOLOGY PTT 32.7 22.9 - 35.8 01/08/2020 [facility] CHEM PANEL Procalcitonin Lvl 0.16 0.00 - 0.10 01/08/2020 [facility] HEMATOLOGY PT xxxxx xx 22 (01/08/20 4:49 AM) 12.0 - 14.7 01/08/2020 Result Comment: specimen contained clot. "Corrected Report was called to jesus carrion at 01/08/2020 05:24 by sss. Read Back OK." [facility] HEMATOLOGY INR xxxxx xx 17 (01/08/20 4:49 AM) 0.85 - 1.17 01/08/2020 Result Comment: specimen contained clot. "Corrected Report was called to jesus carrion at 01/08/2020 05:25 by sss. Read Back OK." [facility] HEMATOLOGY PTT See N ote 23 (01/08/20 4:49 AM) 22.9 - 35.8 01/08/2020 Result Comment: specimen contained clot. "Corrected Report was called to jesus carrion at 01/08/2020 05:23 by sss. Read Back OK." [facility] Gram Stain Report Gram Stain Perf ormed By: [facility] 01/08/2020 [facility] Culture: Respiratory w/Gram Stain F ew Yeast Reduced Normal Respiratory Mi 01/08/2020 [facility] ANEMIA STUDY Vitamin B12 Lvl 102 3 254 - 1320 01/08/2020 [facility] BACTERIAL - SEROLOGY MRSA by PCR Negative (01/08/20 12:24 AM) 01/08/2020 [facility] HEMATOLOGY Sed Rate >100 0 - 20 01/08/2020 [facility] HEMATOLOGY Basophils # 0.1 0.0 - 0.2 01/08/2020 [facility] IMMUNOLOGY CANDIDA Titer 1:80 *ABN* (01/08/20 12:24 AM) Negative 01/08/2020 [facility] IMMUNOLOGY CANDIDA Interp Jackelyn rn appears speckled 01/08/2020 [facility] IMMUNOLOGY SS-B (La) Ab 0.3 <=0.9 AI 01/08/2020 [facility] IMMUNOLOGY SS-A (Ro) Ab 1.9 <=0.9 AI 01/08/2020 [facility] IMMUNOLOGY DNA Ab (DS) Negat dahlia (01/08/20 12:24 AM) Negative 01/08/2020 [facility] IMMUNOLOGY Sm Ab <0.2 <=0.9 AI 01/08/2020 [facility] IMMUNOLOGY FUEL OPERATOR Ab 0.6 <=0.9 AI 01/08/2020 [facility] IMMUNOLOGY ACHr Binding Ab <0.03 0.00 - 0.24 01/08/2020 Result Comment: Negative: 0.00 - 0.24
Borderline: 0.25 - 0.40
Positive: >0.40
Performed At: [facility]
[address] [place] [id number]
Elijah Han MD Ph:[phone] [facility] IMMUNOLOGY ACHr Block Ab 21 0 - 25 01/08/2020 Result Comment: Results of this test are labeled for research purposes only
by the assay's fitness trainer. The performance
characteristics of this assay have not been established by
the fitness trainer. The result should not be used for
treatment or for diagnostic purposes without confirmation
of the diagnosis by another medically established<br/&gt ;diagnostic product or procedure. The performance
characteristics were determined by [facility].
Negative: 0 - 25
Borderline: 26 - 30
Positive: >30
Performed At: [facility]
[address], [place] [id number]
Elijah Han MD Ph:[phone] [facility] IMMUNOLOGY ACHr Mod Ab <12 0 - 20 01/08/2020 Result Comment: Negative: <21
Equivocal: 21 - 25
Positive: >25
The assay is linear between values of 12 and 64.
Those <12 and >64 are reported as such. No single
value for ACR-modulating antibody should be used as
a sole basis for diagnosis or response to therapy.
Performed At: [facility]
[address], [place] [id number]
Elijah Han MD Ph:[phone] [facility] IMMUNOLOGY C-REACTIVE PROTEIN 110.0 <=2.9 mg/L 01/08/2020 [facility] IMMUNOLOGY CANDIDA Posit dahlia *ABN* (01/08/20 12:24 AM) Negative 01/08/2020 [facility] IMMUNOLOGY Hep C Ab Negat dahlia *NA* (01/08/20 12:24 AM) Negative 01/08/2020 [facility] IMMUNOLOGY Hep B Core IgM Negat dahlia *NA* (01/08/20 12:24 AM) Negative 01/08/2020 [facility] IMMUNOLOGY Hep A IgM Negat dahlia *NA* (01/08/20 12:24 AM) Negative 01/08/2020 [facility] IMMUNOLOGY Hep Bs Ag Negat dahlia *NA* (01/08/20 12:24 AM) Negative 01/08/2020 [facility] CHEM PANEL Glucose Lvl 95 70 - 99 08/26/2019 [facility] CHEM PANEL BUN 27 7 - 22 08/26/2019 [facility] CHEM PANEL Creatinine Lvl 1.42 0.50 - 1.40 08/26/2019 [facility] CHEM PANEL Sodium Lvl 138 135 - 145 08/26/2019 [facility] CHEM PANEL Potassium Lvl 4.6 3.5 - 5.1 08/26/2019 [facility] CHEM PANEL Chloride Lvl 109 95 - 109 08/26/2019 [facility] CHEM PANEL CO2 25 24 - 32 08/26/2019 [facility] CHEM PANEL Calcium Lvl 9.3 8.5 - 10.5 08/26/2019 [facility] CHEM PANEL eGFR 39 08/26/2019 Result Comment: The eGFR is calculated using the CKD-EPI formula. In most young, healthy individuals the eGFR will be >90 mL/min/1.73m2. The eGFR declines with age. An eGFR of 60-89 may be normal in some populations, particularly the elderly, for whom the CKD-EPI formula has not been extensively validated. Use of the eGFR is not recommended in the following populations:

Individuals with unstable creatinine concentrations, including patients and those with serious co-morbid conditions.

Patients with extremes in muscle mass or diet.

The data above are obtained from the National Kidney Disease Education Program (NKDEP) which additionally recommends that when the eGFR is used in patients with extremes of body mass index for purposes of drug dosing, the eGFR should be multiplied by the estimated BMI. [facility] CHEM PANEL AGAP 8.6 10.0 - 20.0 08/26/2019 [facility] HEMATOLOGY WBC 7.5 3.7 - 10.4 08/26/2019 [facility] HEMATOLOGY RBC 3.86 4.20 - 5.40 08/26/2019 [facility] Hgb 11.3 12.0 - 16.0 08/26/2019 [facility] HEMATOLOGY Hct 35.2 36.0 - 48.0 08/26/2019 [facility] HEMATOLOGY MCV 91.1 80.0 - 98.0 08/26/2019 [facility] HEMATOLOGY MCH 29.4 27.0 - 31.0 08/26/2019 [facility] MCHC 32.2 32.0 - 36.0 08/26/2019 [facility] RDW 13.1 11.5 - 14.5 08/26/2019 [facility] Platelet 189 133 - 450 08/26/2019 [facility] MPV 7.4 7.4 - 10.4 08/26/2019 [facility] Segs 56.1 45.0 - 75.0 08/26/2019 [facility] HEMATOLOGY Lymphocytes 30.8 20.0 - 40.0 08/26/2019 [facility] HEMATOLOGY Monocytes 11.0 2.0 - 12.0 08/26/2019 [facility] HEMATOLOGY Eosinophils 1.1 0.0 - 4.0 08/26/2019 [facility] HEMATOLOGY Basophils 1.0 0.0 - 1.0 08/26/2019 [facility] HEMATOLOGY Neutrophils # 4.2 1.5 - 8.1 08/26/2019 [facility] HEMATOLOGY Lymphocytes # 2.3 1.0 - 5.5 08/26/2019 [facility] Monocytes # 0.8 0.0 - 0.8 08/26/2019 [facility] HEMATOLOGY Eosinophils # 0.1 0.0 - 0.5 08/26/2019 [facility] HEMATOLOGY Basophils # 0.1 0.0 - 0.2 08/26/2019 [facility] CHEM PANEL Glucose Lvl 87 70 - 99 08/25/2019 [facility] CHEM PANEL BUN 32 7 - 22 08/25/2019 [facility] CHEM PANEL Creatinine Lvl 1.61 0.50 - 1.40 08/25/2019 [facility] CHEM PANEL Sodium Lvl 138 135 - 145 08/25/2019 [facility] CHEM PANEL Potassium Lvl 4.1 3.5 - 5.1 08/25/2019 [facility] CHEM PANEL Chloride Lvl 109 95 - 109 08/25/2019 [facility] CHEM PANEL CO2 25 24 - 32 08/25/2019 [facility] CHEM PANEL Calcium Lvl 9.1 8.5 - 10.5 08/25/2019 [facility] CHEM PANEL Albumin Lvl 3.3 3.5 - 5.0 08/25/2019 [facility] CHEM PANEL Phosphorus 2.8 2.5 - 4.5 08/25/2019 [facility] CHEM PANEL AGAP 8.1 10.0 - 20.0 08/25/2019 [facility] CHEM PANEL eGFR 33 08/25/2019 Result Comment: The eGFR is calculated using the CKD-EPI formula. In most young, healthy individuals the eGFR will be >90 mL/min/1.73m2. The eGFR declines with age. An eGFR of 60-89 may be normal in some populations, particularly the elderly, for whom the CKD-EPI formula has not been extensively validated. Use of the eGFR is not recommended in the following populations:

Individuals with unstable creatinine concentrations, including patients and those with serious co-morbid conditions.

Patients with extremes in muscle mass or diet.

The data above are obtained from the National Kidney Disease Education Program (NKDEP) which additionally recommends that when the eGFR is used in patients with extremes of body mass index for purposes of drug dosing, the eGFR should be multiplied by the estimated BMI. [facility] CHEM PANEL Magnesium Lvl 2.3 1.8 - 2.4 08/25/2019 [facility] HEMATOLOGY WBC 5.5 3.7 - 10.4 08/25/2019 [facility] HEMATOLOGY RBC 3.78 4.20 - 5.40 08/25/2019 [facility] HEMATOLOGY Hgb 11.2 12.0 - 16.0 08/25/2019 [facility] HEMATOLOGY Hct 34.5 36.0 - 48.0 08/25/2019 [facility] HEMATOLOGY MCV 91.3 80.0 - 98.0 08/25/2019 [facility] HEMATOLOGY MCH 29.8 27.0 - 31.0 08/25/2019 [facility] HEMATOLOGY MCHC 32.6 32.0 - 36.0 08/25/2019 [facility] HEMATOLOGY RDW 13.1 11.5 - 14.5 08/25/2019 [facility] HEMATOLOGY Platelet 184 133 - 450 08/25/2019 [facility] HEMATOLOGY MPV 7.1 7.4 - 10.4 08/25/2019 [facility] AMPICILLIN:SUSC:PT:ISOLATE:ORDQN:CARLENE Culture: Urine >100,000 CFU/mL Proteus mirabilis 08/25/2019 [facility] AMPICILLIN:SUSC:PT:ISOLATE:ORDQN:CARLENE Proteus mirabilis Proteus mirabilis 08/25/2019 [facility] URINE AND STOOL UA Color Yellow *NA* (08/24/19 9:50 PM) Yellow 08/25/2019 [facility] URINE AND STOOL UA Turbidity Marked *ABN* (08/24/19 9:50 PM) Clear 08/25/2019 [facility] URINE AND STOOL UA Spec Grav 1.021 <=1.030 08/25/2019 [facility] URINE AND STOOL UA pH 7.0 5.0 - 8.0 08/25/2019 [facility] URINE AND STOOL UA Protein 30 mg/dL Negative mg/dL 08/25/2019 [facility] URINE AND STOOL UA Glucose Negative mg/dL Negative mg/dL 08/25/[address] [facility] [address] URINE AND STOOL UA Ketones Negative mg/dL Negative mg/dL 08/25/2019 [facility] [facility] STOOL UA Bili Negative *NA* (08/24/19 9:50 PM) Negative 08/25/2019 [facility] URINE AND STOOL UA Blood Moderate *ABN* (08/24/19 9:50 PM) Negative 08/25/2019 [facility] URINE AND STOOL UA Nitrite Negative (08/24/19 9:50 PM) Negative 08/25/2019 [facility] URINE AND STOOL UA Leuk Est Large *ABN* (08/24/19 9:50 PM) Negative 08/25/2019 [facility] URINE AND STOOL UA Sq Epi Occasional /LPF Few /LPF 08/25/2019 [facility] URINE AND STOOL UA WBC 138 0 - 5 08/25/2019 [facility] URINE AND STOOL UA RBC 51 0 - 2 08/25/2019 [facility] URINE AND STOOL UA Bacteria Moderate /HPF None Seen /HPF 08/25/[address] [facility] [address] URINE AND STOOL UA Mucus Few /LPF None Seen /LPF 08/25/2019 [facility] URINE AND STOOL UA Tr Phos Reva Occasional /HPF None Seen /HPF 08/25/[address] [facility] [address] URINE AND STOOL UA [place] Yeast Few /HPF None Seen /HPF 08/25/2019 [facility] URINE AND STOOL UA Urobilinogen <=1.0 mg/dL 0.1 - 1.0 08/25/2019 [facility] CARDIAC ENZYMES Troponin-I <0.02 0.00 - 0.40 08/25/2019 [facility] CHEM PANEL Lipase Lvl 132 73 - 393 08/25/2019 [facility] ELECTROLYTES AGAP 9.3 10.0 - 20.0 08/25/2019 [facility] ELECTROLYTES B/C Ratio 19 6 - 25 08/25/2019 [facility] ELECTROLYTES Globulin 4.8 2.7 - 4.2 08/25/2019 [facility] ELECTROLYTES A/G Ratio 0.8 0.7 - 1.6 08/25/2019 [facility] ELECTROLYTES Glucose Lvl 89 70 - 99 08/25/2019 [facility] ELECTROLYTES BUN 33 7 - 22 08/25/2019 [facility] ELECTROLYTES Creatinine Lvl 1.7 6 0.50 - 1.40 08/25/2019 [facility] ELECTROLYTES Sodium Lvl 136 135 - 145 08/25/2019 [facility] ELECTROLYTES Potassium Lvl 4.3 3.5 - 5.1 08/25/2019 [facility] ELECTROLYTES Chloride Lvl 106 95 - 109 08/25/2019 [facility] ELECTROLYTES CO2 25 24 - 32 08/25/2019 [facility] ELECTROLYTES Calcium Lvl 9.4 8.5 - 10.5 08/25/2019 [facility] ELECTROLYTES Total Protein 8.5 6.4 - 8.4 08/25/2019 [facility] ELECTROLYTES Albumin Lvl 3.7 3.5 - 5.0 08/25/2019 [facility] ELECTROLYTES ALT 31 0 - 65 08/25/2019 [facility] ELECTROLYTES AST 22 0 - 37 08/25/2019 [facility] ELECTROLYTES Alk Phos 135 39 - 136 08/25/2019 [facility] ELECTROLYTES Bili Total 0.3 0.2 - 1.3 08/25/2019 [facility] ELECTROLYTES eGFR 30 08/25/2019 Result Comment: The eGFR is calculated using the CKD-EPI formula. In most young, healthy individuals the eGFR will be >90 mL/min/1.73m2. The eGFR declines with age. An eGFR of 60-89 may be normal in some populations, particularly the elderly, for whom the CKD-EPI formula has not been extensively validated. Use of the eGFR is not recommended in the following populations:

Individuals with unstable creatinine concentrations, including patients and those with serious co-morbid conditions.

Patients with extremes in muscle mass or diet.

The data above are obtained from the National Kidney Disease Education Program (NKDEP) which additionally recommends that when the eGFR is used in patients with extremes of body mass index for purposes of drug dosing, the eGFR should be multiplied by the estimated BMI. [facility] HEMATOLOGY Segs 54.2 45.0 - 75.0 08/25/2019 [facility] HEMATOLOGY Lymphocytes 36.0 20.0 - 40.0 08/25/2019 [facility] HEMATOLOGY Monocytes 7.4 2.0 - 12.0 08/25/2019 [facility] HEMATOLOGY Eosinophils 1.7 0.0 - 4.0 08/25/2019 [facility] HEMATOLOGY Basophils 0.7 0.0 - 1.0 08/25/2019 [facility] HEMATOLOGY Neutrophils # 3.5 1.5 - 8.1 08/25/2019 [facility] HEMATOLOGY Lymphocytes # 2.3 1.0 - 5.5 08/25/2019 [facility] HEMATOLOGY Monocytes # 0.5 0.0 - 0.8 08/25/2019 [facility] Eosinophils # 0.1 0.0 - 0.5 08/25/2019 [facility] WBC 6.4 3.7 - 10.4 08/25/2019 [facility] RBC 4.05 4.20 - 5.40 08/25/2019 [facility] Hgb 12.2 12.0 - 16.0 08/25/2019 [facility] Hct 37.2 36.0 - 48.0 08/25/2019 [facility] MCV 91.8 80.0 - 98.0 08/25/2019 [facility] MCH 30.0 27.0 - 31.0 08/25/2019 [facility] MCHC 32.7 32.0 - 36.0 08/25/2019 [facility] RDW 13.3 11.5 - 14.5 08/25/2019 [facility] Platelet 208 133 - 450 08/25/2019 [facility] MPV 7.1 7.4 - 10.4 08/25/2019 [facility] Pathology Reports No Data Provided for This Section Diagnostic Reports Report Value Date Source Abdomen/Pelvis w IV contrast CT EXAM: CT ABDOMEN AND PELVIS WITH CONTRAST DATE: 01/19/2020 10:19 CDT INDICATION: - increasing abd distension after Gtube feed started; abd tenderness ADDITIONAL INFORMATION: None. COMPARISON: CT abdomen and pelvis with contrast at approximately 2019 TECHNIQUE: Volumetric CT acquisition of the abdomen and pelvis after the intravenous administration contrast. Axial, coronal and sagittal reconstructions. Postcontrast phases: Venous and delayed. IV contrast: 100 mL Omnipaque 350 Enteric contrast: None. DLP: 2078 mGy-cm FINDINGS: Lines, tubes and hardware: * Bilateral breast implants. * PEG tube in place. * IVC filter in place. * Superior mesenteric artery and right renal stones with endostent of the aorta spinal stabilization rods. Lower thorax: Bibasilar subsegmental atelectasis. Liver: No hepatomegaly. No focal lesion. Cysts Biliary tree: No intra- or extrahepatic biliary ductal dilation. Gallbladder: Surgically absent. Pancreas: No mass or ductal dilation Spleen: No splenomegaly Adrenals: No nodularity or irregularity. Kidneys and ureters: * Atrophic right kidney. * 6 mm calculus in the inferior pole of right kidney. * No hydronephrosis hydroureter. Bladder: Normal. Reproductive organs: Uterus is surgically absent. No adnexal abnormalities. Gastrointestinal tract: Stomach: Normal. Small bowel: Normal in caliber without evidence of obstruction or ileus Colon: Colonic diverticulosis with slight interval improvement in pericolonic fat stranding around the sigmoid colon. Again seen inspissated stool within the colon. Moderate colonic stool burden. Cysts Appendix: Normal. Peritoneum, mesentery and retroperitoneum: No free air, ascites or loculated fluid. Lymph nodes: No enlarged abdominal or pelvic lymph nodes. Vasculature: Superior mesenteric artery and right renal artery stents with indistinct of the aorta again seen. Renal vascular calcifications. IVC filter in appropriate position. Bones: No acute abnormality. Spinal stabilization rods. degenerative changes of the spine. Soft tissues: * Multiple injection granulomas overlying the gluteal musculature. * Multiple soft tissue densities in the anterior abdominal wall, likely from recent injections. IMPRESSION: 1. Colonic diverticulosis with slight i nterval decrease in inflammatory changes around the sigmoid colon. No extraluminal air or organized fluid collection. 2. PEG tube in appropriate position. 3. Atrophic right kidney with unchanged small nonobstructing calculus in the inferior pole of right kidney. RECOMMENDATIONS: None. 01/19/2020 [facility] Abdomen AP DX EXAM: XR ABDOMEN 1 VIEW DATE: 01/19/2020 4:36 PM CDT INDICATION: - abdominal distension and tenderness ADDITIONAL INFORMATION: None. COMPARISON: None. TECHNIQUE: AP view of the abdomen. FINDINGS: IMPRESSION: 1. Contrast within the descending colon . 2. Gas-filled nondilated small and larg e bowel loops indicative of nonobstructive bowel gas pattern. 01/19/2020 [facility] Guided Needle BX/Asp/Inj/NeedLoc US EXAM: ULTRASOUND- GUIDED RIGHT UPPER EXTREMITY MUSCLE BIOPSY DATE: 01/18/2020 12:00 CDT INDICATION: Other- See Reason for Consult - Muscle biopsy RUE - concern for myositis COMPARISON: MRI performed same day TECHNIQUE: Consent: An informed consent was obtained from the patient prior to the procedure. Appropriate time out procedures were performed. Preliminary ultrasound demonstrates focal atrophy of the brachioradialis muscle. The skin was prepped and draped in the usual fashion under aseptic precautions. 1% lidocaine was utilized for local anesthesia. Under direct ultrasound guidance a 16 gauge biopsy needle was advanced to right brachioradialis muscle (5 x )1.2 cm specimens were collected . Sample sent for pathology. Postbiopsy images show no injury to the radial nerve. Patient's upper extremity, forearm and fingers movement with same as baseline. No immediate complications. FINDINGS: Focal atrophy of the brachio-radialis muscle IMPRESSION: 1. Technically successful ultrasound-wilfredo ded right upper proximity muscle biopsy. 01/18/2020 [facility] Humerus wo contrast MRI EXAM: MR RIGHT HUMERUS WITHOUT CONTRAST DATE: 01/18/2020 at 4:06 AM INDICATION: Myopathy/ pending muscle biopsy COMPARISON: None. TECHNIQUE: Multiplanar, multisequence noncontrast MR imaging of the right humerus IV contrast: None FINDINGS: BONES: No fracture. Osteophyte formation and degenerative changes are most evident at the acromioclavicular joint. Degenerative subcortical cystic changes present at the humeral head. Visualized bone marrow signal is otherwise normal. MUSCLES: Diffuse, marked muscular volume loss is present, however without fatty atrophy. Muscular edema is most evident at the humeral attachments of the brachialis and brachioradialis at the distal humerus, along its medial and lateral margin, such as seen series 901 images 16-17, and series 1201 image 18 and 14. Both of these regions are approximately 1 cm posterior to the median and radial neurovascular bundles respectively. Minimal muscular edema is also suspected at the serratus anterior, partially imaged at the adjacent right chest wall. TENDONS: Tendinopathy and likely partial tears are present at the supraspinatus, with detail limited by the large [id number] necessary for muscle survey. SOFT TISSUES: Trace elbow joint effusion is present.. No abnormality of the visualized neurovascular structures. IMPRESSION: 1. Diffuse, marked muscular volume loss with only mild fatty atrophy. Muscular edema most evident at the humeral attachment of the brachioradialis, with milder edema at the brachialis attachment. Please note proximity to the adjacent radial and median neurovascular bundles. 2. Tendinopathy and likely partial tear s of the supraspinatus, partially evaluated at the cranial aspect of the examination. Dedicated nonemergent shoulder imaging is available for further evaluation if indicated. 01/18/2020 [facility] Chest wo contrast CT Addendum: 1. A broken catheter is noted at the di stal portion of the right subclavian vein and extending into the proximal superior vena cava (series 5, images 38- 56). It has been stable since 2019. 2. Tiny calcification is seen along the distal portion of the left brachiocephalic vein which may represent sequela to remote thrombosis. EXAM: CT CHEST WITHOUT CONTRAST DATE: 01/16/2020 11:33 AM CDT INDICATION: - proximal muscle weakness, interstitial lung disease TECHNIQUE: Supine volumetric CT acquisition of the chest during inspiration, without contrast. Subsequently, supine and prone noncontrast chest CT were obtained with high resolution protocol (1 mm slice thickness axial images at 10mm intervals) during expiratory aeration. Coronal and sagittal reformats were obtained. Axial supine MIP reconstructions are created at the acquisition workstation. IV contrast: None. DLP: 1000 mGy-cm COMPARISON: January 13, 2020 FINDINGS: Lines and Tubes: Tracheostomy appliance is noted with tip well above the cathie. Gastric tube is adequate in position. Right IJV dialysis catheter is noted with tip terminates in the mid SVC. Lower Neck: A 9 mm hypodense right thyroid lobe nodule is noted. Heart and Great Vessels: No cardiomegaly. No pericardial effusion. Mild calcifications are seen along the LAD coronary artery. Mild aortic atherosclerotic disease. Normal size of the ascending aorta and main pulmonary artery. No central pulmonary embolism. Lymph Nodes: No hilar, mediastinal, axillary or internal mammary lymphadenopathy by CT size criteria. Few subcentimeter mediastinal lymph nodes are noted measuring up to 7 mm in short axis. Lungs: Extensive bilateral patchy groundglass opacities are noted mainly in both upper lobes. Mild bilateral interlobular septal thickening. Centrilobular and tree-in-bud nodules are also seen bilaterally scattered in both lungs. Overall findings are stable compared to previous study. No air entrapment identified in the expiratory images. No honeycombing identified in the prone images. Pleura: No pleural effusion or pneumothorax. Upper abdomen: Please refer to separate report of the concomitantly performed CT abdomen and pelvis for findings below the diaphragm. Bones and Soft Tissues: Hardware fixation of the thoracic spine is noted. Diffuse osteopenic changes of the examined bones. No acute osseous abnormalities. No destructive focal osseous lesions. Peripherally calcified intact bilateral breast implants. IMPRESSION: 1. Again seen are extensive bilateral p atchy groundglass opacities are noted mainly in both upper lobes. Mild bilateral interlobular septal thickening. This may represent multifocal infection, pulmonary edema (ARDS included), organizing pneumonia or alveolar hemorrhages. No air entrapment or honeycombing identified in the current study. Chest CT follow-up is recommended in 6-8 weeks following adequate treatment to assess for the resolution of the acute findings and evaluate for the residual lung disease. 2. Few reactive subcentimeter mediastin al lymph nodes are noted. 3. Please refer to separate report of t he concomitantly performed CT abdomen and pelvis for findings below the diaphragm. 01/16/2020 [facility] Pelvis Transvaginal US EXAM: P benny Transvaginal US DATE: 01/16/2020 10:47 CDT INDICATION: - postmenopausal vaginal spotting ADDITIONAL INFORMATION: None. COMPARISON: None. TECHNIQUE: Multiplanar grayscale and color Doppler sonographic evaluation of the pelvis obtained transabdominally through a distended urinary bladder followed by transvaginal examination postvoid. FINDINGS: Uterus: Status post hysterectomy. The vaginal cuff is unremarkable. Ovaries and adnexa: Bilateral ovaries are not identified. No adnexal masses or free fluid. IMPRESSION: 1. Status post hysterectomy. 2. Ovaries are not identified. 3. No adnexal masses or intrapelvic kristian e fluid. 01/16/2020 [facility] Abdomen/Pelvis w IV contrast CT EXAM: CT ABDOMEN AND PELVIS WITH CONTRAST DATE: 01/15/2020 11:38 CDT INDICATION: - suspicion of malignancy COMPARISON: CT abdomen/pelvis from 08/24/2019. TECHNIQUE: Volumetric CT of the abdomen and pelvis is acquired following the intravenous administration of contrast. Axial, coronal and sagittal images are provided. IV contrast: 100 mL Omnipaque. Enteric contrast: None. DLP (mGy-cm): 1838 FINDINGS: Lines, tubes and hardware: IVC filter remains in place in appropriate position. Superior mesenteric artery and right renal artery stents with endostent of the aorta are again noted. Percutaneous gastrostomy tube is in place with the balloon inflated within the gastric lumen. Enteric tube is partially visualized with the tip terminating in the stomach. Lower thorax: Partially visualized bibasilar small nodules, tree-in-bud opacities, and groundglass opacities, better visualized on recent CT chest, could be due to infectious bronchiolitis and/or aspiration. Liver: Normal. Biliary tree: No intra- or extrahepatic biliary ductal dilation. Gallbladder: Surgically absent. Pancreas: Normal. Spleen: Normal. Adrenals: Normal. Kidneys and ureters: Atrophic right kidney. There is atrophy in the lower pole of the left kidney. No hydronephrosis. Nonobstructive 6 mm renal calculus in the inferior pole the right kidney. Bladder: Normal. Reproductive organs: Uterus is surgically absent. Gastrointestinal tract: Stomach: Normal. Small bowel: Normal. Colon: Colonic diverticulosis is present with mild bowel wall thickening and surrounding mesenteric fat stranding about the descending and sigmoid colon likely consistent with acute diverticulitis. Hyperdense material within the colon may represent inspissated stool or prior enteric contrast. Moderate amount of stool within the rectosigmoid colon. Peritoneum, mesentery and retroperitoneum: Trace pneumoperitoneum in the upper abdomen likely related to recent percutaneous gastrostomy tube placement. There is mesenteric fat stranding about the descending and sigmoid colon. No loculated fluid. Lymph nodes: Normal. Vasculature: Aorta and branches: Superior mesenteric artery and right renal artery stents with endostent of the aorta are again noted. Vascular calcifications are seen. IVC and veins: IVC filter remains in place in appropriate position. Portal vasculature: Normal. Bones: No acute abnormality. Spinal stabilization rods are in place. Multilevel degenerative changes of the spine. Soft tissues: Subcutaneous densities or air foci may be seen with injections. Trace amount of subcutaneous emphysema in the upper abdominal wall and left rectus muscle consistent with recent PEG tube placement. Bilateral breast implants are noted. Dystrophic calcifications in the bilateral flank and gluteal soft tissues. IMPRESSION: 1. No definite CT evidence of malignanc y within the abdomen or pelvis. 2. Interval placement of a well-positio joshua PEG tube with associated trace adjacent pneumoperitoneum. 3. Colonic diverticulosis with mild sig moid colon bowel wall thickening and surrounding mesenteric fat stranding about the descending and sigmoid colon likely consistent with acute diverticulitis. 4. Partially visualized bibasilar small nodules, tree-in-bud opacities, and groundglass opacities in the lungs, better visualized on recent CT chest, could be due to infectious bronchiolitis and/or aspiration. 01/16/2020 [facility] Gastric tube placement VR PROC EDURE: Gastrostomy tube placement Procedural Personnel Attending physician(s): Polo Frost MD Fellow physician(s): Joe Rivas Resident physician(s): None Advanced practice provider(s): None Pre-procedure diagnosis: Progressing Parkinson's disease, dysphagia. Post-procedure diagnosis: Same Indication: Nutritional support Additional clinical history: None Complications: No immediate complications. IMPRESSION: Percutaneous placement of 18 [place] push-type gastrostomy tube. Plan: Nothing per tube until 7:00 AM on 01/16/2020. If no signs of peritonitis and seen by MD can start slow tube feeds. Follow up in IR clinic in 2 weeks if discharged from the hospital. PROCEDURE SUMMARY: - Gastrostomy tube placement under fluor oscopic guidance - Additional procedure(s): None PROCEDURE DETAILS: Pre-procedure Consent: Informed consent for the procedure including risks, benefits and alternatives was obtained and time-out was performed prior to the procedure. Preparation: The site was prepared and draped using maximal sterile barrier technique including cutaneous antisepsis. Anesthesia/sedation Level of anesthesia/sedation: Moderate sedation (conscious sedation) Anesthesia/sedation administered by: Independent trained observer under attending supervision with continuous monitoring of the patient's level of consciousness and physiologic status Total intra-service sedation time (minutes): 30 minutes Gastrostomy tube placement The liver margin was localized by ultrasound. An indwelling orogastric/nasogastric tube was already in place. Local anesthesia was administered. The stomach was inflated with air and judged appropriate for access. 3 T-fasteners were placed under fluoroscopic guidance. The stomach was accessed and a wire was placed. The tract was dilated, the gastrostomy tube was advanced into the stomach, and intragastric position was confirmed with contrast injection. The tube was capped. Gastrostomy tube placed: 18F Internal catheter securement: Balloon External catheter securement: Retention disc and prolene suture Contrast Contrast agent: Visipaque 320 Contrast volume (mL): 20 Radiation Dose Fluoroscopy time (minutes): 3.0 Reference air kerma (mGy): 37.5 Kerma area product (uGy-m2): 820.97 Additional Details Additional description of procedure: None Equipment details: None Specimens removed: None Estimated blood loss (mL): Less than 10 Standardized report: [id number] Attestation Signer name: Polo Frost MD I attest that I was present for the entire procedure. I reviewed the stored images and agree with the report as written. 01/15/2020 [facility] Chest 1view DX EXAM: XR CHEST 1 VIEW DATE: 01/15/2020 3:00 CDT INDICATION: - Intubated COMPARISON: Chest radiograph 01/14/2020 TECHNIQUE: AP chest. FINDINGS: Lines, tubes and hardware: Interval exchange of endotracheal tube with tracheostomy tube. Remaining lines and tubes are unchanged. Lungs and pleura: Interval increase in diffuse bilateral airspace opacities. Air bronchograms are present in the left mid lung. Architectural distortion and scarring in the left upper lobe. No definitive pleural effusions. Heart and mediastinum: The heart size is enlarged but unchanged. The mediastinal contours are normal. Bones, soft tissues: Unchanged. Postsurgical changes in the thoracic spine. Redemonstration of bilateral breasts prosthesis with peripheral calcifications. IMPRESSION: 1. Interval increase in diffuse bilater al airspace opacities which may represent multifocal infection, ARDS or edema. Organizing pneumonia is also a consideration. Please refer to most recent CT chest report. Other findings as above. 2. Interval exchange of endotracheal tu be with tracheostomy tube. 01/15/2020 [facility] Abdomen AP DX EXAM: XR ABDOMEN 1 VIEW DATE: 01/14/2020 15:01 CDT INDICATION: - NG placement COMPARISON: CT abdomen/pelvis from 08/24/2019, abdomen radiograph from 08/04/2008 TECHNIQUE: AP view of the abdomen. FINDINGS: Lines, tubes and hardware: There is an enteric tube in place with the tip and sidehole overlying the left upper quadrant of the abdomen in the stomach. Kamar rods are again noted in the lower thoracic and upper lumbar spine. An IVC filter remains in place. An aortic stent graft is present and unchanged in position. Surgical clips overlie the right upper quadrant of the abdomen. Lower thorax: Not well visualized. Abdomen and bowel: Nonobstructive bowel gas pattern. Calcifications: Calcified breast implants are again noted. Bones and soft tissues: No acute abnormality. IMPRESSION: 1. Nonobstructive bowel gas pattern. 2. Enteric tube tip and sidehole overli e the proximal stomach. 01/14/2020 [facility] Chest Pulmonary Embolism CTA EXAM: CTA CHEST WITH CONTRAST DATE: 01/13/2020 9:20 CDT INDICATION: - hypoxia, hypotension ADDITIONAL INFORMATION: -- According to the electronic medical record, this is a 64-year-old female with hypertension, chronic kidney disease, Crohn's disease, respiratory failure, generalized weakness. COMPARISON: Comparison is made with the prior chest CT dated 01/09/2020. TECHNIQUE: Volumetric CT acquisition of the chest was obtained during pulmonary arterial phase after the intravenous administration of contrast. Axial, sagittal, coronal, and oblique MIP reconstructions were created at the acquisition workstation. IV Contrast Dose: 65 mL Omnipaque contrast Total Exam DLP: 702 mGy-- cm FINDINGS: Pulmonary arteries: Evaluation of the subsegmental pulmonary artery branches is limited by respiratory motion artifact. Otherwise, no pulmonary embolism identified down to the segmental levels. Cardiothoracic ratio measures 12/25.6 cm. Aortic atherosclerosis with scattered calcifications. Ascending aorta is normal in caliber. Descending thoracic aorta is tortuous. The pulmonary trunk measures 29 mm, top normal in size. No pericardial effusion. There are no pleural effusions. For a description of findings below the diaphragm, please reference the concomitant abdominal MR report from the same day 01/13/2020. Note is made of cholecystectomy clips. Adrenal glands are unremarkable. Intubated. There is a right jugular central venous catheter in place with tip in the right brachiocephalic vein. A gastric tube courses down the esophagus. Subcarinal lymph nodes measure up to 12 mm in short axis. There are bilateral breast implants which are densely calcified peripherally. Chest wall muscles are atrophied. There are groundglass opacities in the lungs bilaterally with an upper lung predilection. There is also a slight peripheral predilection to these groundglass opacities. A similar appearance was seen on January 08. In addition, there are numerous superimposed small nodules and tree-in-bud opacities throughout the lungs bilaterally. These findings are similar to January 08. There is mild architectural distortion and scarring in the left upper lobe, unchanged. There is dextroscoliosis of the thoracic spine with posterior fusion hardware in place. Bones are demineralized. IMPRESSION: 1. No pulmonary embolism. 2. Diffuse small nodules and tree-in-bud opacities throughout the lungs could be due to diffuse infectious bronchiolitis and/or aspiration. This is similar to January 08. 3. Again seen are groundglass opacities in the lungs bilaterally with an upper lung and slight peripheral predilection, not significantly changed since January 08. Differential diagnostic considerations include infection including atypical viral pneumonia, organizing pneumonia, pneumonitis, ARDS and/or edema. 4. Architectural distortion and scarring in the left upper lobe could indicate early fibrotic changes. 5. Slightly prominent subcarinal lymph n odes are likely reactive. -- A significant finding is present on t his examination. The interpreting radiologist has activated the Primordial Findings workflow to notify the ordering physician. 01/13/2020 [facility] Chest 1view DX EXAM: XR CHEST 1 VIEW DATE: 01/13/2020 8:35 CDT INDICATION: - hypoxia. TECHNIQUE: Chest 1 view FINDINGS: Comparison is made to January 12 at 1:07 AM. Again seen are alveolar opacities throughout the lungs bilaterally that could be due to any combination of infection, aspiration, edema and/or ARDS. A left pleural effusion extends from the apex down laterally to the base, unchanged. Heart and mediastinum are partially obscured but grossly unchanged. Life support lines and tubes remain in place. There are densely calcified bilateral breast implants. Fusion hardware transfixes the thoracic spine. IMPRESSION: Persistent diffuse bilateral airspace disease associated with a left pleural effusion. 01/13/2020 [facility] Chest 1view DX EXAM: XR CHEST 1 VIEW DATE: 01/13/2020 3:00 CDT INDICATION: - Intubated. TECHNIQUE: Chest 1 view FINDINGS: Comparison is made to yesterday. Cardiomediastinal silhouette is unchanged. There are alveolar opacities throughout the lungs bilaterally that could be due to infection, ARDS, or edema. There is a left pleural effusion. Cardiomediastinal silhouette and life-support lines and tubes are unchanged. Sideport of the gastric tube overlies the distal esophagus. There are densely calcified bilateral breast implants. IMPRESSION: 1. Patchy alveolar opacities throughout the lungs bilaterally associated with a left pleural effusion. 2. Sideport of the gastric tube overlies the distal esophagus. Consider advancing it about 5 cm deeper into the stomach as clinically desired. 01/13/2020 [facility] Chest 1view DX EXAM: XR CHEST 1 VIEW DATE: 01/14/2020 3:00 AM CDT INDICATION: - Intubated COMPARISON: Yesterday TECHNIQUE: AP chest. IMPRESSION: Stable life support lines, tubes and cardiomediastinal silhouette. Redemonstration of bilateral breast prosthesis with peripheral calcifications. Interval improvement of diffuse patchy opacities bilaterally which may represent multifocal infection, ARDS or edema. Organizing pneumonia is also a consideration. Please refer to yesterday's CT chest report. Architectural distortion and scarring the left upper lobe. Osseous structures are unchanged, including postsurgical changes in the thoracic spine. Surgical clips and vascular stent in the upper abdomen. CONCLUSION: 1. Interval improvement of diffuse patc hy opacities bilaterally. 01/13/2020 [facility] Chest 1view DX EXAM: XR CHEST 1 VIEW DATE: 01/11/2020 3:00 AM CDT INDICATION: - Intubated COMPARISON: Yesterday TECHNIQUE: AP chest. IMPRESSION: Stable postsurgical changes in the spine. Stable life support lines, tubes and bilateral breast prosthesis in place. Stable patchy opacities bilaterally throughout the lungs may represent edema, ARDS or multifocal infection. Small bilateral pleural effusions possible. Osseous structures are unchanged. CONCLUSION: Stable findings since prior chest radiograph. Well-positioned ET tube above the cathie. 01/11/2020 [facility] Chest 1view DX EXAM: XR CHEST 1 VIEW DATE: 01/12/2020 3:00 CDT INDICATION: - Intubated. TECHNIQUE: Chest 1 view FINDINGS: Comparison is made to January 10. There are patchy and coalescent alveolar opacities in the lungs bilaterally, greater on the left. Small left pleural effusion. Cardiomediastinal silhouette is unchanged. Fixation hardware over the thoracic spine. Life support lines and tubes remain in place. Calcified bilateral breast implants. IMPRESSION: 1. Patchy and coalescent bilateral airsp giselle disease, greater on the left. This could be due to edema, pneumonia and/or ARDS. 2. Left pleural effusion. 01/11/2020 [facility] Chest 1 v for Placement DX EXA M: XR CHEST 1 VIEW DATE: 01/10/2020 12:34 PM CDT INDICATION: Line Placement - Chest 1 view for line placement COMPARISON: January 10, 2020 at 0025 hours. TECHNIQUE: AP chest IMPRESSION: 1. Interval placement of right IJV cent ral venous line with tip projects over the mid SVC. No complications. Other lines and tubes are stable compared to previous study. 2. Cardiomediastinal silhouette is enla rged, unchanged. Aortic atherosclerotic disease. 3. Prominent lung reticulations again s een with peribronchial cuffing suggestive of pulmonary edema. Superimposed infection cannot be excluded. 4. Small left pleural effusion. 5. Osseous structures are stable. 6. Again seen are peripherally calcifie d bilateral breast implants. 01/10/2020 [facility] Spine lumbar puncture w fluoro DX EXAM: FLUOROSCOPICALLY GUIDED LUMBAR PUNCTURE, DIAGNOSTIC DATE: 01/10/2020 8:52 AM CDT INDICATION: Quadriparesis TECHNIQUE: The procedure was explained to the patient's daughter by phone. Its risks and benefits were reviewed including, but not limited to, the risk of bleeding, infection, and post dural puncture headache resulting from cerebrospinal fluid leak as well as the remote possibility of nerve damage or cord injury. The possible need to perform another procedure to address potential complication was also discussed. The patient's daughter understood and accepted the above and asked me to proceed. The chart was reviewed and the appropriateness of the requested procedure verified. Prior to beginning the procedure, 'time-out' was performed under the universal protocol with 2 patient identifiers establishing the correct patient, verifying the correct procedure, correct side and site, correct patient position, and correct equipment. The patient was then placed in the left lateral decubitus position on the fluoroscopy table and an appropriate puncture site localized under fluoroscopic guidance. The skin was marked and then prepped with Betadine solution. After 1% topical lidocaine anesthesia, a 20 gauge spinal needle was inserted under fluoroscopic visualization with the stilet in place. Access was obtained without difficulty on the 1st attempt to the subarachnoid space and an opening pressure was then checked. CSF samples were then obtained. At this point the CSF pressure was once again obtained using the manometer. The needle was then removed and manual pressure applied to the puncture site until hemostasis was achieved. The patient tolerated the procedure very well and left the radiology department without apparent complication. ACCESS: L2-L3 level 20-gauge spinal needle. OPENING PRESSURE: 16.5 cm H2O CSF OBTAINED: 23.5 ml of slightly yellowish to increasingly pink CSF. The optical density of the CSF increased with each successive tube withdrawn. INDICATED FLUOROSCOPY TIME: 0.2 minutes SKIN DOSE: 165.1 mGy. IMPRESSION: Successful fluoroscopically guided lumbar puncture. 01/10/2020 [facility] Sp[facility] cervical w/wo contrast MRI EXAM: MRI CERVICAL SPINE WITHOUT AND WITH CONTRAST DATE: 01/10/2020 at 0142 hours INDICATION: 64-year-old female with hypertension, chronic kidney disease, Crohn's disease, and possible myasthenia gravis who presents with quadriplegia COMPARISON: None TECHNIQUE: Multiplanar, multisequence noncontrast MR imaging of the cervical spine without and with administration of contrast. FINDINGS: There is mild reversal of the cervical lordosis centered at C4-C6. The craniocervical junction is intact. The cerebellar tonsils are in normal position. There is no focal marrow replacing process or acute fracture. The postcontrast sequences are limited by motion artifacts however no discrete abnormal enhancement is identified. The cord signal is unremarkable. No cord compression There is no pathologic enhancement of the cord. Disk spinal canal and foramina: C2-C3: Shallow posterior disc osteophyte complex without significant canal or foraminal stenosis. Right greater than left facet arthrosis. C3-C4: Shallow posterior disc osteophyte complex without significant canal stenosis. Minimal right and moderate left foraminal narrowing secondary to uncovertebral and facet arthrosis. C4-C5: Posterior disc osteophyte complex resulting in mild spinal canal stenosis, effacement of the ventral CSF space. No cord signal change is present. Mild right neural foraminal narrowing. Intact left foramen. C5-C6: Posterior disc osteophyte complex results in mild spinal canal stenosis with effacement of the CSF space without contour change or signal change of the cord. Mild to moderate right and mild left foraminal narrowing secondary to uncovertebral and facet arthrosis. C6-C7: Central disc osteophyte complex with mild spinal canal narrowing. No significant canal foraminal stenosis. C7-T1: Desiccated disc without significant canal foraminal stenosis. Paraspinal soft tissues: Normal. Incidental: Fluid is seen within the oropharynx and bilateral mastoid air cells. IMPRESSION: 1. No cord compression or focal cervica l cord signal abnormality is identified. Reversal of the normal cervical lordosis results in contact of the ventral cervical cord with endplate degenerative changes at the level of C4-C5. This may result in degenerative myelopathy. 2. Cervical spondylosis with mild spina l canal narrowing at C4-C7. 3. Great degree of foraminal stenosis i ncluding moderate left foraminal stenosis at C3-C4. 4. Retained fluid in the oropharynx. 01/10/2020 [facility] Brain w/wo contrast MRI EXAM: MRI BRAIN WITH AND WITHOUT CONTRAST DATE: 01/10/2020 0228 hours INDICATION: 64-year-old woman with hypertension chronic renal disease, Crohn's disease, possible myasthenia gravis with quadriplegia. COMPARISON: CT of 08/02/2008 TECHNIQUE: Multiplanar, multisequence MRI of the brain with and without intravenous contrast. IV contrast: 18 mL's of MultiHance.. FINDINGS: Diffusion-weighted images fail to demonstrate recent ischemia. There is no acute intracranial hemorrhage, midline shift, mass effect or pathologic extra-axial fluid collection. The midline structures are unremarkable. The major intracranial flow voids are maintained. There is no pathologic intracranial enhancement. Incidental note of prominent right basal ganglia perivascular space. There is mild generalized volume loss with T2/FLAIR hyperintense signals within the periventricular and subcortical white matter. Major intracranial vascular flow voids are preserved. No pathologic extra axial fluid is identified. Bilateral lens replacement are present. There is nonspecific opacification of the paranasal sinuses and mastoid air cells. There is no focal marrow abnormality. Partial empty sella. IMPRESSION: 1. No acute intracranial abnormality. 2. Mild nonspecific white matter change s most commonly secondary to chronic small vessel ischemia. 3. Enlarged perivascular space in the r ight basal ganglia. 01/10/2020 [facility] Chest 1view DX EXAM: XR CHEST 1 VIEW DATE: 01/10/2020 3:00 AM CDT INDICATION: - Intubated COMPARISON: Yesterday TECHNIQUE: AP chest. IMPRESSION: Stable postsurgical changes in the spine. Stable life support lines, tubes and bilateral breast prosthesis in place. Stable patchy opacities bilaterally throughout the lungs may represent edema, ARDS or multifocal infection. Small bilateral pleural effusions possible. Osseous structures are unchanged. CONCLUSION: Stable findings since prior chest radiograph. Well-positioned ET tube above the cathie. 01/10/2020 [facility] Neck soft tissue w contrast CT EXAMINATION: CT soft tissue neck with contrast DATE: 01/09/2020 INDICATION: Neuromuscular disorder. FINDINGS: CT images of the soft tissues the neck are performed following intravenous administration of 100 cc Omnipaque 350 contrast material. The patient is intubated and the oral airway is collapsed with some retained secretions in the oropharynx and nasopharynx. Nasogastric tube is also place. The soft tissue spaces of the neck are unremarkable. There is no adenopathy or fluid collection. The carotid and jugular vessels are normally opacified. There is minimal fluid level in the right maxillary sinus. The sinuses are otherwise clear. There is an osteoma arising from the outer table of the left maxillary sinus protruding into superior labral region. There is a subcentimeter nodule in the right thyroid isthmus. The salivary glands are unremarkable. There are spondylitic changes in the cervical spine with mild stenosis in the lower cervical levels. Visible portions of the brain are unremarkable. There are extensive peripheral airspace opacities in both upper lungs. These are better characterized on contemporaneous chest CT. IMPRESSION: No no acute abnormality in the neck. Peripheral lung opacities which could represent edema , ARDS, or pneumonia, including viral pneumonia. 01/09/2020 [facility] Chest w contrast CT EXAM: CT CHEST WITH CONTRAST DATE: 01/09/2020 9:00 PM CDT INDICATION: - thymoma TECHNIQUE: Volumetric CT acquisition of the chest, following intravenous contrast. Axial, sagittal and coronal reconstructions. Axial MIP reconstructions are created at the acquisition workstation. IV Contrast: 100 cc of Omnipaque 350. DLP: 754 mGy-cm COMPARISON: No available prior chest CTs for comparison FINDINGS: Lines and Tubes: Endotracheal tube is noted with tip well above the cathie. Gastric tube is adequate in position. Lower Neck: A 9 mm hypodense right thyroid lobe nodule is noted. Please refer to the separate report of neck soft tissue CT for further details about the neck findings. Heart and Great Vessels: No cardiomegaly. No pericardial effusion. No significant coronary calcifications. Mild aortic atherosclerotic disease. Normal size of the ascending aorta and main pulmonary artery. No central pulmonary embolism. No evidence of prevascular mediastinal masses identified in the current study to suggest a primary, residual or recurrent thymic lesion. Lymph Nodes: No hilar, mediastinal, axillary or internal mammary lymphadenopathy by CT size criteria. Few subcentimeter mediastinal lymph nodes are noted measuring up to 7 mm in short axis. Lungs: Extensive bilateral patchy groundglass opacities are noted mainly in both upper lobes. Mild bilateral interlobular septal thickening. Pleura: No pleural effusion or pneumothorax. Upper abdomen: Unremarkable. Bones and Soft Tissues: Hardware fixation of the thoracic spine is noted. Diffuse osteopenic changes of the examined bones. No acute osseous abnormalities. No destructive focal osseous lesions. Peripherally calcified intact bilateral breast implants. IMPRESSION: 1. No evidence of prevascular mediastin al masses identified in the current study to suggest a primary, residual or recurrent thymic lesion. 2. Extensive bilateral patchy groundgla ss opacities are noted mainly in both upper lobes. Mild bilateral interlobular septal thickening. This may represent multifocal infection, pulmonary edema (ARDS included) or alveolar hemorrhages. 3. Few reactive subcentimeter mediastin al lymph nodes are noted. 4. Please refer to the separate report of neck soft tissue CT for further details about the neck findings. 01/09/2020 [facility] Chest 1view DX EXAM: XR CHEST 1 VIEW DATE: 01/09/2020 3:00 AM CDT INDICATION: Intubated - Intubated COMPARISON: January 07, 2020 TECHNIQUE: AP chest. IMPRESSION: Redemonstration of thoracic spinal fixation hardware and bilateral breast implants with peripheral calcifications. Well-positioned ET tube above the cathie. Gastric tube and right PICC remain in place. Stable cardiomediastinal silhouette. Stable patchy opacities bilaterally may represent edema or multifocal infection. No definitive pleural effusion. No pneumothorax is seen. Osseous structures are unchanged. CONCLUSION: Stable findings since prior chest radiograph. 01/09/2020 [facility] Chest 1 v for Placement DX EXA M: XR CHEST 1 VIEW DATE: 01/07/2020 23:12 CDT INDICATION: Tube placement - PNA COMPARISON: Chest radiograph on 08/24/2019 TECHNIQUE: AP chest. FINDINGS: Lines, tubes and hardware: The endotracheal tube tip terminates 3.8 cm above the cathie. A right PICC terminates in the SVC. A gastric tube tip is excluded from the [id number]. Thoracic spine fixation hardware is unchanged. Bilateral breast implants are noted. Lungs and pleura: There is hilar prominence, indistinct vascularity, and peribronchial cuffing suggestive of moderate pulmonary edema. No pleural effusion or pneumothorax is identified. Heart and mediastinum: The heart size is normal for technique. The mediastinal contours are normal. Bones, soft tissues: Degenerative changes without acute abnormality. IMPRESSION: 1. Endotracheal tube tip projects 3.8 c m above the cathie. 2. Findings suggestive of moderate pulm onary edema. Superimposed infection cannot be excluded. 01/07/2020 [facility] Retroperitoneal Complete US DC OCEDURE INFORMATION: Exam: US Retroperitoneal Complete. Exam date and time: 08/25/2019 11:26 AM Age: 64 years old Clinical history: Pain; Additional info: /teresa, urinary retention TECHNIQUE: Imaging protocol: Real-time ultrasound of the retroperitoneum with image documentation. Complete exam. COMPARISON: ABDOMEN/PELVIS WO IV CONTRAST CT 08/24/2019 11:49 PM FINDINGS: KIDNEYS: The right kidney is not well visualized. The left kidney measures 9.1 x 4.9 x 4.9 cm. The right kidney is not well visualized. The left kidney is normal in size, shape, contour, and position. The cortex is normal in thickness and the corticomedullary differentiation is maintained. There is no hydronephrosis, nephrolithiasis, or abnormal perinephric collections. BLADDER: The urinary bladder is decompressed around a Mccray catheter. AORTA ILIACS AND INFERIOR VENA CAVA: Atherosclerotic plaque and calcification is present in the abdominal aorta. The distal abdominal aorta and proximal common iliac arteries are obscured by bowel gas shadowing. Visualized portions of the IVC are unremarkable. ASCITES: No ascites noted. IMPRESSION: 1. Unremarkable sonographic appearance o f the left kidney. 2. The right kidney is not well visualiz ed, compatible with the severe atrophy seen on CT. Tracy Edwards MD On 08/25/2019 15:35:29; [id number] 08/25/2019 [facility] Abdomen/Pelvis wo IV contrast CT Radiation Dose CTDIVOL = 0 (mGy): DLP = 905.61 (mGy-cm) PROCEDURE INFORMATION: Exam: CT Abdomen And Pelvis Without Contrast Exam date and time: 08/24/2019 11:49 PM Age: 64 years old Clinical history: Abdominal pain; Flank; Left; Additional info: /l flank pain, one kidney TECHNIQUE: Imaging protocol: Computed tomography of the abdomen and pelvis without contrast. Total DLP: 905.61 mGy-cm Radiation optimization: All CT scans at this facility use at least one of these dose optimization techniques: automated exposure control; mA and/or kV adjustment per patient size (includes targeted exams where dose is matched to clinical indication); or iterative reconstruction. COMPARISON: No relevant prior studies available. FINDINGS: Lungs: There is subsegmental bibasilar atelectasis. Liver: Normal. No mass. Gallbladder and bile ducts: Prior cholecystectomy noted. Pancreas: Normal. No ductal dilation. Spleen: Normal. No splenomegaly. Adrenals: Normal. No mass. Kidneys and ureters: Atrophic right kidney. Nonobstructive bilateral kidney stones measure as large as 8 mm. Atrophy in the lower pole left kidney. Stomach and bowel: Incidental duodenal diverticulum noted. Borderline prominent fluid in mid and distal ileum potentially indicating infectious/inflammatory enteritis or ileus. Colonic diverticulosis is present without diverticulitis. Appendix: Normal appendix. Intraperitoneal space: Unremarkable. No free air. No significant fluid collection. Vasculature: Multiple incidental pelvic phleboliths without ureteral stone. An inferior vena cava filter lies in appropriate position. Superior mesenteric artery and right renal artery stent with endograft stent of the aorta. Lymph nodes: Unremarkable. No enlarged lymph nodes. Bladder: Unremarkable as visualized. Reproductive: Prior hysterectomy noted. Bones/joints: Unremarkable. No acute fracture. Soft tissues: Breast implants are present. Subcutaneous injection granulomata are incidentally noted. Other findings: Spinal stabilization rods are present. IMPRESSION: 1. Multiple incidental pelvic phlebolith s without ureteral stone. 2. Normal appendix. 3. Borderline prominent fluid in mid and distal ileum potentially indicating infectious/inflammatory enteritis or ileus. Sunny Foy MD On 08/25/2019 00:43:32; [id number] 08/24/2019 [facility] 1view DX PROCEDURE INFOR MATION: Exam: XR Chest, 1 View Exam date and time: 08/24/2019 9:28 PM Age: 64 years old Clinical history: Chest pain; Additional info: /weakness TECHNIQUE: Imaging protocol: XR of the chest Views: 1 view. Portable AP view COMPARISON: RIBS BILATERAL DX 12/18/2018 12:15 PM FINDINGS: Lungs: Normal lung volumes. No consolidation. Pleural space: Unremarkable. No pleural effusion. No pneumothorax. Heart/Mediastinum: Heart size is within normal limits. Vasculature is unremarkable. Bones/joints: Straightening rods visualized within the thoracolumbar spine. There is mild rightward curve of the thoracolumbar spine. Soft tissues: Bilateral breast implants are identified. IMPRESSION: 1. No focal infiltrates. 2. Stable straightening rods involving t he thoracolumbar spine. Imer Delgado MD On 08/24/2019 21:50:23; [id number] 08/24/2019 [facility] Ribs bilateral DX EXAM: XR RIB 2 VIEWS AND PA CHEST DATE: 12/18/2018 12:15 CDT INDICATION: - R07.81 Pleurodynia COMPARISON: Chest radiograph 04/03/2012 TECHNIQUE: PA chest; frontal and oblique views of the ribs Laterality: Bilateral FINDINGS: No displaced rib fracture or other acute bony abnormality is identified. Mild dextroconvex scoliosis of the thoracolumbar spine. The lungs are clear without pneumothorax. The heart size is within normal limits. Bilateral breast implants. Alicia rods noted. IVC filter and left infrarenal aortic stent noted. Bilateral renal artery stents. IMPRESSION: No displaced rib fracture identified. 12/18/2018 [facility] Spine lumbar series DX EXAM: X R LUMBAR SPINE 5 VIEWS DATE: 09/09/2016 3:39 PM 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 INDICATION: lower right side back pain COMPARISON: 04/03/2012 radiographs, and thoracic spine CT examination TECHNIQUE: AP, lateral, coned lateral, LPO and RPO radiographs of the lumbar spine FINDINGS: 5 nonrib bearing, lumbar-type vertebral bodies are present. Tendons are also partially visualized at the thoracolumbar junction and lower lumbar spine, extending to the level of L2, with mild levoscoliotic curvature of the lumbar spine present. Mild multilevel disc height loss is most evident L3- L4. Interspinous narrowing and facet hypertrophy are present posteriorly. An aortobiiliac stent, surgical clips, IVC filter, stents in the expected location of the iliac arteries and celiac origin, and calcified bilateral breast prostheses are also noted. IMPRESSION: Lower lumbar spine facet hypertrophy and interspinous narrowing, most evident L3-S1. Moderate disc height loss most evident at L3-L4. 09/09/2016 [facility] Consultation Notes No Data Provided for This Section Discharge Summaries No Data Provided for This Section History and Physicals No Data Provided for This Section Vital Signs Vital Sign Value Date Comments Source Respitory Rate 23 01/24/2020 [facility] Systolic (mm Hg) 169 01/24/2020 [facility] Diastolic (mm Hg) 84 01/24/2020 [facility] Respitory Rate 20 01/24/2020 [facility] Systolic (mm Hg) 160 01/24/2020 [facility] Diastolic (mm Hg) 79 01/24/2020 [facility] Respitory Rate 18 01/24/2020 [facility] Systolic (mm Hg) 152 01/24/2020 [facility] Diastolic (mm Hg) 70 01/24/2020 [facility] Temperature Oral (F) 97.7 F 01/24/2020 [facility] Temperature Oral (F) 96.9 F 01/23/2020 [facility] Temperature Oral (F) 98.3 F 01/23/2020 [facility] Heart Rate 78 01/18/2020 [facility] Heart Rate 66 01/18/2020 [facility] Height 167.64 cm 01/14/2020 [facility] Height 167.64 cm 01/14/2020 [facility] Height 167.64 cm 01/14/2020 [facility] Weight 92.001 01/08/2020 [facility] BMI Calculated 32.74 01/08/2020 [facility] Temperature Oral (F) 98.4 F 08/26/2019 [facility] Heart Rate 62 08/26/2019 [facility] Respitory Rate 16 08/26/2019 [facility] Systolic (mm Hg) 105 08/26/2019 [facility] Diastolic (mm Hg) 69 08/26/2019 [facility] Temperature Oral (F) 98.4 F 08/26/2019 [facility] Heart Rate 58 08/26/2019 [facility] Respitory Rate 16 08/26/2019 [facility] Systolic (mm Hg) 105 08/26/2019 [facility] Diastolic (mm Hg) 46 08/26/2019 [facility] Height 172.72 cm 08/26/2019 [facility] BMI Calculated 26.21 08/26/2019 [facility] Weight 78.182 08/26/2019 [facility] Temperature Oral (F) 98.5 F 08/26/2019 [facility] Heart Rate 67 08/26/2019 [facility] Respitory Rate 18 08/26/2019 [facility] Systolic (mm Hg) 120 08/26/2019 [facility] Diastolic (mm Hg) 76 08/26/2019 [facility] Height 172.72 cm 08/25/2019 [facility] BMI Calculated 30.47 08/25/2019 [facility] Weight 90.909 08/25/2019 [facility] Height 172.72 cm 08/25/2019 [facility] Weight 90.909 08/25/2019 [facility] BMI Calculated 30.47 08/25/2019 [facility] Encounters Location Location Details Encounter Type Encounter Number Reason For Visit Attending Provider ADM Date DC Date Status Source AUDIT [id number] 08/16/2013 08/16/2013 [facility] AUDIT [id number] 09/11/2013 09/11/2013 [facility] CHRISSY, Provi vance: MER DE LA FUENTE, Status: Pen, Time: 10:00 AM [id number] 09/21/20 13 09/11/2013 [facility] AUDIT [id number] 11/21/2013 11/21/2013 [facility] CHRISSY, Provi vance: MER DE LA FUENTE, Status: Pen, Time: 9:15 AM [id number] 01/19/20 14 11/21/2013 [facility] [id number] Keith Crawford 09/09/2016 [facility]/10[facility] [place] [facility] [id number] Keith Crawford 12/18/2018 12/19/2018 [facility] Observation [id number] Ivan Sepulveda Jr 08/24/2019 08/26/2019 [facility] Inpatient [id number] Moise Taylor 01/08/2020 01/24/2020 [facility] Procedures Procedure Code Date Perfomer Comments Source Biopsy, muscle, percutaneous needle 01/18/2020 [facility] Spinal puncture, lumbar, diagnostic; wit h fluoroscopic or CT guidance 44544 01/10/2020 [facility] Kidney operation [id number] [facility] Laminectomy with spinal fusion [id number] [facility] Assessment and Plan Assessment and Plan Date Source Extracted from:Title: Neurology discharg e summary Author: Venecia Lagos Date: 01/24/20 [facility] SUMMARY Date of Admission: 01/07/2020 22:04 Date of Discharge: 01/24/2020 Admit Diagnosis: Neuromuscular weakness Discharge Diagnoses: Respiratory failure, unspecified, unspecified whether with hypoxia or hypercapnia (J96.90) Polyneuropathy, unspecified (G62.9) Severe sepsis with septic shock (R65.21) Discharge Diet: tube feeds Discharge Condition: good Consulting Physicians: Darci Magallon MD Office: Service: Diagnostic Radiology Oumar Manzanares MD Office: Service: Neurology Svetlana Mckay MD Office: Service: Neurology, Anesthesiology Rashaad Gonzalez MD Office: Service: Medicine, Rheumatology Fatou Urbian MD Office: Service: Pulmonary Nikita Mckeon MD Office: (not on file) Service: Neurology Hudson Ochoa MD Office: Service: Neurology Tari Caraballo MD Office: Service: Neurology Shanita Olmstead MD Office: Service: Medicine Jonathon Santiago MD Office: Service: Rheumatology Brief HPI and Hospital Course: Mrs. Cavanaugh had progressive weakness over the past 3 years, which had worsened over the previous year with a tentative diagnosis of Parkinson's Disease. Symptoms worsened towards limitation of her ADL's and dyspnea on exertion. On 12/22 she was admitted to OSH for suspected aspiration pneumonia with hospital course complicated with hypoxic respiratory failure requiring intubation and mechanical ventilation from 12/26 - 01/01. Was treated with ATBx and despite initial improvement had yet again deterioration of her respiratory status requiring re-intubation and broadening of ATBx. Sepsis HANCOCK here was unremarkable so antibiotics were discontinued. She received IVIG from 01/04-01/06 (~2g/kg total) at OSH. 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 Her weakness did not improve with steroids at OSH (unclear amount), IVIG, and pyridostigmine (at OSH). Her treatment was transitioned to PLEX (02/04 on 01/17) with concern for suspected immune mediated polyneuropathy vs neuromuscular junction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
--- OUTSIDE RECORDS SUMMARY | 2020-05-13 08:14 | XMS REPORT | Summary of Care ---
Author Author [facility] Organization [facility] Address Unknown Phone Unavailable Encounter MERI Hager(THERESE) [id number] Date(s): 08/24/19 - 08/26/19 [facility] [address] [place] [address]- Discharge Disposition: Home or Self Care Attending Physician: Ivan Ventura MD Admitting Physician: Ivan Ventura MD Vital Signs 1 2 3 Most recent to oldest [Reference Range]: 172.72 cm (08/26/19 8:51 AM) 172.72 cm (08/25/19 9:00 AM) 172.72 cm (08/25/19 3:18 AM) Height 98.4 DegF (08/26/19 4:03 PM) 98.4 DegF (08/26/19 11:49 AM) 98.5 DegF (08/26/19 7:24 AM) Temperature Oral [96.4-99.1 DegF] 105/69 mmHg (08/26/19 4:03 PM) 105/46 mmHg (08/26/19 11:49 AM) 120/76 mmHg (08/26/19 7:24 AM) Blood Pressure [90-140/60-90 mmHg] 16 BRMIN (08/26/19 4:03 PM) 16 BRMIN (08/26/19 11:49 AM) 18 BRMIN (08/26/19 7:24 AM) Respiratory Rate [14-20 BRMIN] 62 bpm (08/26/19 4:03 PM) 58 bpm *LOW* (08/26/19 11:49 AM) 67 bpm (08/26/19 7:24 AM) Peripheral Pulse Rate [60-100 bpm] 78.182 kg (08/26/19 8:51 AM) 90.909 kg (08/25/19 9:00 AM) 90.909 kg (08/25/19 3:18 AM) Weight 26.21 m2 (08/26/19 8:51 AM) 30.47 m2 (08/25/19 9:00 AM) 30.47 m2 (08/25/19 3:18 AM) Body Mass Index Problem List Condition Effective Dates Status Health Status Informan t Anxiety(Confirmed) Active Depression(Confirmed Active ) HLD Active (hyperlipidemia)(Con firmed) HTN Active (hypertension)(Confi rmed) Allergies, Adverse Reactions, Alerts Substance Reaction Severity Status morphine Active Toradol Active Compazine Active Reglan Active Medications acetaminophen 650 mg, 2 tab, Route: PO, Drug form: TAB, Q6H, Dosing Weight 95, kg, PRN Pain 1- 3/Temp > 100.4 F, Start date: 08/25/19 1:14:00 [employer]IEF [employer]AIN[employer] OFFICER, Duration: 30 day, Stop date: 09/24/19 1:13:00 CHIEF SUSTAINABILITY OFFICER, 0 Notes: Do not exceed 4 gm/day. (Same as: Tylenol) Start Date: 08/25/19 Stop Date: 08/26/19 Status: Discontinued ALPRAZOLam 1 mg oral tablet 1 mg, 1 tab, Route: PO, Drug form: TAB, TID, Dosing Weight 95, kg, PRN as needed for anxiety, Start date: 08/25/19 1:31:00 CHIEF SUSTAINABILITY OFFICER, Duration: 30 day, Stop date: 1:30:00 CHIEF SUSTAINABILITY OFFICER, 0 Notes: With food or milk(Same as: Xanax) Start Date: 08/25/19 Stop Date: 08/26/19 Status: Discontinued ALPRAZOLam 1 mg oral tablet 1 mg = 1 tab, PO, Daily, # 30 tab, 0 Refill(s) Start Date: 08/25/19 Stop Date: 09/24/19 Status: Ordered amLODIPine 10 mg, 2 tab, Route: PO, Drug form: TAB, Daily, Dosing Weight 95, kg, Start date : 08/25/19 9:00:00 CHIEF SUSTAINABILITY OFFICER, Duration: 30 day, Stop date: 09/23/19 9:00:00 CHIEF SUSTAINABILITY OFFICER, 0 Notes: (Same as: Norvasc) Start Date: 08/25/19 Stop Date: 08/26/19 Status: Discontinued amLODIPine 10 mg oral tablet 10 mg = 1 tab, PO, Daily, # 90 tab, 0 Refill(s) Start Date: 08/25/19 Status: Ordered ARIPiprazole 10 mg, 2 tab, Route: PO, Drug form: TAB, Daily, Dosing Weight 95, kg, Start date : 08/25/19 9:00:00 CHIEF SUSTAINABILITY OFFICER, Duration: 30 day, Stop date: 09/23/19 9:00:00 CHIEF SUSTAINABILITY OFFICER, 0 Notes: (Same as: Abilify) Start Date: 08/25/19 Stop Date: 08/26/19 Status: Discontinued ARIPiprazole 10, 0 Refill(s) Start Date: 08/25/19 Status: Ordered atorvastatin 40 mg, 1 tab, Route: PO, Drug form: TAB, Bedtime, Dosing Weight 95, kg, Start da te: 08/25/19 21:00:00 CHIEF SUSTAINABILITY OFFICER, Duration: 30 day, Stop date: 09/23/19 21:00:00 CHIEF SUSTAINABILITY OFFICER, 0 Notes: (Same as: Lipitor) Start Date: 08/25/19 Stop Date: 08/26/19 Status: Discontinued atorvastatin 40 mg oral tablet 40 mg = 1 tab, PO, Bedtime, # 90 tab, 1 Refill(s) Start Date: 08/25/19 Status: Ordered bumetanide 0.5 mg oral tablet 0.5 mg = 1 tab, PO, Daily, # 30 tab, 0 Refill(s) Start Date: 08/25/19 Status: Ordered carvedilol 3.125 mg oral tablet 3.125 mg = 1 tab, PO, BID, # 180 tab, 0 Refill(s) Start Date: 08/25/19 Status: Ordered cefTRIAXone + sterile water 10 mL 1 gm, Route: IV, ONCE, Dosing Weight 95, kg, Priority: STAT, Start date: 9 22:26:00 CHIEF SUSTAINABILITY OFFICER, Stop date: 08/24/19 22:26:00 CHIEF SUSTAINABILITY OFFICER, ABX Indication: Urinary Tract Infection, 0 Notes: (Same As: Rocephin).Use with 100 mL NS and infuse over 30 min MEDICA TION WASTE Product Size: 1000 mgProduct Wasted: ___ mg Start Date: 08/24/19 Stop Date: 08/25/19 Status: Completed cefTRIAXone + sterile water 10 mL 1 gm, Route: IV, PREC66Y, Dosing Weight 95, kg, Start date: 08/25/19 23:00:00 CS T, Duration: 30 day, Stop date: 09/23/19 23:00:00 CHIEF SUSTAINABILITY OFFICER, ABX Indication: Urinary T ract Infection, 0 Notes: (Same As: Rocephin).Use with 100 mL NS and infuse over 30 min MEDICA TION WASTE Product Size: 1000 mgProduct Wasted: ___ mg Start Date: 08/25/19 Stop Date: 08/26/19 Status: Discontinued cloNIDine 0.1 mg oral tablet 0.1 mg, 1 tab, Route: PO, Drug form: TAB, BID, Dosing Weight 95, kg, Start date: 08/25/19 9:00:00 CHIEF SUSTAINABILITY OFFICER, Duration: 30 day, Stop date: 09/23/19 21:00:00 CHIEF SUSTAINABILITY OFFICER, 0 Notes: (Same As: Catapres) Start Date: 08/25/19 Stop Date: 08/26/19 Status: Discontinued cloNIDine 0.1 mg oral tablet 0.1 mg = 1 tab, PO, BID, # 90 tab, 3 Refill(s) Start Date: 08/25/19 Status: Ordered Coreg 3.125 mg, 1 tab, Route: PO, Drug form: TAB, Q12H, Dosing Weight 95, kg, Start da te: 08/25/19 9:00:00 CHIEF SUSTAINABILITY OFFICER, Duration: 30 day, Stop date: 09/23/19 21:00:00 CHIEF SUSTAINABILITY OFFICER, 0 Notes: Give with food. (Same As: Coreg) Start Date: 08/25/19 Stop Date: 08/26/19 Status: Discontinued Dextrose 50% Syringe (D50W) 12.5 gm, 25 mL, Route: IVP, Drug Form: INJ, Dosing Weight 95, kg, PRN, PRN Blood Glucose Results, Start date: 08/25/19 1:14:00 CHIEF SUSTAINABILITY OFFICER, Duration: 30 day, Stop date: 09/24/19 1:13:00 CHIEF SUSTAINABILITY OFFICER, 0 Start Date: 08/25/19 Stop Date: 08/26/19 Status: Discontinued Dextrose 50% Syringe (D50W) 25 gm, 50 mL, Route: IVP, Drug Form: INJ, Dosing Weight 95, kg, PRN, PRN Blood G lucose Results, Start date: 08/25/19 1:14:00 CHIEF SUSTAINABILITY OFFICER, Duration: 30 day, Stop date: 1 11/25/18 1:13:00 CHIEF SUSTAINABILITY OFFICER, 0 Start Date: 08/25/19 Stop Date: 08/26/19 Status: Discontinued Dilaudid 0.5 mg, Route: IVP, ONCE, Dosing Weight 95, kg, PRN Pain Score 7-10, Priority: N OW, Start date: 08/25/19 1:31:00 CHIEF SUSTAINABILITY OFFICER Start Date: 08/25/19 Stop Date: 08/25/19 Status: Completed Flomax 0.4 mg, 1 cap, Route: PO, Drug form: CAP, After Breakfast, Dosing Weight 90.909, kg, Start date: 08/25/19 9:00:00 CHIEF SUSTAINABILITY OFFICER, Duration: 30 day, Stop date: 09/24/19 8:3 0:00 CHIEF SUSTAINABILITY OFFICER, 0 Notes: (Same As: Flomax) "Do Not Crush" Start Date: 08/25/19 Stop Date: 08/26/19 Status: Discontinued FLUoxetine 60 mg, 6 cap, Route: PO, Drug form: CAP, Daily, Dosing Weight 95, kg, Start date : 08/25/19 9:00:00 CHIEF SUSTAINABILITY OFFICER, Duration: 30 day, Stop date: 09/23/19 9:00:00 CHIEF SUSTAINABILITY OFFICER, 0 Notes: (Same as: Prozac) Start Date: 08/25/19 Stop Date: 08/26/19 Status: Discontinued FLUoxetine 10 mg oral capsule 10 mg = 1 cap, PO, Daily, # 90 cap, 0 Refill(s) Start Date: 08/25/19 Status: Ordered glucagon 1 mg, Route: IM, Drug form: PDR/INJ, PRN, Dosing Weight 95, kg, PRN Blood Glucos e Results, Start date: 08/25/19 1:14:00 CHIEF SUSTAINABILITY OFFICER, Duration: 30 day, Stop date: 1:13:00 CHIEF SUSTAINABILITY OFFICER, 0 Start Date: 08/25/19 Stop Date: 08/26/19 Status: Discontinued hydromorphone 0.5 mg, Route: IV, ONCE, Dosing Weight 95, kg, Start date: 08/24/19 23:29:00 CHIEF SUSTAINABILITY OFFICER , Stop date: 08/24/19 23:29:00 CHIEF SUSTAINABILITY OFFICER Start Date: 08/24/19 Stop Date: 08/24/19 Status: Completed irbesartan 150 mg oral tablet 150 mg = 1 tab, PO, Daily, # 90 tab, 0 Refill(s) Start Date: 08/25/19 Status: Ordered NS 1,000 mL 1,000 mL, Rate: 100 ml/hr, Infuse over: 10 hr, Route: IV, Dosing Weight 95 kg, T otal Volume: 1,000, Start date: 08/25/19 1:15:00 CHIEF SUSTAINABILITY OFFICER, Duration: 1 doses or times , Stop date: 08/25/19 11:14:00 CHIEF SUSTAINABILITY OFFICER, 2.16, m2, 0 Start Date: 08/25/19 Stop Date: 08/25/19 Status: Completed ondansetron 4 mg, 2 mL, Route: IVP, Drug form: INJ, Q8H, Dosing Weight 95, kg, PRN Nausea & Vomiting, Start date: 08/25/19 1:14:00 CHIEF SUSTAINABILITY OFFICER, Duration: 30 day, Stop date: 1:13:00 CHIEF SUSTAINABILITY OFFICER, 0 Notes: (Same as: Neo) MEDICATION WASTE Product Size: 4 mgProduct Was jose guadalupe: ___ mg Start Date: 08/25/19 Stop Date: 08/26/19 Status: Discontinued Percocet 5/325 oral tablet 1 tab, Route: PO, Drug Form: TAB, Dosing Weight 95, kg, Q6H, PRN Pain Score 7-10 , Start date: 08/25/19 1:34:00 CHIEF SUSTAINABILITY OFFICER, Duration: 30 day, Stop date: 09/24/19 1:33:0 0 CHIEF SUSTAINABILITY OFFICER Start Date: 08/25/19 Stop Date: 08/25/19 Status: Deleted ranolazine PO, BID, 0 Refill(s) Start Date: 08/25/19 Status: Ordered Roxicodone 5 mg, 1 tab, Route: PO, Drug form: TAB, Q6H, PRN Pain Score 7-10, Start date: 2:14:00 CHIEF SUSTAINABILITY OFFICER, Duration: 30 day, Stop date: 09/24/19 2:13:00 CHIEF SUSTAINABILITY OFFICER, 0 Notes: (Same as: Roxicodone) Start Date: 08/25/19 Stop Date: 08/26/19 Status: Discontinued spironolactone 25 mg oral tablet 25 mg = 1 tab, PO, Daily, # 90 tab, 1 Refill(s) Start Date: 08/25/19 Stop Date: 11/23/19 Status: Ordered tamsulosin 0.4 mg oral capsule 0.4 mg = 1 cap, PO, After Breakfast, # 30 cap, 0 Refill(s), [facility] [place] [facility] Start Date: 08/26/19 Stop Date: 09/25/19 Status: Ordered Tylenol 325 mg, 1 tab, Route: PO, Drug form: TAB, Q6H, PRN Pain Score 7-10, Start date: 08/25/19 2:15:00 CHIEF SUSTAINABILITY OFFICER, Duration: 30 day, Stop date: 09/24/19 2:14:00 CHIEF SUSTAINABILITY OFFICER, 0 Notes: Do not exceed 4 gm/day. (Same as: Tylenol) Start Date: 08/25/19 Stop Date: 08/26/19 Status: Discontinued Vantin 200 mg oral tablet 200 mg = 1 tab, PO, Q12H, X 7 day, # 14 tab, 0 Refill(s) Start Date: 08/25/19 Stop Date: 09/01/19 Status: Ordered Results 1 2 3 Most recent to oldest [Reference Range]: 4.2 K/CMM (08/26/19 1:06 PM) 3.5 K/CMM (08/24/19 9:43 PM) Neutrophils # [1.5-8.1 K/CMM] 2.3 K/CMM (08/26/19 1:06 PM) 2.3 K/CMM (08/24/19 9:43 PM) Lymphocytes # [1.0-5.5 K/CMM] 0.8 K/CMM (08/26/19 1:06 PM) 0.5 K/CMM (08/24/19 9:43 PM) Monocytes # [0.0-0.8 K/CMM] 0.1 K/CMM (08/26/19 1:06 PM) 0.1 K/CMM (08/24/19 9:43 PM) Eosinophils # [0.0-0.5 K/CMM] 0.1 K/CMM (08/26/19 1:06 PM) Basophils # [0.0-0.2 K/CMM] 39 mL/min/1.73m2 1 *NA* (08/26/19 1:06 PM) 33 mL/min/1.73m2 2 *NA* (08/25/19 3:46 AM) 30 mL/min/1.73m2 3 *NA* (08/24/19 9:43 PM) eGFR 0.8 (08/24/19 9:43 PM) A/G Ratio [0.7-1.6] 3.3 g/dL *LOW* (08/25/19 3:46 AM) 3.7 g/dL (08/24/19 9:43 PM) Albumin Lvl [3.5-5.0 g/dL] 135 unit/L (08/24/19 9:43 PM) Alk Phos [39-136 unit/L] 31 unit/L (08/24/19 9:43 PM) ALT [0-65 unit/L] 8.6 mEq/L *LOW* (08/26/19 1:06 PM) 8.1 mEq/L *LOW* (08/25/19 3:46 AM) 9.3 mEq/L *LOW* (08/24/19 9:43 PM) AGAP [10.0-20.0 mEq/L] 22 unit/L (08/24/19 9:43 PM) AST [0-37 unit/L] 19 (08/24/19 9:43 PM) B/C Ratio [6-25] 1.0 % (08/26/19 1:06 PM) 0.7 % (08/24/19 9:43 PM) Basophils [0.0-1.0 %] 27 mg/dL *HI* (08/26/19 1:06 PM) 32 mg/dL *HI* (08/25/19 3:46 AM) 33 mg/dL *HI* (08/24/19 9:43 PM) BUN [7-22 mg/dL] 9.3 mg/dL (08/26/19 1:06 PM) 9.1 mg/dL (08/25/19 3:46 AM) 9.4 mg/dL (08/24/19 9:43 PM) Calcium Lvl [8.5-10.5 mg/dL] 109 mEq/L (08/26/19 1:06 PM) 109 mEq/L (08/25/19 3:46 AM) 106 mEq/L (08/24/19 9:43 PM) Chloride Lvl [95-109 mEq/L] 25 mEq/L (08/26/19 1:06 PM) 25 mEq/L (08/25/19 3:46 AM) 25 mEq/L (08/24/19 9:43 PM) CO2 [24-32 mEq/L] 1.42 mg/dL *HI* (08/26/19 1:06 PM) 1.61 mg/dL *HI* (08/25/19 3:46 AM) 1.76 mg/dL *HI* (08/24/19 9:43 PM) Creatinine Lvl [0.50-1.40 mg/dL] 1.1 % (08/26/19 1:06 PM) 1.7 % (08/24/19 9:43 PM) Eosinophils [0.0-4.0 %] 4.8 g/dL *HI* (08/24/19 9:43 PM) Globulin [2.7-4.2 g/dL] 95 mg/dL (08/26/19 1:06 PM) 87 mg/dL (08/25/19 3:46 AM) 89 mg/dL (08/24/19 9:43 PM) Glucose Lvl [70-99 mg/dL] 35.2 % *LOW* (08/26/19 1:06 PM) 34.5 % *LOW* (08/25/19 3:46 AM) 37.2 % (08/24/19 9:43 PM) Hct [36.0-48.0 %] 11.3 g/dL *LOW* (08/26/19 1:06 PM) 11.2 g/dL *LOW* (08/25/19 3:46 AM) 12.2 g/dL (08/24/19 9:43 PM) Hgb [12.0-16.0 g/dL] 4.6 mEq/L (08/26/19 1:06 PM) 4.1 mEq/L (08/25/19 3:46 AM) 4.3 mEq/L (08/24/19 9:43 PM) Potassium Lvl [3.5-5.1 mEq/L] 132 unit/L (08/24/19 9:43 PM) Lipase Lvl [73-393 unit/L] 30.8 % (08/26/19 1:06 PM) 36.0 % (08/24/19 9:43 PM) Lymphocytes [20.0-40.0 %] 29.4 pg (08/26/19 1:06 PM) 29.8 pg (08/25/19 3:46 AM) 30.0 pg (08/24/19 9:43 PM) MCH [27.0-31.0 pg] 32.2 g/dL (08/26/19 1:06 PM) 32.6 g/dL (08/25/19 3:46 AM) 32.7 g/dL (08/24/19 9:43 PM) MCHC [32.0-36.0 g/dL] 91.1 fL (08/26/19 1:06 PM) 91.3 fL (08/25/19 3:46 AM) 91.8 fL (08/24/19 9:43 PM) MCV [80.0-98.0 fL] 2.3 mg/dL (08/25/19 3:46 AM) Magnesium Lvl [1.8-2.4 mg/dL] 11.0 % (08/26/19 1:06 PM) 7.4 % (08/24/19 9:43 PM) Monocytes [2.0-12.0 %] 7.4 fL (08/26/19 1:06 PM) 7.1 fL *LOW* (08/25/19 3:46 AM) 7.1 fL *LOW* (08/24/19 9:43 PM) MPV [7.4-10.4 fL] 138 mEq/L (08/26/19 1:06 PM) 138 mEq/L (08/25/19 3:46 AM) 136 mEq/L (08/24/19 9:43 PM) Sodium Lvl [135-145 mEq/L] 2.8 mg/dL (08/25/19 3:46 AM) Phosphorus [2.5-4.5 mg/dL] 189 K/CMM (08/26/19 1:06 PM) 184 K/CMM (08/25/19 3:46 AM) 208 K/CMM (08/24/19 9:43 PM) Platelet [133-450 K/CMM] 56.1 % (08/26/19 1:06 PM) 54.2 % (08/24/19 9:43 PM) Segs [45.0-75.0 %] 8.5 g/dL *HI* (08/24/19 9:43 PM) Total Protein [6.4-8.4 g/dL] 3.86 M/CMM *LOW* (08/26/19 1:06 PM) 3.78 M/CMM *LOW* (08/25/19 3:46 AM) 4.05 M/CMM *LOW* (08/24/19 9:43 PM) RBC [4.20-5.40 M/CMM] 13.1 % (08/26/19 1:06 PM) 13.1 % (08/25/19 3:46 AM) 13.3 % (08/24/19 9:43 PM) RDW [11.5-14.5 %] 0.3 mg/dL (08/24/19 9:43 PM) Bili Total [0.2-1.3 mg/dL] <0.02 ng/mL (08/24/19 9:43 PM) Troponin-I [0.00-0.40 ng/mL] Moderate /HPF *ABN* (08/24/19 9:50 PM) UA Bacteria [None Seen /HPF] Negative *NA* (08/24/19 9:50 PM) UA Bili [Negative] Moderate *ABN* (08/24/19 9:50 PM) UA Blood [Negative] Yellow *NA* (08/24/19 9:50 PM) UA Color [Yellow] Negative mg/dL *NA* (08/24/19 9:50 PM) UA Glucose [Negative mg/dL] Negative mg/dL *NA* (08/24/19 9:50 PM) UA Ketones [Negative mg/dL] Large *ABN* (08/24/19 9:50 PM) UA Leuk Est [Negative] Few /LPF *NA* (08/24/19 9:50 PM) UA Mucus [None Seen /LPF] Negative (08/24/19 9:50 PM) UA Nitrite [Negative] 7.0 (08/24/19 9:50 PM) UA pH [5.0-8.0] 30 mg/dL *ABN* (08/24/19 9:50 PM) UA Protein [Negative mg/dL] 51 /HPF *HI* (08/24/19 9:50 PM) UA RBC [0-2 /HPF] 1.021 (08/24/19 9:50 PM) UA Spec Grav [<=1.030] Occasional /LPF *NA* (08/24/19 9:50 PM) UA Sq Epi [Few /LPF] Occasional /HPF *NA* (08/24/19 9:50 PM) UA Tr Phos Reva [None Seen /HPF] Marked *ABN* (08/24/19 9:50 PM) UA Turbidity [Clear] <=1.0 mg/dL *NA* (08/24/19 9:50 PM) UA Urobilinogen [0.1-1.0 mg/dL] 138 /HPF *HI* (08/24/19 9:50 PM) UA WBC [0-5 /HPF] Few /HPF *ABN* (08/24/19 9:50 PM) UA [place] Yeast [None Seen /HPF] 7.5 K/CMM (08/26/19 1:06 PM) 5.5 K/CMM (08/25/19 3:46 AM) 6.4 K/CMM (08/24/19 9:43 PM) WBC [3.7-10.4 K/CMM] 1Result Comment: The eGFR is calculated using the [...] from the National Kidney Disease Education Program ( NKDEP) which additionally recommends that when the eGFR is used in patients with extremes of body mass index for purposes of drug dosing, the eGFR should be mul tiplied by the estimated BMI. 2Result Comment: The eGFR is calculated using the [...] from the National Kidney Disease Education Program ( NKDEP) which additionally recommends that when the eGFR is used in patients with extremes of body mass index for purposes of drug dosing, the eGFR should be mul tiplied by the estimated BMI. 3Result Comment: The eGFR is calculated using the [...] from the National Kidney Disease Education Program ( NKDEP) which additionally recommends that when the eGFR is used in patients with extremes of body mass index for purposes of drug dosing, the eGFR should be mul tiplied by the estimated BMI. Microbiology Reports TEST: Culture: Urine STATUS: Auth (Verified) BODY SITE: SOURCE: Urine, Clean Catch COLLECTED DATE/TIME: 08/24/19 9:50 PM FINAL REPORT >100,000 CFU/mL Proteus mirabilis ORGANISM:Proteus mirabilis Immunizations No data available for this section Procedures No data available for this section Social History Social History Type Response Smoking Status Never smoker; Exposure to T obacco Smoke None; Cigarette Smoking Last 365 Days No; Reg Smoking Cessation Counseli ng No entered on: 08/24/19 Assessment and Plan Extracted from: Title: History and Physical Author: Mitali Culp MD Date: 08/25/19 64-year-old F with PMH of HTN, CKD 3, HL D, depression, anxiety,and Crohn's disease (in remission) admitted for ARF with CKD 3,UTI with urinary retention 1.Acute kidney injury superimposed on chronic kidney disease(N17.9) Serum creatinine 1.76 up from previous baseline of 1.3. Possible ATN givenpatient taking Aleve over the last few weeks --Avoid nephrotoxins and monitor --IV fluids --If worsening will consult nephrology Ordered: Admit/Condition, 08/25/19 1:13:00 CHIEF SUSTAINABILITY OFFICER, Status: Out Patient with Observation Services, Acute, Expected LOS: 1 Midnight, Ivan Ventura MD, Nain THOMSON Review/Approve Yes, Isolation: No Isolation, Acute kidney injury superimposed on chronic kidney disease | Acute low... 2.Acute lower UTI(N39.0) Urinalysis with positive leuk esterase, greater than 138 WBCs and 51 RBCs with urinary retention --Follow-up urine culture --Ceftriaxone 1 g IV daily Ordered: Admit/Condition, 08/25/19 1:13:00 CHIEF SUSTAINABILITY OFFICER, Status: Out Patient with Observation Services, Acute, Expected LOS: 1 Midnight, Ivan Ventura MD, Nain THOMSON Review/Approve Yes, Isolation: No Isolation, Acute kidney injury superimposed on chronic kidney disease | Acute low... 3.Urinary retention(R33.9) Status post Mccray placement wean off as tolerated Ordered: Admit/Condition, 08/25/19 1:13:00 CHIEF SUSTAINABILITY OFFICER, Status: Out Patient with Observation Services, Acute, [...]
--- OUTSIDE RECORDS SUMMARY | 2020-05-13 08:15 | XMS REPORT ---
Author Author SUDHAKAR AMENA L Organization Unknown Address Unknown Phone Care Team Providers Care Systems Accountant Name Role Phone [facility] PP Unavailable Reason for Referral No Reason for Referral was given. History of Present Illness No HPI available. Problems * Normal Routine History And Physical Adult (V70.0); (Active) * Depression With Anxiety (300.4); (Active) * Hypertension (401.9); (Active) Medication * TraZODone HCl 100 MG Oral Tablet; TAKE 2 TABLETS AT BEDTIME. (Active) * Abilify 5 MG Oral Tablet; TAKE 1 TABLET DAILY. (Active) * FLUoxetine HCl 40 MG Oral Capsule; TAKE 1 CAPSULE DAILY. (Active) * Aspirin 325 MG Oral Tablet; PRN (Active) * Benicar HCT 40-25 MG Oral Tablet; TAKE 1 TABLET DAILY; Start Date: 09/11/2013 (Active) * Bystolic 10 MG Oral Tablet; TAKE 1 TABLET DAILY; Start Date: 09/11/2013 (Active) * Amlodipine Besy-Benazepril HCl 5-20 MG Oral Capsule; TAKE 1 CAPSULE DAILY.; Start Date: 11/21/2013; End Date: (Active) * Hydrochlorothiazide 12.5 MG Oral Tablet; TAKE 1 TABLET DAILY.; Start Date: 11/21/2013; End Date: (Active) * Fioricet 50-300-40 MG Oral Capsule; TAKE 1 CAPSULE Every twelve hours PRN; Start Date: 11/21/2013; End Date: 12/21/2013 (Active) Allergies and Adverse Reactions * Xanax TABS (Active) * Compazine TABS (Active) * Morphine Derivatives (Active) * Reglan TABS (Active) * Toradol Oral TABS (Active) Past Medical History * History of Crohn's Disease (555.9); (Resolved) * History of Dysthymic Disorder (V11.2); (Resolved) * History of Insomnia (780.52); (Resolved) * History of Migraine Headache (346.90); (Resolved) * History of Fatigue (780.79); (Resolved) Procedures Procedure Procedure Date Date Completed Status Cholecystectomy - - Resolved Hysterectomy - - Resolved Family History * Maternal history of Hypertension (V17.49); (Active) * Paternal history of Hypertension (V17.49); (Active) Social History * Marital History - Currently (Active) * Current Smoker (305.1); (Active) * Never Drank Alcohol (Active) Advance Directives * No Advance Directives available. Encounters * AUDIT 11/21/2013 * [facility], Provider: MER DE LA FUENTE, Status: Parker, Time: 9:15 AM 01/18/2014
--- OUTSIDE RECORDS SUMMARY | 2020-05-13 08:15 | XMS REPORT ---
Author Author SUDHAKAR AMENA L Organization Unknown Address Unknown Phone Care Team Providers Care Manufacturing Specialist Name Role Phone MER DE LA FUENTE [...] 1 TABLET DAILY; Start Date: 09/11/2013 (Active) Allergies and Adverse Reactions * Xanax [...] No Advance Directives available. Encounters * AUDIT 09/11/2013 * [facility], Provider: MER DE LA FUENTE, Status: Parker, Time: 10:00 AM 09/21/2013
--- OUTSIDE RECORDS SUMMARY | 2020-05-13 08:15 | XMS REPORT ---
Author Author AMENA Lezama Organization Unknown Address Unknown Phone Care Team Providers Care Guideman Name Role Phone TejaNelliea PP Reason for Referral No Reason for Referral was given. History of Present Illness No HPI available. Problems * Normal Routine History And Physical Adult (V70.0); (Active) * Hypertension (401.9); (Active) * Depression With Anxiety (300.4); (Active) Medication * Hyzaar 50-12.5 MG Oral Tablet; TAKE 1 TABLET DAILY. (Active) * TraZODone HCl 100 MG Oral Tablet; TAKE 2 TABLETS AT BEDTIME. (Active) * Abilify 5 MG Oral Tablet; TAKE 1 TABLET DAILY. (Active) * FLUoxetine HCl 40 MG Oral Capsule; TAKE 1 CAPSULE DAILY. (Active) * Aspirin 325 MG Oral Tablet; PRN (Active) Allergies and Adverse Reactions * Xanax [...] No Advance Directives available. Encounters * AUDIT 08/16/2013
--- OUTSIDE RECORDS SUMMARY | 2020-05-13 08:15 | XMS REPORT | Summary of Care ---
Author Author [facility] Outpatient Imaging - [facility] Organization [facility] Outpatient Imaging [facility] Address Unknown Phone Unavailable Encounter HQ Encntr_alias(FIN) [id number] Date(s): 12/18/18 - 12/18/18 [facility] Outpatient Imaging [facility] [address], [address] [place], [place] [address] [phone] Discharge Disposition: Home or Self Care Attending Physician: Keith Crawford MD Referring Physician: Keith Crawford MD Vital Signs No data available for this section Problem List No data available for this section Allergies, Adverse Reactions, Alerts Substance Reaction Severity Status morphine Active Toradol Active Compazine Active Reglan Active Medications No data available for this section Results No data available for this section Immunizations No data available for this section Procedures No data available for this section Social History No data available for this section Assessment and Plan No data available for this section
--- OUTSIDE RECORDS SUMMARY | 2020-05-13 08:15 | XMS REPORT | Summary of Care ---
Author Author [facility] Outpatient Imaging - [facility] Organization [facility] Outpatient Imaging - [facility] Address Unknown Phone Unavailable Encounter HQ Encntr_alias(FIN) [id number] Date(s): 09/09/16 - 09/09/16 [facility] Outpatient Imaging - [place] [id number] [place] [address], [address] [place], [place] [address] [phone] Discharge Disposition: Home or Self Care Attending Physician: Keith Crawford MD Vital Signs No data available for this section Problem List No data available for this section Allergies, Adverse Reactions, Alerts Substance Reaction Severity Status Compazine Active morphine Active Reglan Active Toradol Active Medications No data available for this section Results No data available for this section Immunizations No data available for this section Procedures No data available for this section Social History No data available for this section Assessment and Plan No data available for this section
--- OUTSIDE RECORDS SUMMARY | 2020-05-13 08:15 | XMS REPORT | Summary of Care ---
Author Author [facility] Organization [facility] Address Unknown Phone Unavailable Encounter MERI Hager(THERESE) [id number] Date(s): 01/07/20 - 01/24/20 [facility] [address] [facility] provided by [facility] [place] [address]- Discharge Disposition: Senior Living Facility Attending Physician: Moise Taylor MD Admitting Physician: Moise Taylor MD Referring Physician: Physician, Non Associated MD Vital Signs 1 2 3 Most recent to oldest [Reference Range]: 167.64 cm (01/14/20 2:54 PM) 167.64 cm (01/14/20 10:55 AM) 167.64 cm (01/14/20 7:50 AM) Height 63 kg (01/14/20 6:34 AM) 63 kg (01/14/20 5:31 AM) 64.002 kg (01/09/20 5:00 AM) Current Weight 97.7 DegF (01/24/20 7:50 AM) 96.9 DegF (01/23/20 4:00 PM) 98.3 DegF (01/22/20 11:45 PM) Temperature Oral [96.4-99.1 DegF] 169/84 mmHg *HI* (01/24/20 4:00 PM) 160/79 mmHg *HI* (01/24/20 3:00 PM) 152/70 mmHg *HI* (01/24/20 2:00 PM) Blood Pressure [90-140/60-90 mmHg] 23 BRMIN *HI* (01/24/20 4:00 PM) 20 BRMIN (01/24/20 3:00 PM) 18 BRMIN (01/24/20 2:00 PM) Respiratory Rate [14-20 BRMIN] 78 bpm (01/18/20 5:27 AM) 66 bpm (01/18/20 4:45 AM) Peripheral Pulse Rate [60-100 bpm] 92.001 kg (01/07/20 11:33 PM) Weight 32.74 m2 (01/07/20 11:33 PM) Body Mass Index Problem List Condition Effective Dates Status Health Status Informan t Acute hypoxemic Active respiratory failure(Confirmed) Anxiety(Confirmed) Active CKD (chronic kidney Active disease), stage III(Confirmed) Depression(Confirmed Active ) Impaired mobility Active and ADLs(Confirmed) S/P percutaneous Active endoscopic gastrostomy (PEG) tube placement(Confirmed) Status post Active tracheostomy(Confirm ed) HLD Active (hyperlipidemia)(Con firmed) HTN Active (hypertension)(Confi rmed) 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 (Same as: Tylenol) Start Date: 01/07/20 Stop Date: 01/24/20 Status: Discontinued acetaminophen 650 mg, 20.3 mL, Route: GT, Drug form: LIQ, Q6H, Dosing Weight 92.001, kg, Start date: 01/19/20 12:00:00 CDT, Duration: 30 day, Stop date: 02/18/20 6:00:00 CDT, 0 Notes: Max acetaminophen = 4000mg/day (4 gm/day). (Same as: Tylenol) Start Date: 01/19/20 Stop Date: 01/24/20 Status: Discontinued acetaminophen 325 mg oral tablet. 325 mg, 1 tab, Route: PO, Drug form: TAB, Q6H, Dosing Weight 92.001, kg, PRN David n Score 1-3, Start date: 01/17/20 15:16:00 CDT, Duration: 30 day, Stop date: 15:15:00 CDT, 0 Notes: Do not exceed 4 gm/day. (Same as: Tylenol) Start Date: 01/17/20 Stop Date: 01/17/20 Status: Discontinued acetaminophen 650 mg rectal suppository 325 mg, 1 supp, Route: TN, Drug form: SUPP, Q6H, Dosing Weight 92.001, kg, PRN P ain 1-3/Temp > 100.4 F, Start date: 01/15/20 16:39:00 CDT, Duration: 30 day, Stop date: 02/14/20 16:38:00 CDT, 0 Notes: Max acetaminophen = 4000 mg/day (4 gm/day). (Same as: Tylenol) Start Date: 01/15/20 Stop Date: 01/17/20 Status: Discontinued albumin human 5% intravenous solution 125 gm, 2,500 mL, 0 ml/hr, Route: IV, Drug Form: INJ, Dosing Weight 92.001, kg, ONCE, Start date: 01/18/20 9:49:00 CDT, Stop date: 01/18/20 9:49:00 CDT, Indicat ion: Plasmapheresis, 0 Notes: LOT#: Mfg: (Same as: Albuminar)"blood product derivative"WASTE: F/P - Red; E -Red MEDICATION WASTE Product Size: 25 gmProduct Wasted: ___ gm Start Date: 01/18/20 Stop Date: 01/18/20 Status: Completed albumin human 5% intravenous solution 150 gm, 3,000 mL, 3000 ml/hr, Route: IV, Drug Form: INJ, Dosing Weight 92.001, k g, ONCE, Start date: 01/16/20 7:35:00 CDT, Stop date: 01/16/20 7:35:00 CDT, María Elena cation: Plasmapheresis, 0 Notes: LOT#: Mfg: (Same as: Albuminar)"blood product derivative"WASTE: F/P - Red; E -Red MEDICATION WASTE Product Size: 25 gmProduct Wasted: ___ gm Start Date: 01/16/20 Stop Date: 01/16/20 Status: Completed albumin human 5% intravenous solution 150 gm, 3,000 mL, 3000 ml/hr, Route: IV, Drug Form: INJ, Dosing Weight 92.001, k g, ONCE, Start date: 01/10/20 16:07:00 CDT, Stop date: 01/10/20 16:07:00 CDT, In dication: Plasmapheresis, 0 Notes: LOT#: Mfg: WASTE: F/P - Red; E -Red (Same a s: Albuminar)"blood product derivative" Start Date: 01/10/20 Stop Date: 01/10/20 Status: Completed albumin human 5% intravenous solution 100 gm, 2,000 mL, 2000 ml/hr, Route: IV, Drug Form: INJ, Dosing Weight 92.001, k g, ONCE, Start date: 01/14/20 9:54:00 CDT, Stop date: 01/14/20 9:54:00 CDT, María Elena cation: Plasmapheresis, 0 Notes: LOT#: Mfg: (Same as: Albuminar)"blood product derivative"WASTE: F/P - Red; E -Red MEDICATION WASTE Product Size: 25 gmProduct Wasted: ___ gm Start Date: 01/14/20 Stop Date: 01/14/20 Status: Discontinued albumin human 5% intravenous solution 150 gm, 3,000 mL, 3000 ml/hr, Route: IV, Drug Form: INJ, Dosing Weight 92.001, k g, ONCE, Start date: 01/11/20 7:51:00 CDT, Stop date: 01/11/20 7:51:00 CDT, María Elena cation: Plasmapheresis, 0 Notes: LOT#: Mfg: (Same as: Albuminar)"blood product derivative"WASTE: F/P - Red; E -Red MEDICATION WASTE Product Size: 25 gmProduct Wasted: ___ gm Start Date: 01/11/20 Stop Date: 01/11/20 Status: Completed albumin human 5% intravenous solution 150 gm, 3,000 mL, 0 ml/hr, Route: IV, Drug Form: INJ, Dosing Weight 92.001, kg, ONCE, Start date: 01/18/20 7:41:00 CDT, Stop date: 01/18/20 7:41:00 CDT, Indicat ion: Plasmapheresis, 0 Notes: LOT#: Mfg: (Same as: Albuminar)"blood product derivative"WASTE: F/P - Red; E -Red MEDICATION WASTE Product Size: 25 gmProduct Wasted: ___ gm Start Date: 01/18/20 Stop Date: 01/18/20 Status: Discontinued albuterol 0.083% inhalation solution 2.49 mg, 3 mL, Route: NEB, Drug form: SOLN, RQ2H, Dosing Weight 92.001, kg, PRN Wheezing, Start date: 01/20/20 3:52:00 CDT, Duration: 30 day, Stop date: 0 3:51:00 CDT, 0 Notes: SEE RT DOCUMENTATION (Same as: Juanito) Start Date: 01/20/20 Stop Date: 01/24/20 Status: Discontinued ALPRAZOLam 1 mg oral tablet 1 mg = 1 tab, PO, TID Start Date: 01/21/20 Stop Date: 01/24/20 Status: Discontinued amLODIPine 5 mg, 1 tab, Route: GT, Drug form: TAB, Daily, Dosing Weight 92.001, kg, Start d ate: 01/08/20 9:00:00 CDT, Duration: 30 day, Stop date: 02/06/20 9:00:00 CDT, 0 Notes: (Same as: Ketan) Start Date: 01/08/20 Stop Date: 01/12/20 Status: Discontinued amLODIPine 10 mg, 1 tab, Route: GT, Drug form: TAB, Daily, Dosing Weight 92.001, kg, Start date: 01/19/20 13:27:00 CDT, Duration: 30 day, Stop date: 02/18/20 9:00:00 CDT, 0 Notes: (Same as: Norvasc) Start Date: 01/19/20 Stop Date: 01/24/20 Status: Discontinued amLODIPine 10 mg oral tablet 10 mg = 1 tab, GT, Daily, 0 Refill(s) Start Date: 01/24/20 Status: Ordered amLODIPine 10 mg oral tablet 10 mg = 1 tab, PO, Daily, # 90 tab, 0 Refill(s) Start Date: 01/21/20 Stop Date: 01/24/20 Status: Discontinued amLODIPine 5 mg oral tablet 5 mg = 1 tab, PO, Daily Start Date: 01/08/20 Stop Date: 01/24/20 Status: Discontinued ARIPiprazole 10 mg oral tablet 10 mg = 1 tab, PO, Daily, # 30 tab, 0 Refill(s) Start Date: 01/21/20 Stop Date: 01/24/20 Status: Discontinued aspirin 81 mg tablet, chewable 324 mg, 4 tab, Route: NG, Drug form: CHEWTAB, ONCE, Dosing Weight 92.001, kg, St art date: 01/13/20 12:31:00 CDT, Stop date: 01/13/20 12:31:00 CDT, 0 Notes: Take with food. Start Date: 01/13/20 Stop Date: 01/13/20 Status: Completed Ativan 2 mg, 1 mL, Route: IVP, Drug form: INJ, ONCE, Dosing Weight 92.001, kg, PRN Anxi ety, Start date: 01/13/20 8:06:00 CDT, 0 Notes: (Same as: Ativan) Start Date: 01/13/20 Stop Date: 01/13/20 Status: Completed Ativan 2 mg, 1 mL, Route: IVP, Drug form: INJ, ONCE, Dosing Weight 92.001, kg, Start da te: 01/13/20 12:40:00 CDT, Stop date: 01/13/20 12:40:00 CDT, 0 Notes: (Same as: Ativan) Start Date: 01/13/20 Stop Date: 01/13/20 Status: Completed atorvastatin 40 mg oral tablet 40 mg = 1 tab, PO, Bedtime, # 30 tab, 0 Refill(s) Start Date: 01/21/20 Status: Ordered Benadryl 12.5 mg, 0.25 mL, Route: IV, Drug form: INJ, ONCE, Dosing Weight 92.001, kg, Sta rt date: 01/20/20 21:56:00 CDT, Stop date: 01/20/20 21:56:00 CDT, 0 Notes: (Same as: Benadryl) Start Date: 01/20/20 Stop Date: 01/20/20 Status: Completed beneprotein beneprotein, 3 pkt, GT, BID, Beneprotein 7 gm packet whey protein, # 3 pkt, Refi ll(s) 0, other Start Date: 01/24/20 Status: Ordered Beneprotein 7 gm pkt 3 pkt, Route: T FEED, Drug Form: PWDR, Dosing Weight 92.001, kg, BID, Start date : 01/21/20 17:00:00 CDT, Duration: 30 day, Stop date: 02/20/20 9:00:00 CDT, 0 Notes: (Same as: Beneprotein) Start Date: 01/21/20 Stop Date: 01/24/20 Status: Discontinued bumetanide 0.5 mg oral tablet 0.5 mg = 1 tab, PO, BID Start Date: 01/21/20 Stop Date: 01/24/20 Status: Discontinued calcium carbonate 500 mg (200 mg elemental calcium) oral tablet 500 mg, 1 tab, Route: PO, Drug form: CHEWTAB, PRN, Dosing Weight 78.182, kg, PRN Abnormal Lab Result, FOR ICU USE ONLY, Start date: 01/07/20 23:29:00 CDT, Durat ion: 30 day, Stop date: 02/06/20 23:28:00 CDT, 0 Notes: (Same As: Tums)Calcium Carbonate 500 mg = 200 mg elemental calcium Dose = mg calcium carbonate ( mg elemental calcium) Start Date: 01/07/20 Stop Date: 01/15/20 Status: Discontinued calcium carbonate 500 mg (200 mg elemental calcium) oral tablet 1,000 mg, 2 tab, Route: PO, Drug form: CHEWTAB, PRN, Dosing Weight 78.182, kg, P RN Abnormal Lab Result, FOR ICU USE ONLY, Start date: 01/07/20 23:29:00 CDT, Dur ation: 30 day, Stop date: 02/06/20 23:28:00 CDT, 0 Notes: (Same As: Tums)Calcium Carbonate 500 mg = 200 mg elemental calcium Dose = mg calcium carbonate ( mg elemental calcium) Start Date: 01/07/20 Stop Date: 01/15/20 Status: Discontinued calcium gluconate 1 gm, 50 mL, Route: IVPB, Drug form: INJ, PRN, Dosing Weight 78.182, kg, PRN Abn ormal Lab Result, Start date: 01/07/20 23:29:00 CDT, Duration: 30 day, Stop date : 02/06/20 23:28:00 CDT, FOR ICU USE ONLY, 0 Notes: WASTE: F/P - Sink; E - Municipal Trash Bin Start Date: 01/07/20 Stop Date: 01/15/20 Status: Discontinued calcium gluconate 3 gm, 30 mL, Route: IV, Drug form: INJ, Continuous, Dosing Weight 92.001, kg, St art date: 01/16/20 8:00:00 CDT, Duration: 30 day, Stop date: 02/15/20 7:59:00 CD T, 0 Notes: WASTE: F/P - Sink; E - Municipal Trash Bin Start Date: 01/16/20 Stop Date: 01/16/20 Status: Completed calcium gluconate 3 gm, 150 mL, Route: IV, Drug form: INJ, Continuous, Dosing Weight 92.001, kg, S tart date: 01/10/20 16:30:00 CDT, Duration: 30 day, Stop date: 02/09/20 16:29:00 CDT, 0 Notes: WASTE: F/P - Sink; E - Municipal Trash Bin Start Date: 01/10/20 Stop Date: 01/10/20 Status: Completed calcium gluconate 4 gm, 40 mL, Route: IV, Drug form: INJ, Continuous, Dosing Weight 92.001, kg, St art date: 01/14/20 10:00:00 CDT, Duration: 1 doses or times, 0 Notes: WASTE: F/P - Sink; E - Municipal Trash Bin Start Date: 01/14/20 Stop Date: 01/14/20 Status: Completed calcium gluconate 3 gm, 30 mL, Route: IV, Drug form: INJ, Continuous, Dosing Weight 92.001, kg, St art date: 01/11/20 8:00:00 CDT, Duration: 1 doses or times, Stop date: 01/11/20 23:00:00 CDT, 0 Notes: WASTE: F/P - Sink; E - Municipal Trash Bin Start Date: 01/11/20 Stop Date: 01/11/20 Status: Completed calcium gluconate 3 gm, 30 mL, Route: IV, Drug form: INJ, Continuous, Dosing Weight 92.001, kg, St art date: 01/18/20 8:00:00 CDT, Duration: 1 doses or times, Stop date: 01/18/20 22:00:00 CDT, 0 Notes: WASTE: F/P - Sink; E - Municipal Trash Bin Start Date: 01/18/20 Stop Date: 01/18/20 Status: Completed Calmoseptine topical ointment 1 appl, Route: TOP, PRN, Drug form: OINT, PRN, Start date: 01/21/20 3:23:00 CDT, Duration: 30 day, Stop date: 02/20/20 3:22:00 CDT, Redness, Rash, 0 Notes: (Same as: Calmoseptine) Start Date: 01/21/20 Stop Date: 01/24/20 Status: Discontinued carbidopa-levodopa 25 mg-100 mg oral tablet 1 tab, PO, Daily Start Date: 01/21/20 Stop Date: 01/24/20 Status: Discontinued carvedilol 3.125 mg, 1 tab, Route: GT, Drug form: TAB, Q12H, Dosing Weight 92.001, kg, Star t date: 01/08/20 9:00:00 CDT, Duration: 30 day, Stop date: 02/06/20 21:00:00 CDT , 0 Notes: Give with food. (Same As: Coreg) Start Date: 01/08/20 Stop Date: 01/24/20 Status: Voided With Results carvedilol 3.125 mg, 1 tab, Route: PO, Drug form: TAB, Q12H, Dosing Weight 92.001, kg, Star t date: 01/24/20 9:00:00 CDT, Duration: 30 day, Stop date: 02/22/20 21:00:00 CDT , 0 Notes: Give with food. (Same As: Coreg) Start Date: 01/24/20 Stop Date: 01/24/20 Status: Discontinued carvedilol 3.125 mg oral tablet 3.125 mg = 1 tab, PO, Q12H Start Date: 01/08/20 Status: Ordered chlorhexidine topical 0.12% liquid 15 mL, Route: Swab Mouth, Q12H, Drug form: LIQ, Start date: 01/08/20 9:00:00 CDT , Duration: 30 day, Stop date: 02/06/20 21:00:00 CDT, 0 Notes: (Same As: Peridex) Start Date: 01/08/20 Stop Date: 01/15/20 Status: Discontinued chlorhexidine topical 0.12% liquid 15 mL, Route: Swab Mouth, PRN, Drug form: LIQ, PRN Other -See Comment, Start megan e: 01/07/20 23:12:00 CDT, Duration: 30 day, Stop date: 02/06/20 23:11:00 CDT, 0 Notes: (Same As: Peridex) Start Date: 01/07/20 Stop Date: 01/15/20 Status: Discontinued ciprofloxacin 500 mg, 1 tab, Route: PO, Drug form: TAB, [id number], Dosing Weight 92.001, kg, Sta rt date: 01/17/20 17:00:00 CDT, Duration: 4 doses or times, Stop date: 01/24/20 5:00:00 CDT, ABX Indication: Intra-abdominal Infection, 0 Notes: May interfere w/enteral feedings - Take 1 hr before or 2 hrs after anta cids, dairy pdt & minerals. On empty stomach. Start Date: 01/17/20 Stop Date: 01/24/20 Status: Completed Dextrose 50% Syringe (D50W) 12.5 gm, 25 mL, Route: IVP, Drug Form: INJ, Dosing Weight 92.001, kg, PRN, PRN B lood Glucose Results, Start date: 01/20/20 0:23:00 CDT, Duration: 30 day, Stop d ate: 02/19/20 0:22:00 CDT, 0 Start Date: 01/20/20 Stop Date: 01/21/20 Status: Discontinued Dextrose 50% Syringe (D50W) 25 gm, 50 mL, Route: IVP, Drug Form: INJ, Dosing Weight 92.001, kg, PRN, PRN Blo od Glucose Results, Start date: 01/20/20 0:23:00 CDT, Duration: 30 day, Stop megan e: 02/19/20 0:22:00 CDT, 0 Start Date: 01/20/20 Stop Date: 01/21/20 Status: Discontinued Dextrose 50% Syringe (D50W) 12.5 gm, 25 mL, Route: IVP, Drug Form: INJ, Dosing Weight 92.001, kg, PRN, PRN B lood Glucose Results, Start date: 01/21/20 16:23:00 CDT, Duration: 30 day, Stop date: 02/20/20 16:22:00 CDT, 0 Start Date: 01/21/20 Stop Date: 01/24/20 Status: Discontinued Dextrose 50% Syringe (D50W) 25 gm, 50 mL, Route: IVP, Drug Form: INJ, Dosing Weight 92.001, kg, PRN, PRN Blo od Glucose Results, Start date: 01/21/20 16:23:00 CDT, Duration: 30 day, Stop da te: 02/20/20 16:22:00 CDT, 0 Start Date: 01/21/20 Stop Date: 01/24/20 Status: Discontinued diphenhydrAMINE 50 mg, 1 mL, Route: IVP, Drug form: INJ, ONCALL, Dosing Weight 92.001, kg, PRN A llergic reaction, Start date: 01/14/20 9:54:00 CDT, Duration: 2 doses or times, Stop date: Limited # of times, 0 Notes: (Same as: Benadryl) Start Date: 01/14/20 Stop Date: 01/24/20 Status: Discontinued docusate 100 mg, 10 mL, Route: PO, Drug form: LIQ, Q12H, Dosing Weight 78.182, kg, Start date: 01/08/20 9:00:00 CDT, Duration: 30 day, Stop date: 02/06/20 21:00:00 CDT, 0 Notes: (Same as: Colace) Start Date: 01/08/20 Stop Date: 01/24/20 Status: Discontinued etomidate 20 mg, 10 mL, Route: IV, Drug form: INJ, ONCE, Dosing Weight 92.001, kg, Start d ate: 01/14/20 11:32:00 CDT, Stop date: 01/14/20 11:32:00 CDT, 0 Notes: (Same as: Amidate). Per state nursing law etomidate can only be given by a nurse if patient is intubated or being intubated (unless the nurse is a TRANSFER ENGINEER). Start Date: 01/14/20 Stop Date: 01/14/20 Status: Completed famotidine 20 mg = 1 tab, PO, BID Start Date: 01/08/20 Stop Date: 01/21/20 Status: Discontinued famotidine 20 mg, 1 tab, Route: GT, Drug form: TAB, BID, Dosing Weight 92.001, kg, Start da te: 01/08/20 9:00:00 CDT, Duration: 30 day, Stop date: 02/06/20 17:00:00 CDT, 0 Notes: (Same as: Pepcid) Start Date: 01/08/20 Stop Date: 01/24/20 Status: Discontinued famotidine 20 mg oral tablet 20 mg = 1 tab, PO, BID, 0 Refill(s) Start Date: 01/21/20 Status: Ordered fentaNYL 75 microgram, Route: IV, ONCE, Dosing Weight 92.001, kg, Start date: 01/15/20 8: 25:00 CDT, Stop date: 01/15/20 8:25:00 CDT, Start Date: 01/15/20 Stop Date: 01/15/20 Status: Completed fentaNYL - one time ICU bolus dose 200 microgram, 4 mL, Route: IVP, Drug form: INJ, ONCE, Dosing Weight 92.001, kg, Start date: 01/14/20 11:32:00 CDT, Stop date: 01/14/20 11:32:00 CDT, 0 Notes: (Same as: Sublimaze) Preservative free. Start Date: 01/14/20 Stop Date: 01/14/20 Status: Completed fentaNYL 1000 microgram in 20 mL NS (Titrate.) IV 1,000 microgram 1,000 microgram, 20 mL, Rate: Titrate, Start Dose: 50 microgram/hr, Titration: T itrate by 25 micrograms/hour every 15 minutes, Goal(s): -1, Max Dose: 300 mcg/hr , Route: IV, Dosing Weight 78.182 kg, Total Volume: 20, Start date: 01/07/20 23: 29:00 CDT,... Start Date: 01/07/20 Stop Date: 01/11/20 Status: Discontinued fentaNYL 1000 microgram in 20 mL NS (Titrate.) IV 1,000 microgram 1,000 microgram, 20 mL, Rate: Titrate, Start Dose: 50 microgram/hr, Titration: 2 5 microgram/hour every 15 minutes, Goal(s): 0, Max Dose: 300 microgram/hr, Route : IV, Dosing Weight 92.001 kg, Total Volume: 20, Start date: 01/13/20 8:39:00 CD T, Duration... Start Date: 01/13/20 Stop Date: 01/14/20 Status: Discontinued Flagyl 500 mg, 1 tab, Route: PO, Drug form: TAB, [id number], Dosing Weight 92.001, kg, Star t date: 01/17/20 17:00:00 CDT, Duration: 6 doses or times, Stop date: 01/24/20 9 :00:00 CDT, ABX Indication: Intra-abdominal Infection, 0 Notes: (Same as: Flagyl) Take with food/ avoid alcohol Start Date: 01/17/20 Stop Date: 01/24/20 Status: Completed FLUoxetine 10 mg, 1 cap, Route: PO, Drug form: CAP, Daily, Dosing Weight 92.001, kg, Start date: 01/23/20 9:00:00 CDT, Duration: 30 day, Stop date: 02/21/20 9:00:00 CDT, 0 Notes: (Same as: Prozac) Start Date: 01/23/20 Stop Date: 01/24/20 Status: Discontinued FLUoxetine 20 mg oral capsule 20 mg = 1 cap, PO, Daily, # 30 cap, 0 Refill(s) Start Date: 01/21/20 Status: Ordered FLUoxetine 60 mg oral tablet 60 mg = 1 tab, PO, Daily Start Date: 01/08/20 Stop Date: 01/21/20 Status: Discontinued gabapentin 300 mg oral capsule 300 mg = 1 cap, PO, Bedtime Start Date: 01/08/20 Stop Date: 01/24/20 Status: Discontinued glucagon 1 mg, Route: IM, Drug form: PDR/INJ, PRN, Dosing Weight 92.001, kg, PRN Blood Gl ucose Results, Start date: 01/20/20 0:23:00 CDT, Duration: 30 day, Stop date: 0:22:00 CDT, 0 Start Date: 01/20/20 Stop Date: 01/21/20 Status: Discontinued glucagon 1 mg, Route: IM, Drug form: PDR/INJ, PRN, Dosing Weight 92.001, kg, PRN Blood Gl ucose Results, Start date: 01/21/20 16:23:00 CDT, Duration: 30 day, Stop date: 0 02/20/20 16:22:00 CDT, 0 Start Date: 01/21/20 Stop Date: 01/24/20 Status: Discontinued glucagon 1 mg, Route: IV, ONCE, Dosing Weight 92.001, kg, Start date: 01/15/20 8:25:00 CD T, Stop date: 01/15/20 8:25:00 CDT, Start Date: 01/15/20 Stop Date: 01/15/20 Status: Completed heparin 5,000 unit, 1 mL, Route: SUB-Q, Drug form: INJ, Q8H, Dosing Weight 78.182, kg, S tart date: 01/08/20 0:00:00 CDT, Duration: 30 day, Stop date: 02/06/20 16:00:00 CDT, 0 Notes: porcine heparin Start Date: 01/08/20 Stop Date: 01/24/20 Status: Discontinued hydrOXYzine 25 mg, 1 tab, Route: GT, Drug form: TAB, QID, Dosing Weight 92.001, kg, PRN as n eeded for anxiety, Start date: 01/22/20 10:18:00 CDT, Duration: 30 day, Stop megan e: 02/21/20 10:17:00 CDT, 0 Notes: (Same as: Atarax) Avoid alcohol. Start Date: 01/22/20 Stop Date: 01/24/20 Status: Discontinued hydrOXYzine 25 mg, 5 mL, Route: PO, Drug form: SUSP, ONCE, Dosing Weight 92.001, kg, Start d ate: 01/21/20 20:13:00 CDT, Stop date: 01/21/20 20:13:00 CDT, 0 Notes: (Same as: Vistaril) Start Date: 01/21/20 Stop Date: 01/21/20 Status: Deleted hydrOXYzine 25 mg, 5 mL, Route: PO, Drug form: SUSP, ONCE, Dosing Weight 92.001, kg, Start d ate: 01/21/20 21:28:00 CDT, Stop date: 01/21/20 21:28:00 CDT, 0 Notes: (Same as: Vistaril) Start Date: 01/21/20 Stop Date: 01/21/20 Status: Deleted hydrOXYzine 25 mg, 5 mL, Route: PO, Drug form: SUSP, ONCE, Dosing Weight 92.001, kg, Start d ate: 01/21/20 21:28:00 CDT, Stop date: 01/21/20 21:28:00 CDT, 0 Notes: (Same as: Vistaril) Start Date: 01/21/20 Stop Date: 01/21/20 Status: Deleted hydrOXYzine hydrochloride 25 mg oral tablet 25 mg, 1 tab, Route: PO, Drug form: TAB, ONCE, Start date: 01/21/20 21:30:00 CDT , Stop date: 01/21/20 21:30:00 CDT, 0 Notes: (Same as: Atarax) Avoid alcohol. Start Date: 01/21/20 Stop Date: 01/21/20 Status: Completed Insulin regular 1 unit, 0.01 mL, Route: SUB-Q, Drug form: SOLN, TID-Before Meals, Dosing Weight 92.001, kg, PRN Blood Glucose Results, Start date: 01/21/20 16:23:00 CDT, Durati on: 30 day, Stop date: 02/20/20 16:22:00 CDT, 0 Notes: (Same as: Humulin R) Roll in palms of hands gently; Do not shake vigorous ly. WASTE: F/P - Black; E - Municipal Trash BinStable for 31 days at r oom temperature Expires in days from Date Start Date: 01/21/20 Stop Date: 01/24/20 Status: Discontinued Insulin regular 2 unit, 0.02 mL, Route: SUB-Q, Drug form: SOLN, TID-Before Meals, Dosing Weight 92.001, kg, PRN Blood Glucose Results, Start date: 01/21/20 16:23:00 CDT, Durati on: 30 day, Stop date: 02/20/20 16:22:00 CDT, 0 Notes: (Same as: Humulin R) Roll in palms of hands gently; Do not shake vigorous ly. WASTE: F/P - Black; E - Municipal Trash BinStable for 31 days at r oom temperature Expires in days from Date Start Date: 01/21/20 Stop Date: 01/24/20 Status: Discontinued Insulin regular 3 unit, 0.03 mL, Route: SUB-Q, Drug form: SOLN, TID-Before Meals, Dosing Weight 92.001, kg, PRN Blood Glucose Results, Start date: 01/21/20 16:23:00 CDT, Durati on: 30 day, Stop date: 02/20/20 16:22:00 CDT, 0 Notes: (Same as: Humulin R) Roll in palms of hands gently; Do not shake vigorous ly. WASTE: F/P - Black; E - Municipal Trash BinStable for 31 days at [facility] temperature Expires in days from Date Start Date: 01/21/20 Stop Date: 01/24/20 Status: Discontinued Insulin regular 4 unit, 0.04 mL, Route: SUB-Q, Drug form: SOLN, TID-Before Meals, Dosing Weight 92.001, kg, PRN Blood Glucose Results, Start date: 01/21/20 16:23:00 CDT, Durati on: 30 day, Stop date: 02/20/20 16:22:00 CDT, 0 Notes: (Same as: Humulin R) Roll in palms of hands gently; Do not shake vigorous ly. WASTE: F/P - Black; E - Municipal Trash BinStable for 31 days at [facility] temperature Expires in days from Date Start Date: 01/21/20 Stop Date: 01/24/20 Status: Discontinued Insulin regular 5 unit, 0.05 mL, Route: SUB-Q, Drug form: SOLN, TID-Before Meals, Dosing Weight 92.001, kg, PRN Blood Glucose Results, Start date: 01/21/20 16:23:00 CDT, Durati on: 30 day, Stop date: 02/20/20 16:22:00 CDT, 0 Notes: (Same as: Humulin R) Roll in palms of hands gently; Do not shake vigorous ly. WASTE: F/P - Black; E - Municipal Trash BinStable for 31 days at [facility] temperature Expires in days from Date Start Date: 01/21/20 Stop Date: 01/24/20 Status: Discontinued irbesartan 150 mg oral tablet 150 mg = 1 tab, PO, Daily, # 30 tab, 0 Refill(s) Start Date: 01/21/20 Stop Date: 01/24/20 Status: Discontinued labetalol 10 mg, 2 mL, Route: IVP, Drug form: INJ, Q4H, Dosing Weight 92.001, kg, PRN Othe r -See Comment, Start date: 01/15/20 16:50:00 CDT, Duration: 30 day, Stop date: 02/14/20 16:49:00 CDT, 0 Start Date: 01/15/20 Stop Date: 01/24/20 Status: Discontinued Levophed 8 mg in 250 mL (Titrate.) IV 8 mg + Sodium Chloride 0.9% IV 242 mL 8 mg, 8 mL, Rate: Titrate, Start Dose: 0.1 microgram/kg/min, Titration: 0.05 humera rogram/kg/min every 2 - 5 minutes, Goal(s): MAP >= 65 mmHg, Max Dose: 1 microgram/kg/min, Route: IV, Dosing Weight 92.001 kg, Total Volume: 250, Start date: 01/13/20 8:44:... Notes: Not for direct administration - DILUTE. Protect from light. (Same as:Levo phed). Administer by either central venous catheter or peripherally-inserted kirk tral catheter (PICC) line. Start Date: 01/13/20 Stop Date: 01/14/20 Status: Discontinued lidocaine 10 mL, Route: INTRADERM, ONCE, Dosing Weight 92.001, kg, Start date: 01/15/20 8: 25:00 CDT, Stop date: 01/15/20 8:25:00 CDT, Start Date: 01/15/20 Stop Date: 01/15/20 Status: Completed lidocaine 1% 5 mL, Route: SUB-Q, Drug Form: INJ, Dosing Weight 92.001, kg, ONCE, PRN Procedur e, Start date: 01/09/20 14:02:00 CDT, 0 Notes: Preservative free. (Same as: Xylocaine MPF) Start Date: 01/09/20 Stop Date: 01/24/20 Status: Discontinued magnesium oxide 800 mg, 2 tab, Route: PO, Drug form: TAB, PRN, Dosing Weight 78.182, kg, PRN Abn ormal Lab Result, FOR ICU USE ONLY, Start date: 01/07/20 23:29:00 CDT, Duration: 30 day, Stop date: 02/06/20 23:28:00 CDT, 0 Notes: (Same as: Mag-Ox 400)Magnesium oxide [id number] elemental magnesiumDose= ____mg magnesium oxide (___mg elemental magnesium) Start Date: 01/07/20 Stop Date: 01/15/20 Status: Discontinued magnesium sulfate 2 gm, 50 mL, Route: IVPB, Drug form: INJ, PRN, Dosing Weight 78.182, kg, PRN Abn ormal Lab Result, Start date: 01/07/20 23:29:00 CDT, Duration: 30 day, Stop date : 02/06/20 23:28:00 CDT, FOR ICU USE ONLY, 0 Notes: WASTE: F/P - Sink; E - Municipal Trash Bin Start Date: 01/07/20 Stop Date: 01/15/20 Status: Discontinued melatonin 5 mg, 1 tab, Route: PO, Drug form: TAB, Bedtime, Dosing Weight 92.001, kg, PRN S leep, Start date: 01/19/20 22:10:00 CDT, Duration: 30 day, Stop date: 02/18/20 2 2:09:00 CDT, 0 Notes: (Same as: Melatonin) Start Date: 01/19/20 Stop Date: 01/24/20 Status: Discontinued melatonin 5 mg tablet 5 mg = 1 tab, PO, Bedtime, PRN Sleep, 0 Refill(s) Start Date: 01/24/20 Status: Ordered midazolam 1 mg, Route: IV, ONCE, Dosing Weight 92.001, kg, Start date: 01/15/20 8:25:00 CD T, Stop date: 01/15/20 8:25:00 CDT, * Start Date: 01/15/20 Stop Date: 01/15/20 Status: Completed midazolam - one time ICU bolus dose 8 mg, 8 mL, Route: IVP, Drug form: INJ, ONCE, Dosing Weight 92.001, kg, Start da te: 01/14/20 11:32:00 CDT, Stop date: 01/14/20 11:32:00 CDT, 0 Notes: (Same as: Versed) MEDICATION WASTE Product Size: 2 mgProduct Was jose guadalupe: ___ mg Start Date: 01/14/20 Stop Date: 01/14/20 Status: Completed MiraLax 17 gm, 1 pkt, Route: PO, Drug form: PWDR, Daily, Dosing Weight 92.001, kg, Start date: 01/20/20 11:37:00 CDT, Duration: 30 day, Stop date: 02/19/20 9:00:00 CDT, 0 Notes: Dissolve in 8 oz of water or juice.(Same as: Miralax) Start Date: 01/20/20 Stop Date: 01/24/20 Status: Discontinued Maynard 5/325 oral tablet 1 tab, Route: PO, Drug Form: TAB, Dosing Weight 92.001, kg, Q4H, PRN Pain Score 1-3, Start date: 01/17/20 16:06:00 CDT, Duration: 30 day, Stop date: 02/16/20 16 :05:00 CDT, 0 Notes: (Same as: Maynard 325/5) Do not exceed 4gm/day of acetaminophen. Start Date: 01/17/20 Stop Date: 01/19/20 Status: Discontinued Maynard 5/325 oral tablet 1 tab, Route: PO, Drug Form: TAB, Dosing Weight 92.001, kg, QID, Start date: 13:00:00 CDT, Duration: 30 day, Stop date: 02/18/20 9:00:00 CDT, 0 Notes: (Same as: Maynard 325/5) Do not exceed 4gm/day of acetaminophen. Start Date: 01/19/20 Stop Date: 01/19/20 Status: Canceled normal saline 0.9% IV 1,000 mL 1,000 mL, Rate: 100 ml/hr, Infuse over: 10 hr, Route: IV, Dosing Weight 92.001 k g, Total Volume: 1,000, Start date: 01/15/20 12:54:00 CDT, Duration: 30 day, Sto p date: 02/14/20 12:53:00 CDT, 2.1, m2, 0 Start Date: 01/15/20 Stop Date: 01/17/20 Status: Discontinued normal saline 0.9% IV 1,000 mL 1,000 mL, Rate: 75 ml/hr, Infuse over: 13.3 hr, Route: IV, Dosing Weight 92.001 kg, Total Volume: 1,000, Start date: 01/19/20 12:55:00 CDT, Duration: 30 day, St op date: 02/18/20 12:54:00 CDT, 2.1, m2, 0 Start Date: 01/19/20 Stop Date: 01/20/20 Status: Discontinued nystatin topical 100,000 units/g powder 1 appl, Route: TOP, PRN, Drug form: PWDR, PRN For Fungal Prophylaxis, Start date : 01/07/20 23:12:00 CDT, Duration: 30 day, Stop date: 02/06/20 23:11:00 CDT, 0 Notes: (Same as:Mycostatin, Nilstat) For external use only. Start Date: 01/07/20 Stop Date: 01/15/20 Status: Discontinued ocular lubricant 1 appl, Route: BOTH EYES, Q6H, Drug form: OINT, Start date: 01/08/20 0:00:00 CDT , Duration: 30 day, Stop date: 02/06/20 18:00:00 CDT, 0 Notes: (Same as: Lacri-Lube, Puralube, Duratears Naturale, Artificial Tears, and Tears Again ) Start Date: 01/08/20 Stop Date: 01/24/20 Status: Discontinued Omnipaque 350mg/ml 100 mL, Route: IVP, Drug Form: SOLN, Dosing Weight 92.001, kg, ONCALL, STAT, Sta rt date: 01/16/20 1:06:00 CDT, Duration: 1 doses or times, Dose = 2.2ml/kg, Max dose = 100ml -- "To be infused by Radiology Staff ONLY" Start Date: 01/16/20 Stop Date: 01/16/20 Status: Completed Omnipaque 350mg/ml 100 mL, Route: IVP, Drug Form: SOLN, Dosing Weight 92.001, kg, ONCALL, STAT, Sta rt date: 01/20/20 0:02:00 CDT, Duration: 1 doses or times, Dose = 2.2ml/kg, Max dose = 100ml -- "To be infused by Radiology Staff ONLY" Start Date: 01/20/20 Stop Date: 01/20/20 Status: Completed Omnipaque 350mg/ml 75 mL, Route: IVP, Drug Form: SOLN, Dosing Weight 92.001, kg, ONCALL, STAT, Star t date: 01/13/20 9:29:00 CDT, Duration: 1 doses or times, Dose = 2.2ml/kg, Max dose = 100ml -- "To be infused by Radiology Staff ONLY", 0 Notes: (same as:Omnipaque 350).WASTE: F/P - Black; E - Municipal Trash Bin Start Date: 01/13/20 Stop Date: 01/13/20 Status: Completed Omnipaque 350mg/ml 100 mL, Route: IVP, Drug Form: SOLN, Dosing Weight 92.001, kg, ONCALL, STAT, Sta rt date: 01/09/20 23:35:00 CDT, Duration: 1 doses or times, Dose = 2.2ml/kg, Ma x dose = 100ml -- "To be infused by Radiology Staff ONLY" Start Date: 01/09/20 Stop Date: 01/09/20 Status: Completed polyethylene glycol 3350 oral kit 17 gram, PO, Daily, # 30 pkt, 0 Refill(s), other Start Date: 01/24/20 Status: Ordered potassium chloride 20 mEq, 100 mL, Route: IVPB, Drug form: INJ, PRN, Dosing Weight 78.182, kg, PRN Abnormal Lab Result, Via central line, Start date: 01/07/20 23:29:00 CDT, Durati on: 30 day, Stop date: 02/06/20 23:28:00 CDT, FOR ICU USE ONLY, 0 Notes: (Same as: KCL) Infuse no faster than 10 mEq/hr if given peripherally. Start Date: 01/07/20 Stop Date: 01/15/20 Status: Discontinued potassium chloride 10 mEq, 50 mL, Route: IVPB, Drug form: INJ, PRN, Dosing Weight 78.182, kg, PRN A bnormal Lab Result, Via peripheral line, Start date: 01/07/20 23:29:00 CDT, Dura tion: 30 day, Stop date: 02/06/20 23:28:00 CDT, FOR ICU USE ONLY, 0 Notes: (Same as: KCL) Infuse over 2 hours. Start Date: 01/07/20 Stop Date: 01/15/20 Status: Discontinued potassium chloride 20 mEq, 1 tab, Route: PO, Drug form: ERTAB, PRN, Dosing Weight 78.182, kg, PRN A bnormal Lab Result, Start date: 01/07/20 23:29:00 CDT, Duration: 30 day, Stop da te: 02/06/20 23:28:00 CDT, FOR ICU USE ONLY, 0 Notes: (Same as: K-Dur )"Do Not Crush" Give with food and full glass of water For patients unable to swallow tablet, dissolve in one half glass of water. Allo w about 2 minutes for the tablets to disintegrate. Stir before giving to prepare slurry and administer.Please exclude Patients with feeding tube less than 14 Turkmen (Dobhoff, J-tube etc) and pediatric and patients. Start Date: 01/07/20 Stop Date: 01/15/20 Status: Discontinued potassium chloride 20 mEq, 15 mL, Route: NJ, Drug form: LIQ, PRN, Dosing Weight 78.182, kg, PRN Abn ormal Lab Result, Start date: 01/07/20 23:29:00 CDT, Duration: 30 day, Stop date : 02/06/20 23:28:00 CDT, FOR ICU USE ONLY, 0 Notes: (Same as: Potassium Chloride) Start Date: 01/07/20 Stop Date: 01/15/20 Status: Discontinued potassium chloride 40 mEq, 30 mL, Route: PEG, Drug form: LIQ, ONCE, Dosing Weight 92.001, kg, Start date: 01/20/20 3:23:00 CDT, Stop date: 01/20/20 3:23:00 CDT, 0 Notes: (Same as: Potassium Chloride) Start Date: 01/20/20 Stop Date: 01/20/20 Status: Completed potassium chloride 20 mEq/15 mL oral liquid (KCL) 40 mEq, 30 mL, Route: GT, Drug form: LIQ, ONCE, Dosing Weight 92.001, kg, Start date: 01/18/20 8:41:00 CDT, Stop date: 01/18/20 8:41:00 CDT, 0 Notes: (Same as: Potassium Chloride) Start Date: 01/18/20 Stop Date: 01/18/20 Status: Completed potassium phosphate 30 mmol, Route: IVPB, ONCE, Dosing Weight 92.001, kg, PRN Abnormal Lab Result, S tart date: 01/24/20 7:17:00 CDT, Phosphate level 1.5 - 1.9 mg/dL Start Date: 01/24/20 Stop Date: 01/24/20 Status: Discontinued potassium phosphate + Sodium Chloride 0.9% IV 250 mL 15 mmol, 5 mL, Route: IVPB, PRN, Dosing Weight 78.182, kg, PRN Abnormal Lab Resu lt, Start date: 01/07/20 23:29:00 CDT, Duration: 30 day, Stop date: 02/06/20 23: 28:00 CDT, FOR ICU USE ONLY, 0 Notes: (Same as: K Phosphate.)Do not infuse phosphorous concurrently in the same line as TPN or IVF that contains calcium. For double lumen central lines, phosp horous may be infused in a separate lumen from TPN. 1 mMol phoshate has 1.47 mE q potassium Infuse over 4 hours Start Date: 01/07/20 Stop Date: 01/15/20 Status: Discontinued potassium phosphate + Sodium Chloride 0.9% IV 250 mL 30 mmol, 10 mL, Route: IVPB, PRN, Dosing Weight 78.182, kg, PRN Abnormal Lab Res ult, Start date: 01/07/20 23:29:00 CDT, Duration: 30 day, Stop date: 02/06/20 23 :28:00 CDT, FOR ICU USE ONLY, 0 Notes: (Same as: K Phosphate.)Do not infuse phosphorous concurrently in the same line as TPN or IVF that contains calcium. For double lumen central lines, phosp horous may be infused in a separate lumen from TPN. 1 mMol phoshate has 1.47 mE q potassium Infuse over 4 hours Start Date: 01/07/20 Stop Date: 01/15/20 Status: Discontinued potassium phosphate + Sodium Chloride 0.9% IV 250 mL 45 mmol, 15 mL, Route: IVPB, PRN, Dosing Weight 78.182, kg, PRN Abnormal Lab Res ult, Start date: 01/07/20 23:29:00 CDT, Duration: 30 day, Stop date: 02/06/20 23 :28:00 CDT, FOR ICU USE ONLY, 0 Notes: (Same as: K Phosphate.)Do not infuse phosphorous concurrently in the same line as TPN or IVF that contains calcium. For double lumen central lines, phosp horous may be infused in a separate lumen from TPN. 1 mMol phoshate has 1.47 mE q potassium Infuse over 4 hours Start Date: 01/07/20 Stop Date: 01/15/20 Status: Discontinued potassium phosphate + Sodium Chloride 0.9% IV 250 mL 30 mmol, 10 mL, Route: IVPB, ONCE, Dosing Weight 92.001, kg, Start date: 0 3:24:00 CDT, Stop date: 01/23/20 3:24:00 CDT, 0 Notes: (Same as: K Phosphate.)Do not infuse phosphorous concurrently in the same line as TPN or IVF that contains calcium. For double lumen central lines, phosp horous may be infused in a separate lumen from TPN. 1 mMol phoshate has 1.47 mE q potassium Infuse over 4 hours Start Date: 01/23/20 Stop Date: 01/23/20 Status: Completed potassium phosphate + Sodium Chloride 0.9% IV 250 mL 30 mmol, 10 mL, Route: IVPB, ONCE, Dosing Weight 92.001, kg, Start date: 0 8:27:00 CDT, Stop date: 01/24/20 8:27:00 CDT, 0 Notes: (Same as: K Phosphate.)Do not infuse phosphorous concurrently in the same line as TPN or IVF that contains calcium. For double lumen central lines, phosp horous may be infused in a separate lumen from TPN. 1 mMol phoshate has 1.47 mE q potassium Infuse over 4 hours Start Date: 01/24/20 Stop Date: 01/24/20 Status: Completed potassium phosphate-sodium phosphate 250 mg-280 mg-160 mg oral powder for recons titution 2 pkt, Route: PO, Drug Form: PDR/REC, Dosing Weight 78.182, kg, PRN, PRN Abnorma l Lab Result, FOR ICU USE ONLY, Start date: 01/07/20 23:29:00 CDT, Duration: 30 day, Stop date: 02/06/20 23:28:00 CDT, 0 Notes: (Same as: Sai-Michael) Each 1.5 gm pkt has 250mg phosphorous. Mix w/2.5oz w ater and stir. Start Date: 01/07/20 Stop Date: 01/15/20 Status: Discontinued Precedex 400 microgram in NS 100 mL (Titrate.) IV 400 microgram + Sodium Chlorid e 0.9% IV 100 mL 400 microgram, Rate: Titrate, Start Dose: 0.2 microgram/kg/hr, Titration: 0.1 mi crogram/kg/hr every 30 min, Goal(s): 0, Max Dose: 1.5 microgram/kg/hr, Route: IV , Dosing Weight 92.001 kg, Total Volume: 100, Start date: 01/08/20 6:47:00 CDT, Duration: 3... Start Date: 01/08/20 Stop Date: 01/15/20 Status: Discontinued predniSONE 40 mg, PO, Daily, Quantity sufficient Start Date: 01/08/20 Stop Date: 01/21/20 Status: Discontinued predniSONE 40 mg, 2 tab, Route: GT, Drug form: TAB, Daily, Dosing Weight 92.001, kg, Start date: 01/08/20 9:00:00 CDT, Duration: 30 day, Stop date: 02/06/20 9:00:00 CDT, 0 Notes: Take with food. Start Date: 01/08/20 Stop Date: 01/08/20 Status: Canceled predniSONE 50 mg, 1 tab, Route: PO, Drug form: TAB, Daily, Dosing Weight 92.001, kg, Start date: 01/21/20 17:00:00 CDT, Duration: 30 day, Stop date: 02/20/20 9:00:00 CDT, 0 Notes: Take with food. Start Date: 01/21/20 Stop Date: 01/24/20 Status: Discontinued predniSONE 50 mg oral tablet 50 mg = 1 tab, PO, Daily, for 2 weeks. Then decrease to 40 mg daily., 0 Refill(s ) Start Date: 01/24/20 Status: Ordered propofol 10 mg/mL (Titrate.) IV 1,000 mg 1,000 mg, 100 mL, Rate: Titrate, Start Dose: 5 microgram/kg/min, Titration: 5 mi crogram/kg/min every 15 min, Goal(s): 0, Max Dose: 50 microgram/kg/min, Route: I V, Dosing Weight 92.001 kg, Total Volume: 100, Start date: 01/13/20 8:39:00 CDT, Duration:... Notes: If Diprivan - change bottle & tubing every 12 hrPer state nursing law propofol can only be given by a nurse if patient is intubated or being intubated (unless the nurse is a TRANSFER ENGINEER). Same as: Diprivan Start Date: 01/13/20 Stop Date: 01/14/20 Status: Discontinued pyridostigmine 60 mg, PO, Q4H Start Date: 01/08/20 Stop Date: 01/16/20 Status: Discontinued pyridostigmine 60 mg, 1 tab, Route: GT, Drug form: TAB, Q4H, Dosing Weight 92.001, kg, Start da te: 01/08/20 4:00:00 CDT, Duration: 30 day, Stop date: 02/07/20 0:00:00 CDT, 0 Notes: (Same as: Mestinon) Start Date: 01/08/20 Stop Date: 01/24/20 Status: Discontinued ranolazine 50 mg, PO, Daily Start Date: 01/08/20 Stop Date: 01/21/20 Status: Discontinued ranolazine 500 mg oral tablet, extended release 500 mg = 1 tab, PO, Daily Start Date: 01/21/20 Stop Date: 01/24/20 Status: Discontinued Reglan 5 mg, Route: PEG, ONCE, Dosing Weight 92.001, kg, Start date: 01/20/20 21:38:00 CDT, Stop date: 01/20/20 21:38:00 CDT Start Date: 01/20/20 Stop Date: 01/20/20 Status: Discontinued rocuronium 50 mg, 5 mL, Route: IV, Drug form: INJ, ONCE, Dosing Weight 92.001, kg, Start da te: 01/13/20 8:39:00 CDT, Stop date: 01/13/20 8:39:00 CDT, 0 Notes: (Same as: Zemeron) Start Date: 01/13/20 Stop Date: 01/13/20 Status: Completed rocuronium 50 mg, 5 mL, Route: IV, Drug form: INJ, ONCE, Dosing Weight 92.001, kg, Start da te: 01/14/20 11:32:00 CDT, Stop date: 01/14/20 11:32:00 CDT, 0 Notes: (Same as: Zemeron) Start Date: 01/14/20 Stop Date: 01/14/20 Status: Completed Saline Flush 0.9% 10 ml, Route: IVP, Drug Form: INJ, Dosing Weight 78.182, kg, Q12H, Start date: 0 01/08/20 9:00:00 CDT, Duration: 30 day, Stop date: 02/06/20 21:00:00 CDT, 0 Notes: (Same as: BD Posiflush) Start Date: 01/08/20 Stop Date: 01/24/20 Status: Discontinued Saline Flush 0.9% 10 ml, Route: IVP, Drug Form: INJ, Dosing Weight 78.182, kg, PRN, PRN Line Flush , Start date: 01/07/20 23:12:00 CDT, Duration: 30 day, Stop date: 02/06/20 23:11 :00 CDT, 0 Notes: (Same as: BD Posiflush) Start Date: 01/07/20 Stop Date: 01/24/20 Status: Discontinued senna 8.6 mg, 1 tab, Route: PO, Drug Form: TAB, Dosing Weight 78.182, kg, Q12H, Start date: 01/08/20 9:00:00 CDT, Duration: 30 day, Stop date: 02/06/20 21:00:00 CDT, 0 Notes: (Same as: Senokot) Start Date: 01/08/20 Stop Date: 01/09/20 Status: Discontinued senna 8.8 mg, 5 mL, Route: GT, Drug Form: SYRP, Dosing Weight 78.182, kg, Q12H, Start date: 01/09/20 9:00:00 CDT, Duration: 30 day, Stop date: 02/07/20 21:00:00 CDT, 0 Notes: (Same as: Senokot) Start Date: 01/09/20 Stop Date: 01/24/20 Status: Discontinued simethicone 40 mg, 0.6 mL, Route: PO, Drug form: DROP, Q6H, Dosing Weight 92.001, kg, Start date: 01/20/20 3:19:00 CDT, Duration: 30 day, Stop date: 02/19/20 6:00:00 CDT, 0 Notes: (Same as: Mylicon, Phazyme, Genasyme) Start Date: 01/20/20 Stop Date: 01/24/20 Status: Discontinued simethicone 40 mg/0.6 mL oral liquid 40 mg = 0.6 mL, PO, Q6H, 0 Refill(s) Start Date: 01/24/20 Status: Ordered Sodium Chloride 0.9% (titrate) 250 mL 250 mL, Rate: To prime line and flush remaining blood products., Dosing Weight 9 2.001, kg, Route: IV, Total Volume: 250, Priority: Routine, Start Date: 01/15/20 11:59:00 CDT, Duration: 1 day, Stop date: 01/16/20 11:58:00 CDT, Replace Every: 24 hr, 0 Start Date: 01/15/20 Stop Date: 01/16/20 Status: Completed Sodium Chloride 3% inhalation solution 3 mL, Route: NEB, Dosing Weight 92.001, kg, RQ4H, Start date: 01/20/20 7:00:00 C DT, Duration: 30 day, Stop date: 02/19/20 3:00:00 CDT Start Date: 01/20/20 Stop Date: 01/20/20 Status: Canceled sodium phosphate + Sodium Chloride 0.9% IV 250 mL 15 mmol, 5 mL, Route: IVPB, PRN, Dosing Weight 78.182, kg, PRN Abnormal Lab Resu lt, Start date: 01/07/20 23:29:00 CDT, Duration: 30 day, Stop date: 02/06/20 23: 28:00 CDT, FOR ICU USE ONLY, 0 Notes: Infuse over 4 hour. Do not infuse phosphorous concurrently in the same li ne as TPN or IVF that contains calcium. For double lumen central lines, phosphor ous may be infused in a separate lumen from TPN. Start Date: 01/07/20 Stop Date: 01/15/20 Status: Discontinued sodium phosphate + Sodium Chloride 0.9% IV 250 mL 30 mmol, 10 mL, Route: IVPB, PRN, Dosing Weight 78.182, kg, PRN Abnormal Lab Res ult, Start date: 01/07/20 23:29:00 CDT, Duration: 30 day, Stop date: 02/06/20 23 :28:00 CDT, FOR ICU USE ONLY, 0 Notes: Infuse over 4 hour. Do not infuse phosphorous concurrently in the same li ne as TPN or IVF that contains calcium. For double lumen central lines, phosphor ous may be infused in a separate lumen from TPN. Start Date: 01/07/20 Stop Date: 01/15/20 Status: Discontinued sodium phosphate + Sodium Chloride 0.9% IV 250 mL 45 mmol, 15 mL, Route: IVPB, PRN, Dosing Weight 78.182, kg, PRN Abnormal Lab Res ult, Start date: 01/07/20 23:29:00 CDT, Duration: 30 day, Stop date: 02/06/20 23 :28:00 CDT, FOR ICU USE ONLY, 0 Notes: Infuse over 4 hour. Do not infuse phosphorous concurrently in the same li ne as TPN or IVF that contains calcium. For double lumen central lines, phosphor ous may be infused in a separate lumen from TPN. Start Date: 01/07/20 Stop Date: 01/15/20 Status: Discontinued spironolactone 25 mg, 1 tab, Route: GT, Drug form: TAB, Daily, Dosing Weight 92.001, kg, Start date: 01/08/20 9:00:00 CDT, Duration: 30 day, Stop date: 02/06/20 9:00:00 CDT, 0 Notes: (Same As: Aldactone)Hazardous Drug Group 2:Non-antineoplastic Hazardous D rug -- Refer to safe handling procedure PPE [id number] Start Date: 01/08/20 Stop Date: 01/24/20 Status: Discontinued spironolactone 25 mg oral tablet 25 mg = 1 tab, PO, Daily Start Date: 01/08/20 Stop Date: 01/24/20 Status: Discontinued tramadol 50 mg oral tablet 50 mg = 1 tab, PO, Daily Start Date: 01/21/20 Stop Date: 01/24/20 Status: Discontinued Tylenol 325 mg, 1 supp, Route: TN, Drug form: SUPP, ONCE, Dosing Weight 92.001, kg, PRN For Temp > 100.4 F, Start date: 01/15/20 13:23:00 CDT, 0 Notes: Max acetaminophen = 4000 mg/day (4 gm/day). (Same as: Tylenol) Start Date: 01/15/20 Stop Date: 01/15/20 Status: Completed Versed 2 mg, 2 mL, Route: IVP, Drug form: INJ, PRN, Dosing Weight 92.001, kg, PRN Other -See Comment, Start date: 01/10/20 2:52:00 CDT, Duration: 30 day, Stop date: 2:51:00 CDT, 0 Notes: (Same as: Versed) MEDICATION WASTE Product Size: 2 mgProduct Was jose guadalupe: ___ mg Start Date: 01/10/20 Stop Date: 01/15/20 Status: Discontinued Zofran 4 mg, Route: IVP, Drug form: INJ, Q8H, Dosing Weight 92.001, kg, PRN Nausea, Sta rt date: 01/18/20 18:18:00 CDT, Duration: 30 day, Stop date: 02/17/20 18:17:00 C DT Start Date: 01/18/20 Stop Date: 01/18/20 Status: Discontinued Zofran 4 mg, 2 mL, Route: IVP, Drug form: INJ, Q8H, Dosing Weight 92.001, kg, PRN Nause a, Priority: STAT, Start date: 01/18/20 18:18:00 CDT, Duration: 30 day, Stop megan e: 02/17/20 18:17:00 CDT, 0 Notes: (Same as: Zofran) MEDICATION WASTE Product Size: 4 mgProduct Was jose guadalupe: ___ mg Start Date: 01/18/20 Stop Date: 01/24/20 Status: Discontinued Zosyn 3.375 gm, Route: IVPB, Drug form: PDR/INJ, ABXQ8H, Dosing Weight 92.001, kg, CrC l >= 20 ml/min infuse over 4 hours, Start date: 01/08/20 7:00:00 CDT, Duration: 4 day, Stop date: 01/11/20 23:00:00 CDT, ABX Indication: Pneumonia, 0 Notes: (Same as: Zosyn)Dosing based on Piperacillin component MEDICATION WA ERIN Product Size: 3375 mgProduct Wasted: ___ mg Start Date: 01/08/20 Stop Date: 01/08/20 Status: Discontinued Zosyn 3.375 gm, Route: IVPB, Drug form: PDR/INJ, ABXQ6H, Dosing Weight 92.001, kg, Sta rt date: 01/08/20 14:00:00 CDT, Duration: 3 day, Stop date: 01/11/20 8:00:00 CDT , ABX Indication: Pneumonia, 0 Notes: (Same as: Zosyn)Dosing based on Piperacillin component MEDICATION Product Size: 3375 mgProduct Wasted: ___ mg Start Date: 01/08/20 Stop Date: 01/09/20 Status: Discontinued Results 1 2 3 Most recent to oldest [Reference Range]: 0.16 ng/mL *HI* (01/08/20 4:49 AM) Procalcitonin Lvl [0.00-0.10 ng/mL] 3 unit/L (01/10/20 10:11 AM) LORRIE CSF [<=3 unit/L] Negative (01/22/20 1:14 AM) T-Spot.TB [Negative] Negative 1 *NA* (01/11/20 12:55 AM) VGCC Ab Assay [Negative] 6.6 K/CMM (01/24/20 4:23 AM) 6.5 K/CMM (01/23/20 12:45 AM) 5.9 K/CMM (01/22/20 1:14 AM) Neutrophils # [1.5-8.1 K/CMM] 2.9 K/CMM (01/24/20 4:23 AM) 1.8 K/CMM (01/23/20 12:45 AM) 0.9 K/CMM *LOW* (01/22/20 1:14 AM) Lymphocytes # [1.0-5.5 K/CMM] 0.9 K/CMM *HI* (01/24/20 4:23 AM) 0.9 K/CMM *HI* (01/23/20 12:45 AM) 0.1 K/CMM (01/22/20 1:14 AM) Monocytes # [0.0-0.8 K/CMM] 0.1 K/CMM (01/21/20 12:05 AM) 0.1 K/CMM (01/20/20 1:14 AM) 0.1 K/CMM (01/18/20 12:58 AM) Eosinophils # [0.0-0.5 K/CMM] 0.1 K/CMM (01/11/20 12:55 AM) 0.1 K/CMM (01/09/20 12:02 AM) 0.1 K/CMM (01/08/20 12:24 AM) Basophils # [0.0-0.2 K/CMM] Negative (01/10/20 10:11 AM) CMV PCR [Negative] 138.0 nMol/L 2 *NA* (01/11/20 12:55 AM) Vitamin B1 [66.5-200.0 nMol/L] Negative 3 *NA* (01/09/20 12:02 AM) Striated Muscle IgG [Neg:<1:40] 6- /LPF *ABN* (01/17/20 6:17 AM) 11- /LPF *ABN* (01/12/20 3:08 AM) UA Gran Cast [None Seen /LPF] 104 pg/mL *HI* (01/21/20 5:50 PM) BNP [<=100 pg/mL] 4 % *LOW* (01/10/20 10:11 AM) Monocyte CSF [15-45 %] Not Performed (01/10/20 10:11 AM) HSV 1 by PCR [Negative] Not Performed (01/10/20 10:11 AM) HSV 2 by PCR [Negative] Negative 4 *NA* (01/11/20 12:55 AM) W Nile Ab IgM [Negative] <12 % 5 *NA* (01/08/20 12:24 AM) ACHr Mod Ab [0-20 %] 21 % 6 *NA* (01/08/20 12:24 AM) ACHr Block Ab [0-25 %] Negative *NA* (01/11/20 12:55 AM) HIV Ag/Ab 4th Gen [Negative] 0.4 mg/dL (01/11/20 12:55 AM) Bili Indirect [0.0-1.0 mg/dL] Cerebral Spinal Fluid *NA* (01/10/20 10:11 AM) Source Strep Negative (01/10/20 10:11 AM) Strep pneumoniae Ag [Negative] 0.77 *NA* (01/18/20 3:01 AM) 1.13 *NA* (01/17/20 6:17 AM) 1.07 *NA* (01/16/20 6:48 AM) U Prot/Creat SEE COMMENT 7 *NA* (01/10/20 2:30 PM) SEE COMMETNS 8 *NA* (01/09/20 2:20 PM) Misc [facility] <1.0 unit/mL 9 *NA* (01/11/20 12:55 AM) <1.0 unit/mL 10 *NA* (01/09/20 12:02 AM) MuSK Auto Ab Negative (01/10/20 10:11 AM) EBV PCR Ql CSF [Negative] Negative (01/08/20 12:24 AM) MRSA by PCR Cerebral Spinal Fluid *NA* (01/10/20 10:11 AM) Source CMV 83 mL/min/1.73m2 11 *NA* (01/24/20 4:23 AM) 71 mL/min/1.73m2 12 *NA* (01/23/20 12:45 AM) 73 mL/min/1.73m2 13 *NA* (01/22/20 1:14 AM) eGFR Cerebral Spinal Fluid *NA* (01/10/20 10:11 AM) Source VZV Product available (01/18/20 9:50 AM) Product available (01/14/20 11:30 AM) Modification Required (01/14/20 9:53 AM) FFP product Product available (01/15/20 11:59 AM) RBC product A NEG *Unknown* (01/18/20 10:58 AM) A NEG *Unknown* (01/15/20 1:14 AM) A NEG *Unknown* (01/11/20 12:55 AM) ABO/Rh 37 % (01/11/20 12:55 AM) % Satur Fe [12-57 %] 1.0 (01/13/20 9:17 AM) 1.0 (01/11/20 12:55 AM) A/G Ratio [0.7-1.6] Negative (01/18/20 10:58 AM) Negative (01/15/20 1:14 AM) Negative (01/11/20 12:55 AM) Antibody Scrn <0.03 nMol/L 14 *NA* (01/08/20 12:24 AM) ACHr Binding Ab [0.00-0.24 nMol/L] 2.9 g/dL *LOW* (01/13/20 9:17 AM) 3.2 g/dL *LOW* (01/11/20 12:55 AM) Albumin Lvl [3.5-5.0 g/dL] 7.3 unit/L (01/11/20 12:55 AM) Aldolase [1.2-7.6 unit/L] 55 unit/L (01/13/20 9:17 AM) 44 unit/L (01/11/20 12:55 AM) Alk Phos [39-136 unit/L] 32 unit/L (01/13/20 9:17 AM) 22 unit/L (01/11/20 12:55 AM) ALT [0-65 unit/L] Positive *ABN* (01/08/20 12:24 AM) CANDIDA [Negative] Pattern appears speckled *NA* (01/08/20 12:24 AM) CANDIDA Interp 1:80 *ABN* (01/08/20 12:24 AM) CANDIDA Titer [Negative] 9.5 mEq/L *LOW* (01/24/20 4:23 AM) 13.7 mEq/L (01/23/20 12:45 AM) 13.4 mEq/L (01/22/20 1:14 AM) AGAP [10.0-20.0 mEq/L] 9 microgram/Liter 15 *NA* (01/11/20 12:55 AM) Arsenic Lvl [2-23 microgram/Liter] 34 unit/L (01/13/20 9:17 AM) 33 unit/L (01/11/20 12:55 AM) AST [0-37 unit/L] 38 *HI* (01/13/20 9:17 AM) 37 *HI* (01/11/20 12:55 AM) B/C Ratio [6-25] 0.4 % (01/24/20 4:23 AM) 0.5 % (01/23/20 12:45 AM) 0.5 % (01/22/20 1:14 AM) Basophils [0.0-1.0 %] 15 mg/dL (01/24/20 4:23 AM) 17 mg/dL (01/23/20 12:45 AM) 8 mg/dL (01/22/20 1:14 AM) BUN [7-22 mg/dL] Negative (01/16/20 1:24 PM) C-ANCA [Negative] 62 mg/dL *LOW* (01/11/20 12:55 AM) 68 mg/dL *LOW* (01/11/20 12:55 AM) C3 Complement [88-201 mg/dL] 18 mg/dL (01/11/20 12:55 AM) 17 mg/dL (01/11/20 12:55 AM) C4 Complement [16-47 mg/dL] 8.4 mg/dL *LOW* (01/24/20 4:23 AM) 8.0 mg/dL *LOW* (01/23/20 12:45 AM) 8.8 mg/dL (01/22/20 1:14 AM) Calcium Lvl [8.5-10.5 mg/dL] 70 unit/L (01/15/20 1:08 AM) 103 unit/L (01/14/20 12:40 AM) 101 unit/L (01/13/20 1:19 AM) Total CK [12-191 unit/L] 110 mEq/L *HI* (01/24/20 4:23 AM) 109 mEq/L (01/23/20 12:45 AM) 110 mEq/L *HI* (01/22/20 1:14 AM) Chloride Lvl [95-109 mEq/L] 24 mEq/L (01/24/20 4:23 AM) 21 mEq/L *LOW* (01/23/20 12:45 AM) 20 mEq/L *LOW* (01/22/20 1:14 AM) CO2 [24-32 mEq/L] 87 ug/dl 16 *NA* (01/11/20 12:55 AM) Copper Lvl [72-166 ug/dl] 0.76 mg/dL (01/24/20 4:23 AM) 0.86 mg/dL (01/23/20 12:45 AM) 0.84 mg/dL (01/22/20 1:14 AM) Creatinine Lvl [0.50-1.40 mg/dL] 110.0 mg/L *HI* (01/08/20 12:24 AM) CRP [<=2.9 mg/L] Negative (01/11/20 12:55 AM) Cryoglob [Negative] Negative (01/10/20 10:11 AM) Crypto Ag CSF [Negative] 11.5 mg/dL *LOW* (01/10/20 10:11 AM) Alb CSF (CPE) [14.0-25.0 mg/dL] Colorless (01/10/20 10:11 AM) Light Red *ABN* (01/10/20 10:11 AM) Color CSF [Colorless] The gel demonstrates appropriate resolut ion of the main protein bands. The gamma region shows continuous distribution of proteins both in the CSF and in the serum. No oligoclonal bands are detected. *NA* (01/10/20 10:11 AM) Description CSF 82 mg/dL *HI* (01/10/20 10:11 AM) Glucose CSF [45-80 mg/dL] 8.8 mg/dL *HI* (01/10/20 10:11 AM) IgG Lvl CSF [2.0-4.0 mg/dL] CSF protein electrophoresis did not reve al evidence of an oligoclonal process in the STONE CARVER. The CSF IgG index is elevated indicating that there is an increase in intracerebral IgG synthesis that may occur in acute and chronic inflammatory processes involving STONE CARVER, including viral encephalitis, bacterial meningitis, neurosyphilis, subacute sclerosing panencephalitis, acute poliomyelitis, Guillain-Delhi syndrome, neurosarcoidosis, and systemic lupus erythematosus. There is no evidence of increased permeability of the blood brain barrier based on the CSF/serum albumin ratio. The electronic medical record has been reviewed for relevant history. I have personally reviewed the test results and concur with the resident's interpretation. CPT: 58477-WF *NA* (01/10/20 10:11 AM) PE Interp CSF 1.5 mMol/L (01/10/20 10:11 AM) Lactic Acid CSF [0.6-2.2 mMol/L] 6 % *LOW* (01/10/20 10:11 AM) Lymph CSF [40-80 %] 90 % *HI* (01/10/20 10:11 AM) Neutrophils CSF [0-6 %] 41 mg/dL (01/10/20 10:11 AM) Protein CSF [15-45 mg/dL] 800 /mm3 *HI* (01/10/20 10:11 AM) 6000 /mm3 *HI* (01/10/20 10: AM) RBC CSF [0-0 /mm3] Colorless (01/10/20: AM) Colorless (01/10/20: AM) Supernat CSF [Colorless] 1 *NA* (01/10/20: AM) 4 *NA* (01/10/20: AM) Tube Num CSF Clear (01/10/20: AM) Slight *ABN* (01/10/20 10:11 AM) Clarity CSF [Clear] Non Reactive (01/10/20 10:11 AM) VDRL Scr CSF [Non Reactive] 1 /mm3 (01/10/20: AM) 7 /mm3 *HI* (01/10/20 10:11 AM) Nucleated Cells CSF [0-5 /mm3] 0.3 mg/dL (01/11/20 12:55 AM) Bili Direct [0.0-0.3 mg/dL] Negative (01/11/20 12:55 AM) C3 Int Positive (01/11/20 12:55 AM) MEGAN Gel Int Negative (01/08/20 12:24 AM) DNA Ab (DS) [Negative] 0.1 % (01/24/20 4:23 AM) 2.1 % (01/21/20 12:05 AM) 1.6 % (01/20/20 1:14 AM) Eosinophils [0.0-4.0 %] 208 ng/mL *HI* (01/15/20 1:08 AM) 197 ng/mL (01/14/20 12:40 AM) 152 ng/mL (01/13/20 1:19 AM) Ferritin Lvl [5-204 ng/mL] 339 mg/dL (01/18/20 12:58 AM) 401 mg/dL (01/15/20 1:08 AM) 380 mg/dL (01/13/20 1:19 AM) Fibrinogen Lvl [230-510 mg/dL] 3.0 g/dL (01/13/20 9:17 AM) 3.1 g/dL (01/11/20 12:55 AM) Globulin [2.7-4.2 g/dL] 85 mg/dL (01/24/20 4:23 AM) 121 mg/dL *HI* (01/23/20 12:45 AM) 126 mg/dL *HI* (01/22/20 1:14 AM) Glucose Lvl [70-99 mg/dL] Negative *NA* (01/08/20 12:24 AM) Hep A IgM [Negative] Negative *NA* (01/08/20 12:24 AM) Hep B Core IgM [Negative] Negative *NA* (01/08/20 12:24 AM) Hep Bs Ag [Negative] 26.7 % *LOW* (01/24/20 4:23 AM) 25.3 % *LOW* (01/23/20 12:45 AM) 27.8 % *LOW* (01/22/20 1:14 AM) Hct [36.0-48.0 %] Negative *NA* (01/08/20 12:24 AM) Hep C Ab [Negative] 8.7 g/dL *LOW* (01/24/20 4:23 AM) 8.4 g/dL *LOW* (01/23/20 12:45 AM) 9.0 g/dL *LOW* (01/22/20 1:14 AM) Hgb [12.0-16.0 g/dL] 2.1 mg/dL *HI* (01/10/20 10:11 AM) IgG Index [0.3-0.7 mg/dL] 1.13 (01/08/20 5:30 AM) xxxxxxx 17 (01/08/20 4:49 AM) INR [0.85-1.17] 34 ug/dl (01/11/20 12:55 AM) Iron [30-160 ug/dl] 3.5 mEq/L (01/24/20 4:23 AM) 3.7 mEq/L (01/23/20 12:45 AM) 4.4 mEq/L (01/22/20 1:14 AM) Potassium Lvl [3.5-5.1 mEq/L] 0.3 AI (01/08/20 12:24 AM) SS-B (La) Ab [<=0.9 AI] 0.6 mMol/L (01/13/20 9:17 AM) Lactic Acid Lvl [0.5-2.2 mMol/L] 260 unit/L *HI* (01/15/20 1:08 AM) 258 unit/L *HI* (01/14/20 12:40 AM) 231 unit/L *HI* (01/13/20 1:19 AM) LDH [98-192 unit/L] None Detected 18 *NA* (01/11/20 12:55 AM) Lead ICP/MS [0-4] 27.9 % (01/24/20 4:23 AM) 19.8 % *LOW* (01/23/20 12:45 AM) 13.0 % *LOW* (01/22/20 1:14 AM) Lymphocytes [20.0-40.0 %] 29.9 pg (01/24/20 4:23 AM) 30.3 pg (01/23/20 12:45 AM) 29.4 pg (01/22/20 1:14 AM) MCH [27.0-31.0 pg] 32.5 g/dL (01/24/20 4:23 AM) 33.2 g/dL (01/23/20 12:45 AM) 32.3 g/dL (01/22/20 1:14 AM) MCHC [32.0-36.0 g/dL] 91.9 fL (01/24/20 4:23 AM) 91.3 fL (01/23/20 12:45 AM) 91.0 fL (01/22/20 1:14 AM) MCV [80.0-98.0 fL] None Detected 19 *NA* (01/11/20 12:55 AM) Mercury Lvl [0.0-14.9] 2.2 mg/dL (01/24/20 4:23 AM) 2.1 mg/dL (01/23/20 12:45 AM) 2.1 mg/dL (01/22/20 1:14 AM) Magnesium Lvl [1.8-2.4 mg/dL] 8.7 % (01/24/20 4:23 AM) 9.6 % (01/23/20 12:45 AM) 1.3 % *LOW* (01/22/20 1:14 AM) Monocytes [2.0-12.0 %] 6.9 fL *LOW* (01/24/20 4:23 AM) 7.3 fL *LOW* (01/23/20 12:45 AM) 7.6 fL (01/22/20 1:14 AM) MPV [7.4-10.4 fL] 140 mEq/L (01/24/20 4:23 AM) 140 mEq/L (01/23/20 12:45 AM) 139 mEq/L (01/22/20 1:14 AM) Sodium Lvl [135-145 mEq/L] Negative (01/16/20 1:24 PM) P-ANCA [Negative] CBC and peripheral blood smear review: - Moderate normocytic [...] acute blood loss. Please correlate clinically. CPT 57641 *NA* (01/11/20 12:55 AM) PB Smear Path Transfusion Medicine Physician Service Patient is a 64 y/o female with HTN, h/o Crohn's disease in remission, CKD stage 3, possible Parkinson's disease, and possible myasthenia gravis who was transferred to [facility] on 01/07/20 for higher level of care. [...] hemolysis and/or anemia if clinically indicated. The patient s electronic medical record has been reviewed for relevant information. I have reviewed the test results and concur with the resident, Dr. Walls's, interpretation. CPT: 88802-PF *NA* (01/11/20 12:55 AM) Path MEGAN 1.4 mg/dL 20 *CRIT* (01/24/20 4:23 AM) 1.1 mg/dL 21 *CRIT* (01/23/20 12:45 AM) 3.0 mg/dL (01/22/20 1:14 AM) Phosphorus [2.5-4.5 mg/dL] 287 K/CMM (01/24/20 4:23 AM) 253 K/CMM (01/23/20 12:45 AM) 236 K/CMM (01/22/20 1:14 AM) Platelet [133-450 K/CMM] 62.9 % (01/24/20 4:23 AM) 70.1 % (01/23/20 12:45 AM) 85.2 % *HI* (01/22/20 1:14 AM) Segs [45.0-75.0 %] 5.9 g/dL *LOW* (01/13/20 9:17 AM) 6.3 g/dL *LOW* (01/11/20 12:55 AM) Total Protein [6.4-8.4 g/dL] 14.6 seconds (01/08/20 5:30 AM) PT [12.0-14.7 seconds] xxxxxxx 22 (01/08/20 4:49 AM) PT [12.0-14.7] 32.7 seconds (01/08/20 5:30 AM) PTT [22.9-35.8 seconds] See Note 23 (01/08/20 4:49 AM) PTT [22.9-35.8] Not Detected (01/15/20 5:42 PM) Coronavirus (COVID-19) SHANNA [Not Detected] 2.91 M/CMM *LOW* (01/24/20 4:23 AM) 2.77 M/CMM *LOW* (01/23/20 12:45 AM) 3.05 M/CMM *LOW* (01/22/20 1:14 AM) RBC [4.20-5.40 M/CMM] 20.7 % *HI* (01/24/20 4:23 AM) 20.5 % *HI* (01/23/20 12:45 AM) 19.3 % *HI* (01/22/20 1:14 AM) RDW [11.5-14.5 %] 9.1 % *HI* (01/15/20 1:08 AM) 7.5 % *HI* (01/14/20 12:40 AM) 6.9 % *HI* (01/13/20 1:19 AM) Retic Auto [0.5-1.5 %] <10 IU/mL (01/11/20 12:55 AM) RF Qnt [0-20 IU/mL] 0.3 AI (01/16/20 1:24 PM) 0.6 AI (01/08/20 12:24 AM) SPANISH TUTOR Ab [<=0.9 AI] 1.9 AI *HI* (01/08/20 12:24 AM) SS-A (Ro) Ab [<=0.9 AI] <0.2 AI (01/16/20 1:24 PM) SCL- 70 Ab [<=0.9 AI] >100 mm/hr *HI* (01/08/20 12:24 AM) Sed Rate [0-20 mm/hr] 3400.0 mg/dL (01/10/20 10:11 AM) Alb (CPE) [3400.0-5000.0 mg/dL] 1240 mg/dL (01/10/20 10:11 AM) IgG (CPE) [694-1618 mg/dL] <0.2 AI (01/08/20 12:24 AM) Sm Ab [<=0.9 AI] Capillary electrophoresis demonstrates a n increase with distortion of the gamma distribution [...] and concur with the resident's interpretation. CPT 23795-UF *NA* (01/10/20 10:11 AM) SPE Interp 0.42 g/dL *HI* (01/10/20 10:11 AM) Alpha 1 Glob [0.18-0.41 g/dL] 0.91 g/dL (01/10/20 10:11 AM) Alpha 2 Glob [0.45-1.00 g/dL] 28.4 REL % *LOW* (01/10/20 10:11 AM) Albumin % [55.8-66.1 REL %] 1.79 g/dL *LOW* (01/10/20 10:11 AM) Albumin (SPE) [3.57-5.55 g/dL] 6.7 REL % *HI* (01/10/20 10:11 AM) Alpha 1 % [2.8-4.9 REL %] 14.5 REL % *HI* (01/10/20 10:11 AM) Alpha 2 % [7.0-11.9 REL %] 13.1 REL % (01/10/20 10:11 AM) Beta % [7.8-13.7 REL %] 0.83 g/dL (01/10/20 10:11 AM) Beta Glob [0.50-1.15 g/dL] 2.35 g/dL *HI* (01/10/20 10:11 AM) Gamma Glob [0.71-1.57 g/dL] 37.3 REL % *HI* (01/10/20 10:11 AM) Gamma % [11.1-18.7 REL %] 6.3 g/dL *LOW* (01/10/20 10:11 AM) Tot Prot (SPE) [6.4-8.4 g/dL] 0.3 mg/dL (01/13/20 9:17 AM) 0.6 mg/dL (01/11/20 12:55 AM) 0.6 mg/dL (01/11/20 12:55 AM) Bili Total [0.2-1.3 mg/dL] 92 ug/dl *LOW* (01/11/20 12:55 AM) TIBC [228-428 ug/dl] 0.06 ng/mL (01/13/20 8:09 PM) 0.07 ng/mL (01/13/20 2:21 PM) 0.07 ng/mL (01/13/20 9:17 AM) Troponin-I [0.00-0.40 ng/mL] Occasional /HPF *NA* (01/17/20 6:17 AM) Occasional /HPF *NA* (01/15/20 1:08 AM) UA Amorph Reva [None Seen /HPF] Negative *NA* (01/18/20 3:01 AM) Negative *NA* (01/17/20 6:17 AM) Negative *NA* (01/16/20 6:48 AM) UA Bili [Negative] Negative (01/18/20 3:01 AM) Negative (01/17/20 6:17 AM) Negative (01/16/20 6:48 AM) UA Blood [Negative] Occasional /HPF *NA* (01/15/20 1:08 AM) UA CaOx Reva [None Seen /HPF] Yellow *NA* (01/18/20 3:01 AM) Yellow *NA* (01/17/20 6:17 AM) Light Yellow *NA* (01/16/20 6:48 AM) UA Color [Yellow] 115.00 mg/dL *NA* (01/18/20 3:01 AM) 91.80 mg/dL *NA* (01/17/20 6:17 AM) 49.60 mg/dL *NA* (01/16/20 6:48 AM) U Creatinine Negative mg/dL *NA* (01/18/20 3:01 AM) Negative mg/dL *NA* (01/17/20 6:17 AM) Negative mg/dL *NA* (01/16/20 6:48 AM) UA Glucose [Negative mg/dL] 4 /LPF *HI* (01/18/20 3:01 AM) 4 /LPF *HI* (01/17/20 6:17 AM) 1 /LPF (01/15/20 1:08 AM) UA Hyal Cast [0-2 /LPF] Trace mg/dL *ABN* (01/18/20 3:01 AM) Trace mg/dL *ABN* (01/17/20 6:17 AM) Trace mg/dL *ABN* (01/16/20 6:48 AM) UA Ketones [Negative mg/dL] Negative (01/18/20 3:01 AM) Negative (01/17/20 6:17 AM) Negative (01/16/20 6:48 AM) UA Leuk Est [Negative] Few /LPF *NA* (01/18/20 3:01 AM) Few /LPF *NA* (01/17/20 6:17 AM) Few /LPF *NA* (01/16/20 6:48 AM) UA Mucus [None Seen /LPF] Negative (01/18/20 3:01 AM) Negative (01/17/20 6:17 AM) Negative (01/16/20 6:48 AM) UA Nitrite [Negative] 5.0 (01/18/20 3:01 AM) 5.0 (01/17/20 6:17 AM) 5.0 (01/16/20 6:48 AM) UA pH [5.0-8.0] 88.0 mg/dL *NA* (01/18/20 3:01 AM) 103.9 mg/dL *NA* (01/17/20 6:17 AM) 53.2 mg/dL *NA* (01/16/20 6:48 AM) U Protein 30 mg/dL *ABN* (01/18/20 3:01 AM) 30 mg/dL *ABN* (01/17/20 6:17 AM) Negative mg/dL (01/16/20 6:48 AM) UA Protein [Negative mg/dL] 2 /HPF (01/16/20 6:48 AM) 9 /HPF *HI* (01/15/20 1:08 AM) 4 /HPF *HI* (01/12/20 3:08 AM) UA RBC [0-2 /HPF] 1.021 (01/18/20 3:01 AM) 1.025 (01/17/20 6:17 AM) 1.057 *HI* (01/16/20 6:48 AM) UA Spec Grav [<=1.030] Occasional /LPF *NA* (01/18/20 3:01 AM) Occasional /LPF *NA* (01/17/20 6:17 AM) UA Sq Epi [Few /LPF] None Seen *NA* (01/16/20 6:48 AM) UA Sq Epi Clear (01/18/20 3:01 AM) Clear (01/17/20 6:17 AM) Clear (01/16/20 6:48 AM) UA Turbidity [Clear] <1.0 mg/dL (01/18/20 3:01 AM) <1.0 mg/dL (01/17/20 6:17 AM) <1.0 mg/dL (01/16/20 6:48 AM) UA Urobilinogen [0.1-1.0 mg/dL] 3 /HPF (01/18/20 3:01 AM) 3 /HPF (01/17/20 6:17 AM) 3 /HPF (01/16/20 6:48 AM) UA WBC [0-5 /HPF] 58 ug/dl *LOW* (01/11/20 12:55 AM) UIBC [110-370 ug/dl] 1023 pg/mL (01/08/20 12:24 AM) Vitamin B12 Lvl [254-1320 pg/mL] 12.5 ng/mL *LOW* (01/24/20 4:23 AM) Vitamin D, 25-OH, Total [30.0-100.0 ng/mL] 10.4 K/CMM (01/24/20 4:23 AM) 9.3 K/CMM (01/23/20 12:45 AM) 7.0 K/CMM (01/22/20 1:14 AM) WBC [3.7-10.4 K/CMM] Negative (01/10/20 10:11 AM) Enterovirus PCR CSF [Negative] 1.06 mMol/L (01/24/20 4:23 AM) 1.06 mMol/L (01/23/20 12:45 AM) 1.20 mMol/L (01/22/20 1:14 AM) Ca Ion WB [1.05-1.25 mMol/L] 1.07 mMol/L (01/24/20 4:23 AM) 1.06 mMol/L (01/23/20 12:45 AM) 1.15 mMol/L (01/22/20 1:14 AM) Ca Norm WB [1.05-1.25 mMol/L] Negative (01/10/20 10:11 AM) VZV PCR [Negative] Negative 24 *NA* (01/11/20 12:55 AM) W Nile Ab IgG [Negative] Cerebral Spinal Fluid 25 *NA* (01/10/20 10:11 AM) Source HSV 1Result Comment: Results for this test are for research purposes only by the assay's surveying crew rodman. The performance characteristics of this product have not been established. Results should not be used as a diagnostic procedure without confirmation of the diagnosis by another medically established diagnostic product or procedure. Performed At: [address] [id number] Elijah Han MD Ph:[phone] 2Result Comment: This test was developed and its performance characteristics determined by [facility]. It has not been cleared or approved by the Food and Drug Administration. Performed At: [address] [id number] Elijah Han MD Ph:[phone] 3Result Comment: Performed At: [address] [id number] Elijah Han MD Ph:[phone] 4Result Comment: No detectable West Nile Virus IgM Antibody. If a recent infection is suspected, another specimen should be submitted for testing within 7-14 days. Performed At: [address] [id number] Elijah Han MD Ph:[phone] 5Result Comment: Negative: <21 Equivocal: 21 - 25 Positive: >25 The assay is linear between values of 12 and 64. Those <12 and >64 are reported as such. No single value for ACR-modulating antibody should be used as a sole basis for diagnosis or response to therapy. Performed At: [address] [id number] Elijah Han MD Ph:[phone] 6Result Comment: Results of this test are labeled for research purposes only by the assay's surveying crew rodman. The performance characteristics of this assay have not been established by the surveying crew rodman. The result should not be used for treatment or for diagnostic purposes without confirmation of the diagnosis by another medically established diagnostic product or procedure. The performance characteristics were determined by [facility]. Negative: 0 - 25 Borderline: 26 - 30 Positive: >30 Performed At: [address] [id number] Elijah Han MD Ph:[phone] 7Result Comment: MYOSITIS SPECIFIC 11 ABS PNL TEST:RESULTS:REFERENCE RANGE: VICKI-1 AB<11 SI<11 PL-7 AB<11 SI<11 PL-12 AB<11 SI<11 EJ AB<11 SI<11 OJ AB<11 SI<11 SRP AB<11 SI<11 OR-2 ALPHA AB<11 SI<11 OR-2 BETA AB<11 SI<11 MDA-5 AB <11 SI<11 TIF-LY AB<11 SI<11 NXP-2 AB<11 SI<[address] [employer] [address] [id number] 8Result Comment: IGG MONOS, [id number] IGM MONOS, [id number] IGG ASIALO, [id number] IGM ASIALO, [id number] IGG DISIALO [id number] IGM DISIALO [id number] REF. RANGE: NEGATIVE TESTING PERFORMED AT [facility], [address] [place] [id number]. 9Result Comment: Reference Range: Negative: <1.0 Positive: 1.0 or higher A positive result, in the context of congruent clinical findings, confirms the diagnosis of autoimmune MuSK myasthenia gravis. COMMENTS: - Myasthenia gravis (MG) is caused by auto-antibodies against proteins of the neuromuscular junction. Most cases (about 90%) of generalized MG are anti- acetylcholine receptor (AChR) antibody-positive.(1) - Of generalized MG patients who lack anti-AChR antibodies (AChR-seronegative), about 40% are positive for Muscle- Specific Kinase (MuSK) antibody.(1,2) - Though a positive MuSK result is specific for the diagnosis of MuSK MG, a negative MuSK result does not rule out a MG diagnosis. - MuSK antibody levels have been shown to correlate with disease severity.(3) Serial measurements may be useful to follow treatment. References: 1. Campos S et al. J Autoimmunity 2014;52:90-100. 2. Michelle MG et al. PNAS 2013;110(51);13347-67840. 3. Deepthi Marcos et al. Neurology 2006;67:505-507. This test was developed and its performance characteristics determined by [facility] It has not been cleared or approved by the Food and Drug Administration. Performed At: [facility] [address] [place] [id number] Sam Castro MD Ph:[phone] 10Result Comment: Reference Range: Negative: <1.0 Positive: 1.0 or higher A positive result, in the context of congruent clinical findings, confirms the diagnosis of autoimmune MuSK myasthenia gravis. COMMENTS: - Myasthenia gravis (MG) is caused by auto-antibodies against proteins of the neuromuscular junction. Most cases (about 90%) of generalized MG are anti- acetylcholine receptor (AChR) antibody-positive.(1) - Of generalized MG patients who lack anti-AChR antibodies (AChR-seronegative), about 40% are positive for [...] 2014;52:90-100. 2. Michelle DERAS et al. PNAS 2013;110(51);20107-57707. 3. Deepthi Marcos et al. Neurology 2006;67:505-507. This test was developed and its performance characteristics determined by [facility]. It has not been cleared or approved by the Food and Drug Administration. Performed At: [facility] [address] [place] [id number] Sam Castro MD Ph:[phone] 11Result Comment: The eGFR is calculated using the [...] be mul tiplied by the estimated BMI. 12Result Comment: The eGFR is calculated using the [...] be mul tiplied by the estimated BMI. 13Result Comment: The eGFR is calculated using the [...] be mul tiplied by the estimated BMI. 14Result Comment: Negative: 0.00 - 0.24 Borderline: 0.25 - 0.40 Positive: >0.40 Performed At: [facility] [id number] Elijah Han MD Ph:[phone] 15Result Comment: This test was developed and its performance characteristics determined by [facility] It has not been cleared or approved by the Food and Drug Administration. Detection Limit = 1 16Result Comment: This test was developed and its performance characteristics determined by [facility]. It has not been cleared or approved by the Food and Drug Administration. Detection Limit = 5 Performed At: [address] [id number] Elijah Han MD Ph:[phone] 17Result Comment: specimen contained clot. "Corrected Report was called to jesus carrion at 01/08/2020 05:25 by sss. Read Back OK." 18Result Comment: Testing performed by Inductively coupled plasma/Mass Spectrometry. Environmental Exposure: WHO Recommendation <20 Occupational Exposure: OSHA Lead Std 40 [place] 30 Detection Limit = 1 This test was developed and its performance characteristics determined by [facility]. It has not been cleared or approved by the Food and Drug Administration. 19Result Comment: This test was developed and its performance characteristics determined by [facility]. It has not been cleared or approved by the Food and Drug Administration. Environmental Exposure: <15.0 Occupational Exposure: [place] - Inorganic Mercury: 15.0 Detection Limit = 1.0 Performed At: [address] [id number] Elijah Han MD Ph:[phone] 20Result Comment: Critical Result(s) called to rey cantu at 01/24/2020 05:52 by jt. Read back OK. Critical Result(s) called at 01/24/2020 05:47 by JT. No Answer. Critical Result(s) called to 01/24/2020 05:43 by JT. No Answer. Critical Result(s) called at 01/24/2020 05:37 by JT. No Answer. Critical Result(s) called at 01/24/2020 05:31 by JT. No Answer 21Result Comment: Critical Result(s) called to David Peterson at 01/23/2020 02:51 by Jw Read back OK. 22Result Comment: specimen contained clot. "Corrected Report was called to jesus carrion at 01/08/2020 05:24 by sss. Read Back OK." 23Result Comment: specimen contained clot. "Corrected Report was called to jesus carrion at 01/08/2020 05:23 by [facility]. Read Back OK." 24Result Comment: No detectable West Nile Virus IgG Antibody. If a recent infection is suspected, another specimen should be submitted for testing within 7-14 days. 25Result Comment: CSF contains less than 5 WBC'S and has a normal Protein level. Microbiology Reports TEST: Culture: CSF w/Gram Stain STATUS: Auth (Verified) BODY SITE: SOURCE: Cerebral Spinal Fluid COLLECTED DATE/TIME: 01/10/20 10:11 AM FINAL REPORT No Growth STAIN REPORT Gram Stain Performed By: [facility] TEST: Culture: Respiratory w/Gram Stain STATUS: Auth (Verified) BODY SITE: SOURCE: Tracheal Aspirate COLLECTED DATE/TIME: 01/08/20 4:49 AM FINAL REPORT Few Yeast Reduced Normal Respiratory Mi STAIN REPORT Gram Stain Performed By: [facility] Immunizations No data available for this section Procedures Procedure Date Related Diagnosis Body Site Status Biopsy, muscle, percutaneous needle 01/18/20 Co mpleted Spinal puncture, lumbar, diagnostic; with 01/10/[address] or [address] guidance Kidney operation Completed Laminectomy with spinal fusion Completed Social History Social History Type Response Smoking Status Never smoker; Exposure to T obacco Smoke None; Cigarette Smoking Last 365 Days No; Reg Smoking Cessation Counseli ng No entered on: 08/24/19 Assessment and Plan Extracted from: Title: Neurology discharge summary Author: Venecia Lagos Sa Date: 01/24/20 [place] [facility]UROLOGY DISCHARGE SUMMARY Date of Admission: 01/07/2020 22:04 Date of Discharge: 01/24/2020 Admit Diagnosis: Neuromuscular weakness Discharge Diagnoses: Respiratory failure, unspecified, unspecified whether with hypoxia or hypercapnia (J96.90) Polyneuropathy, unspecified (G62.9) Severe sepsis with septic shock (R65.21) Discharge Diet: tube feeds Discharge Condition: good Consulting Physicians: Darci Magallon MDOffice: Service: Diagnostic Radiology Oumar Manzanares MDOffice: Service: Neurology Svetlana Mckay MDOffice: Service: Neurology, Anesthesiology Rashaad Gonzalez MDOffice: Service: Medicine, Rheumatology Fatou Urbina MDOffice: Service: Pulmonary Nikita Mckeon MDOffice: (not on file)Service: Neurology Hudson Ochoa MDOffice: Service: Neurology Tari Caraballo MDOffice: Service: Neurology Shanita Olmstead MDOffice: Service: Medicine Jonathon Santiago MDOffice: Service: Rheumatology Brief HPI and Hospital Course: [...] (speckled) and Ro 1.9. Negative dsDNA, Sm, [employer]OR, [place]. Other [place] includes positive anti TPO, [...] for autoimmune myositis: polymyositis, inclusion-body myositis or anti- synthetase syndrome, she was started on prednisone 50 [...] be given FU with Dr Greer at [facility]. On day of discharge, she was comfortably breathing on room air with good oxygen saturation. Tube feeding was managed with automation developer consultation. She did have some episodes of [...] wrist flexor, 3/5 in wrist extensor, 4-/5 laborer aquatic life LUE: 1/5 in Deltoids, 4-/5 in elbow flexors, 4-/5 in elbow extensors, 3/5 in wrist flexor, 3/5 in wrist extensor, 4-/5 laborer aquatic life RLE: 3/5 in iliopsoas, 4/5 in ankle dorsi flexors, 5/5 in ankle plantar flexors, LLE: 3/5 in iliopsoas, 4/5 in ankle dorsi flexors, 5/5 in ankle plantar flexors, Reflexes: 2+ symmetrical bilaterally biceps Sensory: Intact light touch Cerebellar signs: unable to test Gait: not assessed Discharged to: [facility] Final Diagnosis: Pending Discharge Medications: Discharge Medications polyethylene glycol 3350 oral kit :17 gram, PO, Daily, 30 pkt, 0 Refill(s) Ordered by: Venecia Lagos - 01/24/2020 15:29 beneprotein :3 pkt, GT, BID, Beneprotein 7 gm packet whey protein, 3 pkt, 0 Refill(s) Ordered by: Venecia Lagos - 01/24/2020 15:27 Greater than 30 min was spent in the discharge planning of this patient. Extracted from: Title: Rheumatology Author: Shanita Olmstead MD te: 01/24/20 Progress Note - Daily [facility] Completed: Jan, 15:41 by Shanita Olmstead MD RM: NIMU - [birth year], NIMAMENA [id number] (: 1955) F Attending: Moise Taylor MDPhone: Service: Neurology Reason for Admission: MYASTHENIA GRAVIS Working DRG: Code status: Full ResuscitationCurrent diet: Isolation: No Isolation/Standard Precautions Allergies: Toradol, [...] up in the hospital. 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 Her daughter lives in a different part of [place] and likely doesn't know. 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 upper arms 2/5 bilaterally and thighs 2/5 b/l. Skin: no rashes or wounds 24hr Labs 01/23 1130 POC Performing LocatioSee Note Glucose VIT795 H 01/23 0538 POC Performing LocatioSee Note Glucose POC85 01/23 0423 Glucose Lvl85 BUN15 Creatinine Lvl0.76 Sodium Yvi457 Potassium Lvl3.5 Chloride Vmt280 H CO224 AGAP9.5 L Calcium Lvl8.4 L eGFR83 Magnesium Lvl2.2 Ca Ion WB1.06 Ca Norm WB1.07 Phosphorus1.4 C Vitamin D, 25-OH, Tota12.5 L WBC10.4 RBC2.91 L Hgb8.7 L Hct26.7 L MCV91.9 MCH29.9 MCHC32.5 RDW20.7 H Moygelkx211 MPV6.9 L Segs62.9 Monocytes8.7 Gqkgcrkvopp52.9 Eosinophils0.1 Basophils0.4 Neutrophils #6.6 Lymphocytes #2.9 Monocytes #0.9 H 01/22 2337 POC Performing LocatioSee Note Glucose LIH509 H 01/22 1625 POC Performing LocatioSee Note Glucose ZLS066 H Mccray still necessary (Yes/No): Line still necessary (Yes/No): VitalsTmp(F)[id number] 01/23 15:13 96--- 01/23 12:00----45661/024033--- 01/23 11:0098.040099/199248--- 01/23 10:49 92 21% 01/23 10:00----61622/6316------ 24 Hr Tmax: 98.4F (36.89c) at 01/22 19:0 0Vital Signs are the last 5 in the past 48 hours. DateWt(kg)Wt(lb)Ht(cm)Ht(in)Method 01/13 63.00 138.60Measured 01/08 64.00 140.80Measured 01/06 (initial) 92.00 202.40Measured 01/06167.64 66.00Estimated I&ORecordInOutBal 01/2324hr Tot 791 0 791 01/2224hr Tot 1268 1550 -282 Medications (34) Active [...] possible myasthenia gravis who was transferred to [facility] on 01/07/20 for higher level of care of possible myasthenia gravis v other cause of severe weakness. Rheumatology was consulted 01/10/20 with concern for potential autoimmune cause of polyneuropathy given CANDIDA 1:80 (speckled) and Ro 1.9. Negative dsDNA, Sm, SPANISH TUTOR, [place]. On note, she was also evaluated [...] less likely. She received PLEX x 5 s essions with concern for maybe an atypical GBS. Her weakness did not improve with steroids at OSH (unclear amount), IVIG, PLEX and pyridostigmine (at OSH). 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 Myositis panel pending. Further history from the daughter revealed that the pt's mom was diagnosed with polymyositis, and that [...] you. Shanita Olmstead, PGY-4 Rheumatology Fellow Addendum I have discussed and examin ed this patient with Dr. Olmstead. After reviewing all pertinent by Carlos, labs, imaging and records I agree with her assessment and plan as documented above. MD Satnam Fong MD [facility] on 01/24/2020 16:33 Extracted from: Title: Ultrasound guided muscle Author: Darci Magallon MD Date: 01/18/20 biopsy. Pre procedure note Ultrasound guided mu scle biopsy Mrs Cavanaugh is a 64 year [...] to check for myopathy. Darci Magallon MD [facility] Radiology Extracted from: Title: [facility] Consult Note Author: Fatou Urbina Date: 01/16/20 MD Impression and Plan Mrs. Cavanaugh is a [...] markers work up with SCL-70, ANCA, anti SPANISH TUTOR. -- Rheumatology previously following lucio e, will [...] Dr. Carlitos Solares MD PCCM Fellow PGY-4 [facility] I have seen and examined the patient with Dr. Albert Ibrahim on 01/16/2020. I agree with his assessment and plan.
--- NOTE | 2020-05-13 08:33 | NUR ---
PATIENT DIFFICULT STICK, LAB CALLED TO OBTAIN BLOOD WORK
--- NOTE | 2020-05-13 08:34 | NUR ---
AUDREY GRIMESPAROLE AGENT CALLED FOR IV ASSISTANCE
[2020-05-13 08:50] LABS: BASOPHILS % 0.4 % (0.0-1.0); EOSINOPHILS # (AUTO) 0.1 (0.0-0.4); EOSINOPHILS % 0.6 % (0.0-6.0); HEMATOCRIT 34.8 % (34.2-44.1); LYMPHOCYTES # (AUTO) 1.8 (1.0-3.2); LYMPHOCYTES % 17.8 % (18.0-39.1); MEAN CORPUSCULAR HEMOGLOBIN 25.6 pg (28-32); MEAN CORPUSCULAR HGB CONC 31.6 g/dL (31-35); MEAN CORPUSCULAR VOLUME 81.1 fL (81-99); MONOCYTES # (AUTO) 1.2 (0.2-0.8); NEUTROPHILS # (AUTO) 7.1 (2.1-6.9); NEUTROPHILS % 68.6 % (38.7-80.0); PLATELET COUNT 173 x10e3/uL (140-360); RED BLOOD COUNT 4.29 x10e6/uL (3.6-5.1); RED CELL DISTRIBUTION WIDTH 14.9 % (11.7-14.4)
--- NOTE | 2020-05-13 08:53 | Diagnostic Imaging Report ---
EXAMINATION: CHEST SINGLE (PORTABLE) INDICATION: Shortness of breath, fever, cough COMPARISON: Chest radiograph of 11/23/2018 FINDINGS: LINES/TUBES:EKG leads overlie the chest. LUNGS:The lungs are moderately inflated. Bibasilar hazy opacities. PLEURA:Moderate left pleural effusion. No pneumothorax. Biapical pleural parenchymal thickening/scarring. MEDIASTINUM:The cardiac silhouette appears prominent, likely magnified by portable technique. BONES/SOFT TISSUES:No acute osseous injury. Spinal fusion hardware in place. ABDOMEN:No free air under the diaphragm. IMPRESSION: Moderate left pleural effusion. Hazy bibasilar opacities may represent atelectasis however superimposed pneumonia could also have this appearance and should be excluded clinically. Signed by: Lisa Lui MD on 05/13/2020 8:50 AM
[2020-05-13] MEDS ORDERED: FENTANYL CITRATE/PF 100MCG/2 ML INJ IV PRN (09:00)
[2020-05-13 09:16] LABS: ALBUMIN 3.1 g/dL (3.5-5.0); ALBUMIN/GLOBULIN RATIO 0.8 (0.8-2.0); ANION GAP 14.6 mmol/L (8-16); CALCIUM 8.9 mg/dL (8.4-10.2); CREATININE, SERUM 0.96 mg/dL (0.57-1.11)
[2020-05-13 09:20] LABS: POTASSIUM 2.6 mmol/L (3.5-5.1)
[2020-05-13 09:23] LABS: INR 0.91; PROTHROMBIN TIME 12.7 seconds (11.9-14.5)
[2020-05-13] MEDS ORDERED: POTASSIUM CHLORIDE 20MEQ/100ML 200 ML IV ONE (09:30)
[2020-05-13 10:40] LABS: CLARITY,URINE CLOUDY (CLEAR); COLOR,URINE YELLOW (YELLOW); LEUKOCYTE ESTERASE ,URINE MODERATE (NEGATIVE); NITRITE,URINE POSITIVE (NEGATIVE); PROTEIN,URINE DIPSTICK 1+ (NEGATIVE)
[2020-05-13] MEDS ORDERED: SODIUM CHLORIDE 0.9% 50ML 50 ML ONE (10:40)
[2020-05-13] MEDS ORDERED: IOPAMIDOL 370 MG/ML 200 ML INFUS..BTL INJ ONE (10:40)
[2020-05-13 10:41] LABS: BILIRUBIN,URINE NEGATIVE (NEGATIVE); KETONES,URINE NEGATIVE (NEGATIVE); URINE UROBILINOGEN 0.2 mg/dL (0.2 - 1)
[2020-05-13 10:49] LABS: BACTERIA,URINE MANY /HPF; EPITHELIAL CELLS,URINE FEW /LPF; WBC,URINE (MAN) >50 /HPF (0-5)
[2020-05-13] MEDS ORDERED: HYDROMORPHONE 1MG/1ML INJ IV STA (10:51)
--- NOTE | 2020-05-13 11:21 | Diagnostic Imaging Report ---
EXAMINATION: CHEST XRAY LINE PLACEMENT INDICATION: Line placement COMPARISON: Chest radiograph of earlier the same day FINDINGS: LINES/TUBES:Interval placement of right PICC line which terminates in the SVC. EKG leads overlie the chest. LUNGS:The lungs are moderately inflated. Bibasilar hazy opacities. PLEURA:Moderate left pleural effusion. No pneumothorax. MEDIASTINUM:The cardiomediastinal silhouette appears unchanged in size and shape. BONES/SOFT TISSUES:No acute osseous injury. ABDOMEN:No free air under the diaphragm. IMPRESSION: Interval placement of right PICC line which terminates in the SVC. Otherwise, no significant interval change. Signed by: Lisa Lui MD on 05/13/2020 11:18 AM
--- NOTE | 2020-05-13 12:32 | Diagnostic Imaging Report ---
EXAM: CT Chest, Abdomen and Pelvis WITH intravenous contrast INDICATION: Shortness of breath, nausea, vomiting COMPARISON: Chest radiograph of earlier the same day, CT abdomen and pelvis of 10/24/2018 TECHNIQUE: The chest, abdomen and pelvis were scanned utilizing a multidetector helical scanner from the thoracic inlet to the pubic symphysis following administration of IV contrast. Coronal and sagittal reformations were obtained. Scan was performed during portal venous phase. IV CONTRAST: 100cc Isovue 370 ORAL CONTRAST: Water COMPLICATIONS: None RADIATION DOSE: Total DLP: 993 mGy*cm Dose modulation, iterative reconstruction, and/or weight based adjustment of the mA/kV was utilized to reduce the radiation dose to as low as reasonably achievable. FINDINGS: LINES/ TUBES: Right PICC line terminates in the superior vena cava. LUNGS AND AIRWAYS: The central airways are patent. Mild biapical pleural parenchymal thickening/scarring. No focal consolidation or pulmonary edema. PLEURA: No pleural effusion or pneumothorax. The density on chest radiograph with the appearance of a left pleural effusion actually represents prominent pericardial fat pad. HEART AND MEDIASTINUM: The thyroid gland is normal. No mediastinal, hilar or axillary lymphadenopathy. The heart is normal in size.. There is no pericardial effusion. Minimal scattered aortic atherosclerotic calcifications. HEPATOBILIARY: Diffuse hepatic steatosis. No focal liver lesion. Mild intrahepatic biliary ductal dilation may be related to reservoir effect status post cholecystectomy. SPLEEN: No splenomegaly. PANCREAS: No focal masses or ductal dilatation. ADRENALS: No adrenal nodules. 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 6 mm right lower pole calculus. No hydronephrosis or hydroureter. No left renal calculi or hydronephrosis. Heterogeneous enhancement of the upper pole of the left kidney without discrete focal mass lesion. PELVIC ORGANS/BLADDER: Hysterectomy. PERITONEUM / RETROPERITONEUM: No free air or fluid. LYMPH NODES: No lymphadenopathy. VESSELS: Status post endovascular abdominal aortic aneurysm repair. SMA and bilateral renal arterial stents. The mesenteric and renal arteries are patent. Mild scattered atherosclerotic arterial calcifications. Infrarenal IVC filter in place. GI TRACT: Diverticulosis without CT evidence of diverticulitis. No abnormal bowel thickening. No bowel obstruction. Normal appendix. BONES AND SOFT TISSUES: Bilateral gluteal injection granulomas. Bilateral calcified saline breast implants. Status post multilevel thoracolumbar spinal fusion. No acute osseous injury. No suspicious lytic or blastic lesions. IMPRESSION: No focal pneumonia or pulmonary edema. No pleural effusion or pneumothorax. The density on chest radiograph previously presumed to be a left pleural effusion actually represents a prominent pericardial fat pad. Atrophic [place] right kidney containing a 6 mm right lower pole renal calculus. No hydronephrosis or hydroureter. Diverticulosis without CT evidence of diverticulitis. Diffuse hepatic steatosis. Postoperative findings of prior endovascular repair of infrarenal aortic aneurysm and SMA and renal artery stenting. Signed by: Lisa Lui MD on 05/13/2020 12:28 PM
[2020-05-13] MEDS ORDERED: CEFTRIAXONE SOD 1 GM/NS 50 ML 50 ML IV ONE (13:45)
--- OUTSIDE RECORDS SUMMARY | 2020-05-13 13:53 | XMS REPORT | Continuity of Care Document ---
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 WEAKNESS Active 08/24/2019 [facility] TERESA SUPERIMPOSED ON CHRONIC KIDNEY DISEA Active 08/24/2019 [facility] M54.31 - "SCIATICA, RIGHT SIDE" Active 09/09/2016 [facility] Acute hypoxemic respiratory failure (disorder) Active Problem 01/26/2020 [facility] Anxiety (finding) Active Problem 01/26/2020 [facility] Chronic kidney disease stage 3 (disorder) Active Problem 01/26/2020 [facility] Depressive disorder (disorder) Active Problem [facility] Finding of functional performance and ac tivity (finding) Active Prob taylor 01/26/2020 [facility] History of - gastrostomy (context-dependent category) Active Problem 01/26/2020 [facility] History of - tracheostomy (context-dependent category) Active Problem 01/26/2020 [facility] Hyperlipidemia (disorder) Acti ve Problem [facility] Hypertensive disorder, systemic arterial (disorder) Active Problem 01/26/2020 [facility] Infective pneumonia (disorder) Active Problem [facility] Myasthenia gravis (disorder) A ctive Problem [facility] Normocytic anemia (disorder) A ctive Problem [facility] Obesity (disorder) Active Problem 01/26/2020 [facility] Retention of urine (disorder) Active Problem [facility] Hypertension Active 11/21/2013 [facility] Depression With Anxiety Active 11/21/2013 [facility] ACUTE KIDNEY FAILURE, UNSPECIFIED Active [facility] URINARY TRACT INFECTION, SITE NOT SPECIF Active [facility] RETENTION OF URINE, UNSPECIFIED Active [facility] Medications Medication Details Route Status Patient Instructions Ordering Provider Order Date Source amLODIPine 10 mg oral tablet 1 0 mg = 1 tab, GT, Daily, 0 Refill(s) Active 01/24/2020 [facility] beneprotein beneprotein, 3 pkt , GT, BID, Beneprotein 7 gm packet whey protein, # 3 pkt, Refill(s) 0, other Active 01/24/2020 [facility] simethicone 40 mg/0.6 mL oral liquid 40 mg = 0.6 mL, PO, Q6H, 0 Refill(s) Active 01/24/2020 [facility] Prednisone 50 MG Oral Tablet 5 0 mg = 1 tab, PO, Daily, for 2 weeks. Then decrease to 40 mg daily., 0 Refill(s) Active 01/24/2020 [facility] polyethylene glycol 3350 oral kit 17 gram, PO, Daily, # 30 pkt, 0 Refill(s), other Active 01/24/2020 [facility] Melatonin 5 MG Sublingual Tablet 5 mg = 1 tab, PO, Bedtime, PRN Sleep, 0 Refill(s) Active 01/24/2020 [facility] carvedilol Notes: Give with fo od. (Same As: Coreg) Inactive 01/24/2020 [facility] potassium phosphate Notes: (Sa me as: K Phosphate.) Do not infuse phosphorous concurrently in the same line as TPN or IVF that contains calcium. For double lumen central lines, phosphorous may be infused in a separate lumen from TPN. 1 mMol phoshate has 1.47 mEq potassium Infuse over 4 hours Inactive 01/24/2020 [facility] potassium phosphate 30 mmol, R oute: IVPB, ONCE, Dosing Weight 92.001, kg, PRN Abnormal Lab Result, Start date: 01/24/20 7:17:00 CDT, Phosphate level 1.5 - 1.9 mg/dL Inactive 01/24/2020 [facility] Fluoxetine Notes: (Same as: Pr ozac) No Longer Active 01/23/2020 [facility] potassium phosphate Notes: (Sa me as: K Phosphate.) Do not infuse phosphorous concurrently in the same line as TPN or IVF that contains calcium. For double lumen central lines, phosphorous may be infused in a separate lumen from TPN. 1 mMol phoshate has 1.47 mEq potassium Infuse over 4 hours Inactive 01/23/2020 [facility] Hydroxyzine Hydrochloride 2 MG/ML Oral Solution Notes: (Same as: Atarax) Avoid alcohol. No Longer Active 01/22/2020 [facility] hydrOXYzine hydrochloride 25 mg oral tablet Notes: (Same as: Atarax) Avoid alcohol. Inactive 01/22/2020 [facility] hydrOXYzine Notes: (Same as: V istaril) Inactive 01/22/2020 [facility] Hydroxyzine Notes: (Same as: V istaril) Inactive 01/22/2020 [facility] Prednisone Notes: Take with fo od. No Longer Active 01/21/2020 [facility] Beneprotein 7 gm pkt Notes: (S deo as: Beneprotein) No Longer Active 01/21/2020 [facility] Dextrose 50% Syringe (D50W) 12 .5 gm, 25 mL, Route: IVP, Drug Form: INJ, Dosing Weight 92.001, kg, PRN, PRN Blood Glucose Results, Start date: 01/21/20 16:23:00 CDT, Duration: 30 day, Stop date: 02/20/20 16:22:00 CDT, 0 No Longer Active 01/21/2020 [facility] Glucagon 1 mg, Route: IM, Drug form: PDR/INJ, PRN, Dosing Weight 92.001, kg, PRN Blood Glucose Results, Start date: 01/21/20 16:23:00 CDT, Duration: 30 day, Stop date: 02/20/20 16:22:00 CDT, 0 No Longer Active 01/21/2020 [facility] Insulin regular Notes: (Same a s: Humulin R) Roll in palms of hands gently; Do not shake vigorously. WASTE: F/P - Black; E - Municipal Trash Bin Stable for 31 days at room temperature Expires in days from Date No Longer Active 01/21/2020 [facility] Famotidine 20 MG Oral Tablet 2 0 mg = 1 tab, PO, BID, 0 Refill(s) Active 01/21/2020 [facility] amLODIPine 10 mg oral tablet 1 0 mg = 1 tab, PO, Daily, # 90 tab, 0 Refill(s) No Longer Active 01/21/2020 [facility] tramadol hydrochloride 50 MG Oral Tablet 50 mg = 1 tab, PO, Daily No Longer Active 01/21/2020 [facility] Carbidopa 25 MG / Levodopa 100 MG Oral Tablet 1 tab, PO, Daily No Longer Active 01/21/2020 [facility] 12 HR ranolazine 500 MG Extended Release Tablet 500 mg = 1 tab, PO, Daily No Longer Active 01/21/2020 [facility] bumetanide 0.5 mg oral tablet 0.5 mg = 1 tab, PO, BID No Longer Active 01/21/2020 [facility] Alprazolam 1 MG Oral Tablet 1 mg = 1 tab, PO, TID No Longer Active 01/21/2020 [facility] FLUoxetine 20 mg oral capsule 20 mg = 1 cap, PO, Daily, # 30 cap, 0 Refill(s) Active 01/21/2020 [facility] irbesartan 150 mg oral tablet 150 mg = 1 tab, PO, Daily, # 30 tab, 0 Refill(s) No Longe r Active 01/21/2020 [facility] ARIPiprazole 10 mg oral tablet 10 mg = 1 tab, PO, Daily, # 30 tab, 0 Refill(s) No Longe r Active 01/21/2020 [facility] atorvastatin 40 mg oral tablet 40 mg = 1 tab, PO, Bedtime, # 30 tab, 0 Refill(s) Active 01/21/2020 [facility] Lanolin 0.157 MG/MG / Menthol 0.0044 MG/ MG / Petrolatum 0.24 MG/MG / Zinc Oxide 0.206 MG/MG Topical Ointment [Calmoseptine] Notes: (Same as: Calmoseptine) No Longer Active 01/21/2020 [facility] Benadryl Notes: (Same as: Kyara dryl) Inactive 01/21/2020 [facility] Reglan 5 mg, Route: PEG, ONCE, Dosing Weight 92.001, kg, Start date: 01/20/20 21:38:00 CDT, Stop date: 01/20/20 21:38:00 CDT Inactive 01/21/2020 [facility] Miralax Notes: Dissolve in 8 o z of water or juice. (Same as: Miralax) No Longer Active 01/20/2020 [facility] Sodium Chloride 3% inhalation solution 3 mL, Route: NEB, Dosing Weight 92.001, kg, RQ4H, Start date: 01/20/20 7:00:00 CDT, Duration: 30 day, Stop date: 02/19/20 3:00:00 CDT Inactive 01/20/2020 [facility] Albuterol 0.83 MG/ML Inhalant Solution Notes: SEE RT DOCUMENTATION (Same as: Proventil) No Longer Active 01/20/2020 [facility] Potassium Chloride Notes: (Ronan e as: Potassium Chloride) Inactive 01/20/2020 [facility] Simethicone Notes: (Same as: M ylicon, Phazyme, Genasyme) No Longer Active 01/20/2020 [facility] Dextrose 50% Syringe (D50W) 12 .5 gm, 25 mL, Route: IVP, Drug Form: INJ, Dosing Weight 92.001, kg, PRN, PRN Blood Glucose Results, Start date: 01/20/20 0:23:00 CDT, Duration: 30 day, Stop date: 02/19/20 0:22:00 CDT, 0 No Longer Active 01/20/2020 [facility] Glucagon 1 mg, Route: IM, Drug form: PDR/INJ, PRN, Dosing Weight 92.001, kg, PRN Blood Glucose Results, Start date: 01/20/20 0:23:00 CDT, Duration: 30 day, Stop date: 02/19/20 0:22:00 CDT, 0 No Longer Active 01/20/2020 [facility] Iohexol 100 mL, Route: IVP, Dr ug Form: SOLN, Dosing Weight 92.001, kg, ONCALL, STAT, Start date: 01/20/20 0:02:00 CDT, Duration: 1 doses or times, Dose = 2.2ml/kg, Max dose = 100ml -- "To be infused by Radi ology Staff ONLY" Inactive 01/20/2020 [facility] Melatonin Notes: (Same as: Ciara atonin) No Longer Active 01/20/2020 [facility] Amlodipine Notes: (Same as: No rvasc) No Longer Active 01/19/2020 [facility] Acetaminophen 325 MG / Hydrocodone Nichol trate 5 MG Oral Tablet [[place] 5/325] Notes: (Same as: [place] 325/5) Do not ex ceed 4gm/day of acetaminophen. Inactive 01/19/2020 [facility] normal saline 0.9% IV 1,000 mL 1,000 mL, Rate: 75 ml/hr, Infuse over: 13.3 hr, Route: IV, Dosing Weight 92.001 kg, Total Volume: 1,000, Start date: 01/19/20 12:55:00 CDT, Duration: 30 day, Stop date: 02/18/20 12:54:00 CDT, 2.1, m2, 0 No Longer Active 01/19/2020 [facility] Acetaminophen Notes: Max aceta minophen = 4000mg/day (4 gm/day). (Same as: Tylenol) N o Longer Active 01/19/2020 [facility] Zofran 4 mg, Route: IVP, Drug form: INJ, Q8H, Dosing Weight 92.001, kg, PRN Nausea, Start date: 01/18/20 18:18:00 CDT, Duration: 30 day, Stop date: 02/17/20 18:17:00 CDT Inactive 01/18/2020 [facility] albumin human 5% intravenous solution Notes: LOT#: Mfg: (Same as: Albuminar) "blood product derivative" WASTE: F/P - Red; E -Red MEDICATION WASTE Product Size: 25 gm Product Wasted: ___ gm Inactive 01/18/2020 [facility] Potassium Chloride 1.33 MEQ/ML Oral Solution Notes: (Same as: Potassium Chloride) Inactive 01/18/2020 [facility] Calcium Gluconate Notes: WASTE : F/P - Sink; E - Municipal Trash Bin Inactive 01/18/2020 [facility] albumin human 5% intravenous solution Notes: LOT#: Mfg: (Same as: Albuminar) "blood product derivative" WASTE: F/P - Red; E -Red MEDICATION WASTE Product Size: 25 gm Product Wasted: ___ gm Inactive 01/18/2020 [facility] Ciprofloxacin Notes: May inter fere w/enteral feedings - Take 1 hr before or 2 hrs after antacids, dairy pdt & minerals. On empty stomach. No Longer Active 01/17/2020 [facility] Flagyl Notes: (Same as: Flagyl ) Take with food/ avoid alcohol No Longer Active 01/17/2020 [facility] Acetaminophen 325 MG / Hydrocodone Nichol trate 5 MG Oral Tablet [[place] 5/325] Notes: (Same as: [place] 325/5) Do not ex ceed 4gm/day of acetaminophen. No Longer Activ e 01/17/2020 [facility] Acetaminophen 325 MG Oral Tablet Notes: Do not exceed 4 gm/day. (Same as: Tylenol) Inactive 01/17/2020 [facility] Calcium Gluconate Notes: WASTE : F/P - Sink; E - Municipal Trash Bin Inactive 01/16/2020 [facility] albumin human 5% intravenous solution Notes: LOT#: Mfg: (Same as: Albuminar) "blood product derivative" WASTE: F/P - Red; E -Red MEDICATION WASTE Product Size: 25 gm Product Wasted: ___ gm Inactive 01/16/2020 [facility] Iohexol 100 mL, Route: IVP, Dr ug Form: SOLN, Dosing Weight 92.001, kg, ONCALL, STAT, Start date: 01/16/20 1:06:00 CDT, Duration: 1 doses or times, Dose = 2.2ml/kg, Max dose = 100ml -- "To be infused by Radi ology Staff ONLY" Inactive 01/16/2020 [facility] Labetalol 10 mg, 2 mL, Route: IVP, Drug form: INJ, Q4H, Dosing Weight 92.001, kg, PRN Other -See Comment, Start date: 01/15/20 16:50:00 CDT, Duration: 30 day, Stop date: 02/14/20 16:49:00 CDT, 0 No Longer Active 01/15/2020 [facility] Acetaminophen 650 MG Rectal Suppository Notes: Max acetaminophen = 4000 mg/day (4 gm/day). (Same as: Tylenol) No Longer Active 01/15/2020 [facility] Tylenol Notes: Max acetaminoph en = 4000 mg/day (4 gm/day). (Same as: Tylenol) Inactive 01/15/2020 [facility] normal saline 0.9% IV 1,000 mL 1,000 mL, Rate: 100 ml/hr, Infuse over: 10 hr, Route: IV, Dosing Weight 92.001 kg, Total Volume: 1,000, Start date: 01/15/20 12:54:00 CDT, Duration: 30 day, Stop date: 02/14/20 12:53:00 CDT, 2.1, m2, 0 No Longer Active 01/15/2020 [facility] Sodium Chloride 0.9% (titrate) 250 mL 250 mL, Rate: To prime line and flush remaining blood products., Dosing Weight 92.001, kg, Route: IV, Total Volume: 250, Priority: Routine, Start Date: 01/15/20 11:59:00 CDT, Duration: 1 day, Stop date: 01/16/20 11:58:00 CDT, Replace Every: 24 hr, 0 No Longer Active 01/15/2020 [facility] Fentanyl 75 microgram, Route: IV, ONCE, Dosing Weight 92.001, kg, Start date: 01/15/20 8:25:00 CDT, Stop date: 01/15/20 8:25:00 CDT, Inactive 01/15/2020 [facility] Lidocaine 10 mL, Route: INTRAD ERM, ONCE, Dosing Weight 92.001, kg, Start date: 01/15/20 8:25:00 CDT, Stop date: 01/15/20 8:25:00 CDT, Inactive 01/15/2020 [facility] Midazolam 1 mg, Route: IV, ONC E, Dosing Weight 92.001, kg, Start date: 01/15/20 8:25:00 CDT, Stop date: 01/15/20 8:25:00 CDT, Inactive 01/15/2020 [facility] Glucagon 1 mg, Route: IV, ONCE , Dosing Weight 92.001, kg, Start date: 01/15/20 8:25:00 CDT, Stop date: 01/15/20 8:25:00 CDT, Inactive 01/15/2020 [facility] Fentanyl Notes: (Same as: Subl imaze) Preservative free. Inactive 01/14/2020 [facility] Midazolam Notes: (Same as: Debra sed) MEDICATION WASTE Product Size: 2 mg Product Wasted: ___ mg Inactive 01/14/2020 [facility] Rocuronium Notes: (Same as: Ze sam) Inactive 01/14/2020 [facility] Etomidate Notes: (Same as: Ami date). Per state nursing law etomidate can only be given by a nurse if patient is intubated or being intubated (unless the nurse is a GAME PRODUCER). Inactive 01/14/2020 [facility] Calcium Gluconate Notes: WASTE : F/P - Sink; E - Municipal Trash Bin Inactive 01/14/2020 [facility] albumin human 5% intravenous solution Notes: LOT#: Mfg: (Same as: Albuminar) "blood product derivative" WASTE: F/P - Red; E -Red MEDICATION WASTE Product Size: 25 gm Product Wasted: ___ gm Inactive 01/14/2020 [facility] Diphenhydramine Notes: (Same a s: Benadryl) No Longer Active 01/14/2020 [facility] Ativan Notes: (Same as: Ativan) Inactive 01/13/2020 [facility] Aspirin 81 MG Chewable Tablet Notes: Take with food. Inactive 01/13/2020 [facility] Iohexol Notes: (same as:Omnipa que 350). WASTE: F/P - Black; E - Municipal Trash Bin Inactive 01/13/2020 [facility] Norepinephrine Notes: Not for direct administration - DILUTE. Protect from light. (Same as:Levophed). Administer by either central venous catheter or peripherally-inserted central catheter (PICC) line. No Longer Active 01/13/2020 [facility] propofol 10 mg/mL (Titrate.) IV 1,000 mg Notes: If Diprivan - change bottle & tubing every 12 hr Per state nursing law propofol can only be given by a nurse if patient is intubated or being intubated (unless the nurse is a GAME PRODUCER). Same as: Diprivan No Longer Active 01/13/2020 [facility] Fentanyl 1,000 microgram, 20 m L, Rate: Titrate, Start Dose: 50 microgram/hr, Titration: 25 microgram/hour every 15 minutes, Goal(s): 0, Max Dose: 300 microgram/hr, Route: IV, Dosing Weight 92.001 kg, Total Volume: 20, Start date: 01/13/20 8:39:00 CDT, Duration... No Longer Active 01/13/2020 [facility] Rocuronium Notes: (Same as: Ze sam) Inactive 01/13/2020 [facility] Ativan Notes: (Same as: Ativan) Inactive 01/13/2020 [facility] Calcium Gluconate Notes: WASTE : F/P - Sink; E - Municipal Trash Bin Inactive 01/11/2020 [facility] albumin human 5% intravenous solution Notes: LOT#: Mfg: (Same as: Albuminar) "blood product derivative" WASTE: F/P - Red; E -Red MEDICATION WASTE Product Size: 25 gm Product Wasted: ___ gm Inactive 01/11/2020 [facility] Calcium Gluconate Notes: WASTE : F/P - Sink; E - Municipal Trash Bin Inactive 01/10/2020 [facility] albumin human 5% intravenous solution Notes: LOT#: Mfg: WASTE: F/P - Red; E -Red (Same as: Albuminar) "blood product derivative" Inactive 01/10/2020 [facility] Versed Notes: (Same as: Versed ) MEDICATION WASTE Product Size: 2 mg Product Wasted: ___ mg No Longer Active 01/10/2020 [facility] Iohexol 100 mL, Route: IVP, Dr ramesh Form: SOLN, Dosing Weight 92.001, kg, ONCALL, STAT, Start date: 01/09/20 23:35:00 CDT, Duration: 1 doses or times, Dose = 2.2ml/kg, Max dose = 100ml -- "To be infused by Rad iology Staff ONLY" Inactive 01/10/2020 [facility] Lidocaine Hydrochloride 10 MG/ML Injectable Solution Notes: Preservative free. (Same as: Xylocaine MPF) No Longer Active 01/09/2020 [facility] sennosides, SENIOR CARE Notes: (Same a s: Senokot) No Longer Active 01/09/2020 [facility] Zosyn Notes: (Same as: Zosyn) Dosing based on Piperacillin component MEDICATION WASTE Product Size: 3375 mg Product Wasted: ___ mg No Longer Active 01/08/2020 [facility] Docusate Notes: (Same as: Cola ce) No Longer Active 01/08/2020 [facility] sennosides, SENIOR CARE Notes: (Same a s: Senokot) No Longer Active 01/08/2020 [facility] Saline Flush 0.9% Notes: (Same as: BD Posiflush) No Longer Active 01/08/2020 [facility] chlorhexidine gluconate 1.2 MG/ML Mouthwash Notes: (Same As: Peridex) No Longer Active 01/08/2020 [facility] Amlodipine Notes: (Same as: No rvasc) No Longer Active 01/08/2020 [facility] carvedilol Notes: Give with fo od. (Same As: Coreg) No Longer Active 01/08/2020 [facility] Famotidine Notes: (Same as: Pe pcid) No Longer Active 01/08/2020 [facility] Prednisone Notes: Take with fo od. Inactive 01/08/2020 [facility] Spironolactone Notes: (Same As : Aldactone) Hazardous Drug Group 2:Non-antineoplastic Hazardous Drug -- Refer to safe handling procedure PPE [id number] N o Longer Active 01/08/2020 [facility] Zosyn Notes: (Same as: Zosyn) Dosing based on Piperacillin component MEDICATION WASTE Product Size: 3375 mg Product Wasted: ___ mg Inactive 01/08/2020 [facility] Dexmedetomidine 400 microgram, Rate: Titrate, Start Dose: 0.2 microgram/kg/hr, Titration: 0.1 microgram/kg/hr every 30 min, Goal(s): 0, Max Dose: 1.5 microgram/kg/hr, Route: IV, Dosing Weight 92.001 kg, Total Volume: 100, Start date: 01/08/20 6:47:00 CDT, Duration: 3... No Longer Active 01/08/2020 [facility] Pyridostigmine Notes: (Same as : Mestinon) No Longer Active 01/08/2020 [facility] amLODIPine 5 mg oral tablet 5 mg = 1 tab, PO, Daily No Longer Active 01/08/2020 [facility] carvedilol 3.125 mg oral tablet 3.125 mg = 1 tab, PO, Q12H Active 01/08/2020 [facility] Famotidine 20 mg = 1 tab, PO, BID No Longer Active 01/08/2020 [facility] FLUoxetine 60 mg oral tablet 6 0 mg = 1 tab, PO, Daily No Longer Active 01/08/2020 [facility] gabapentin 300 MG Oral Capsule 300 mg = 1 cap, PO, Bedtime No Longer Active 01/08/2020 [facility] Prednisone 40 mg, PO, Daily, Q uantity sufficient No Longer Active 01/08/2020 [facility] Pyridostigmine 60 mg, PO, Q4H No Longer Active 01/08/2020 [facility] ranolazine 50 mg, PO, Daily No Longer Active 01/08/2020 [facility] spironolactone 25 mg oral tablet 25 mg = 1 tab, PO, Daily No Longer Active 01/08/2020 [facility] ocular lubricant Notes: (Same as: Lacri-Lube, Puralube, Duratears Naturale, Artificial Tears, and Tears Again ) No Longer Active 01/08/2020 [facility] heparin Notes: porcine heparin No Longer Active 01/08/2020 [facility] Potassium Chloride Notes: ([facility] e as: KCL) Infuse no faster than 10 mEq/hr if given peripherally. No Longer Active 01/08/2020 [facility] sodium phosphate Notes: Infuse over 4 hour. Do not infuse phosphorous concurrently in the same line as TPN or IVF that contains calcium. For double lumen central lines, phosphorous may be infused in a separate lumen from TPN. No Longer Active 01/08/2020 [facility] n[facility] potassium phosphate Notes: ([facility] as: K Phosphate.) Do not infuse phosphorous concurrently in the same line as TPN or IVF that contains calcium. For double lumen central lines, phosphorous may be infused in a separate lumen from TPN. 1 mMol phoshate has 1.47 mEq potassium Infuse over 4 hours No Longer Active 01/08/2020 [facility] potassium phosphate-sodium phosphate 250 mg-280 mg-160 mg oral powder for reconstitution Notes: (Same as: Phos-NaK) Each 1.5 gm pkt has 250mg phosphorous. Mix w/2.5oz water and stir. No Longer Active 01/08/2020 [facility] Magnesium Sulfate Notes: WASTE : F/P - Sink; E - Municipal Trash Bin No Longer Active 01/08/2020 [facility] n[facility] Magnesium Oxide Notes: (Same a s: Mag-Ox 400) Magnesium oxide [id number] elemental magnesium Dose=____mg magnesium oxide (___mg elemental magnesium) No Longer Active 01/08/2020 [facility] nt Calcium Gluconate Notes: WASTE : F/P - Sink; E - Municipal Trash Bin No Longer Active 01/08/2020 [facility] nt Calcium Carbonate 500 MG Chewable Tablet Notes: (Same As: Tums) Calcium Carbonate 500 mg = 200 mg elemental calcium Dose = mg calcium carbonate ( mg elemental calcium) No Longer Active 01/08/2020 [facility] Fentanyl 1,000 microgram, 20 m L, Rate: Titrate, Start Dose: 50 microgram/hr, Titration: Titrate by 25 micrograms/hour every 15 minutes, Goal(s): -1, Max Dose: 300 mcg/hr, Route: IV, Dosing Weight 78.182 kg, Total Volume: 20, Start date: 01/07/20 23:29:00 CDT,... No Longer Active 01/08/2020 [facility] Nystatin 100 UNT/MG Topical Powder Notes: (Same as:Mycostatin, Nilstat) For external use only. No Longer Active 01/08/2020 [facility] Acetaminophen Notes: Do not ex ceed 4 gm/day. (Same as: Tylenol) No Longer Active 01/08/2020 [facility] Saline Flush 0.9% Notes: (Same as: BD Posiflush) No Longer Active 01/08/2020 [facility] [facility] chlor[facility] gluconate 1.2 MG/ML Mouthwash Notes: (Same As: Peridex) No Longer Active 01/08/2020 [facility] tamsulosin 0.4 mg oral capsule 0.4 mg = 1 cap, PO, After Breakfast, # 30 cap, 0 Refill(s), Pharmacy: [id number] Active 08/26/2019 [facility] Ceftriaxone Notes: (Same As: Prabhu bledsoe). Use with 100 mL NS and infuse over 30 min MEDICATION WASTE Product Size: 1000 mg Product Wasted: ___ mg No Longer Active 08/26/2019 [facility] atorvastatin Notes: (Same as: Lipitor) No Longer Active 08/26/2019 [facility] Vantin 200 mg oral tablet 200 mg = 1 tab, PO, Q12H, X 7 day, # 14 tab, 0 Refill(s) Active 08/25/2019 [facility] Amlodipine Notes: (Same as: No rvasc) No Longer Active 08/25/2019 [facility] Fluoxetine Notes: (Same as: Pr ozac) No Longer Active 08/25/2019 [facility] Coreg Notes: Give with food. ( Same As: Coreg) No Longer Active 08/25/2019 [facility] ARIPiprazole Notes: (Same as: Abilify) No Longer Active 08/25/2019 [facility] Clonidine Hydrochloride 0.1 MG Oral Tablet Notes: (Same As: Catapres) No Longer Active 08/25/2019 [facility] Flomax Notes: (Same As: Flomax ) "Do Not Crush" No Longer Active 08/25/2019 [facility] FLUoxetine 10 mg oral capsule 10 mg = 1 cap, PO, Daily, # 90 cap, 0 Refill(s) Active 08/25/2019 [facility] amLODIPine 10 mg oral tablet 1 0 mg = 1 tab, PO, Daily, # 90 tab, 0 Refill(s) Active 08/25/2019 [facility] bumetanide 0.5 mg oral tablet 0.5 mg = 1 tab, PO, Daily, # 30 tab, 0 Refill(s) Active 08/25/2019 [facility] atorvastatin 40 mg oral tablet 40 mg = 1 tab, PO, Bedtime, # 90 tab, 1 Refill(s) Active 08/25/2019 [facility] carvedilol 3.125 mg oral tablet 3.125 mg = 1 tab, PO, BID, # 180 tab, 0 Refill(s) Active 08/25/2019 [facility] irbesartan 150 mg oral tablet 150 mg = 1 tab, PO, Daily, # 90 tab, 0 Refill(s) Active 08/25/2019 [facility] ranolazine PO, BID, 0 Refill(s) Active 08/25/2019 [facility] spironolactone 25 mg oral tablet 25 mg = 1 tab, PO, Daily, # 90 tab, 1 Refill(s) Active 08/25/2019 [facility] Clonidine Hydrochloride 0.1 MG Oral Tablet 0.1 mg = 1 tab, PO, BID, # 90 tab, 3 Refill(s) Active 08/25/2019 [facility] ARIPiprazole 10, 0 Refill(s) Active 08/25/2019 [facility] Alprazolam 1 MG Oral Tablet 1 mg = 1 tab, PO, Daily, # 30 tab, 0 Refill(s) Active 08/25/2019 [facility] Tylenol Notes: Do not exceed 4 gm/day. (Same as: Tylenol) No Longer Active 08/25/2019 [facility] Roxicodone Notes: (Same as: Ro xicodone) No Longer Active 08/25/2019 [facility] Acetaminophen 325 MG / Oxycodone Hydroch loride 5 MG Oral Tablet [Percocet 5/325] 1 tab, Route: PO, Drug Form: TAB, Dosing Weight 95, kg, Q6H, PRN Pain Score 7-10, Start date: 08/25/19 1:34:00 INCOME TAX RETURN PREPARER, Duration: 30 day, Stop date: 09/24/19 1:33:00 INCOME TAX RETURN PREPARER Inactive 08/25/2019 [facility] Alprazolam 1 MG Oral Tablet No etienne: With food or milk (Same as: Xanax) No Longer Active 08/25/2019 [facility] Dilaudid 0.5 mg, Route: IVP, O NCE, Dosing Weight 95, kg, PRN Pain Score 7-10, Priority: NOW, Start date: 08/25/19 1:31:00 INCOME TAX RETURN PREPARER Inactive 08/25/2019 [facility] NS 1,000 mL 1,000 mL, Rate: 10 0 ml/hr, Infuse over: 10 hr, Route: IV, Dosing Weight 95 kg, Total Volume: 1,000, Start date: 08/25/19 1:15:00 INCOME TAX RETURN PREPARER, Duration: 1 doses or times, Stop date: 08/25/19 11:14:00 INCOME TAX RETURN PREPARER, 2.16, m2, 0 Inactive 08/25/2019 [facility] Dextrose 50% Syringe (D50W) 12 .5 gm, 25 mL, Route: IVP, Drug Form: INJ, Dosing Weight 95, kg, PRN, PRN Blood Glucose Results, Start date: 08/25/19 1:14:00 INCOME TAX RETURN PREPARER, Duration: 30 day, Stop date: 09/24/19 1:13:00 INCOME TAX RETURN PREPARER, 0 No Longer Active 08/25/2019 [facility] Glucagon 1 mg, Route: IM, Drug form: PDR/INJ, PRN, Dosing Weight 95, kg, PRN Blood Glucose Results, Start date: 08/25/19 1:14:00 INCOME TAX RETURN PREPARER, Duration: 30 day, Stop date: 09/24/19 1:13:00 INCOME TAX RETURN PREPARER, 0 No Longer Active 08/25/2019 [facility] Ondansetron Notes: (Same as: Fawad carter) MEDICATION WASTE Product Size: 4 mg Product Wasted: ___ mg No Longer Active 08/25/2019 [facility] Acetaminophen Notes: Do not ex ceed 4 gm/day. (Same as: Tylenol) No Longer Active 08/25/2019 [facility] Hydromorphone 0.5 mg, Route: I V, ONCE, Dosing Weight 95, kg, Start date: 08/24/19 23:29:00 INCOME TAX RETURN PREPARER, Stop date: 08/24/19 23:29:00 INCOME TAX RETURN PREPARER Inactive 08/25/2019 [facility] Ceftriaxone Notes: (Same As: Prabhu bledsoe). Use with 100 mL NS and infuse over 30 min MEDICATION WASTE Product Size: 1000 mg Product Wasted: ___ mg No Longer Active 08/25/2019 [facility] Amlodipine Besy-Benazepril HCl 5-20 MG Oral Capsule ; Start Date: 11/21/2013; End Date: (Active) Active 11/21/2013 [facility] Hydrochlorothiazide 12.5 MG Oral Tablet ; Start Date: 11/21/2013; End Date: (Active) Active 11/21/2013 [facility] Fioricet 50-300-40 MG Oral Capsule ; Start Date: 11/21/2013; End Date: 12/21/2013 (Active) Active 11/21/2013 [facility] Benicar HCT 40-25 MG Oral Tablet ; Start Date: 09/11/2013 (Active) Active 09/11/2013 [facility] Bystolic 10 MG Oral Tablet ; S tart Date: 09/11/2013 (Active) Active 09/11/2013 [facility] Hyzaar 50-12.5 MG Oral Tablet (Active) Active [facility] TraZODone HCl 100 MG Oral Tablet (Active) Active [facility] Abilify 5 MG Oral Tablet (Act dahlia) Active [facility] FLUoxetine HCl 40 MG Oral Capsule (Active) Active [facility] Aspirin 325 MG Oral Tablet (A ctive) Active [facility] Allergies, Adverse Reactions, Alerts Substance Category Reaction Severity Reaction type Status Date Reported Comments Source Compazine Assertion Propensity to adverse reacti ons to substance Active [facility] morphine Assertion Propensity to adverse reacti ons to substance Active [facility] Reglan Assertion Drug allergy Active [facility] Toradol Assertion Propensity to adverse reacti ons to substance Active [facility] Xanax TABS drug allergy drug allergy Active [facility] Compazine TABS drug allergy drug allergy Active [facility] Morphine Derivatives drug elisabeth rgy drug aller gy Active [facility] Reglan TABS drug allergy drug allergy Active [facility] Toradol Oral TABS drug allergy drug allergy Active [facility] Immunizations No Data Provided for This Section Results Order Name Results Value Reference Range Date Interpretation Comments Source CHEM PANEL Glucose Lvl 85 70 - 99 01/24/2020 [facility] CHEM PANEL BUN 15 7 - 22 01/24/2020 [facility] CHEM PANEL Creatinine Lvl 0.76 0.50 - 1.40 01/24/2020 [facility] CHEM PANEL Sodium Lvl 140 135 - 145 01/24/2020 [facility] CHEM PANEL Potassium Lvl 3.5 3.5 - 5.1 01/24/2020 [facility] CHEM PANEL Chloride Lvl 110 95 - 109 01/24/2020 [facility] CHEM PANEL CO2 24 24 - 32 01/24/2020 [facility] CHEM PANEL Calcium Lvl 8.4 8.5 - 10.5 01/24/2020 [facility] CHEM PANEL AGAP 9.5 10.0 - 20.0 01/24/2020 [facility] CHEM PANEL eGFR 83 01/24/2020 Result Comment: [...] should be multiplied by the estimated BMI. [facility] CHEM PANEL Magnesium Lvl 2.2 1.8 - 2.4 01/24/2020 [facility] CHEM PANEL Phosphorus 1.4 2.5 - 4.5 [...] at 01/24/2020 05:31 by JT. No Answer [facility] CHEM PANEL Vitamin D, 25-OH, Total 1 2.5 30.0 - 100.0 01/24/2020 [facility] HEMATOLOGY WBC 10.4 3.7 - 10.4 01/24/2020 [facility] HEMATOLOGY RBC 2.91 4.20 - 5.40 01/24/2020 [facility] HEMATOLOGY Hgb 8.7 12.0 - 16.0 01/24/2020 [facility] HEMATOLOGY Hct 26.7 36.0 - 48.0 01/24/2020 [facility] HEMATOLOGY MCV 91.9 80.0 - 98.0 01/24/2020 [facility] HEMATOLOGY MCH 29.9 27.0 - 31.0 01/24/2020 [facility] HEMATOLOGY MCHC 32.5 32.0 - 36.0 01/24/2020 [facility] HEMATOLOGY RDW 20.7 11.5 - 14.5 01/24/2020 [facility] HEMATOLOGY Platelet 287 133 - 450 01/24/2020 [facility] HEMATOLOGY MPV 6.9 7.4 - 10.4 01/24/2020 [facility] HEMATOLOGY Segs 62.9 45.0 - 75.0 01/24/2020 [facility] HEMATOLOGY Lymphocytes 27.9 20.0 - 40.0 01/24/2020 [facility] HEMATOLOGY Monocytes 8.7 2.0 - 12.0 01/24/2020 [facility] HEMATOLOGY Eosinophils 0.1 0.0 - 4.0 01/24/2020 [facility] HEMATOLOGY Basophils 0.4 0.0 - 1.0 01/24/2020 [facility] HEMATOLOGY Neutrophils # 6.6 1.5 - 8.1 01/24/2020 [facility] HEMATOLOGY Lymphocytes # 2.9 1.0 - 5.5 01/24/2020 [facility] HEMATOLOGY Monocytes # 0.9 0.0 - 0.8 01/24/2020 [facility] PARATHYROID PROFILE Ca Ion WB 1.06 1.05 - 1.25 01/24/2020 [facility] PARATHYROID PROFILE Ca Norm WB 1.07 1.05 - 1.25 01/24/2020 [facility] CHEM PANEL Glucose Lvl 121 70 - 99 01/23/2020 [facility] CHEM PANEL BUN 17 7 - 22 01/23/2020 [facility] CHEM PANEL Creatinine Lvl 0.86 0.50 - 1.40 01/23/2020 [facility] CHEM PANEL Sodium Lvl 140 135 - 145 01/23/2020 [facility] CHEM PANEL Potassium Lvl 3.7 3.5 - 5.1 01/23/2020 [facility] CHEM PANEL Chloride Lvl 109 95 - 109 01/23/2020 [facility] CHEM PANEL CO2 21 24 - 32 01/23/2020 [facility] CHEM PANEL Calcium Lvl 8.0 8.5 - 10.5 01/23/2020 [facility] CHEM PANEL AGAP 13.7 10.0 - 20.0 01/23/2020 [facility] CHEM PANEL eGFR 71 01/23/2020 Result Comment: [...] should be multiplied by the estimated BMI. [facility] CHEM PANEL Magnesium Lvl 2.1 1.8 - 2.4 01/23/2020 [facility] CHEM PANEL Phosphorus 1.1 2.5 - 4.5 01/23/2020 Result Comment: Critical Result(s) aranda d to David Peterson at 01/23/2020 02:51 by Jimy Read back OK. [facility] HEMATOLOGY Segs 70.1 45.0 - 75.0 01/23/2020 [facility] HEMATOLOGY Lymphocytes 19.8 20.0 - 40.0 01/23/2020 [facility] HEMATOLOGY Monocytes 9.6 2.0 - 12.0 01/23/2020 [facility] HEMATOLOGY Basophils 0.5 0.0 - 1.0 01/23/2020 [facility] HEMATOLOGY Neutrophils # 6.5 1.5 - 8.1 01/23/2020 [facility] HEMATOLOGY Lymphocytes # 1.8 1.0 - 5.5 01/23/2020 [facility] HEMATOLOGY Monocytes # 0.9 0.0 - 0.8 01/23/2020 [facility] HEMATOLOGY WBC 9.3 3.7 - 10.4 01/23/2020 [facility] HEMATOLOGY RBC 2.77 4.20 - 5.40 01/23/2020 [facility] HEMATOLOGY Hgb 8.4 12.0 - 16.0 01/23/2020 [facility] HEMATOLOGY Hct 25.3 36.0 - 48.0 01/23/2020 [facility] HEMATOLOGY MCV 91.3 80.0 - 98.0 01/23/2020 [facility] HEMATOLOGY MCH 30.3 27.0 - 31.0 01/23/2020 [facility] HEMATOLOGY MCHC 33.2 32.0 - 36.0 01/23/2020 [facility] HEMATOLOGY RDW 20.5 11.5 - 14.5 01/23/2020 [facility] HEMATOLOGY Platelet 253 133 - 450 01/23/2020 [facility] HEMATOLOGY MPV 7.3 7.4 - 10.4 01/23/2020 [facility] PARATHYROID PROFILE Ca Ion WB 1.06 1.05 - 1.25 01/23/2020 [facility] PARATHYROID PROFILE Ca Norm WB 1.06 1.05 - 1.25 01/23/2020 [facility] CHEM PANEL Magnesium Lvl 2.1 1.8 - 2.4 01/22/2020 [facility] CHEM PANEL Phosphorus 3.0 2.5 - 4.5 01/22/2020 [facility] CHEM PANEL Glucose Lvl 126 70 - 99 01/22/2020 [facility] CHEM PANEL BUN 8 7 - 22 01/22/2020 [facility] CHEM PANEL Creatinine Lvl 0.84 0.50 - 1.40 01/22/2020 [facility] CHEM PANEL Sodium Lvl 139 135 - 145 01/22/2020 [facility] CHEM PANEL Potassium Lvl 4.4 3.5 - 5.1 01/22/2020 [facility] CHEM PANEL Chloride Lvl 110 95 - 109 01/22/2020 [facility] CHEM PANEL CO2 20 24 - 32 01/22/2020 [facility] CHEM PANEL Calcium Lvl 8.8 8.5 - 10.5 01/22/2020 [facility] CHEM PANEL AGAP 13.4 10.0 - 20.0 01/22/2020 [facility] CHEM PANEL eGFR 73 01/22/2020 Result Comment: [...] should be multiplied by the estimated BMI. [facility] HEMATOLOGY WBC 7.0 3.7 - 10.4 01/22/2020 [facility] HEMATOLOGY RBC 3.05 4.20 - 5.40 01/22/2020 [facility] HEMATOLOGY Hgb 9.0 12.0 - 16.0 01/22/2020 [facility] HEMATOLOGY Hct 27.8 36.0 - 48.0 01/22/2020 [facility] HEMATOLOGY MCV 91.0 80.0 - 98.0 01/22/2020 [facility] HEMATOLOGY MCH 29.4 27.0 - 31.0 01/22/2020 [facility] HEMATOLOGY MCHC 32.3 32.0 - 36.0 01/22/2020 [facility] HEMATOLOGY RDW 19.3 11.5 - 14.5 01/22/2020 [facility] HEMATOLOGY Platelet 236 133 - 450 01/22/2020 [facility] HEMATOLOGY MPV 7.6 7.4 - 10.4 01/22/2020 [facility] HEMATOLOGY Segs 85.2 45.0 - 75.0 01/22/2020 [facility] HEMATOLOGY Lymphocytes 13.0 20.0 - 40.0 01/22/2020 [facility] HEMATOLOGY Monocytes 1.3 2.0 - 12.0 01/22/2020 [facility] HEMATOLOGY Basophils 0.5 0.0 - 1.0 01/22/2020 [facility] HEMATOLOGY Neutrophils # 5.9 1.5 - 8.1 01/22/2020 [facility] HEMATOLOGY Lymphocytes # 0.9 1.0 - 5.5 01/22/2020 [facility] HEMATOLOGY Monocytes # 0.1 0.0 - 0.8 01/22/2020 [facility] IMMUNOLOGY T-Spot.TB Negat dahlia (01/22/20 1:14 AM) Negative 01/22/2020 [facility] PARATHYROID PROFILE Ca Ion WB 1.20 1.05 - 1.25 01/22/2020 [facility] PARATHYROID PROFILE Ca Norm WB 1.15 1.05 - 1.25 01/22/2020 [facility] CARDIAC ENZYMES BNP 104 <=100 pg/mL 01/21/2020 [facility] HEMATOLOGY Eosinophils 2.1 0.0 - 4.0 01/21/2020 [facility] HEMATOLOGY Eosinophils # 0.1 0.0 - 0.5 01/21/2020 [facility] HEMATOLOGY Eosinophils 1.6 0.0 - 4.0 01/20/2020 [facility] HEMATOLOGY Eosinophils # 0.1 0.0 - 0.5 01/20/2020 [facility] BLOOD BANK RESULTS ABO/Rh A NEG 01/18/2020 [facility] BLOOD BANK RESULTS Antibody Scrn Negative (01/18/20 10:58 AM) 01/18/2020 [facility] BLOOD BANK RESULTS FFP product Product available (01/18/20 9:50 AM) 01/18/2020 [facility] URINE AND STOOL UA Color Yellow *NA* (01/18/20 3:01 AM) Yellow 01/18/2020 [facility] URINE AND STOOL UA Turbidity Clear (01/18/20 3:01 AM) Clear 01/18/2020 [facility] URINE AND STOOL UA Spec Grav 1.021 <=1.030 01/18/2020 [facility] URINE AND STOOL UA pH 5.0 5.0 - 8.0 01/18/2020 [facility] URINE AND STOOL UA Protein 30 mg/dL Negative mg/dL 01/18/2020 [facility] URINE AND STOOL UA Glucose Negative mg/dL Negative mg/dL 01/18/2020 [facility] URINE AND STOOL UA Ketones Trace mg/dL Negative mg/dL 01/18/2020 [facility] URINE AND STOOL UA Bili Negative *NA* (01/18/20 3:01 AM) Negative 01/18/2020 [facility] URINE AND STOOL UA Blood Negative (01/18/20 3:01 AM) Negative 01/18/2020 [facility] URINE AND STOOL UA Urobilinogen <1.0 0.1 - 1.0 01/18/2020 [facility] URINE AND STOOL UA Nitrite Negative (01/18/20 3:01 AM) Negative 01/18/2020 [facility] URINE AND STOOL UA Leuk Est Negative (01/18/20 3:01 AM) Negative 01/18/2020 [facility] URINE AND STOOL UA Sq Epi Occasional /LPF Few /LPF 01/18/2020 [facility] URINE AND STOOL UA WBC 3 0 - 5 01/18/2020 [facility] URINE AND STOOL UA Mucus Few /LPF None Seen /LPF 01/18/2020 [facility] URINE AND STOOL UA Hyal Cast 4 0 - 2 01/18/2020 [facility] URINE CHEM U Creatinine 115.00 01/18/2020 [facility] URINE CHEM U Protein 88.0 01/18/2020 [facility] URINE CHEM U Prot/Creat 0.77 01/18/2020 [facility] HEMATOLOGY Fibrinogen Lvl 339 230 - 510 01/18/2020 [facility] HEMATOLOGY Eosinophils # 0.1 0.0 - 0.5 01/18/2020 [facility] URINE AND STOOL UA Color Yellow *NA* (01/17/20 6:17 AM) Yellow 01/17/2020 [facility] URINE AND STOOL UA Turbidity Clear (01/17/20 6:17 AM) Clear 01/17/2020 [facility] URINE AND STOOL UA Spec Grav 1.025 <=1.030 01/17/2020 [facility] URINE AND STOOL UA pH 5.0 5.0 - 8.0 01/17/2020 [facility] URINE AND STOOL UA Protein 30 mg/dL Negative mg/dL 01/17/2020 [facility] URINE AND STOOL UA Glucose Negative mg/dL Negative mg/dL 01/17/2020 [facility] URINE AND STOOL UA Ketones Trace mg/dL Negative mg/dL 01/17/2020 [facility] URINE AND STOOL UA Bili Negative *NA* (01/17/20 6:17 AM) Negative 01/17/2020 [facility] URINE AND STOOL UA Blood Negative (01/17/20 6:17 AM) Negative 01/17/2020 [facility] URINE AND STOOL UA Urobilinogen <1.0 0.1 - 1.0 01/17/2020 [facility] URINE AND STOOL UA Nitrite Negative (01/17/20 6:17 AM) Negative 01/17/2020 [facility] URINE AND STOOL UA Leuk Est Negative (01/17/20 6:17 AM) Negative 01/17/2020 [facility] URINE AND STOOL UA Sq Epi Occasional /LPF Few /LPF 01/17/2020 [facility] URINE AND STOOL UA WBC 3 0 - 5 01/17/2020 [facility] URINE AND STOOL UA Mucus Few /LPF None Seen /LPF 01/17/2020 [facility] URINE AND STOOL UA Amorph Reva Occasional /HPF None Seen /HPF 01/17/2020 [facility] URINE AND STOOL UA Hyal Cast 4 0 - 2 01/17/2020 [facility] URINE AND STOOL UA Gran Cast 6-10 /LPF None Seen /LPF 01/17/2020 [facility] URINE CHEM U Creatinine 91.80 01/17/2020 [facility] URINE CHEM U Protein 103.9 01/17/2020 [facility] URINE CHEM U Prot/Creat 1.13 01/17/2020 [facility] IMMUNOLOGY C-ANCA Negat dahlia (01/16/20 1:24 PM) Negative 01/16/2020 [facility] IMMUNOLOGY P-ANCA Negat dahlia (01/16/20 1:24 PM) Negative 01/16/2020 [facility] IMMUNOLOGY SENIOR SUPPLIER QUALITY ENGINEER Ab 0.3 <=0.9 AI 01/16/2020 [facility] IMMUNOLOGY SCL- 70 Ab <0.2 <=0.9 AI 01/16/2020 [facility] URINE AND STOOL UA Color Light Yellow *NA* (01/16/20 6:48 AM) Yellow 01/16/2020 [facility] URINE AND STOOL UA Turbidity Clear (01/16/20 6:48 AM) Clear 01/16/2020 [facility] URINE AND STOOL UA Spec Grav 1.057 <=1.030 01/16/2020 [facility] URINE AND STOOL UA pH 5.0 5.0 - 8.0 01/16/2020 [facility] URINE AND STOOL UA Protein Negative mg/dL Negative mg/dL 01/16/2020 [facility] URINE AND STOOL UA Glucose Negative mg/dL Negative mg/dL 01/16/2020 [facility] URINE AND STOOL UA Ketones Trace mg/dL Negative mg/dL 01/16/2020 [facility] URINE AND STOOL UA Bili Negative *NA* (01/16/20 6:48 AM) Negative 01/16/2020 [facility] URINE AND STOOL UA Blood Negative (01/16/20 6:48 AM) Negative 01/16/2020 [facility] URINE AND STOOL UA Urobilinogen <1.0 0.1 - 1.0 01/16/2020 [facility] URINE AND STOOL UA Nitrite Negative (01/16/20 6:48 AM) Negative 01/16/2020 [facility] URINE AND STOOL UA Leuk Est Negative (01/16/20 6:48 AM) Negative 01/16/2020 [facility] URINE AND STOOL UA WBC 3 0 - 5 01/16/2020 [facility] URINE AND STOOL UA RBC 2 0 - 2 01/16/2020 [facility] URINE AND STOOL UA Mucus Few /LPF None Seen /LPF 01/16/2020 [facility] URINE AND STOOL UA Sq Epi None Seen 01/16/2020 [facility] URINE CHEM U Creatinine 49.60 01/16/2020 [facility] URINE CHEM U Protein 53.2 01/16/2020 [facility] URINE CHEM U Prot/Creat 1.07 01/16/2020 [facility] IMMUNOLOGY Coronavirus (COVID-19) NA A Not Detected (01/15/20 5:42 PM) Not Detected 01/15/2020 [facility] BLOOD BANK RESULTS RBC product Product available (01/15/20 11:59 AM) 01/15/2020 [facility] BLOOD BANK RESULTS Antibody Scrn Negative (01/15/20 1:14 AM) 01/15/2020 [facility] BLOOD BANK RESULTS ABO/Rh A NEG 01/15/2020 [facility] ANEMIA STUDY Ferritin Lvl 208 5 - 204 01/15/2020 [facility] CARDIAC ENZYMES Total CK 70 12 - 191 01/15/2020 [facility] CHEM PANEL LDH 260 98 - 192 01/15/2020 [facility] HEMATOLOGY Fibrinogen Lvl 401 230 - 510 01/15/2020 [facility] HEMATOLOGY Retic Auto 9.1 0.5 - 1.5 01/15/2020 [facility] URINE AND STOOL UA RBC 9 0 - 2 01/15/2020 [facility] URINE AND STOOL UA Amorph Reva Occasional /HPF None Seen /HPF 01/15/2020 [facility] URINE AND STOOL UA CaOx Reva Occasional /HPF None Seen /HPF 01/15/2020 [facility] URINE AND STOOL UA Hyal Cast 1 0 - 2 01/15/2020 [facility] BLOOD BANK RESULTS FFP product Product available (01/14/20 11:30 AM) 01/14/2020 [facility] BLOOD BANK RESULTS FFP product Modification Required (01/14/20 9:53 AM) 01/14/2020 [facility] ANEMIA STUDY Ferritin Lvl 197 5 - 204 01/14/2020 [facility] CARDIAC ENZYMES Total CK 103 12 - 191 01/14/2020 [facility] CHEM PANEL LDH 258 98 - 192 01/14/2020 [facility] HEMATOLOGY Retic Auto 7.5 0.5 - 1.5 01/14/2020 [facility] CARDIAC ENZYMES Troponin-I 0.06 0.00 - 0.40 01/14/2020 [facility] CARDIAC ENZYMES Troponin-I 0.07 0.00 - 0.40 01/13/2020 [facility] CARDIAC ENZYMES Troponin-I 0.07 0.00 - 0.40 01/13/2020 [facility] CHEM PANEL Lactic Acid Lvl 0.6 0.5 - 2.2 01/13/2020 [facility] CHEM PANEL Total Protein 5.9 6.4 - 8.4 01/13/2020 [facility] CHEM PANEL Albumin Lvl 2.9 3.5 - 5.0 01/13/2020 [facility] CHEM PANEL ALT 32 0 - 65 01/13/2020 [facility] CHEM PANEL AST 34 0 - 37 01/13/2020 [facility] CHEM PANEL Alk Phos 55 39 - 136 01/13/2020 [facility] CHEM PANEL Bili Total 0.3 0.2 - 1.3 01/13/2020 [facility] CHEM PANEL B/C Ratio 38 6 - 25 01/13/2020 [facility] CHEM PANEL Globulin 3.0 2.7 - 4.2 01/13/2020 [facility] CHEM PANEL A/G Ratio 1.0 0.7 - 1.6 01/13/2020 [facility] ANEMIA STUDY Ferritin Lvl 152 5 - 204 01/13/2020 [facility] CARDIAC ENZYMES Total CK 101 12 - 191 01/13/2020 [facility] CHEM PANEL LDH 231 98 - 192 01/13/2020 [facility] HEMATOLOGY Retic Auto 6.9 0.5 - 1.5 01/13/2020 [facility] HEMATOLOGY Fibrinogen Lvl 380 230 - 510 01/13/2020 [facility] URINE AND STOOL UA RBC 4 0 - 2 01/12/2020 [facility] URINE AND STOOL UA Gran Cast 11-20 /LPF None Seen /LPF 01/12/2020 [facility] ANEMIA STUDY Iron 34 30 - 160 01/11/2020 [facility] ANEMIA STUDY TIBC 92 228 - 428 01/11/2020 [facility] ANEMIA STUDY UIBC 58 110 - 370 01/11/2020 [facility] ANEMIA STUDY % [place] Fe 37 12 - 57 01/11/2020 [facility] BLOOD BANK RESULTS ABO/Rh A NEG 01/11/2020 [facility] BLOOD BANK RESULTS Antibody Scrn Negative (01/11/20 12:55 AM) 01/11/2020 [facility] BLOOD BANK RESULTS MEGAN Gel Int Positive (01/11/20 12:55 AM) 01/11/2020 [facility] BLOOD BANK RESULTS C3 Int Negative (01/11/20 12:55 AM) 01/11/2020 [facility] BLOOD BANK RESULTS Path MEGAN Transfusion Medicine Physician Service Patient is a 64 y/o female with HTN, h/o Crohn's disease in remission, CKD stage 3, possible Parkinson's disease, and possible myasthenia gravis who was transferred to [facility] on 01/07/20 for higher level of care. [...] with the resident, Dr. Walls's, interpretation. CPT: 58194-MY 01/11/2020 [facility] CHEM PANEL VITAMIN B1 (THIAMINE) WHO LE BLOOD 138.0 66.5 - 200.0 01/11/2020 Result Comment: This test wa s developed and its performance characteristics
determined by [facility]. It has not been cleared or
approved by the Food and Drug Administration.
Performed At: [facility]
[address], [place] [id number]
Elijah Han MD Ph:[phone] [facility] CHEM PANEL B/C Ratio 37 6 - 25 01/11/2020 [facility] CHEM PANEL Total Protein 6.3 6.4 - 8.4 01/11/2020 [facility] CHEM PANEL Albumin Lvl 3.2 3.5 - 5.0 01/11/2020 [facility] CHEM PANEL Globulin 3.1 2.7 - 4.2 01/11/2020 [facility] CHEM PANEL A/G Ratio 1.0 0.7 - 1.6 01/11/2020 [facility] CHEM PANEL ALT 22 0 - 65 01/11/2020 [facility] CHEM PANEL AST 33 0 - 37 01/11/2020 [facility] CHEM PANEL Alk Phos 44 39 - 136 01/11/2020 [facility] CHEM PANEL Bili Total 0.6 0.2 - 1.3 01/11/2020 [facility] CHEM PANEL Aldolase 7.3 1.2 - 7.6 01/11/2020 [facility] CHEM PANEL Bili Total 0.6 0.2 - 1.3 01/11/2020 [facility] CHEM PANEL Bili Direct 0.3 0.0 - 0.3 01/11/2020 [facility] CHEM PANEL Bili Indirect 0.4 0.0 - 1.0 01/11/2020 [facility] HEMATOLOGY PB Smear Path CBC a nd [...] acute blood loss. Please correlate clinically. CPT 71813 01/11/2020 [facility] HEMATOLOGY Basophils # 0.1 0.0 - 0.2 01/11/2020 [facility] IMMUNOLOGY HIV Ag/Ab 4th Gen Negat dahlia *NA* (01/11/20 12:55 AM) Negative 01/11/2020 [facility] IMMUNOLOGY C3 Complement 62 88 - 201 01/11/2020 [facility] IMMUNOLOGY C4 Complement 18 16 - 47 01/11/2020 [facility] IMMUNOLOGY Cryoglob Negat dahlia (01/11/20 12:55 AM) Negative 01/11/2020 [facility] IMMUNOLOGY RF Qnt <10 0 - 20 01/11/2020 [facility] IMMUNOLOGY MuSK Auto Ab <1.0 01/11/2020 Result [...]
2. Michelle DERAS et al. PNAS 2013; 110(51);87517-15370.
3. Deepthi E et al. Neurology 2006;67:505- 507.
This test was developed and its performance characteristics
determined by [facility]. It has not been cleared or approved
by the Food and Drug Administration.
Performed At: [email or web address]
[address], [place] [id number]
Sam aCstro MD Ph:[phone] [facility] IMMUNOLOGY VGCC Ab Assay Negat dahlia Negative 01/11/2020 Result Comment: Results for this test ar e for research purposes only by the
assay's manager general. The performance characteristics of
this product have not been established. Results should not
be used as a diagnostic procedure without confirmation of
the diagnosis by another medically established diagnostic
product or procedure.
Performed At: [facility]
[address] [place] [id number]
Elijah Han MD Ph:[phone] [facility] IMMUNOLOGY C4 Complement 17 16 - 47 01/11/2020 [facility] IMMUNOLOGY C3 Complement 68 88 - 201 01/11/2020 [facility] METAL Lead ICP/MS None Detected 0 - 4 01/11/2020 Result Comment: Testing performed by Ind uctively coupled plasma/Mass
Spectrometry.
Environmental Exposure:
WHO Recommendation <20
Occupational Exposure:
OSHA Lead Std 40
LÁZARO 30

Detection Limit = 1

This test was developed and its performance
characteristics determined by [employer]. It has not been
cleared or approved by the Food and Drug Administration. [facility] METAL Arsenic Lvl 9 2 - 23 01/11/2020 Result Comment: This test was developed and its performance characteristics
determined by [employer]. It has not been cleared or
approved by the Food and Drug Administration.
Detection Limit = 1 [facility] METAL Mercury Lvl None Detected 0.0 - 14.9 01/11/2020 Result Comment: This test was developed and its performance characteristics
determined by [employer]. It has not been cleared or
approved by the Food and Drug Administration.
Environmental Exposure: <15.0
Occupational Exposure:
LÁZARO - Inorganic Mercury: 15.0

Detection Limit = 1.0
Performed At: [facility]
[address], [place] [id number]
Elijah Han MD Ph:[phone] [facility] METAL Copper Lvl 87 72 - 166 01/11/2020 Result Comment: This test was developed and its performance characteristics
determined by [facility]. It has not been cleared or
approved by the Food and Drug Administration.
Detection Limit = 5
Performed At: [facility]
[address] [place] [id number]
Elijah Han MD Ph:[phone] [facility] VIRAL - SEROLOGY W Nile Ab IgG Negative Negative 01/11/2020 Result Comment: No detectable West Nile Virus IgG Antibody. If a recent
infection is suspected, another specimen should be
submitted for testing within 7-14 days. [facility] VIRAL - SEROLOGY W Nile Ab IgM Negative Negative 01/11/2020 Result Comment: No detectable West Nile Virus IgM Antibody. If a recent
infection is suspected, another specimen should be
submitted for testing within 7-14 days.
Performed At: [facility]
[address] [place] [id number]
Elijah Han MD Ph:[phone] [facility] REFERENCE LAB RESULTS [facility] SEE COMMENT 01/10/2020 Result Comment: MYOSITIS SPECIFIC 11 ABS PNL

TEST: RESULTS: REFERENCE RANGE:

VICKI-1 AB <11 SI <11
PL-7 AB <11 SI <11
PL-12 AB <11 SI <11
EJ AB <11 SI <11
OJ AB <11 SI <11
SRP AB <11 SI <11
NH-2 ALPHA AB <11 SI <11
NH-2 BETA AB <11 SI <11
MDA-5 AB <11 SI <11
TIF-LY AB <11 SI <11
NXP-2 AB <11 SI <11

[facility]
[id number] [facility]
[place] [id number] [facility] BACTERIAL - SEROLOGY Source Strep Cerebral Spinal Fluid 01/10/2020 [facility] BACTERIAL - SEROLOGY Strep pneumonia e Ag Negative (01/10/20 10:11 AM) Negative 01/10/2020 [facility] BODY FLUIDS Tube Num CSF 1 01/10/2020 [facility] BODY FLUIDS Color CSF Kon[place] rless (01/10/20 10:11 AM) Colorless 01/10/2020 [facility] BODY FLUIDS Clarity CSF Samantha r (01/10/20 10:11 AM) Clear 01/10/2020 [facility] BODY FLUIDS Supernat CSF [place] rless (01/10/20 10:11 AM) Colorless 01/10/2020 [facility] BODY FLUIDS Nucleated Cells CSF 1 0 - 53 01/10/2020 [facility] BODY FLUIDS RBC CSF 800 0 - 03 01/10/2020 [facility] BODY FLUIDS Glucose CSF 82 45 - 80 01/10/2020 [facility] BODY FLUIDS Protein CSF 41 15 - 45 01/10/2020 [facility] BODY FLUIDS Tube Num CSF 4 01/10/2020 [facility] BODY FLUIDS Color CSF Ligh t Red *ABN* (01/10/20 10:11 AM) Colorless 01/10/2020 [facility] BODY FLUIDS Clarity CSF Slig ht *ABN* (01/10/20 10:11 AM) Clear 01/10/2020 [facility] BODY FLUIDS Supernat CSF [place] rless (01/10/20 10:11 AM) Colorless 01/10/2020 [facility] BODY FLUIDS Nucleated Cells CSF 7 0 - 53 01/10/2020 [facility] BODY FLUIDS RBC CSF 6000 0 - 03 01/10/2020 [facility] BODY FLUIDS Neutrophils CSF 90 0 - 6 01/10/2020 [facility] BODY FLUIDS Lymph CSF 6 40 - 80 01/10/2020 [facility] BODY FLUIDS Monocyte CSF 4 15 - 45 01/10/2020 [facility] BODY FLUIDS Lactic Acid CSF 1.5 0.6 - 2.2 01/10/2020 [facility] FUNGAL - SEROLOGY Crypto Ag CSF Negative (01/10/20 10:11 AM) Negative 01/10/2020 [facility] IMMUNOLOGY VDRL Scr CSF Non R eactive (01/10/20 10:11 AM) Non Reactive 01/10/2020 [facility] IMMUNOLOGY Alb (CPE) 3400.0 3400.0 - 5000.0 01/10/2020 [facility] IMMUNOLOGY IgG Lvl CSF 8.8 2.0 - 4.0 01/10/2020 [facility] IMMUNOLOGY IgG (CPE) 1240 694 - 1618 01/10/2020 [facility] IMMUNOLOGY IgG Index 2.1 0.3 - 0.7 01/10/2020 [facility] IMMUNOLOGY Alb CSF (CPE) 11.5 14.0 - 25.0 01/10/2020 [facility] IMMUNOLOGY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 had [...] of joint Neuro: oriented x3; 4/5 hand clinical geneticist bilaterally and 3+/5 dorsi- and plantar flexion [...] possible myasthenia gravis who was transferred to [facility] on 01/07/20 for higher level of care of possible myasthenia gravis v other cause of severe weakness. Rheumatology was consulted 01/10/20 with concern for potential autoimmune cause of polyneuropathy given CANDIDA 1:80 (speckled) and Ro 1. 9. 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 On note, she was also evaluated [...] plan as documented above. Rashaad Gonzalez MD [facility] Extracted from:Title: Ultrasound guided muscle biopsy. [...] to check for myopathy. 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 -- Rheumatology previously following lucio e, will [...] Dr. Carlitos Solares MD PCCM Fellow PGY-4 [facility] I have seen and examined the patient with Dr. Albert Ibrahim on 01/16/2020. I agree with his assessment and plan. 01/24/2020 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 4.HTN (hypertension)(I10) Continue amlodipine, carvedilol, Ranexa, clonidine 5.HLD (hyperlipidemia)(E78.5) Continue atorvastatin 6.Depression(F32.9) Continue fluoxetine and our purposeful 7.Anxiety(F41.9) Continue alprazolam as needed Ambulate Home once stable 08/26/2019 [facility] Plan of Care No Data Provided for This Section Social History Social History Date Source Social History TypeResponse Smoking Status Never smoker; Exposure to Tobacco Smoke None; Cigarette Smoking Last 365 Days No; Reg Smoking Cessation Counseling No entered on: 08/24/19 08/25/2019 [facility] Social History TypeResponse Smoking Status Never smoker; Exposure to Tobacco Smoke None; Cigarette Smoking Last 365 Days No; Reg Smoking Cessation Counseling No entered on: 08/24/19 08/25/2019 [facility] No data available for this section 12/19/2018 [facility] Marital History - Currently (Active) Current Smoker (305.1); (Active) Never Drank Alcohol (Active) 11/21/2013 [facility] Family History Value Date S ource Maternal history of Hypertension (V17.49 ); (Active) Paternal history of Hypertension (V17.49); (Active) 11/21/2013 [facility] Maternal history of Hypertension (V17.49 ); (Active) Paternal history of Hypertension (V17.49); (Active) 09/11/2013 [facility] Maternal history of Hypertension (V17.49 ); (Active) Paternal history of Hypertension (V17.49); (Active) 08/16/2013 [facility] Advance Directives Order Name Results Value Date Source Advance Directives Advance Dir ectives No Advance Directives available. 11/21/2013 [facility] Advance Directives Advance Dir ectives No Advance Directives available. 09/11/2013 [facility] Advance Directives Advance Dir ectives No Advance Directives available. 08/16/2013 [facility] Functional Status No Data Provided for This Section
[2020-05-13 15:31] VITALS: BP 169/84
[2020-05-13] MEDS ORDERED: SIMETHICONE80 MG PO (15:57)
[2020-05-13] MEDS ORDERED: SERTRALINE HCL100 MG PO (15:57)
[2020-05-13] MEDS ORDERED: TRAZODONE HCL50 MG PO (15:57)
[2020-05-13] MEDS ORDERED: PREDNISONE10 MG PO (15:57)
[2020-05-13] MEDS ORDERED: FAMOTIDINE20 MG PO (15:57)
[2020-05-13] MEDS ORDERED: NORCO 7.5-3251 EACH PO (15:57)
[2020-05-13] MEDS ORDERED: MIRALAX17 GM PO (15:57)
[2020-05-13] MEDS ORDERED: ATIVAN1 MG PO (15:57)
[2020-05-13] MEDS ORDERED: ASCORBIC ACID500 MG PO (15:57)
[2020-05-13] MEDS ORDERED: QUESTRAN PACKET4 GM PO (15:57)
[2020-05-13] MEDS ORDERED: MESTINON60 MG PO (15:57)
[2020-05-13] MEDS ORDERED: ZOFRAN4 MG PO (15:57)
[2020-05-13] MEDS ORDERED: ZINC-220220 MG PO (15:57)
[2020-05-13] MEDS ORDERED: SERTRALINE HCL50 MG PO (15:57)
[2020-05-13 16:08] VITALS: BP 169/84
[2020-05-13] MEDS ORDERED: ONDANSETRON HCL 4 MG ORAL DISINTEGRATING TAB PO PRN (18:15)
[2020-05-13] MEDS ORDERED: POLYETHYLENE GLYCOL 3350 17 GM PACK PO PRN (18:15)
[2020-05-13] MEDS ORDERED: SIMETHICONE 80 MG CHEW PO PRN (18:15)
[2020-05-13] MEDS ORDERED: CHOLESTYRAMINE 4 GM PACKET PO PRN (18:15)
[2020-05-13] MEDS ORDERED: CLONIDINE HCL 0.1 MG TAB PO PRN (18:15)
[2020-05-13 20:01] VITALS: BP 152/84
[2020-05-13 21:00] VITALS: BP 152/84
[2020-05-13] MEDS: PYRIDOSTIGMINE BROMIDE 60 MG TAB PO SCH (21:00)
[2020-05-13] MEDS: ATORVASTATIN 40 MG TAB PO SCH (21:00)
[2020-05-13] MEDS ORDERED: TRAZODONE HCL 50 MG TAB PO SCH (21:00)
[2020-05-13] MEDS ORDERED: ACETAMINOPHEN 325 MG TAB PO PRN (21:45)
[2020-05-13] MEDS ORDERED: TRAMADOL HCL 50 MG TAB PO PRN (21:45)
[2020-05-14] VITALS (9 sets, daily range): BP systolic 99–144; BP diastolic 63–80
--- NOTE | 2020-05-14 01:31 | History and Physical ---
CHIEF COMPLAINT: Nausea, vomiting, abdominal pain. HISTORY OF PRESENT ILLNESS: This is a 64-year-old female, she reports having a history of myasthenia gravis, depression, hypertension, hyperlipidemia, presents to the ED with complaints of abdominal pain, nausea, vomiting, found to have a urinary tract infection. The patient has a history of chronic opioid abuse. The patient's daughter called the hospital and informed us of her mother's history of IV drug abuse. The patient was apparently back in December of this year, admitted to [facility]. She reports having viral pneumonia, in which she improved and eventually was diagnosed with myasthenia gravis and sent to a [facility] facility that she reports she was there for 3-1/2 months. She was just discharged last Tuesday. She reports worsening weakness and she states that she did not get a whole lot of physical therapy. She denies any chest pain, palpitation, or any fevers, cough, or congestion. The patient was seen and evaluated at bedside on the medical floor. She is currently doing well with no other issues at this time. REVIEW OF SYSTEMS: Pertinent positives: Nausea, vomiting, abdominal pain, decreased oral intake. The rest of 14-point review of systems have been reviewed with the patient and are negative. ALLERGIES: HYDRALAZINE, KETOROLAC, METOCLOPRAMIDE, PROCHLORPERAZINE. HOME MEDICATIONS: She takes: 1. Norvasc. 2. Ascorbic acid. 3. Lipitor. 4. Coreg. 5. Cholestyramine. 6. Clonidine. 7. Famotidine. 8. Losartan. 9. Zofran. 10. MiraLAX. 11. Prednisone. 12. Mestinon, pyridostigmine. 13. Sertraline. 14. Simethicone. 15. Trazodone. 16. . 17. [place]. 18. Lorazepam. PAST MEDICAL HISTORY: Depression, history of viral pneumonia, it seems to be COVID-19 pneumonia, but she did not state that, myasthenia gravis, history of opioid abuse, acid reflux, hypertension, hyperlipidemia. PAST SURGICAL HISTORY: She reports none. FAMILY HISTORY: Hypertension and diabetes. SOCIAL HISTORY: No drugs. No alcohol. Does not smoke. Lives with family. PHYSICAL EXAMINATION: VITAL SIGNS: Temperature 98, pulse 95, respiratory rate is 20, blood pressure is 152/84, pulse ox 94% on room air. GENERAL: Not in acute distress. Alert and oriented x3. Cooperative on examination. HEENT: Head; normocephalic, atraumatic. Eyes; pupils are equal, round, and reactive to light bilaterally. Extraocular movements intact bilaterally. Throat; no evidence of erythema or exudates in the posterior pharynx. Has poor dentition. NECK: Supple. Good range of motion. PULMONARY: Clear to auscultation bilaterally. No wheezing, no rales, no rhonchi, no crackles appreciated. CARDIOVASCULAR: Positive S1 and S2. No murmurs, rubs, or gallops appreciated. ABDOMEN: Soft, nondistended, and nontender to palpation. Bowel sounds present. MUSCULOSKELETAL: Strength is 5/5 throughout. No evidence of any muscle deficits on examination. No weakness appreciated. NEUROLOGIC: Cranial nerve II through XII grossly intact. No evidence of any neurological deficits on exam. SKIN: Intact. Warm to touch. Good cap refill. PSYCHIATRIC: Normal affect and mood. EXTREMITIES: No edema. Good range of motion throughout. LABORATORY FINDINGS: Show white count 10.3, hemoglobin 11, hematocrit is 34, platelets of 173. Chemistry; sodium 138, potassium 2.6, chloride 105, bicarb 21, anion gap of 14, BUN is 10, creatinine 0.96, glucose 117, lactic acid 1. LFTs within normal range. Troponins were negative. BNP 47, albumin 3.1, lipase is 21. Urinalysis is consistent with UTI. Coronavirus is pending. MICROBIOLOGY: The UA from the ER was not sent for culture. I placed an order for them to send CT abdomen and pelvis, shows no focal pneumonia or pulmonary edema. No pleural effusion or pneumothorax. There is a density in the chest x-ray previously presumed to be a left pleural effusion, likely represents a prominent pericardial fat pad. Atrophic [place] right kidney containing 6 mm right lower pole renal calculus. No hydronephrosis or hydroureter. Diverticulosis without CT evidence of diverticulitis. Diffuse hepatic steatosis. Chest postoperative findings of endovascular repair of infrarenal aortic aneurysm and SMA and renal artery stenting. CT of the chest, similar findings. Chest x-ray, moderate left pleural effusion, but the CT chest does not state any moderate effusion. IMPRESSION: 1. Abdominal pain, nausea, vomiting, decreased oral intake. 2. History of myasthenia gravis, but no evidence of any weakness. 3. Urinary tract infection. 4. Electrolyte abnormalities with hypokalemia. 5. History of depression/anxiety. 6. Hypertension. PLAN: At this time, CT imaging does not show any etiology of the nausea and vomiting. In fact, she actually looks well. We are going to give her antinausea medication and only Tylenol No. 3 for pain control. We are going to monitor her very closely. I will go ahead and place her on some IV fluids for hydration. Resume same antihypertensive medications. As for her UTI, she is going to be on some IV antibiotics. The cultures were not sent from the ER, nurse for them to use the same sample from the ER for culture. Resume same antihypertensive medications. Replace potassium. Resume her pyridostigmine and steroids. Lovenox for DVT prophylaxis. PT/OT evaluation. Physical Medicine Rehab was consulted. She may need more aggressive therapy. Plan of care discussed with the patient and nursing staff at bedside. The patient verbalized understanding. MD RITA Smith/KAITLIN /[id number]
[2020-05-14] MEDS: POTASSIUM CHLORIDE 20 MEQ TAB CR PO SCH ×2 (02:16→08:30)
[2020-05-14] MEDS: SODIUM CHLORIDE 0.9% 1000ML 1,000 ML IV SCH ×2 (02:17→13:36)
[2020-05-14] MEDS: ENOXAPARIN SOD INJ 40 MG/0.4 ML SYR SC SCH ×2 (02:17→17:08)
[2020-05-14] MEDS: ACETAMINOPHEN/CODEINE 300MG - 30MG TAB PO PRN ×4 (03:06→21:25)
[2020-05-14] MEDS ORDERED: TRAMADOL HCL 50 MG TAB PO ONE (04:45)
[2020-05-14 06:51] LABS: BASOPHILS % 0.5 % (0.0-1.0); EOSINOPHILS # (AUTO) 0.2 (0.0-0.4); EOSINOPHILS % 2.6 % (0.0-6.0); HEMATOCRIT 32.7 % (34.2-44.1); HEMOGLOBIN 9.9 g/dL (12.0-16.0); LYMPHOCYTES # (AUTO) 1.6 (1.0-3.2); LYMPHOCYTES % 24.3 % (18.0-39.1); MEAN CORPUSCULAR HEMOGLOBIN 25.4 pg (28-32); MEAN CORPUSCULAR HGB CONC 30.3 g/dL (31-35); MEAN CORPUSCULAR VOLUME 84.1 fL (81-99); MONOCYTES % 15.1 % (4.4-11.3); NEUTROPHILS # (AUTO) 3.7 (2.1-6.9); NEUTROPHILS % 57.2 % (38.7-80.0); PLATELET COUNT 131 x10e3/uL (140-360); RED BLOOD COUNT 3.89 x10e6/uL (3.6-5.1); RED CELL DISTRIBUTION WIDTH 14.8 % (11.7-14.4)
[2020-05-14] MEDS: PYRIDOSTIGMINE BROMIDE 60 MG TAB PO SCH ×3 (07:17→21:23)
[2020-05-14 07:18] LABS: ANION GAP 13.1 mmol/L (8-16); BLOOD UREA NITROGEN 7 mg/dL (7-26); BUN/CREATININE RATIO 8 (6-25); CALCIUM 8.8 mg/dL (8.4-10.2); CARBON DIOXIDE 23 mmol/L (22-29); CHLORIDE 106 mmol/L (98-107); CREATININE, SERUM 0.91 mg/dL (0.57-1.11); EST GLOMERULAR FILTRATION RATE > 60 ML/MIN (60-); GLUCOSE 90 mg/dL (74-118); POTASSIUM 3.1 mmol/L (3.5-5.1); SODIUM 139 mmol/L (136-145)
[2020-05-14 07:50] LABS: CHOL/HDL RATIO 3.3 (3.0-3.6)
[2020-05-14 08:10] LABS: THYROID STIMULATING HORMONE 1.079 uIU/mL (0.350-4.940)
[2020-05-14] MEDS: OLMESARTAN MEDOXOMIL 5 MG TABLET PO SCH ×3 (08:30→17:45)
[2020-05-14] MEDS: CARVEDILOL 3.125 MG TAB PO SCH ×2 (08:30→17:08)
[2020-05-14] MEDS: AMLODIPINE BESYLATE 10 MG TAB PO SCH (08:31)
[2020-05-14] MEDS: PREDNISONE 10 MG TAB PO SCH (08:31)
[2020-05-14] MEDS: FAMOTIDINE 20 MG TAB PO SCH ×2 (08:31→17:45)
[2020-05-14] MEDS: ASCORBIC ACID 500 MG TAB PO SCH (08:32)
[2020-05-14] MEDS: SERTRALINE HCL 50 MG TAB PO SCH (08:33)
[2020-05-14] MEDS: SERTRALINE HCL 100 MG TAB PO SCH (09:00)
[2020-05-14] MEDS ORDERED: ZINC SULFATE 220 MG CAP PO SCH (09:00)
--- NOTE | 2020-05-14 09:01 | Diagnostic Imaging Report ---
EXAM: Renal Ultrasound INDICATION: Hypokalemia, urinary tract infection COMPARISON: CT abdomen and pelvis of 05/13/2020 TECHNIQUE: Transverse and longitudinal images of the kidneys and bladder were obtained. FINDINGS: Right Kidney: Length: 5.2 cm Appearance: Increased echogenicity. Collecting system: No hydronephrosis Stones: None Cyst/Mass: 7 mm mid pole anechoic simple cyst. Left Kidney: Length: 10.1 cm Appearance: Normal echogenicity. Collecting system: No hydronephrosis Stones: None Cyst/Mass: None Bladder: No mass or calculi. Left ureteral jet visualized. Prevoid volume estimate of 54 cc. IMPRESSION: Atrophic right [place] kidney with echogenic parenchyma consistent with medical renal disease. The right renal calculus seen on CT is not well visualized by ultrasound. Right midpole 7 mm simple cyst. Normal appearance of left kidney. Signed by: Lisa Lui MD on 05/14/2020 8:57 AM
[2020-05-14] MEDS: CEFTRIAXONE SOD 1 GM/NS 50 ML 50 ML IV SCH (14:04)
[2020-05-14] MEDS: MAALOX/LIDOCAINE/BENADRYL/NYST 30 ML BTL PO SCH ×2 (17:07→21:00)
[2020-05-14] MEDS: ATORVASTATIN 40 MG TAB PO SCH (21:23)
[2020-05-14] MEDS: TRAZODONE HCL 50 MG TAB PO PRN (21:24)
[2020-05-15] VITALS (10 sets, daily range): BP systolic 98–119; BP diastolic 59–69
--- NOTE | 2020-05-15 00:13 | Progress Note ---
DATE: 05/14/2020 Medicine Progress Note SUBJECTIVE: The patient seems to be at baseline. She reports having pain despite she looks pretty comfortable. She takes Tylenol No. 3 at home, which we will continue. PHYSICAL EXAMINATION: VITAL SIGNS: Temperature is 97.9, pulse 77, respiratory rate is 20, blood pressure 144/76, pulse ox 95% on room air. GENERAL: Not in acute distress. Alert and oriented x3. Cooperative on examination. HEENT: Head; normocephalic, atraumatic. Eyes; pupils are equal, round, and reactive to light bilaterally. PULMONARY: Clear to auscultation bilaterally. No wheezing, no rales, no rhonchi, no crackles appreciated. CARDIOVASCULAR: Positive S1 and S2. No murmurs, rubs, or gallops appreciated. ABDOMEN: Soft, nondistended, and nontender to palpation. Bowel sounds present. MUSCULOSKELETAL: Strength is 5/5 throughout. No evidence of any muscle deficits on examination. SKIN: Intact. Warm to touch. Good cap refill. PSYCHIATRIC: Normal affect and mood. EXTREMITIES: No edema. Good range of motion throughout. LABORATORY FINDINGS: Show white count 6.5, hemoglobin 9.9, hematocrit is 33, platelets of 131. Coagulation; PT 12, INR 0.91. Chemistry; sodium 139, potassium is 3.1, chloride 106, bicarb 23, anion gap of 13, BUN is 7, creatinine is 0.91, glucose 90. A1c was 5.5. LFTs within normal range. Lipase was 21. Urinalysis consistent with UTI. Coronavirus is pending. UA with culture, which I have requested for the last 2 days to send from the ER, was not sent. Currently, I do not know what the urine culture will be, but symptomatically she is improving. She is on IV antibiotics. IMAGING STUDIES: Renal ultrasound shows right kidney 5.2 cm, atrophic, left kidney is 10.1 cm. This is evidence of work consistent with medical renal disease. IMPRESSION: 1. Abdominal pain, nausea, vomiting, decreased oral intake-improved. 2. History of myasthenia gravis, but no evidence of any weakness on exam. 3. Urinary tract infection-urine culture was not sent to the lab despite discussing this with the staff on several occasions. 4. Electrolyte abnormalities with hypokalemia. 5. History of depression/anxiety. 6. Hypertension. PLAN: At this time, imaging studies reviewed. She is eating much better now. Continue with antinausea medication and continue with Tylenol No. 3 for pain control. The patient insists on IV pain control. Apparently, she goes to multiple ERs requesting pain medications. The daughter called the floor and reported that her mother does go to multiple ER places to get IV pain medications. Currently, she looks to be pain-free. I do not know the etiology of her pain. Get morning labs. Continue with IV fluids. Continue with IV antibiotics for UTI. Lovenox for DVT prophylaxis. PT/OT evaluation. Otherwise, potential discharge tomorrow if everything is found to be negative. MD RITA Smith/KAITLIN /[id number]
[2020-05-15] MEDS ORDERED: PANTOPRAZOLE 40 MG 10ML VIAL IV STA (00:24)
[2020-05-15] MEDS: SODIUM CHLORIDE 0.9% 1000ML 1,000 ML IV SCH ×2 (02:40→16:00)
[2020-05-15] MEDS: PYRIDOSTIGMINE BROMIDE 60 MG TAB PO SCH ×3 (05:48→21:36)
[2020-05-15] MEDS: ACETAMINOPHEN/CODEINE 300MG - 30MG TAB PO PRN ×2 (05:49→19:44)
[2020-05-15 06:38] LABS: BASOPHILS % 0.5 % (0.0-1.0); EOSINOPHILS # (AUTO) 0.2 (0.0-0.4); EOSINOPHILS % 4.5 % (0.0-6.0); HEMATOCRIT 30.7 % (34.2-44.1); HEMOGLOBIN 9.1 g/dL (12.0-16.0); LYMPHOCYTES # (AUTO) 1.3 (1.0-3.2); LYMPHOCYTES % 33.7 % (18.0-39.1); MEAN CORPUSCULAR HGB CONC 29.6 g/dL (31-35); MEAN CORPUSCULAR VOLUME 84.3 fL (81-99); MONOCYTES # (AUTO) 0.6 (0.2-0.8); MONOCYTES % 16.1 % (4.4-11.3); NEUTROPHILS # (AUTO) 1.8 (2.1-6.9); NEUTROPHILS % 44.9 % (38.7-80.0); PLATELET COUNT 115 x10e3/uL (140-360); RED BLOOD COUNT 3.64 x10e6/uL (3.6-5.1); RED CELL DISTRIBUTION WIDTH 14.7 % (11.7-14.4)
[2020-05-15] MEDS: MAALOX/LIDOCAINE/BENADRYL/NYST 30 ML BTL PO SCH ×3 (07:11→17:18)
[2020-05-15 07:16] LABS: ANION GAP 10.2 mmol/L (8-16); BLOOD UREA NITROGEN 6 mg/dL (7-26); BUN/CREATININE RATIO 8 (6-25); CALCIUM 7.7 mg/dL (8.4-10.2); CARBON DIOXIDE 20 mmol/L (22-29); CHLORIDE 114 mmol/L (98-107); CREATININE, SERUM 0.76 mg/dL (0.57-1.11); EST GLOMERULAR FILTRATION RATE > 60 ML/MIN (60-); GLUCOSE 74 mg/dL (74-118); POTASSIUM 3.2 mmol/L (3.5-5.1); SODIUM 141 mmol/L (136-145)
[2020-05-15 07:36] LABS: FERRITIN 159.65 ng/mL (4.63-204.00)
[2020-05-15] MEDS: SUCRALFATE 1 GM TAB PO SCH ×4 (08:34→21:36)
[2020-05-15] MEDS: OLMESARTAN MEDOXOMIL 5 MG TABLET PO SCH ×2 (08:35→17:18)
[2020-05-15] MEDS: CARVEDILOL 3.125 MG TAB PO SCH ×2 (08:36→16:19)
[2020-05-15] MEDS: AMLODIPINE BESYLATE 10 MG TAB PO SCH (08:37)
[2020-05-15] MEDS: FAMOTIDINE 20 MG TAB PO SCH ×2 (08:37→17:18)
[2020-05-15] MEDS: ASCORBIC ACID 500 MG TAB PO SCH (08:38)
[2020-05-15] MEDS: SERTRALINE HCL 50 MG TAB PO SCH (08:38)
[2020-05-15] MEDS: PREDNISONE 10 MG TAB PO SCH (08:39)
[2020-05-15] MEDS: PANTOPRAZOLE 40 MG 10ML VIAL IV SCH ×2 (08:39→21:36)
[2020-05-15] MEDS: SERTRALINE HCL 100 MG TAB PO SCH (08:40)
[2020-05-15] MEDS ORDERED: POTASSIUM CHLORIDE 20 MEQ TAB CR PO ONE (15:00)
[2020-05-15] MEDS: CEFTRIAXONE SOD 1 GM/NS 50 ML 50 ML IV SCH (15:08)
--- NOTE | 2020-05-15 16:47 | NUR ---
CALL TO DR DELEON REGARDING PT DISCHARGING HOME TODAY. K 3.2, K REPLACEMENT. STATES SHE WILL DC HOME TOMORROW.
--- NOTE | 2020-05-15 17:06 | Consultation ---
DATE OF CONSULTATION: 05/15/2020 I would like to thank, Dr. Cheng, for asking me to see Mrs. Yin in consultation. REASON FOR CONSULTATION: 1. Myasthenia gravis. 2. Persistent abdominal pain and nausea. 3. Anemia. HISTORY OF PRESENT ILLNESS: The patient is a pleasant but unfortunate 64-year-old female, who was diagnosed with myasthenia gravis in January 2020. States that she was taking Mestinon at home. She was recently in the [facility] senior [facility] facility for three months. She says she got a little bit better, but really did not think she got much out of it. Nonetheless, patient came into the hospital on 05/13 and underwent workup. She has persistent nausea and diarrhea at times, was seen by Dr. Mendoza Crow. I am being asked to evaluate for rehab needs. PAST MEDICAL HISTORY: Includes myasthenia gravis, abdominal pain. She has renal stenosis. PAST SURGICAL HISTORY: Include back surgery for scoliosis. HABITS: Denies. SOCIAL HISTORY: Lives by herself in a one-story home. She uses a walker at home. FAMILY HISTORY: No history of myasthenia gravis or other medical issues that she is aware. ALLERGIES: NO KNOWN DRUG ALLERGIES. LABORATORY DATA: White cell count 3.9, hemoglobin 9.1, hematocrit 30.7, platelets of 115. Sodium 141, potassium 3.2, BUN of 6, creatinine 0.76. Therapy tadeo, patient walked 90 feet at supervision with a rolling walker. Sitting balance was independent, dynamic and supervision with static. PHYSICAL EXAMINATION: GENERAL: Awake, alert, oriented x3. No apparent distress. EYES: Gaze conjugate. ORAL: Tongue is midline. No dysarthria. NEUROLOGIC: Sensory tadeo, denies any numbness or weakness in hands, feet or face. Manual muscle testing demonstrates 4+/5 strength in arms and legs bilaterally. Repeated squeezing of the hands did not cause progressive weakness. Sensory, denies any numbness or tingling. Clonus negative bilaterally. She is moving up and down the bed without much difficulty. IMPRESSION: 1. Myasthenia gravis. She seems to be close to baseline. She thinks she is weaker, but is seeming to be pretty strong actually. Although, I am sure she is not back to her prior level of function. 2. Persistent nausea and vomiting. Has been seen by Gastroenterology. PLAN: The patient reviewed his inpatient rehab and just wants to go home. States that she feels well enough and based on her numbers, she should do relatively well. Discussed the difference between . At this point, she is not really interested in being institutionalized anymore. Thank you once again for allowing me to participate in the care of this very interesting patient. Amado Foy DO RPL/NICOLASAL /[id number]
[2020-05-15] MEDS: ENOXAPARIN SOD INJ 40 MG/0.4 ML SYR SC SCH (17:18)
--- NOTE | 2020-05-15 17:29 | NUR ---
Pt has been refusing her prednisone, sertraline, vitamin c, blood pressure medications and Mestinon. She states she should only take her Mestinon once a day and she stopped taking prednisone previously, and she never takes vitamin c so she doesn't want it now.Also she though it would be a good time to stop sertraline, but now her son is in the hospital dying and she thinks maybe she will restart it tomorrow
--- NOTE | 2020-05-15 17:32 | NUR ---
Patient ate 50% of her breakfast and 75% of her lunch. She only had one small bm today but before I could get a sample she also urinated on it
[2020-05-15] MEDS: ATORVASTATIN 40 MG TAB PO SCH (21:36)
[2020-05-15] MEDS ORDERED: CYANOCOBALAMIN INJ 1,000 MCG/ML VIAL IM ONE (22:00)
[2020-05-16] VITALS: BP 131/68
[2020-05-16] MEDS: TRAZODONE HCL 50 MG TAB PO PRN (00:15)
[2020-05-16] MEDS: MAALOX/LIDOCAINE/BENADRYL/NYST 30 ML BTL PO SCH ×2 (00:15→06:00)
--- NOTE | 2020-05-16 01:42 | Progress Note ---
DATE: 05/15/2020 Medicine Progress Note SUBJECTIVE: The patient was seen and evaluated early this afternoon. The patient is doing well. She wants to go home tomorrow. She is not ready for today. She did ambulate very well with no issues. OBJECTIVE: VITAL SIGNS: Afebrile, normotensive. Respiratory rate is good. GENERAL: In no acute distress, alert and oriented x3. Cooperative on examination. HEENT: Head normocephalic and atraumatic. Eyes; pupils are equal, round, and reactive to light bilaterally. Extraocular movements are intact bilaterally. PULMONARY: Clear to auscultation bilaterally. No wheezing, rales, or rhonchi. No crackles appreciated. CARDIOVASCULAR: Positive S1 and S2. No murmurs, rubs, or gallops. GI: Abdomen is soft, nondistended, nontender palpation. Bowel sounds present. MUSCULOSKELETAL: Strength is 5/5 throughout. No evidence of any muscle deficits on examination. SKIN: Intact. Warm to touch. Good cap refill. PSYCHIATRIC: Normal affect and mood. LABORATORY DATA: Labs reviewed. CBC is stable. Chemistry reviewed shows potassium 3.2 replaced. Rest of the electrolytes are stable. MICROBIOLOGY: None. IMAGING STUDIES: Nothing new. IMPRESSION: 1. Abdominal pain, nausea, vomiting, decreased oral intake - improved. 2. History of myasthenia gravis with no evidence of any weakness on examination. 3. Urinary tract infection - urine culture was not sent to the lab by any staff on several occasion. 4. Electrolyte abnormalities with hypokalemia - replace. 5. History of depression/anxiety. 6. Hypertension. PLAN: At this time, the patient is eating much better. Her pain is well controlled. She refuses to go to rehab. Urine culture was not sent to the lab by staff. She is improving we will discharge her with similar antibiotics. A.m. labs. Lovenox for DVT prophylaxis. Discharge home tomorrow. MD RITA Smith/MODL /[id number]
[2020-05-16 04:00] VITALS: BP 109/75
--- NOTE | 2020-05-16 06:00 | NUR ---
BARBYE PICC dressing change completed. Pt tolerated well. No needs expressed at this time. Will continue to monitor.
[2020-05-16] MEDS: PYRIDOSTIGMINE BROMIDE 60 MG TAB PO SCH (06:01)
[2020-05-16] MEDS: ACETAMINOPHEN/CODEINE 300MG - 30MG TAB PO PRN (06:01)
[2020-05-16] MEDS: SUCRALFATE 1 GM TAB PO SCH ×2 (07:46→11:48)
--- NOTE | 2020-05-16 07:57 | NUR ---
ASSUMED CARE AT APPROXIMATELY 0715. AAOX3. ACYANOTIC. RESTING IN BED. NO DISTRESS NOTED. CALL LIGHT IN REACH. SIDE RAILS UP X2. BED LOW AND LOCKED.
[2020-05-16 08:00] VITALS: BP 142/71
[2020-05-16] MEDS ORDERED: IRON SUCROSE 100 MG in SODIUM CHLORIDE 0.9% 100 ML 100 ML IV SCH (09:00)
[2020-05-16] MEDS: PREDNISONE 10 MG TAB PO SCH (09:00)
[2020-05-16] MEDS ORDERED: CYANOCOBALAMIN INJ 1,000 MCG/ML VIAL IM SCH (09:00)
[2020-05-16] MEDS: SERTRALINE HCL 50 MG TAB PO SCH (09:05)
[2020-05-16] MEDS: OLMESARTAN MEDOXOMIL 5 MG TABLET PO SCH (09:05)
[2020-05-16] MEDS: SERTRALINE HCL 100 MG TAB PO SCH (09:05)
[2020-05-16] MEDS: FAMOTIDINE 20 MG TAB PO SCH (09:05)
[2020-05-16] MEDS: ASCORBIC ACID 500 MG TAB PO SCH (09:05)
[2020-05-16] MEDS: PANTOPRAZOLE 40 MG 10ML VIAL IV SCH (09:05)
[2020-05-16] MEDS: AMLODIPINE BESYLATE 10 MG TAB PO SCH (09:05)
[2020-05-16] MEDS: CARVEDILOL 3.125 MG TAB PO SCH (09:05)
[2020-05-16 09:17] LABS: HEMATOCRIT 31.1 % (34.2-44.1); HEMOGLOBIN 9.3 g/dL (12.0-16.0)
[2020-05-16 09:47] LABS: ANION GAP 12.8 mmol/L (8-16); BLOOD UREA NITROGEN 7 mg/dL (7-26); BUN/CREATININE RATIO 9 (6-25); CALCIUM 8.5 mg/dL (8.4-10.2); CARBON DIOXIDE 21 mmol/L (22-29); CHLORIDE 111 mmol/L (98-107); CREATININE, SERUM 0.81 mg/dL (0.57-1.11); EST GLOMERULAR FILTRATION RATE > 60 ML/MIN (60-); GLUCOSE 88 mg/dL (74-118); POTASSIUM 3.8 mmol/L (3.5-5.1); SODIUM 141 mmol/L (136-145)
[2020-05-16 12:00] VITALS: BP 125/67
--- NOTE | 2020-05-16 12:41 | NUR ---
ORDER RECEIVED FOR HOME PT. CALL TO THE PT'S RM AND CELL PHONE. PT CALLED RIGHT BACK. DISCUSSED HOME PT. STATES SHE NEEDED SOMEONE TO COME OUT AND HELP HER W HER BATH AND CLEANING. DISCUSSED HOW TO OBTAIN A PROVIDER W THE STATE OR PAY FOR A CAREGIVER. PT STATES HER DTR WAS ALREADY WORKING ON GETTING HER A PROVIDER AND SOMEONE TO COME TO HER HOME. PT REQUESTED TO CALL HER DTR BEFORE SHE GAVE CHOICE FOR A HH AGENCY. CM W AWAIT CALL BACK.
--- NOTE | 2020-05-16 23:03 | Discharge Summary ---
FINAL DISCHARGE DIAGNOSES: 1. Abdominal pain, nausea, vomiting-resolved. 2. History of myasthenia gravis with no evidence of any weakness at baseline. 3. Urinary tract infection-discharged on oral antibiotics. 4. Electrolyte abnormalities. 5. History of depression, anxiety. 6. Hypertension. CONSULTANTS: 1. Physical Medicine and Rehab. 2. GI. PHYSICAL EXAMINATION: VITAL SIGNS: Temperature is 97.8, pulse 65, respiratory rate is 20, blood pressure 125/67, pulse ox 98% on room air. LABORATORY FINDINGS: Show white count is 3.9, hemoglobin 9.2, hematocrit is 31, platelets of 115. Coagulation; PT 12, INR 0.91. Chemistry; sodium 141, potassium 3.8, chloride 111, bicarb 21, anion gap of 12, BUN is 7, creatinine is 0.81, glucose is 88. Hemoglobin A1c 5.5. Calcium is 7.7, repeat is 8.5. Iron saturation 12%. LFTs within normal range. Albumin 3.1. TSH is 1.079. Lipase level was 21. LDL was 89. UA was consistent with UTI, but was never sent for culture after I have discussed this to put an MD to nurse for this to be done, but it was not done after several days, but apparently the patient was doing well with cephalosporin. She was discharged on oral cephalosporins regimen. SEROLOGY: Coronavirus not detected. MICROBIOLOGY: None. IMAGING STUDIES: CT abdomen and pelvis shows no focal pneumonia, pulmonary edema. No pleural effusion, pneumothorax. Does have atrophic [place] kidney containing 6 mm right lower pole renal calculus. No hydronephrosis or hydroureter. Diffuse hepatic steatosis. Postoperative changes with prior endovascular repair of the infrarenal aortic aneurysm and SMA and renal artery stenting. CT of the chest shows similar findings as CT abdomen and pelvis. Renal ultrasound shows a right kidney at 5.2 cm, left kidney 7.1 cm. The patient has atrophic right [place] kidney with echogenic parenchyma consistent with medical renal disease. HOSPITAL COURSE: A 64-year-old female, who came into the emergency room with complaints of generalized weakness and fatigue. The patient was admitted, prompting further evaluation and management. GI was consulted. She was complaining of underlying abdominal pain, nausea, vomiting, which improved throughout the hospital course. The patient seems to have drug-seeking behavior, wanting IV pain medication, instead I had given her only oral pain medications. She improved throughout the hospital course. No further workup needed by GI. The patient also has a history of myasthenia gravis, in which her medications were started accordingly. She also has underlying urinary tract infection, treated with IV cephalosporin and discharged on oral cephalosporins on discharge. She was doing well with those medications with no complaints. As for her electrolyte abnormalities, we replaced accordingly. History of depression and anxiety was treated accordingly with her home med regimen. On the day of discharge, vital signs were stable, labs reviewed and stable. The patient is seen and evaluated, and examined thoroughly on the day of discharge. No other complaints. The patient verbalized understanding and agrees to plan of care to follow up as an outpatient with the primary care physician in 1 week. I did get Physical Medicine Rehab to come evaluate the patient, but she refused to work with PT and OT while here in the hospital and she also stated to Dr. Foy, the rehab physician that she will not go to any facility, instead wants to go home. DISPOSITION: Home. CONDITION: Stable. DIET: Heart healthy. MEDICATIONS: See med reconciliation form. In the event of any worsening symptoms, the patient was advised to come back to the ED for further evaluation. Discharge summary took greater than 35 minutes. MD RITA Smith/KAITLIN /[id number]
== END 2020-05-16 13:06 | disposition home or self-care (01) ==
LOC: ER 08:12 → ERHOLD 13:42 → MED/SURG3 15:29
PROVIDERS: ADMIT Internal Medicine; ATTEND Internal Medicine
DX: N39.0 Urinary tract infection, site not specified (principal); E87.6 Hypokalemia; I10 Essential (primary) hypertension; F32.9 Major depressive disorder, single episode, unspecified; G70.00 Myasthenia gravis without (acute) exacerbation; E78.5 Hyperlipidemia, unspecified; D64.9 Anemia, unspecified; Z11.59 Encounter for screening for other viral diseases
CPT/HCPCS: 36415 ×4; 36569; 71045 ×2; 71260; 74177; 76770; 80048 ×3; 80053; 80061; 81001; 82607; 82728; 82746; 83036; 83540; 83605; 83690; 83735; 83880; 84443; 84466; 84484 ×2; 85014; 85018; 85025 ×3; 85045; 85610; 93005; 97112; 97116 ×2; 97139 ×2; 97162; 99285; C9113 ×2; G0378 ×4; J0696 ×3; J1170; J1650 ×2; J1756; J2405; J3010; J3420; J3480; J7030 ×2; J7512; Q0162; Q9967; U0002

== ENCOUNTER 2020-10-10 14:02 | Emergency (ER) | payer MEDICARE ==
[~2020-10-10] VITALS: Ht 203.2 cm; Wt 80.3 kg
[~2020-10-10 14:02] MED LIST changes: +ASCORBIC ACID500 MG PO; +ATIVAN1 MG PO; +FAMOTIDINE20 MG PO; +MESTINON60 MG PO; +MIRALAX17 GM PO; +NORCO 7.5-3251 EACH PO; +PREDNISONE10 MG PO; +QUESTRAN PACKET4 GM PO; +SERTRALINE HCL100 MG PO; +SERTRALINE HCL50 MG PO; +SIMETHICONE80 MG PO; +TRAZODONE HCL50 MG PO; +ZINC-220220 MG PO; +ZOFRAN4 MG PO
[2020-10-10] MEDS ORDERED: TYLENOL # 31 EA PO (14:42)
[2020-10-10] MEDS ORDERED: GUAIFENESIN/DEXTROMETHORPHAN LIQD 5 ML UDC PO PRN (14:45)
== END 2020-10-10 15:38 | disposition home or self-care (01) ==
LOC: ER 14:12
DX: U07.1 COVID-19 (principal); R05 Cough; R51.9 Headache, unspecified; I10 Essential (primary) hypertension; I50.9 Heart failure, unspecified
CPT/HCPCS: 99283

== ENCOUNTER 2020-10-12 08:51 | Emergency (ER) | payer MEDICARE ==
[~2020-10-12] VITALS: Ht 203.2 cm; Wt 80.3 kg
[~2020-10-12 08:51] MED LIST changes: +TYLENOL # 31 EA PO
[2020-10-12] MEDS ORDERED: ALBUTEROL/IPRATROPIUM 3 ML NEB NEB ONE (09:15)
[2020-10-12] MEDS ORDERED: METHYLPREDNISOLONE SOD SUCC 125 MG/2ML VIAL IV NR (10:01)
[2020-10-12 10:58] LABS: BASOPHILS % 0.3 % (0.0-1.0); EOSINOPHILS # (AUTO) 0.1 (0.0-0.4); EOSINOPHILS % 1.2 % (0.0-6.0); HEMATOCRIT 34.1 % (34.2-44.1); HEMOGLOBIN 10.3 g/dL (12.0-16.0); LYMPHOCYTES # (AUTO) 3.6 (1.0-3.2); LYMPHOCYTES % 36.2 % (18.0-39.1); MEAN CORPUSCULAR HEMOGLOBIN 25.4 pg (28-32); MEAN CORPUSCULAR HGB CONC 30.2 g/dL (31-35); MEAN CORPUSCULAR VOLUME 84.2 fL (81-99); MONOCYTES # (AUTO) 0.8 (0.2-0.8); MONOCYTES % 8.1 % (4.4-11.3); NEUTROPHILS # (AUTO) 5.2 (2.1-6.9); NEUTROPHILS % 53.4 % (38.7-80.0); PLATELET COUNT 184 x10e3/uL (140-360); RED BLOOD COUNT 4.05 x10e6/uL (3.6-5.1); RED CELL DISTRIBUTION WIDTH 16.5 % (11.7-14.4)
[2020-10-12] MEDS ORDERED: HYDROMORPHONE 1MG/1ML INJ IV ONE (11:00)
[2020-10-12] MEDS ORDERED: ONDANSETRON HCL INJ 2MG/ML 2ML 2 MG/ML VIAL IV NR (11:00)
[2020-10-12 11:19] LABS: INR 0.82; PROTHROMBIN TIME 11.8 seconds (11.9-14.5)
[2020-10-12 11:28] LABS: ALBUMIN 3.2 g/dL (3.5-5.0); ALBUMIN/GLOBULIN RATIO 0.9 (0.8-2.0); ANION GAP 12.4 mmol/L (8-16); CALCIUM 8.9 mg/dL (8.4-10.2); CREATININE, SERUM 1.13 mg/dL (0.57-1.11); POTASSIUM 3.4 mmol/L (3.5-5.1)
[2020-10-12 11:51] LABS: CREATINE KINASE MB 1.8 ng/mL (0-5.0)
[2020-10-12] MEDS ORDERED: PROAIR HFA INH8.5 GM HHN (12:14)
[2020-10-12] MEDS ORDERED: TYLENOL # 31 EA PO (12:14)
[2020-10-12] MEDS ORDERED: AZITHROMYCIN250 MG PO (12:14)
== END 2020-10-12 13:02 | disposition home or self-care (01) ==
LOC: ER 09:09
DX: J40 Bronchitis, not specified as acute or chronic (principal); R05 Cough; R06.02 Shortness of breath; R94.31 Abnormal electrocardiogram [ECG] [EKG]; I10 Essential (primary) hypertension; I50.9 Heart failure, unspecified; K50.90 Crohn's disease, unspecified, without complications; Z11.52 Encounter for screening for COVID-19
CPT/HCPCS: 36415; 71045; 80053; 82550; 82553; 83880; 84484; 85025; 85610; 85730; 93005; 99284; J1170; J2405; J2930; U0002

== ENCOUNTER 2020-10-16 14:00 | Emergency (ER) | payer MEDICARE ==
[~2020-10-16] VITALS: Ht 172.7 cm; Wt 86.2 kg
[~2020-10-16 14:00] MED LIST changes: +AZITHROMYCIN250 MG PO; +PROAIR HFA INH8.5 GM HHN
[2020-10-16] MEDS ORDERED: ONDANSETRON HCL 4 MG ORAL DISINTEGRATING TAB ONE (14:44)
[2020-10-16] MEDS ORDERED: ONDANSETRON HCL 4 MG ORAL DISINTEGRATING TAB PO ONE (14:45)
== END 2020-10-16 16:20 | disposition home or self-care (01) ==
LOC: ER 14:29
DX: R06.00 Dyspnea, unspecified (principal); F41.1 Generalized anxiety disorder; I10 Essential (primary) hypertension; I50.9 Heart failure, unspecified; K50.90 Crohn's disease, unspecified, without complications; Z11.52 Encounter for screening for COVID-19
CPT/HCPCS: 71045; 99283; Q0162; U0002